=== PATIENT | male | born 1990 | race Caucasian/White ===

== ENCOUNTER 2018-12-29 08:47 | Inpatient (IN) | payer BC ==
--- NOTE | 2018-12-25 19:15 | Pre-op HX & Phy Repo 2 SIG ---
DATE OF ADMISSION: 12/30/2018 SCHEDULED FOR ADMISSION: December 29, 2018. SCHEDULED FOR SURGERY: December 30, 2018. HISTORY OF PRESENT ILLNESS: The patient is a 28-year-old male in overall stable health with history of ulcerative colitis affecting the entire colon. He has been on many medications in the past including mesalamine, Imuran, Humira, Remicade, Stelara, prednisone, and Xeljanz. All of his medications have been stopped and his last dose of prednisone was August 18, 2018. The last dose of Stelara was September 16, 2018. Since mid October, he is taking only Imodium on occasion as opposed to earlier when he needs to take Imodium on a daily basis. He has been advised to undergo proctocolectomy for intractable ulcerative colitis. He does not want an ileoanal J-pouch and wants to avoid a conventional ileostomy wearing an appliance. Accordingly, he is scheduled to undergo proctocolectomy laparoscopic-assisted with creation of a Argueta continent intestinal reservoir type of continent. PAST MEDICAL HISTORY: MEDICATIONS: Occasional Imodium. ALLERGIES: None. OPERATIONS: None. PHYSICAL EXAMINATION: GENERAL: The patient is 5 feet 6 inches and 160 pounds. [place] and will be examined upon arrival and dictated separately. IMPRESSION: Intractable ulcerative colitis. PLAN: Proctocolectomy and Argueta continent ileostomy. I have had a complete discussion with the patient regarding the nature of his condition, the nature of the surgery, indications, alternatives, options, and risks including bleeding, infection, injury to adjacent structures or organs, impotence or retrograde ejaculation, bladder dysfunction, delayed healing of the proctectomy, perineal wound, hernia, adhesions that could lead to obstructions and I have discussed the specific risks of the Argueta continent intestinal reservoir procedure including potential risks for reoperation for slipped valve or fistula or other issues with the pouch or stoma. We will have another complete discussion in person when the [place]. He will be admitted with insertion of a dual lumen PICC line, intravenous hydration during his bowel prep. Intravenous antibiotics started the night before surgery and subcutaneous heparin the morning of surgery. Gonzales Siddiqui M.D. DR: Adelso JOB#: [id number] CC:
[~2018-12-29] VITALS: Ht 167.6 cm; Wt 71.7 kg
[2018-12-29] MEDS ORDERED: Magnesium Citrate Liq Btl ORAL ONE ×2 (10:30→10:45)
[2018-12-29] MEDS ORDERED: Zolpidem 5mg tab ORAL PRN (10:30)
[2018-12-29 10:35] LABS: BASOPHILS % (AUTO) 1.5 % (0.0-2.0); EOSINOPHILS % (AUTO) 4.5 % (0.0-3.0); HEMATOCRIT 37.8 % (42.0-52.0); HEMOGLOBIN 11.3 G/DL (14.2-18.0); LYMPHOCYTES % (AUTO) 32.6 % (20.0-45.0); MEAN CORPUSCULAR VOLUME 74 FL (80-99); MONOCYTES % (AUTO) 13.9 % (1.0-10.0); NEUTROPHILS % (AUTO) 47.5 % (45.0-75.0); PLATELET COUNT 292 K/UL (150-450); RED CELL DISTRIBUTION WIDTH 13.8 % (11.6-14.8); WHITE BLOOD COUNT 6.3 K/UL (4.8-10.8)
[2018-12-29 10:51] LABS: ANION GAP 6 mmol/L (5-15); BLOOD UREA NITROGEN 9 mg/dL (7-18); CALCIUM 9.2 MG/DL (8.5-10.1); CARBON DIOXIDE 29 MMOL/L (21-32); CHLORIDE 102 MMOL/L (98-107); CREATININE 0.9 MG/DL (0.55-1.30); POTASSIUM 4.1 MMOL/L (3.5-5.1); SODIUM 137 MMOL/L (136-145)
[2018-12-29 10:52] LABS: INR 1.1 (0.9-1.1)
[2018-12-29 10:56] LABS: ALANINE AMINOTRANSFERASE 11 U/L (12-78); ALBUMIN 3.4 G/DL (3.4-5.0); ALBUMIN/GLOBULIN RATIO 0.9 (1.0-2.7); ALKALINE PHOSPHATASE 120 U/L (46-116); ASPARTATE AMINO TRANSFERASE 18 U/L (15-37); BILIRUBIN,TOTAL 0.6 MG/DL (0.2-1.0)
--- NOTE | 2018-12-29 11:00 | NUR ---
NURSE NOTES: Pt able to answer all questions, accompanied by father. AOx4. Asking multiple questions related to pending procedure in regards to recovery time, physical activity, and diet. Benefits of procedure and positive impact social life explained
[2018-12-29] MEDS: Neomycin Sulfate 500mg Tab ORAL SCH ×3 (11:21→21:30)
[2018-12-29 12:00] VITALS: BP 94/62
--- NOTE | 2018-12-29 12:48 | NUR ---
NURSE NOTES: Specimen taken down to laboratory pt , currently in restroom
[2018-12-29 12:49] LABS: APPEARANCE,URINE CLEAR; BILIRUBIN, URINE NEGATIVE (NEGATIVE); COLOR,URINE PALE YELLOW; GLUCOSE, URINE (UA) NEGATIVE (NEGATIVE); KETONES,URINE NEGATIVE (NEGATIVE); LEUKOCYTE ESTERASE ,URINE NEGATIVE (NEGATIVE); NITRITE,URINE NEGATIVE (NEGATIVE); PH,URINE 7 (4.5-8.0); PROTEIN,URINE NEGATIVE (NEGATIVE); UROBILINOGEN,URINE NORMAL MG/DL (0.0-1.0)
[2018-12-29] MEDS: Heparin1,000 units/500ml Premix(Conc:2 units/ml) IV SCH (13:45)
[2018-12-29] MEDS ORDERED: Lidocaine 1% Plain 30 ml INJ SCH (13:45)
--- NOTE | 2018-12-29 13:47 | Diagnostic Imaging Report ---
Indication: Dyspnea Comparison: None A single view chest radiograph was obtained. Findings: Cardiomediastinal appearance is within normal limits for age. The lungs are clear. Pulmonary vascularity is appropriate. The diaphragmatic contour is smooth and costophrenic angles are sharp. No pleural effusions are identified. The bones are unremarkable. Impression: No acute findings
--- NOTE | 2018-12-29 14:46 | NUR ---
NURSE NOTES: Pt taken down for picc line placement, and has returned to room, escorted by tech in w/c
--- NOTE | 2018-12-29 15:05 | Anethesia Preoperative Eval ---
Anesthesia Pre-op PMH/ROS General Date of Evaluation: Dec 29, 2018 Time of Evaluation: 15:05 Anesthesiologist: meghan ASA Score: ASA 2 Mallampati Score Class I : Soft palate, uvula, fauces, pillars visible Class II: Soft palate, uvula, fauces visible Class III: Soft palate, base of uvula visible Class IV: Only hard plate visible Mallampati Classification: Class II Surgeon: Artur Diagnosis: Ulcerative colitis Surgical Procedure: proctocolectomy Anesthesia History: none Family History: no anesthesia problems Allergies: Coded Allergies: No Known Allergies (Unverified , 12/29/18) Medications: see eMAR Patient NPO?: Yes NPO Date: Dec 29, 2018 NPO Time: 00:59 Past Medical History Cardiovascular: Denies: HTN, CAD, FL, valve dz, arrhythmia, other Pulmonary: Denies: asthma, COPD, EDILBERTO, other Gastrointestinal/Genitourinary: Reports: other - intractable colitis; Denies: GERD, CRI, ESRD Neurologic/Psychiatric: Denies: dementia, CVA, depression/anxiety, TIA, other Endocrine: Denies: DM, hypothyroidism, steroids, other HEENT: Denies: cataract (L), cataract (R), glaucoma, [place] (L), [place] (R), other Hematology/Immune: Reports: anemia; Denies: DVT, bleeding disorder, other PSxH Narrative: see H&P Anesthesia Pre-op Phys. Exam Physician Exam Last Vital Signs Date Time Temp Pulse Resp B/P (MAP) Pulse Ox O2 Delivery O2 Flow Rate FiO2 12/29/18 12:00 98.0 20 94/62 (73) 99 12/29/18 09:36 Room Air Constitutional: NAD Neurologic: CN 2-12 intact Cardiovascular: RRR Respiratory: CTA Gastrointestinal: S/NT/ND Airway Exam Mallampati Classification 2 Mallampati Score: Class II MO: full Neck: normal ROM: full Dentures: no upper, no lower Anesthesia Pre-op A/P Labs Hematology Test 12/29/18 10:25 White Blood Count 6.3 K/UL (4.8-10.8) Red Blood Count 5.10 M/UL (4.70-6.10) Hemoglobin 11.3 G/DL (14.2-18.0) L Hematocrit 37.8 % (42.0-52.0) L Mean Corpuscular Volume 74 FL (80-99) L Mean Corpuscular Hemoglobin 22.1 PG (27.0-31.0) L Mean Corpuscular Hemoglobin Concent 29.8 G/DL (32.0-36.0) L Red Cell Distribution Width 13.8 % (11.6-14.8) Platelet Count 292 K/UL (150-450) Mean Platelet Volume 6.4 FL (6.5-10.1) L Neutrophils (%) (Auto) 47.5 % (45.0-75.0) Lymphocytes (%) (Auto) 32.6 % (20.0-45.0) Monocytes (%) (Auto) 13.9 % (1.0-10.0) H Eosinophils (%) (Auto) 4.5 % (0.0-3.0) H Basophils (%) (Auto) 1.5 % (0.0-2.0) Coagulation Test 12/29/18 10:25 Prothrombin Time 11.4 SEC (9.30-11.50) Prothromb Time International Ratio 1.1 (0.9-1.1) Activated Partial Thromboplast Time 34 SEC (23-33) H Chemistry Test 12/29/18 10:25 Sodium Level 137 MMOL/L (136-145) Potassium Level 4.1 MMOL/L (3.5-5.1) Chloride Level 102 MMOL/L (98-107) Carbon Dioxide Level 29 MMOL/L (21-32) Anion Gap 6 mmol/L (5-15) Blood Urea Nitrogen 9 mg/dL (7-18) Creatinine 0.9 MG/DL (0.55-1.30) Estimat Glomerular Filtration Rate > 60 mL/min (>60) Glucose Level 93 MG/DL (74-106) Calcium Level 9.2 MG/DL (8.5-10.1) Total Bilirubin 0.6 MG/DL (0.2-1.0) Aspartate Amino Transf (AST/SGOT) 18 U/L (15-37) Alanine Aminotransferase (ALT/SGPT) 11 U/L (12-78) L Alkaline Phosphatase 120 U/L (46-116) H Total Protein 7.4 G/DL (6.4-8.2) Albumin 3.4 G/DL (3.4-5.0) Globulin 4.0 g/dL Albumin/Globulin Ratio 0.9 (1.0-2.7) L Studies Pre-op Studies: EKG - sr Risk Assessment & Plan Plan: general Status Change Before Surgery: Ruthy Rousseau CRNA Dec 29, 2018 15:05
--- NOTE | 2018-12-29 15:59 | Diagnostic Imaging Report ---
Indication: oil heaterman venous access Findings: After the indications, procedure, risks, complications, and alternatives of the procedure were explained, written informed consent was obtained. The left upper extremity was prepped with alcohol. All elements of maximal sterile barrier technique were followed including usage of a cap, mask, sterile gown, sterile gloves, hand hygiene and a large sterile sheet. Sonographic evaluation of the upper extremity was performed demonstrating a patent and compressible basilic vein. Access was obtained under real-time ultrasound guidance (with utilization of sterile gel and sterile probe cover) and digital image was saved and archived. An .018 wire was introduced. Needle exchanged for a 5 Sinhala peel-away sheath. Measurements were obtained. A 5 Sinhala dual-lumen Power PICC line catheter was cut to 40 cm and introduced over the wire. Peel-away sheath and wire were removed.Catheter was secured to the skin using 2-0 Prolene suture. Both ports aspirate and flush easily. A single fluoroscopic image shows the distal tip in the superior vena cava. Total fluoroscopic time 42 seconds Impression: Successful placement of an upper extremity PICC line catheter
[2018-12-29 16:00] VITALS: BP 96/63
--- NOTE | 2018-12-29 16:21 | General Progress Note ---
Progress Note Progress Note H&P dictated. Intractable Ulcerative Colitis. Plan: Laparoscopic assisted proctocolectomy, and Argueta Continent Intestinal [place] Full discussion with patient, site for Argueta pouch stoma selected, all questions answered. Gonzales Siddiqui MD Dec 29, 2018 16:21
--- NOTE | 2018-12-29 18:00 | NUR ---
NURSE NOTES: Pt seen by Dr Siddiqui earlier in shift , explained procedure to him, verbalized concerns. Pt aware that he will be NPO at midnight for pending procedure. Consent signed. Per pt would like transfusion in case of emergency, despite family Jehovah witness Beliefs. Pt is ambulatory, alert and orientated x 4 , . Dr Hastings seen pt noted a hernia on assessment. Dr Koroma phoned due to pt request to repair tomorrow during surgery. Pt requested to see labs at that time requested CRP. Dr Graves gave approval for CRP. Call light is in reach. Items inventory, pt has lap top and 2 phones at bedside
[2018-12-29] MEDS: D5 1/2NS w/KCl 20mEq 1,000 ML IV SCH (18:22)
--- NOTE | 2018-12-29 18:22 | NUR ---
NURSE NOTES: Pt has picc line
[2018-12-29 20:00] VITALS: BP 104/68
[2018-12-29] MEDS: Dyna-Hex 2% Top Sol 2oz TOPIC SCH (20:00)
--- NOTE | 2018-12-29 20:00 | NUR ---
NURSE NOTES: Received report from AM RN. Patient is resting comfortably in bed. VSS, no c/o of pain or SOB. Patient on clear liquids, NPO at midnight. PICC site on left upper arm clean, dry and intact. Consent signed for surgery in AM.
--- NOTE | 2018-12-29 20:00 | NUR ---
NURSE NOTES: Received report from AM RN. Patient is resting comfortably in bed, VSS, PICC site C/D/I. no c/o of pain or SOB. Consent signed for surgical procedure in AM. On clear liquid diet with orders for NPO at midnight 12/30/18. Addendum: 12/30/18 at 0139 by Zelalem Chopra RN duplicate note
--- NOTE | 2018-12-29 20:34 | NUR ---
NURSE NOTES: Orders put in for CRP per Venkata
--- NOTE | 2018-12-29 20:35 | NUR ---
HAND-OFF: Report given to Jordin VINSON.
--- NOTE | 2018-12-29 23:15 | Pre-op HX & Phy Repo 2 SIG ---
DATE OF ADMISSION: 12/29/2018 HISTORY: The [place]. Please see previously dictated history. Additional information he provides is that he was diagnosed with ulcerative colitis at age 18. He went into remission, but for the past 4 years, he has had severe symptoms and failed all medical treatments. Currently, he is in a partial remission, having occasional diarrhea, but also passes blood per rectum on a daily basis, and overall senses that he does not feel well. His only medication is occasional Imodium. He has been off all biologics and prednisone since the end of August 2018. He also states that he comes from a family with a scientologist of Judaism, but he is partially subscribing and that if it is an emergency for him to receive blood transfusions then he would accept that. PHYSICAL EXAMINATION: GENERAL: The patient is well developed and well nourished, appears slightly thinner than ideal weight, 5 feet 6 inches, approximately 160 pounds. HEENT: Within normal limits. LUNGS: Clear. HEART: Regular rhythm. BREASTS: Without masses. ABDOMEN: Abdomen is soft and flat without tenderness, mass, or organomegaly. GENITOURINARY: Testis and scrotum within normal limits. RECTAL: Without any perianal skin irritation. EXTREMITIES: Without edema. Pulses 2+ femoral to pedal bilaterally. NEUROLOGIC: Physiologic. IMPRESSION: Intractable ulcerative colitis. PLAN: The patient will undergo laparoscopic-assisted proctocolectomy and creation of a Argueta continent intestinal reservoir type of continent ileostomy. He will also undergo a catheter gastrostomy for decompression. I have had a full discussion again in detail with the patient regarding the nature of the procedures. I selected a new stoma site for the Argueta pouch low in the right lower quadrant and discussed the nature of the surgery including gastrostomy. I have also reviewed all the risks of surgery, which I have addressed in the previous dictation. He will receive broad-spectrum perioperative antibiotics and will likely need TPN as his albumin prehydration is 3.4 and his hemoglobin is 11.3. He will receive preoperative subcutaneous heparin as well. Gonzales Siddiqui M.D. DR: ROSALIE JOB#: [id number] CC:
[2018-12-30] VITALS (14 sets, daily range): BP systolic 89–115; BP diastolic 60–99
[2018-12-30] MEDS: Ampicillin/Sulbactam Sod 3 GM in NS 110 ML IV SCH ×4 (00:02→16:59)
[2018-12-30 04:30] LABS: BASOPHILS % (AUTO) 1.4 % (0.0-2.0); EOSINOPHILS % (AUTO) 5.5 % (0.0-3.0); HEMATOCRIT 33.2 % (42.0-52.0); LYMPHOCYTES % (AUTO) 30.5 % (20.0-45.0); MEAN CORPUSCULAR VOLUME 74 FL (80-99); MONOCYTES % (AUTO) 14.7 % (1.0-10.0); NEUTROPHILS % (AUTO) 47.9 % (45.0-75.0); PLATELET COUNT 252 K/UL (150-450)
[2018-12-30 05:11] LABS: ALANINE AMINOTRANSFERASE 13 U/L (12-78); ALBUMIN 2.9 G/DL (3.4-5.0); ALBUMIN/GLOBULIN RATIO 0.8 (1.0-2.7); ANION GAP 6 mmol/L (5-15); ASPARTATE AMINO TRANSFERASE 16 U/L (15-37); BILIRUBIN,TOTAL 0.6 MG/DL (0.2-1.0); BLOOD UREA NITROGEN 5 mg/dL (7-18); CALCIUM 8.9 MG/DL (8.5-10.1); CARBON DIOXIDE 28 MMOL/L (21-32); CHLORIDE 105 MMOL/L (98-107); CREATININE 0.9 MG/DL (0.55-1.30); FERRITIN 7 NG/ML (8-388); POTASSIUM 3.8 MMOL/L (3.5-5.1); SODIUM 139 MMOL/L (136-145)
[2018-12-30] MEDS: D5 1/2NS w/KCl 20mEq 1,000 ML IV SCH (05:13)
[2018-12-30 05:18] LABS: % IRON SATURATION 6 % (15-50); IRON 14 ug/dL (50-175); TOTAL IRON BINDING CAPACITY 233 ug/dL (250-450)
[2018-12-30] MEDS ORDERED: Heparin 5000 units/ml inj SUBQ ONE (05:30)
[2018-12-30 05:51] LABS: ALKALINE PHOSPHATASE 104 U/L (46-116)
[2018-12-30] MEDS ORDERED: Neostigmine 1mg/ml 10ml Inj ONE (07:00)
[2018-12-30] MEDS ORDERED: NS Irrig 1000ml ONE ×2 (07:00→15:36)
[2018-12-30] MEDS ORDERED: LR 1000ml ONE (07:00)
[2018-12-30] MEDS ORDERED: Sterile Water Irrig 1000ml IRRIG ONE (07:00)
--- NOTE | 2018-12-30 07:05 | NUR ---
Hand off given to KAREL Santiago.
[2018-12-30] MEDS ORDERED: Midazolam 2mg/2ml Inj ONE (07:08)
[2018-12-30] MEDS ORDERED: fentaNYL 100 mcg/2 mL IV ONE ×2 (07:08→08:26)
[2018-12-30] MEDS ORDERED: TransDerm Scop 1.5mg/72HR Patch TDERMAL ONE ×2 (07:12→09:15)
[2018-12-30] MEDS ORDERED: Zemuron 50mg/5ml Inj IV ONE ×2 (07:13→11:37)
[2018-12-30] MEDS ORDERED: Lidocaine 1% MPF 10mg/ml 5ml ONE (07:15)
[2018-12-30] MEDS ORDERED: Propofol 200mg/20ml IV ONE ×2 (07:15→12:37)
--- NOTE | 2018-12-30 07:15 | Pre-Procedure Note/Attestation ---
Pre-Procedure Note/Attestation Complete Prior to Procedure Planned Procedure: not applicable Procedure Narrative: laparoscopic assisted proctocolectomy, Argueta Continent Intestinal Parc, gastrostomy Indications for Procedure Pre-Operative Diagnosis: intractable ulcerative colitis Attestation I attest that I discussed the nature of the procedure; its benefits; risks and complications; and alternatives (and the risks and benefits of such alternatives ), prior to the procedure, with the patient (or the patient's legal software support representative). I attest that, if there was a reasonable possibility of needing a blood transfusion, the patient (or the patient's legal software support representative) was given the [facility] standardized written summary, pursuant to the [place] Blood Safety Act ([place] Health and Safety Code # 1645, as amended). I attest that I re-evaluated the patient just prior to the surgery and that there has been no change in the patient's H&P, except as documented below: none Gonzales Siddiqui MD Dec 30, 2018 07:15
[2018-12-30] MEDS ORDERED: NeoSporin Gu Irrig 1ml Amp IRRIG ONE (07:17)
[2018-12-30] MEDS ORDERED: Bacitracin 50000 Units Vial ONE (07:17)
[2018-12-30] MEDS ORDERED: NS Irrig 1000ml IRRIG ONE ×2 (08:00→09:29)
--- NOTE | 2018-12-30 08:00 | NUR ---
NURSE NOTES: Received a report from KAREL Santiago patient off unit for surgery.
[2018-12-30] MEDS ORDERED: Thrombin 5000 units TOPIC ONE (09:13)
[2018-12-30] MEDS ORDERED: Acetaminophen (Non formulary) 100 ML IV ONE (09:15)
[2018-12-30] MEDS ORDERED: Morphine Sulfate 10mg/ml Inj ONE (11:35)
[2018-12-30] MEDS ORDERED: Ampicillin/Sulbactam Sod 3 GM in NS 110 ML IV SCH (12:00)
[2018-12-30] MEDS ORDERED: LR 1000ml 1,000 ML IVLG SCH (12:06)
[2018-12-30] MEDS ORDERED: Glycopyrrolate 0.2mg/ml 1ml Vial ONE (12:11)
[2018-12-30] MEDS ORDERED: Metoclopramide 10mg/2ml Inj IVP PRN (12:15)
[2018-12-30] MEDS ORDERED: Ketorolac 30mg Inj IV PRN (12:15)
[2018-12-30] MEDS ORDERED: DiphenhydrAMINE 50mg/ml Inj IVP PRN ×2 (12:15→13:15)
[2018-12-30] MEDS ORDERED: Midazolam 2mg/2ml Inj IVP PRN (12:15)
[2018-12-30] MEDS ORDERED: Hydromorphone 0.5mg/0.5ml inj IVP PRN (12:15)
[2018-12-30] MEDS ORDERED: Meperidine 50mg/ml Inj(FOR RIGORS ONLY) IV PRN (12:15)
--- NOTE | 2018-12-30 13:12 | Brief Operative Note ---
Immediate Post Operative Note Operative Note Pre-op Diagnosis: intractable ulcerative colitis Procedure: laparoscopic assisted total abdominal colectomy and Giana ileostomy Post-op Diagnosis: same Post-op Diagnosis: same as pre-op Findings: consistent w/pre-op dx studies Surgeon: ken Public Relations: khanh Anesthesiologist: eugenio Anesthesia: general Specimen: yes - abdominal colon and rectosigmoid, omentum Complications: none Condition: stable Fluids: 2 units PRBC Estimated Blood Loss: volume - 800cc Implant(s) used?: No Gonzales Siddiqui MD Dec 30, 2018 13:12
--- NOTE | 2018-12-30 13:14 | Immediate Post-Op Evaluation ---
Immediate Post-Op Evalulation Immediate Post-Op Evalulation Procedure: Total colectomy, ileostomy placement Date of Evaluation: Dec 30, 2018 Time of Evaluation: 13:12 IV Fluids: 1000 Blood Products: Albumin 250, PRBC 2 units Estimated Blood Loss: 800 Urinary Output: 200 Blood Pressure Systolic: 104 Blood Pressure Diastolic: 70 Pulse Rate: 92 Respiratory Rate: 22 O2 Sat by Pulse Oximetry: 99 Temperature (Fahrenheit): 98.0 Pain Score (1-10): 2 Nausea: No Vomiting: No Complications none Patient Status: reacts, patent, extubated, none Hydration Status: adequate Harsh Nicholson MD Dec 30, 2018 13:14
[2018-12-30] MEDS ORDERED: LORazepam 1mg tab SL PRN ×2 (13:15)
[2018-12-30] MEDS ORDERED: PCA Education Pamphlet MISC ONE (13:15)
[2018-12-30] MEDS ORDERED: Naloxone 0.4mg/ml Inj IVP PRN (13:15)
[2018-12-30] MEDS ORDERED: Rate Change PCA 1 Each MISC PRN (13:15)
[2018-12-30] MEDS ORDERED: Morphine Sulfate 2mg/ml Inj(IV/IM USE ONLY) IV PRN (13:15)
[2018-12-30 13:20] LABS: HEMATOCRIT 33.5 % (42.0-52.0); HEMOGLOBIN 10.3 G/DL (14.2-18.0); MEAN CORPUSCULAR VOLUME 76 FL (80-99); PLATELET COUNT 245 K/UL (150-450); RED BLOOD COUNT 4.39 M/UL (4.70-6.10); RED CELL DISTRIBUTION WIDTH 15.3 % (11.6-14.8)
[2018-12-30] MEDS: Heparin1,000 units/500ml Premix(Conc:2 units/ml) IV SCH (13:45)
[2018-12-30] MEDS ORDERED: PCA Morphine 1mg/ml 30 ML IV ONE (13:53)
[2018-12-30] MEDS: PCA Morphine 1mg/ml 30 ML IV PRN (14:00)
--- NOTE | 2018-12-30 14:30 | NUR ---
*-* INSURANCE *-* ALL CLINICALS HAVE BEEN FAXED TO: [employer] F: [phone]
--- NOTE | 2018-12-30 14:35 | NUR ---
NURSE NOTES: Received patient from KAREL Prince awake alert with complaints of pain 4/10, on BODY DIE MAKER morphine continuous 1mg, bolus dose 1mg, 6minute lock out and 26mg 4hr max dose, patient education provided regarding BODY DIE MAKER use. FC in place draining well, surgical site dressing dry and intact with out no bleeding or stain, Ileo stoma red and protruded, bag in place VS WNL, will continue to monitor.
[2018-12-30] MEDS ORDERED: NS 500ML ONE (15:36)
[2018-12-30] MEDS ORDERED: Tubing IV Secondary IV ONE (15:36)
--- NOTE | 2018-12-30 16:20 | CDS Physician Query ---
Dear Dr. Gonzales Siddiqui Date: 12/30/2018 CDS: Raiza Speedy Clarification is required for compliance, coding accuracy, and to reflect severity of illness for this patient. History: 28 yo male with intractable ulcerative colitis s/p laparoscopic- assisted proctocolectomy and creation of a Argueta continent intestinal reservoir type of continent ileostomy. Hemoglobin: 12/29 11.3, 12/30 10.0 Treatment: 2 units RBCs transfused on 12/30 Please Clarify the diagnosis associated with this finding: [] Drop in hemoglobin without anemia [] Acute blood loss anemia [] Expected postoperative acute blood loss anemia [] Other [] Unspecified Present on Admission: [] Yes [] No [] Clinically Undetermined Physician signature Date Please also document in your Progress Notes and/or Discharge Summary and indicate if the condition was present on admission. RAMÓN
--- NOTE | 2018-12-30 16:50 | General Progress Note ---
Progress Note Progress Note Pre-operative labs: albumin 2.9 Hgb 10.0 serum iron 14 ferritin 7 B12 and folate okay Awake and alert, comfortable, abdomen soft, stoma pink Imp. Stable Discussed surgery with patient and father in detail Plan: start TPN tomorrow start Venofer IV Gonzales Allison MD Dec 30, 2018 16:50
[2018-12-30] MEDS: D5 1/4NS w/KCl 20mEq 1,000 ML IV SCH (16:58)
[2018-12-30] MEDS: PCA shift volume MISC SCH (19:00)
--- NOTE | 2018-12-30 19:45 | NUR ---
NURSE NOTES: Received handoff report from KAREL Pike. Patient is resting in bed with bilateral SCD devices on. GRAIN CLEANER AND TRANSFER OPERATOR remote within reach with bed in low and locked position. Antibiotics running IV fluids D5 1/2NS with KCL 20mEq at 100ml/hr. Stoma on lower right side is red and moist with scant red blood draining to the appliance. 4x4 abdominal dressing is clean, dry and intact.
--- NOTE | 2018-12-30 19:55 | NUR ---
HAND-OFF: Report given to Jordin Miller,RN & Chantell RN patient stable reported pain 4/10, surgical site dry and intact, Ileostomy stoma bright red and protruded, no out put no bleeding. FC out put 150ml light miladys endorsed retirement specialist to monitor the urine out put.
[2018-12-30] MEDS: Dyna-Hex 2% Top Sol 2oz TOPIC SCH (20:00)
[2018-12-30] MEDS ORDERED: Fat Emulsion Iv 20% 250 ML IV SCH (21:00)
[2018-12-30] MEDS: Iron Sucrose 100 MG in NS 55 ML IV SCH (21:59)
--- NOTE | 2018-12-30 23:00 | Operative Note - Dictated ---
DATE OF OPERATION: 12/30/2018 SURGEON: Gonzales Siddiqui M.D. ROD STRAIGHTENER SURGEON: Danie Koroma M.D. ANESTHESIOLOGIST: Harsh Nicholson M.D. TYPE OF ANESTHESIA: General endotracheal. PREOPERATIVE DIAGNOSIS: Intractable ulcerative colitis. POSTOPERATIVE DIAGNOSIS: Intractable ulcerative colitis. OPERATION PERFORMED: Laparoscopic-assisted total abdominal colectomy and conventional Giana ileostomy. PROCEDURE IN DETAIL: The patient was taken to the operating room and under general endotracheal anesthesia with sequential compression device stockings and Anderson catheter in place, she was prepped and draped in the lithotomy position with Denny stirrups appropriately padded with a gel pad under the sacrum to facilitate abdominoperineal proctectomy as part of the planned proctocolectomy, which unfortunately was not completed. A lower midline incision was made and a GelPort placed, and using a 30-degree angled video laparoscope with additional trocars placed with a gel pad as a single port entry, the right colon and hepatic flexure was mobilized identifying and protecting the duodenum. The lesser sac was entered and the splenic flexure taken down. The colon was enlarged with redundant fat suggestive of Crohn's colitis as opposed to ulcerative colitis and there was significant bleeding with very friable mesentery throughout. This was controlled with the Thunderbeat electrosurgical device and subsequently converted to open with 3-0 silk suture ligatures and 0 silk ties. The mesentery was taken after dividing the terminal ileum with a EMA stapling device and we proceeded around the descending colon. The rectosigmoid was dilated and inflamed with redundant epiploic appendages despite the patient's preoperative malnutrition. The colon was divided here with the EMA stapling device and the abdominal colon given off the field for pathology, found diffuse inflammation, but no evidence of malignancy on preliminary examination. Protecting the bladder and ureters, the rectosigmoid was dissected down to the pelvic floor below the bladder flap, staying close to the bowel wall. The linear stapler 60 Green Load was fired across the distal rectum leaving a stump of approximately 5 to 6 cm, which would be suitable for perineal proctectomy subsequently. The proximal bowel was divided, controlled with intestinal clamps, and the rectus sigmoid given off the field for pathology and found similar findings. There was an approximate 800 mL blood loss during the procedure and the patient had a preoperative hemoglobin of 10 with very low serum iron and ferritin levels preoperatively upon admission the day before surgery. I decided that continuing and do a more extensive lengthy procedure with this procedure lasting already four hours to include perineal portion of the abdominoperineal proctectomy was not advisable and neither was creating a Argueta continent intestinal reservoir type of continent ileostomy at this time. The field had been protected with antibiotic soaked laps and the field was irrigated and carefully inspected throughout the abdomen, subdiaphragmatic spaces, gallbladder and liver were normal. The small bowel was ample in amount and completely normal. There was no sign of inflammatory bowel disease affecting the small intestine. A circular disc of skin was excised at an appropriate location high in the right lower quadrant, and with a cruciate incision in the fascia, a 2 fingerbreadth abdominal wall hiatus was created and the end of the ileum brought through with the mesentery cephalad. The mesentery was taken down with the Thunderbeat for approximately 4 to 5 cm. The abdomen was again inspected and hemostasis was seen to be secured. The midline fascia was closed in one layer with #1 looped PDS and antibiotic irrigation used and the skin closed with rickie and ileostomy appliance 1-3/4 inch was applied followed by dry sterile dressing. Final sponge and needle counts were correct. The patient tolerated the procedure well with mild tachycardia, having received 2 units of blood and left the operating room in stable condition. Gonzales Siddiqui M.D. DR: ROSALIE JOB#: [id number] CC:
[2018-12-31] VITALS: BP 91/66
[2018-12-31] MEDS: D5 1/4NS w/KCl 20mEq 1,000 ML IV SCH ×3 (00:59→20:34)
[2018-12-31] MEDS: Ampicillin/Sulbactam Sod 3 GM in NS 110 ML IV SCH ×4 (00:59→17:27)
[2018-12-31 04:00] VITALS: BP 101/63
[2018-12-31] MEDS: PCA Morphine 1mg/ml 30 ML IV PRN ×2 (04:28→11:11)
[2018-12-31 05:50] LABS: BASOPHILS % (AUTO) 0.5 % (0.0-2.0); EOSINOPHILS % (AUTO) 0.1 % (0.0-3.0); HEMATOCRIT 29.8 % (42.0-52.0); HEMOGLOBIN 9.2 G/DL (14.2-18.0); LYMPHOCYTES % (AUTO) 12.7 % (20.0-45.0); MEAN CORPUSCULAR VOLUME 76 FL (80-99); MONOCYTES % (AUTO) 10.3 % (1.0-10.0); NEUTROPHILS % (AUTO) 76.4 % (45.0-75.0); PLATELET COUNT 218 K/UL (150-450); RED BLOOD COUNT 3.93 M/UL (4.70-6.10); RED CELL DISTRIBUTION WIDTH 15.3 % (11.6-14.8); WHITE BLOOD COUNT 13.9 K/UL (4.8-10.8)
[2018-12-31 06:10] LABS: ANION GAP 5 mmol/L (5-15); BLOOD UREA NITROGEN 6 mg/dL (7-18); CALCIUM 8.4 MG/DL (8.5-10.1); CARBON DIOXIDE 28 MMOL/L (21-32); CHLORIDE 104 MMOL/L (98-107); CREATININE 0.9 MG/DL (0.55-1.30); POTASSIUM 4.3 MMOL/L (3.5-5.1); SODIUM 137 MMOL/L (136-145)
[2018-12-31] MEDS: PCA shift volume MISC SCH ×2 (07:18→19:29)
--- NOTE | 2018-12-31 07:59 | 48 Hour Post Anesthesia Eval ---
Post Anesthesia Evaluation Procedure: Total colectomy, ileostomy placement Date of Evaluation: Dec 31, 2018 Airway: patent Nausea: No Vomiting: No Hydration Status: adequate Cardiopulmonary Status: at baseline Mental Status/LOC: patient returned to baseline Post-Anesthesia Complications: 0 Follow-up care needed: N/A - further care as per primary team Magi Mauro MD Dec 31, 2018 07:59
[2018-12-31 08:00] VITALS: BP 99/69
--- NOTE | 2018-12-31 08:15 | NUR ---
NURSE NOTES: During shift change patient awake alert with out no distress, with complaints of pain /10, Ileo stoma red and protruded, draining small serosanguineous drainage, surgical dressing dry and intact. FC in place draining well received report over night urine out put 400ml, but currently additional 400ml in the bag and urine color getting independent jeweler from dark miladys to yellow. family at bedside, call Light and LANGUAGE TRANSLATOR button, with in reach, bed locked and low position will continue to monitor.
--- NOTE | 2018-12-31 09:14 | NUR ---
RD ASSESSMENT & RECOMMENDATIONS SEE CARE ACTIVITY FOR COMPLETE ASSESSMENT DAILY ESTIMATED NEEDS: Needs based on Surgery/ 69.4kg 25-30 kcals/kg 9054-9907 total kcals 1-2 g protein/kg 69-138 g total protein 25-30 mL/kg 4288-6751 total fluid mLs NUTRITION DIAGNOSIS: Altered GI function R/T h/o UC as evidenced by s/p total abdominal colectomy and creation of conventional Giana ileostomy, NPO, to start TPN. CURRENT DIET: NPO PO DIET RECOMMENDATIONS: DIET PER PARENTERAL NUTRITION RECOMMENDATIONS: D/AA Rate: 77 IL Rate: 10 Total Rate: 87 Volume: 2088 % Dextrose: 17 % AA: 5.2 Energy (kcals/kg): 1932 Protein (g/kg protein): 96 Nonprotein KCALS: 1548 GIR (mg CHO/kg/min): 3.1 % Fat KCALS: 24.8 NCP: N Ratio: 100.8 TPN Comment: *D17% AA 5.2% @ 77ml/hr + IL 20% @10ml/hr -> total of 87ml/hr, all 3:1 *TPN at goal will provide 100% est kcal/prot needs (28kcal/1.4g prot per kg) *Initiate TPN slowly @ 27ml/hr x 6 hrs, advance 10mlq 4-6 hrs as tolerated to goal rate. ADDITIONAL RECOMMENDATIONS: * Standing weight as able for accurate CBW, weekly wt monitoring * Monitor lytes, LFTs, BGs daily w/ TPN
[2018-12-31 12:00] VITALS: BP 102/62
--- NOTE | 2018-12-31 12:30 | NUR ---
NURSE NOTES: patient reported generalized itching, RN observed patient scratching, Ordered Benadryl given, and patient teaching provided regarding the risk of sedation with HOUSE WORKER will continue to monitor.
[2018-12-31] MEDS ORDERED: Morphine Sulfate 2mg/ml Inj(IV/IM USE ONLY) IV PRN (13:36)
[2018-12-31] MEDS ORDERED: PCA Morphine 1mg/ml 30 ML IV PRN (13:36)
[2018-12-31] MEDS ORDERED: Naloxone 0.4mg/ml Inj IVP PRN (13:37)
--- NOTE | 2018-12-31 13:41 | General Progress Note ---
Progress Note Progress Note AVSS c/o incisional pain and inability to take a deep breath Abdomen soft, mildly distended, incision clean, stoma pink WBC 13,900 Hgb 9.2 after 2 units PRBC in OR (was 10 pre-op) BUN 6 Cr 0.9 Urine 500cc overnight clear Ileostomy no effluent yet Imp> Ileus Post-op pain SOB Plan; STAT CXR and EKG Add Toradol to pain management npo, TPN (pre-op albumin 2.9) Gonzales Siddiqui MD Dec 31, 2018 13:41
[2018-12-31] MEDS ORDERED: Ketorolac 30mg Inj IV SCH (13:43)
[2018-12-31] MEDS ORDERED: Rate Change PCA 1 Each MISC PRN (13:45)
--- NOTE | 2018-12-31 14:05 | NUR ---
NURSE NOTES: Pt. reported for MD during round chest pain & SOB EKG and Chest x-ray done, VS WNL, oxygen saturation 100%, Toradol 30mg given, pain resolved patient on 3L oxygen, SOB and chest pain resolved per pt. will continue to monitor.
--- NOTE | 2018-12-31 15:08 | Diagnostic Imaging Report ---
Indication: Dyspnea Comparison: 12/29/2018 A single view chest radiograph was obtained. Findings: There is free intraperitoneal air due to recent surgery. Abdominal skin rickie present. Lung volumes are low but clear. Cardiac mediastinal silhouette is normal. There is a PICC line on the left. Bones are unremarkable. IMPRESSION: No acute disease. Peritoneal air indicative of recent surgery.
[2018-12-31 16:00] VITALS: BP 97/63
--- NOTE | 2018-12-31 17:00 | NUR ---
NURSE NOTES: Pt. education regarding ostomy care initiated by wound care nurse Dagoberto, for home use appliances use and support paper work started the paper work in patient chart with company folder. Education to be continued tomorrow with [employer] patient financial representative and wound care nurse. nurse to discuss the plan and required information with Dr. Siddiqui tomorrow nurse extension [phone] and Dagoberto also stated if not available in the office MD to call on her cell phone [phone] to discuss.
[2018-12-31] MEDS: DiphenhydrAMINE 50mg/ml Inj IVP PRN (18:07)
[2018-12-31 20:00] VITALS: BP 98/61
[2018-12-31] MEDS ORDERED: Dextrose 10% 1,000 ML IV PRN (20:00)
--- NOTE | 2018-12-31 20:04 | NUR ---
HAND-OFF: Report given to KAREL Billy patient stable condition 1800 BS reading 103 documented.
--- NOTE | 2018-12-31 20:05 | NUR ---
NURSE NOTES: Received report & pt from KAREL Pike. Pt lying in bed, a&ox4, on O2 via NC @ 3LPM, family member at bedside. No s/s of acute distress & no c/o pain at this time. PICC line intact with IVF running as ordered. PRINTING SIGN MACHINE OPERATOR setting checked. Anderson intact & draining to gravity. Surgical dressing C/D/I. Ileostomy appliance intact. Bed in lowest position, PRINTING SIGN MACHINE OPERATOR pump & call light within reach. Will continue to monitor.
[2018-12-31] MEDS: Dyna-Hex 2% Top Sol 2oz TOPIC SCH (20:35)
[2018-12-31] MEDS: Iron Sucrose 100 MG in NS 55 ML IV SCH (20:35)
[2018-12-31] MEDS: TPN IV SCH (20:36)
[2018-12-31] MEDS: FAT EMULSION 20% IV SCH (20:36)
[2019-01-01] VITALS: BP 94/60
[2019-01-01] MEDS: Ketorolac 30mg Inj IV PRN ×4 (00:10→19:45)
[2019-01-01] MEDS: Ampicillin/Sulbactam Sod 3 GM in NS 110 ML IV SCH ×2 (00:10→05:35)
[2019-01-01] MEDS: NovoLOG Insulin Flexpen SUBQ SCH ×4 (00:18→18:00)
[2019-01-01] MEDS: DiphenhydrAMINE 50mg/ml Inj IVP PRN ×2 (00:38→09:36)
[2019-01-01 04:00] VITALS: BP 96/57
[2019-01-01 06:06] LABS: BASOPHILS % (AUTO) 0.7 % (0.0-2.0); EOSINOPHILS % (AUTO) 2.2 % (0.0-3.0); HEMATOCRIT 26.1 % (42.0-52.0); HEMOGLOBIN 8.1 G/DL (14.2-18.0); LYMPHOCYTES % (AUTO) 11.4 % (20.0-45.0); MEAN CORPUSCULAR VOLUME 77 FL (80-99); MONOCYTES % (AUTO) 9.6 % (1.0-10.0); NEUTROPHILS % (AUTO) 76.2 % (45.0-75.0); PLATELET COUNT 176 K/UL (150-450); RED BLOOD COUNT 3.39 M/UL (4.70-6.10); RED CELL DISTRIBUTION WIDTH 15.6 % (11.6-14.8); WHITE BLOOD COUNT 9.4 K/UL (4.8-10.8)
[2019-01-01 06:18] LABS: ALANINE AMINOTRANSFERASE 13 U/L (12-78); ALBUMIN 2.1 G/DL (3.4-5.0); ALBUMIN/GLOBULIN RATIO 0.7 (1.0-2.7); ALKALINE PHOSPHATASE 72 U/L (46-116); ANION GAP 2 mmol/L (5-15); ASPARTATE AMINO TRANSFERASE 23 U/L (15-37); BILIRUBIN,TOTAL 0.3 MG/DL (0.2-1.0); BLOOD UREA NITROGEN 5 mg/dL (7-18); CALCIUM 8.2 MG/DL (8.5-10.1); CARBON DIOXIDE 33 MMOL/L (21-32); CHLORIDE 104 MMOL/L (98-107); CREATININE 0.9 MG/DL (0.55-1.30); PHOSPHORUS 3.1 MG/DL (2.5-4.9); POTASSIUM 4.5 MMOL/L (3.5-5.1); SODIUM 139 MMOL/L (136-145)
[2019-01-01] MEDS: PCA shift volume MISC SCH ×2 (07:25→19:23)
--- NOTE | 2019-01-01 07:25 | NUR ---
NURSE NOTES: WALKING ROUNDS DONE WITH OUTGOING RN. PATIENT ASLEEP BUT AROUSABLE TO NAME. SURGICAL SITE ASSESSED. ILEOSTOMY APPLIANCE INTACT. SS OUTPUT NOTED. NEGAR PICC LINE DRSG C/D/I. PCS SETTINGS VERIFIED AGAINST MD ORDER. PATIENT ABLE TO PERFORM RETURN DEMONSTRATION OF USING ARMOR RECONNAISSANCE SPECIALIST. STATES PAIN 3/10 ON PAIN SCALE. QUESTIONS ANSWERED NEEDS MET. DISCUSSED PLAN OF CARE FOR THE DAY. VERBALIZED UNDERSTANDING. PATIENT ENCOURAGED TO C/D/B USING PILLOW TO SPLINT ABDOMINAL SURGICAL SITE AND USE I/S. BE DIN LOWEST AND LOCKED POSITION. CALL LIGHT WITHIN REACH.
--- NOTE | 2019-01-01 07:30 | NUR ---
HAND-OFF: Report given to KAREL Bear. Rounds done. Pt in stable condition. Called & left msg to Dr. Siddiqui re: pt's H/H & Mg level. Current Hgb 8.1, Hct 26.1, & Mg 1.7. Awaiting call back. Endorsed to AM shift KAREL Bear.
[2019-01-01 08:00] VITALS: BP 120/72
[2019-01-01] MEDS ORDERED: Rate Change PCA 1 Each MISC PRN (08:00)
--- NOTE | 2019-01-01 08:06 | General Progress Note ---
Progress Note Progress Note AVSS No resp issues. Comfortable with MS CRYSTAL MOUNTER and Toradol Abdomen distended, soft, incision clean, stoma pink - no effluent yet WBC down 9400 Hgb 8.1 Mg 1.7 albumin 2.1 Urine 2900 Imp. Ileus Malnutrition Anemia Plan: npo, TPN, Venofer f/u labs ambulate TID d/c antibiotics Gonzales Siddiqui MD Jan 01, 2019 08:06
--- NOTE | 2019-01-01 11:31 | NUR ---
*-* INSURANCE *-* UPDATED CLINICALS HAVE BEEN FAXED TO: [employer] F: [phone]
[2019-01-01] MEDS: PCA Morphine 1mg/ml 30 ML IV PRN ×2 (11:49→20:41)
[2019-01-01 12:00] VITALS: BP 98/65
[2019-01-01] MEDS ORDERED: Tubing IV Secondary IV ONE (12:26)
--- NOTE | 2019-01-01 14:30 | NUR ---
NURSE NOTES: PATIENT SEEN BY WOUND CARE NURSE TONO FOR EDUCATION OF ILEOSTOMY APPLIANCE. AT BEDSIDE TO ENCOURAGE AND TO ASSIST WOUND CARE NURSE. PATIENT SEEMS RELUCTANT AND SLIGHTLY UNMOTIVATED TO TOUCH APPLIANCE AND BECOME MORE COMFORTABLE WITH APPLIANCE. FATHER AT BEDSIDE TO OBSERVE. WOUND CARE NURSE WILL SEE PATIENT AGAIN TOMORROW.PATIENT STATES THEY WILL BE MORE HANDS ON TOMORROW OR RETURN DEMONSTRATION WITH WOUND CARE NURSE SUPERVISION. CALL PLACED AT BEDSIDE TO CO + (PLUS) CARE TO REGISTER PATIENT FOR SUPPLIES AND 24HR. SUPPORT.
[2019-01-01 16:00] VITALS: BP 108/63
--- NOTE | 2019-01-01 16:00 | NUR ---
PARTS EXPEDITERSEVERITY OF ILLNESS COORDINATOR SI: Laparoscopic-assisted total abdominal colectomy and conventional Giana Ileostomy T. 98.1 HR 85 RR 17 B/P 98/65 CO2 35 IS: TPN IV LIPIDS IV IVF D5KCL @ 25ML/HR IRON IV MED/SURG STATUS
--- NOTE | 2019-01-01 17:51 | NUR ---
NURSE NOTES: PATIENT AMBULATED SEVERAL TIMES AROUND NURSING UNIT WITH MINIMUM ASSISTANCE REQUIRED. GAIT STEADY. PATIENT ENCOURAGED TO CONTINUE TO C/D/B AND USE I/S INSTRUCTED.VSS. AFEBRILE. PAIN CONTROLLED WITH MORPHINE FIELD IRONWORKER AND TORADOL B/T INJECTIONS.
--- NOTE | 2019-01-01 19:26 | NUR ---
HAND-OFF: Report given to RADHA CASTRO RN.
--- NOTE | 2019-01-01 19:30 | NUR ---
NURSE NOTES: Received report & pt from KAREL Bear. Pt lying in bed, a&ox4, on O2 via NC @ 1LPM, family member at bedside. No s/s of acute distress & no c/o pain at this time. PICC line intact with IVF running as ordered. CORPORATE AFFAIRS MANAGER setting checked. Anderson intact & draining to gravity. Surgical dressing C/D/I. Ileostomy appliance intact. Bed in lowest position, CORPORATE AFFAIRS MANAGER pump & call light within reach. Will continue to monitor.
[2019-01-01] MEDS: Dyna-Hex 2% Top Sol 2oz TOPIC SCH (19:44)
[2019-01-01] MEDS: TPN IV SCH (19:45)
[2019-01-01] MEDS: FAT EMULSION 20% IV SCH (19:45)
[2019-01-01] MEDS: D5 1/4NS w/KCl 20mEq 1,000 ML IV SCH (19:54)
[2019-01-01 20:00] VITALS: BP 110/73
[2019-01-01] MEDS: Iron Sucrose 100 MG in NS 55 ML IV SCH (20:40)
[2019-01-02] VITALS: BP 105/71
[2019-01-02] MEDS: NovoLOG Insulin Flexpen SUBQ SCH ×4 (00:10→18:31)
[2019-01-02] MEDS: DiphenhydrAMINE 50mg/ml Inj IVP PRN (01:24)
[2019-01-02 04:00] VITALS: BP 102/67
[2019-01-02] MEDS: Ketorolac 30mg Inj IV PRN ×3 (05:37→18:43)
[2019-01-02] MEDS: PCA Morphine 1mg/ml 30 ML IV PRN ×3 (06:21→23:22)
[2019-01-02 06:55] LABS: BASOPHILS % (AUTO) 0.6 % (0.0-2.0); EOSINOPHILS % (AUTO) 3.7 % (0.0-3.0); HEMOGLOBIN 8.8 G/DL (14.2-18.0); MEAN CORPUSCULAR VOLUME 76 FL (80-99); MONOCYTES % (AUTO) 7.3 % (1.0-10.0); NEUTROPHILS % (AUTO) 78.5 % (45.0-75.0); PLATELET COUNT 229 K/UL (150-450); RED BLOOD COUNT 3.67 M/UL (4.70-6.10); RED CELL DISTRIBUTION WIDTH 15.8 % (11.6-14.8); WHITE BLOOD COUNT 10.1 K/UL (4.8-10.8)
[2019-01-02 06:56] LABS: ANION GAP 5 mmol/L (5-15); BLOOD UREA NITROGEN 6 mg/dL (7-18); CALCIUM 8.6 MG/DL (8.5-10.1); CARBON DIOXIDE 31 MMOL/L (21-32); CHLORIDE 100 MMOL/L (98-107); CREATININE 0.7 MG/DL (0.55-1.30); POTASSIUM 3.7 MMOL/L (3.5-5.1); SODIUM 136 MMOL/L (136-145)
--- NOTE | 2019-01-02 07:00 | NUR ---
NURSE NOTES: Pt ambulated around the hallway x1 with RN assist & walker. Steady gait. In no acute distress.
[2019-01-02] MEDS: PCA shift volume MISC SCH ×2 (07:24→19:13)
--- NOTE | 2019-01-02 07:30 | NUR ---
NURSE NOTES: Patient is in bed awake and able to verbalize needs. Stable. Denies pain or SOB. Patient encouraged to use call light for assistance, verbalized understanding. Patient in bed in locked and lowest position with call light within reach. Will continue to monitor.
--- NOTE | 2019-01-02 07:30 | NUR ---
HAND-OFF: Report given to KAREL Doyle. Rounds done. Pt in stable condition. Called & left Dr. Siddiqui re: pt's Mg level 1.7; Endorsed to AM shift to f/u with .
[2019-01-02 08:00] VITALS: BP 115/69
[2019-01-02 12:00] VITALS: BP 107/67
[2019-01-02] MEDS ORDERED: Rate Change PCA 1 Each MISC PRN (12:00)
--- NOTE | 2019-01-02 12:04 | General Progress Note ---
Progress Note Progress Note AVSS Having incisional and cramping pains Ambulating Abdomen distended, soft, incision clean, stoma pink Urine 2825 ileostomy - nil WBC 10.100 Hgb 8.8 (up from 8.1) - on Venofer BMP all wnl Mg 1.7 Imp. Ileus pre-op malnutrition Plan; continue npo, tpn ,hernandez, coater associate Gonzales Siddiqui MD Jan 02, 2019 12:04
--- NOTE | 2019-01-02 12:59 | NUR ---
RD ASSESSMENT & RECOMMENDATIONS SEE CARE ACTIVITY FOR COMPLETE ASSESSMENT DAILY ESTIMATED NEEDS: Needs based on Surgery/ 69.4kg 25-30 kcals/kg 9518-1236 total kcals 1-2 g protein/kg 69-138 g total protein 25-30 mL/kg 5132-9706 total fluid mLs NUTRITION DIAGNOSIS: Altered GI function R/T h/o UC as evidenced by s/p total abdominal colectomy and creation of conventional Giana ileostomy, NPO, on TPN. CURRENT DIET:NPO, on TPN PO DIET RECOMMENDATIONS: DIET PER MD PARENTERAL NUTRITION RECOMMENDATIONS: D/AA Rate: 77 IL Rate: 10 Total Rate: 87 Volume: 2088 % Dextrose: 17 % AA: 5.2 Energy (kcals/kg): 1932 Protein (g/kg protein): 96 Nonprotein KCALS: 1548 GIR (mg CHO/kg/min): 3.1 % Fat KCALS: 24.8 NCP: N Ratio: 100.8 TPN Comment: *D17% AA 5.2% @ 77ml/hr + IL 20% @10ml/hr -> total of 87ml/hr, all 3:1 *TPN at goal will provide 100% est kcal/prot needs(28kcal/1.4g prot per kg) ADDITIONAL RECOMMENDATIONS: * Standing weight as able for accurate CBW, weekly wt monitoring * Monitor lytes, LFTs, BGs daily w/ TPN
--- NOTE | 2019-01-02 15:00 | NUR ---
NURSE NOTES: Patient ambulated x1 with RN. Patient did not tolerate ambulation and said he was in pain and needed to lay down. Will continue to encourage patient to ambulate. Patient assisted back into bed without incident.
[2019-01-02 16:00] VITALS: BP 110/70
--- NOTE | 2019-01-02 19:19 | NUR ---
HAND-OFF: Report given to Mariajose VINSON. Patient is stable.
--- NOTE | 2019-01-02 19:30 | NUR ---
NURSE NOTES: Received report & pt from KAREL Doyle. Pt lying in bed, a&ox4, on O2 via NC @ 1LPM, family member at bedside. No s/s of acute distress & c/o 6/10 pain at this time. Will give PRN pain med when due & pt verbalized understanding. PICC line intact with IVF & TPN running as ordered. MASONRY CONTRACTOR ADMINISTRATOR setting checked. Anderson intact & draining to gravity. Surgical dressing C/D/I. Ileostomy appliance intact. Bed in lowest position, MASONRY CONTRACTOR ADMINISTRATOR pump & call light within reach. Will continue to monitor.
[2019-01-02 20:00] VITALS: BP 99/61
[2019-01-02] MEDS: D5 1/4NS w/KCl 20mEq 1,000 ML IV SCH (20:13)
[2019-01-02] MEDS: TPN IV SCH (20:13)
[2019-01-02] MEDS: Iron Sucrose 100 MG in NS 55 ML IV SCH (20:13)
[2019-01-02] MEDS: FAT EMULSION 20% IV SCH (20:13)
[2019-01-02] MEDS: Dyna-Hex 2% Top Sol 2oz TOPIC SCH (20:14)
[2019-01-03] VITALS: BP 92/57
[2019-01-03] MEDS: NovoLOG Insulin Flexpen SUBQ SCH ×4 (00:54→18:08)
[2019-01-03] MEDS: Ketorolac 30mg Inj IV PRN ×4 (00:56→21:00)
[2019-01-03 04:00] VITALS: BP 92/62
[2019-01-03 06:21] LABS: BASOPHILS % (AUTO) 0.6 % (0.0-2.0); EOSINOPHILS % (AUTO) 8.9 % (0.0-3.0); HEMATOCRIT 26.3 % (42.0-52.0); HEMOGLOBIN 8.1 G/DL (14.2-18.0); LYMPHOCYTES % (AUTO) 12.6 % (20.0-45.0); MEAN CORPUSCULAR VOLUME 77 FL (80-99); MONOCYTES % (AUTO) 8.3 % (1.0-10.0); NEUTROPHILS % (AUTO) 69.6 % (45.0-75.0); PLATELET COUNT 242 K/UL (150-450); RED BLOOD COUNT 3.42 M/UL (4.70-6.10); RED CELL DISTRIBUTION WIDTH 15.6 % (11.6-14.8); WHITE BLOOD COUNT 7.5 K/UL (4.8-10.8)
[2019-01-03 06:41] LABS: ANION GAP 4 mmol/L (5-15); BLOOD UREA NITROGEN 7 mg/dL (7-18); CALCIUM 8.6 MG/DL (8.5-10.1); CARBON DIOXIDE 31 MMOL/L (21-32); CHLORIDE 106 MMOL/L (98-107); CREATININE 0.7 MG/DL (0.55-1.30); POTASSIUM 3.8 MMOL/L (3.5-5.1); SODIUM 141 MMOL/L (136-145)
[2019-01-03] MEDS: PCA shift volume MISC SCH ×2 (07:15→19:00)
--- NOTE | 2019-01-03 07:23 | NUR ---
HAND-OFF: Report given to KAREL Clark/Mitzi Hedrick RN. Rounds done pt in stable condition.
--- NOTE | 2019-01-03 07:25 | NUR ---
NURSE NOTES: Received patient in bed, awake, alert and oriented x4. Not in respiratory/cardiac distress. Patient is on IVF and TPN through PICC line, running well. PICC dressing intact, no s/s of infiltration. Anderson intact, draining well to gravity. ileostomy appliance intact, draining well. Patient is on NPO except for ice chips. Family member @ bedside. Surgical dressing is dry and intact. Call light within reach. Will continue plan of care.
[2019-01-03 08:00] VITALS: BP 110/62
[2019-01-03] MEDS: PCA Morphine 1mg/ml 30 ML IV PRN (09:47)
[2019-01-03] MEDS ORDERED: Rate Change PCA 1 Each MISC PRN (10:15)
[2019-01-03] MEDS ORDERED: PCA Morphine 1mg/ml 30 ML IV PRN (10:16)
--- NOTE | 2019-01-03 10:24 | General Progress Note ---
Progress Note Progress Note AVSS Feeling okay. Ambulating Abdomen mildly distended, incision clean, stoma pink Urine 3400 ileostomy 12cc bilious WBC 7500 Hgb 8.1 - on Venofer BMP - wnl Mg 1.8 Imp. Ileus Plan: d/c basal infusion of COMPUTATOR continue npo, TPN, Monica, Gonzales Motta MD Jan 03, 2019 10:24
[2019-01-03 12:00] VITALS: BP 106/67
[2019-01-03 16:00] VITALS: BP 112/69
[2019-01-03] MEDS ORDERED: D5NS 1000ml IV ONE (17:26)
--- NOTE | 2019-01-03 17:45 | NUR ---
NURSE NOTES: PT AMBULATED OUT IN THE MEYER TWICE WITH ASSIST. TOLERATED.
--- NOTE | 2019-01-03 19:00 | NUR ---
NURSE NOTES: RESTING. IN NO ACUTE DISTRESS.
--- NOTE | 2019-01-03 19:30 | NUR ---
Pt is asleep lying in bed but easily aroused by calling his name, alert. Breathing is even and non labored. No acute distress noted. On ACCOUNT MANAGER FOREST SERVICE Morphine for pain control and TPN treatment via PICC on NPO except ice chips and po medication. Ileostomy on RLQ with ileostomy bag attached and stoma kept moisture with good circulation. Op site is kept on 4x4 gauze dry and clean. Anderson catheter is inserted state and patent with yellowish urine. Encourage to I/S and ambulation. Will continue to monitor.
--- NOTE | 2019-01-03 19:35 | NUR ---
HAND-OFF: Report given to o.
[2019-01-03 20:00] VITALS: BP 107/69
[2019-01-03] MEDS: Dyna-Hex 2% Top Sol 2oz TOPIC SCH (20:14)
[2019-01-03] MEDS: D5 1/4NS w/KCl 20mEq 1,000 ML IV SCH (20:14)
[2019-01-03] MEDS: Iron Sucrose 100 MG in NS 55 ML IV SCH (20:14)
[2019-01-03] MEDS: TPN IV SCH (20:16)
[2019-01-03] MEDS: FAT EMULSION 20% IV SCH (20:16)
--- NOTE | 2019-01-03 22:00 | NUR ---
NURSE NOTES: Pt ambulates the short [place] with staff member assist with family member in steady gait. No dizziness or headache noted. After one [place] of walk, pt goes back to bed despite encouragement of more ambulation. Will continue to monitor.
[2019-01-04] VITALS: BP 98/56
--- NOTE | 2019-01-04 00:10 | NUR ---
Primary nurse, Victoriano attempted to pull out a new GENERAL LOT ATTENDANT Morphine syringe from [facility] but unable to. Morphine GENERAL LOT ATTENDANT apparently did not show active or available in [facility]. o also spoke to [facility] for a solution. Nursing Director Mobile, Stephania Ramey override Morphine GENERAL LOT ATTENDANT from PACU. After GENERAL LOT ATTENDANT Morphine has been set up, pharmacy stated there should be 5 in the [facility] stocked today. Rechecked [facility] again and search under pt name, this time GENERAL LOT ATTENDANT Morphine is available and active.
[2019-01-04] MEDS: NovoLOG Insulin Flexpen SUBQ SCH ×4 (00:29→18:10)
[2019-01-04] MEDS ORDERED: PCA Morphine 1mg/ml 30 ML IV ONE (00:31)
[2019-01-04 04:00] VITALS: BP 111/68
[2019-01-04] MEDS: Ketorolac 30mg Inj IV PRN ×3 (04:27→18:52)
--- NOTE | 2019-01-04 06:00 | NUR ---
NURSE NOTES: Pt is asleep and pain gets relieved after getting Toradol 30mg IVS. On MANAGER STYLIST, Morphine, for pain control. Will continue to monitor. Urine output: 1200ml, Ileostomy output: 20ml.
[2019-01-04 06:28] LABS: BASOPHILS % (AUTO) 1.2 % (0.0-2.0); HEMATOCRIT 27.9 % (42.0-52.0); HEMOGLOBIN 8.6 G/DL (14.2-18.0); LYMPHOCYTES % (AUTO) 12.7 % (20.0-45.0); MEAN CORPUSCULAR VOLUME 77 FL (80-99); MONOCYTES % (AUTO) 9.7 % (1.0-10.0); NEUTROPHILS % (AUTO) 67.4 % (45.0-75.0); PLATELET COUNT 258 K/UL (150-450); RED CELL DISTRIBUTION WIDTH 16.7 % (11.6-14.8); WHITE BLOOD COUNT 7.9 K/UL (4.8-10.8)
[2019-01-04 06:47] LABS: ALANINE AMINOTRANSFERASE 17 U/L (12-78); ALBUMIN 2.2 G/DL (3.4-5.0); ALBUMIN/GLOBULIN RATIO 0.6 (1.0-2.7); ALKALINE PHOSPHATASE 74 U/L (46-116); ANION GAP 7 mmol/L (5-15); ASPARTATE AMINO TRANSFERASE 18 U/L (15-37); BILIRUBIN,TOTAL 0.3 MG/DL (0.2-1.0); BLOOD UREA NITROGEN 6 mg/dL (7-18); CALCIUM 8.8 MG/DL (8.5-10.1); CARBON DIOXIDE 28 MMOL/L (21-32); CHLORIDE 104 MMOL/L (98-107); CREATININE 0.6 MG/DL (0.55-1.30); POTASSIUM 3.8 MMOL/L (3.5-5.1); SODIUM 139 MMOL/L (136-145)
[2019-01-04] MEDS: PCA shift volume MISC SCH ×2 (07:00→19:00)
--- NOTE | 2019-01-04 07:30 | NUR ---
HAND-OFF: Report given to KAREL Doyle. Round is done and pt is asleep.
--- NOTE | 2019-01-04 07:30 | NUR ---
NURSE NOTES: Patient is in bed awake and able to verbalize needs. Stable. Denies pain or SOB at this time. Patient encouraged to use call light for assistance, verbalized understanding. IVF, MARKETING TEACHER and TPN running via PICC as ordered. Will monitor output from ileo as ordered. F/C patent and draining urine. Patient in bed in locked and lowest position with call light within reach. Will continue to monitor.
[2019-01-04 08:00] VITALS: BP 96/59
[2019-01-04] MEDS ORDERED: PCA Morphine 1mg/ml 30 ML IV PRN (10:16)
[2019-01-04] MEDS ORDERED: Rate Change PCA 1 Each MISC PRN (10:30)
--- NOTE | 2019-01-04 10:38 | General Progress Note ---
Progress Note Progress Note AVSS. Ambulating 2x daily Abdomen remains mildly distended, healing nicely Urine 2425 Ileostomy 55cc enteric Hgb up 8.6 - on Venofer Albumin 2.2 Imp. Persistent ileus Plan: continue npo, TPN, hernandez additional day Gonzales Siddiqui MD Jan 04, 2019 10:38
[2019-01-04] MEDS ORDERED: LORazepam 1mg tab SL PRN (11:00)
[2019-01-04 12:00] VITALS: BP 99/64
--- NOTE | 2019-01-04 15:00 | NUR ---
NURSE NOTES: Returned used POWER PLANT OPERATORS SUPERVISOR syringe to pharmacy with pharmacist Maddie.
[2019-01-04] MEDS: PCA Morphine 1mg/ml 30 ML IV PRN (15:13)
[2019-01-04 16:00] VITALS: BP 102/76
--- NOTE | 2019-01-04 18:30 | NUR ---
NURSE NOTES: Patient ambulated x2 during shift. Tolerated well.
--- NOTE | 2019-01-04 19:30 | NUR ---
HAND-OFF: Report given to Maximino VINSON. Patient is stable. PICC patent and running TPN, FIELD REPRESENTATIVES DIRECTOR, and IVF. Ileo output measured and recorded. Urine output measured and recorded.
--- NOTE | 2019-01-04 19:41 | NUR ---
NURSE NOTES: Report taken from KAREL Doyle. Patient is awake and in bed, family at bedside, A&Ox4. No signs of distress on room air. Having minimal complaint of abdominal pain, 2/10. Instructed use of ORE BRIDGE OPERATOR to control pain overnight. Skin is c/d/i. Stoma bright red, draining into bag, continue to monitor. NEGAR PICC c/d/i and patent, running TPN @ 87/hr and D51/4NS+20K at 25mls/hr. Patient able to ambulate, will encourage during shift while awake. Bed in lowest position, call light within reach.
[2019-01-04 20:00] VITALS: BP 99/61
[2019-01-04] MEDS: FAT EMULSION 20% IV SCH (20:26)
[2019-01-04] MEDS: D5 1/4NS w/KCl 20mEq 1,000 ML IV SCH (20:26)
[2019-01-04] MEDS: TPN IV SCH (20:26)
[2019-01-04] MEDS: Dyna-Hex 2% Top Sol 2oz TOPIC SCH (20:28)
[2019-01-04] MEDS: Iron Sucrose 100 MG in NS 55 ML IV SCH (20:30)
[2019-01-05] VITALS: BP 99/56
[2019-01-05] MEDS: NovoLOG Insulin Flexpen SUBQ SCH ×5 (00:11→23:15)
[2019-01-05] MEDS: Ketorolac 30mg Inj IV PRN ×3 (02:33→23:08)
[2019-01-05] MEDS: PCA Morphine 1mg/ml 30 ML IV PRN (02:49)
[2019-01-05 04:00] VITALS: BP 97/59
[2019-01-05 06:32] LABS: EOSINOPHILS % (AUTO) 8.1 % (0.0-3.0); HEMATOCRIT 30.7 % (42.0-52.0); HEMOGLOBIN 9.3 G/DL (14.2-18.0); LYMPHOCYTES % (AUTO) 11.3 % (20.0-45.0); MEAN CORPUSCULAR VOLUME 78 FL (80-99); MONOCYTES % (AUTO) 8.7 % (1.0-10.0); NEUTROPHILS % (AUTO) 70.9 % (45.0-75.0); PLATELET COUNT 305 K/UL (150-450); RED BLOOD COUNT 3.92 M/UL (4.70-6.10); WHITE BLOOD COUNT 8.3 K/UL (4.8-10.8)
[2019-01-05 06:49] LABS: ANION GAP 7 mmol/L (5-15); BLOOD UREA NITROGEN 9 mg/dL (7-18); CALCIUM 9.1 MG/DL (8.5-10.1); CARBON DIOXIDE 30 MMOL/L (21-32); CHLORIDE 106 MMOL/L (98-107); CREATININE 0.8 MG/DL (0.55-1.30); POTASSIUM 3.9 MMOL/L (3.5-5.1); SODIUM 143 MMOL/L (136-145)
[2019-01-05] MEDS: PCA shift volume MISC SCH ×2 (07:00→19:26)
--- NOTE | 2019-01-05 07:30 | NUR ---
NURSE NOTES: Patient is in bed awake and able to verbalize needs. Stable. Denies pain or SOB. Patient encouraged to use call light for assistance, verbalized understanding. F/C patent and draining yellow urine. Ileo draining into bag. PICC line running IVF, TPN, and QUALITY SPECIALIST as ordered. Patient in bed in locked and lowest position with call light within reach. Will continue to monitor.
--- NOTE | 2019-01-05 07:47 | NUR ---
HAND-OFF: Report given to KAREL Doyle. Patient is asleep and in bed. VS stable. Had very little pain overnight, controlled by TELEPHONE SERVICE REPRESENTATIVE. Ileo output was thick and minimal. Outputs below Ileo: 25cc Urine: 650cc.
[2019-01-05 08:00] VITALS: BP 105/67
[2019-01-05] MEDS ORDERED: PCA Morphine 1mg/ml 30 ML IV PRN (08:37)
[2019-01-05] MEDS ORDERED: Morphine Sulfate 2mg/ml Inj(IV/IM USE ONLY) IV PRN (08:37)
[2019-01-05] MEDS ORDERED: Rate Change PCA 1 Each MISC PRN (08:45)
--- NOTE | 2019-01-05 08:45 | NUR ---
NURSE NOTES: Patient ambulated x1. Patient complains of pain, PHYSICIAN INTERVENTIONAL CARDIOLOGIST being used .Will continue to monitor.
--- NOTE | 2019-01-05 08:46 | General Progress Note ---
Progress Note Progress Note AVSS Still with intermittent belching, and still with abdominal pain using PIPE LINE REPAIRER demand and toradol Abdomen mildly distended, soft, non-tender, healing well, stoma pink Urine 1900 Ileostomy only 65cc bilious fluid Hgb up 9.3 BMP-wnl Imp: Persistent ileus and severe hypoalbuminemia Plan: 2view abdomen XRay continue npo and TPN d/c urinary Anderson Gonzales Siddiqui MD Jan 05, 2019 08:46
--- NOTE | 2019-01-05 09:00 | NUR ---
NURSE NOTES: F/c removed without complications. TOlerated well. Will encourage patient to stand and urinate throughout shift. Patient getting ready to be taken downstairs for xray.
--- NOTE | 2019-01-05 09:40 | NUR ---
NURSE NOTES: Patient back in bed. No urgency for urination at this time. Will continue to encourage standing and urination.
[2019-01-05] MEDS ORDERED: Tubing IV Secondary IV ONE (09:59)
--- NOTE | 2019-01-05 11:44 | NUR ---
NURSE NOTES: Patient voided 250cc yellow urine into urinal. No c/o burning or discomfort noted. Will continue to monitor.
[2019-01-05 12:00] VITALS: BP 108/66
--- NOTE | 2019-01-05 13:04 | Diagnostic Imaging Report ---
Indication: Abdominal distention, 6 days status post ileostomy surgery Technique: Supine and upright views of the abdomen Comparison: none Findings: Small bowel loops are diffusely gas filled, upper limits of normal in caliber without sunny distention. Surgical anastomotic rickie are seen in the pelvis. There are midline skin rickie. There is a free air projecting under the hemidiaphragms bilaterally. There is also some gas within the right abdominal wall tissues. These are presumably related to the recent surgery. Impression: Small bowel loops are diffusely gas-filled upper limits of normal in caliber but not frankly distended. Findings may represent mild postoperative ileus Postoperative pneumoperitoneum, also described on recent chest radiograph Findings discussed by phone previously with Dr. Siddiqui
--- NOTE | 2019-01-05 14:55 | NUR ---
NURSE NOTES:OSTOMY CARE: Met with pt for continued education on care of ileostomy .Pt more motivated in learning ostomy care. Pt encouraged to express all concerns. Pt demonstrated ability to change Ileostomy,clean areas around stoma , Applied skin barrier, cut to fit pouch and apply two-piece system. Pt was apprehensive about diet post discharge and this was communicated with Selector Packer .Relayed to pt Selector Packer will meet with him in a.m to educate further on dietary restrictions. Pt also made aware of different types of Ileostomy products and skin barrier products available according to fit and his preferences.
[2019-01-05 16:00] VITALS: BP 103/69
--- NOTE | 2019-01-05 19:25 | NUR ---
NURSE NOTES: Report taken from KAREL Doyle. Patient is asleep in bed, arousable by name, family at bedside. A&Ox4. No signs of distress on room air. Having moderate complaints of pain through surgical area, 5/10. Instructred continued use of RFP WRITER as needed. Skin is c/d/i. Stome bright red, draining into appliance. NEGAR PICC c/d/i both lines patent, running TPN @ 87mls/hr and D51/4NS+20KCl at 25mls/hr. Patient using urinal at bedside. Strict I/O. Bed in lowest position, call light within reach.
--- NOTE | 2019-01-05 19:30 | NUR ---
HAND-OFF: Report given to Maximino VINSON. Patient is stable.
[2019-01-05 20:00] VITALS: BP 103/69
[2019-01-05] MEDS: D5 1/4NS w/KCl 20mEq 1,000 ML IV SCH (20:05)
[2019-01-05] MEDS: TPN IV SCH (20:06)
[2019-01-05] MEDS: FAT EMULSION 20% IV SCH (20:06)
[2019-01-05] MEDS: Dyna-Hex 2% Top Sol 2oz TOPIC SCH (20:07)
[2019-01-05] MEDS: Iron Sucrose 100 MG in NS 55 ML IV SCH (20:34)
[2019-01-06] VITALS (13 sets, daily range): BP systolic 102–125; BP diastolic 62–83
[2019-01-06 05:07] LABS: EOSINOPHILS % (AUTO) 6.4 % (0.0-3.0); HEMATOCRIT 30.1 % (42.0-52.0); HEMOGLOBIN 9.3 G/DL (14.2-18.0); LYMPHOCYTES % (AUTO) 10.1 % (20.0-45.0); MEAN CORPUSCULAR VOLUME 77 FL (80-99); MONOCYTES % (AUTO) 9.8 % (1.0-10.0); NEUTROPHILS % (AUTO) 72.8 % (45.0-75.0); PLATELET COUNT 301 K/UL (150-450); RED CELL DISTRIBUTION WIDTH 17.3 % (11.6-14.8); WHITE BLOOD COUNT 11.6 K/UL (4.8-10.8)
[2019-01-06] MEDS: Ketorolac 30mg Inj IV PRN ×3 (05:15→21:28)
[2019-01-06] MEDS: NovoLOG Insulin Flexpen SUBQ SCH ×3 (05:17→18:00)
[2019-01-06 05:47] LABS: ALANINE AMINOTRANSFERASE 30 U/L (12-78); ALBUMIN 2.4 G/DL (3.4-5.0); ALBUMIN/GLOBULIN RATIO 0.6 (1.0-2.7); ALKALINE PHOSPHATASE 111 U/L (46-116); ANION GAP 7 mmol/L (5-15); ASPARTATE AMINO TRANSFERASE 25 U/L (15-37); BILIRUBIN,TOTAL 0.5 MG/DL (0.2-1.0); BLOOD UREA NITROGEN 13 mg/dL (7-18); CALCIUM 8.8 MG/DL (8.5-10.1); CARBON DIOXIDE 28 MMOL/L (21-32); CHLORIDE 104 MMOL/L (98-107); CREATININE 0.8 MG/DL (0.55-1.30); PHOSPHORUS 4.9 MG/DL (2.5-4.9); POTASSIUM 4.3 MMOL/L (3.5-5.1); SODIUM 139 MMOL/L (136-145)
[2019-01-06] MEDS: PCA shift volume MISC SCH ×2 (07:04→19:00)
--- NOTE | 2019-01-06 07:05 | NUR ---
HAND-OFF: Report given to KAREL Clark. Patient is asleep in bed, VS stable. Had a good night, pain controlled by ordered toradol and MANAGER REPORT. Outputs below UO: 700cc Ileo: 10cc.
--- NOTE | 2019-01-06 08:06 | NUR ---
NURSE NOTES: AWAKE/ALERT. PAIN SCALE 5/10. ILEOSTOMY BAG IN PLACE. WITH MINIMAL DARK GREEN OUTPUT. OOB AMBULATED OUT IN THE MEYER TOLERATED. IN NO DISTRESS.
--- NOTE | 2019-01-06 08:27 | General Progress Note ---
Progress Note Progress Note AVSS Still with little ileostomy output and mild abdominal distention with discomfort. Incision healing nicely. Stoma well formed with some edema WBC up 11,600 Mg 1.7 albumin low 2.4 (rising) Urine 2625 voiding Ileostomy 55 Imp. Persistent ileus f/o intra-abdominal seroma, etc Plan: STAT CT scan abd+pelvis with oral and IV contrast continue npo and TPN Gonzales Siddiqui MD Jan 06, 2019 08:27
[2019-01-06] MEDS ORDERED: Rate Change PCA 1 Each MISC PRN (08:30)
[2019-01-06] MEDS ORDERED: Isovue-300 100ml vial INJ PRN ×2 (08:30)
--- NOTE | 2019-01-06 11:57 | Diagnostic Imaging Report ---
Clinical Indication: Abdominal distention, abdominal discomfort, minimal ileostomy output, leukocytosis Technique: Patient ingested oral water-soluble contrast IV administration nonionic contrast. Venous phase spiral acquisition obtained through the abdomen and pelvis. Multiplanar reconstructions were generated. Total dose length product 927.07 mGycm. CTDIvol(s) 10.28,14.86,14.66 mGy. Dose reduction achieved using automated exposure control Comparison: No comparison CT scans. Reference made to plain radiograph dated 01/05/2019 Findings: There is a right indirect inguinal hernia which contains a loop of small bowel. The small bowel within the hernia is dilated. Small bowel entering the hernia demonstrates very mild gaseous distention. The small bowel exiting the hernia is nondilated. Contrast is seen within mildly dilated proximal small bowel loops, does not reach the small bowel entering the hernia sac. There is some wall thickening of the small bowel within the hernia sac and slight edema of the fat within the hernia sac. Patient is status post total colectomy and right lower quadrant ileostomy placement. There is a pneumoperitoneum, presumably related to the recent surgery. There is no evidence of extraluminal contrast There is a small amount of free intraperitoneal fluid which may be related to the recent surgery. There is a small rectal stump present which is thick-walled, oversewn. There is some edema of the presacral fat related to the surgery bed, as well as a few small air bubbles within the presacral fat. There is a central incision with overlying skin rickie which is unremarkable in appearance. No loculated fluid collections are demonstrated. The distal esophagus, stomach, duodenum are unremarkable. The liver demonstrates a subcentimeter low-attenuation lesion in segment IVb which is too small to characterize. Another is seen in segment 8. The gallbladder is unremarkable. No biliary ductal dilatation. The pancreas, spleen, adrenals, kidneys are all unremarkable. No retroperitoneal or mesenteric mass or adenopathy. No pelvic mass or adenopathy. The included lung bases demonstrate trace bilateral pleural effusions. There are some dependent atelectatic changes and possibly some consolidation at both lung bases. The bones are unremarkable. Impression: Indirect right inguinal hernia involving a loop of distal small bowel and resulting in partial small bowel obstruction. There may also be strangulation of the herniated bowel. Postsurgical changes as described Free intraperitoneal gas and fluid, presumably related to the recent surgery. No loculated fluid collection demonstrated. Bilateral pleural effusions. Bilateral basilar pulmonary atelectatic changes and possibly some consolidation Subcentimeter low-attenuation liver lesions, too small to characterize, most likely benign simple cysts or bile hamartomas Critical value findings phoned to Dr. Siddiqui at the time of interpretation The CT scanner at [facility] is accredited by the [employer] and the scans are performed using protocols designed to limit radiation exposure to as low as reasonably achievable to attain images of sufficient resolution adequate for diagnostic evaluation.
--- NOTE | 2019-01-06 14:36 | NUR ---
RD ASSESSMENT & RECOMMENDATIONS SEE CARE ACTIVITY FOR COMPLETE ASSESSMENT DAILY ESTIMATED NEEDS: Needs based on Surgery/ 69.4kg 25-30 kcals/kg 4020-7504 total kcals 1-2 g protein/kg 69-138 g total protein 25-30 mL/kg 2875-1932 total fluid mLs NUTRITION DIAGNOSIS: Altered GI function R/T h/o UC as evidenced by s/p total abdominal colectomy and creation of conventional Giana ileostomy, NPO, on TPN. PO DIET RECOMMENDATIONS: DIET PER PARENTERAL NUTRITION RECOMMENDATIONS: D/AA Rate: 77 IL Rate: 10 Total Rate: 87 Volume: 2088 % Dextrose: 17 % AA: 5.2 Energy (kcals/kg): 1932 Protein (g/kg protein): 96 Nonprotein KCALS: 1548 GIR (mg CHO/kg/min): 3.1 % Fat KCALS: 24.8 NPC: N Ratio: 100.8 TPN Comment: *D17% AA 5.2% @ 77ml/hr + IL 20% @10ml/hr -> total of 87ml/hr, all 3:1 *TPN at goal will provide 100% est kcal/prot needs(28kcal/1.4g prot per kg) ADDITIONAL RECOMMENDATIONS: * Standing weight as able for accurate CBW, weekly wt monitoring * Monitor lytes, LFTs, BGs daily w/ TPN
--- NOTE | 2019-01-06 15:05 | NUR ---
NURSE NOTES: npo maintained. to or via bed.
--- NOTE | 2019-01-06 15:13 | Pre-Procedure Note/Attestation ---
Pre-Procedure Note/Attestation Complete Prior to Procedure Planned Procedure: right Procedure Narrative: repair incarcerated right inguinal hernia Indications for Procedure Pre-Operative Diagnosis: incarcerated right inguinal hernia Attestation I attest that I discussed the nature of the procedure; its benefits; risks and complications; and alternatives (and the risks and benefits of such alternatives ), prior to the procedure, with the patient (or the patient's legal ict sales representative). I attest that, if there was a reasonable possibility of needing a blood transfusion, the patient (or the patient's legal ict sales representative) was given the [facility] standardized written summary, pursuant to the [place] Blood Safety Act ([place] Health and Safety Code # 1645, as amended). I attest that I re-evaluated the patient just prior to the surgery and that there has been no change in the patient's H&P, except as documented below:none Gonzales Siddiqui MD Jan 06, 2019 15:13
[2019-01-06] MEDS ORDERED: Lidocaine 1% Plain 30 ml INJ ONE (15:28)
[2019-01-06] MEDS ORDERED: fentaNYL 100 mcg/2 mL IV ONE (15:28)
[2019-01-06] MEDS ORDERED: Bupivacaine 0.5% Inj 30 ml vial INJ ONE (15:28)
[2019-01-06] MEDS ORDERED: Midazolam 2mg/2ml Inj ONE (15:28)
[2019-01-06] MEDS ORDERED: Bacitracin 50000 Units Vial ONE (15:29)
[2019-01-06] MEDS ORDERED: NeoSporin Gu Irrig 1ml Amp IRRIG ONE (15:29)
[2019-01-06] MEDS ORDERED: Lidocaine 1% MPF 10mg/ml 5ml ONE (15:37)
[2019-01-06] MEDS ORDERED: Propofol 200mg/20ml IV ONE (15:37)
[2019-01-06] MEDS ORDERED: Zemuron 50mg/5ml Inj IV ONE (15:42)
[2019-01-06] MEDS ORDERED: Sterile Water Irrig 1000ml IRRIG ONE (16:00)
[2019-01-06] MEDS ORDERED: D5 1/2NS 1000ml IV ONE (16:00)
[2019-01-06] MEDS ORDERED: NS Irrig 1000ml ONE (16:00)
[2019-01-06] MEDS ORDERED: Succinylcholine 20mg/ml 10ml vial ONE (16:00)
[2019-01-06] MEDS ORDERED: LR 1000ml 1,000 ML IVLG SCH (16:38)
--- NOTE | 2019-01-06 16:38 | Anethesia Preoperative Eval ---
Anesthesia Pre-op PMH/ROS General Date of Evaluation: Jan 06, 2019 Time of Evaluation: 15:30 Anesthesiologist: Lyn ASA Score: ASA 2 Mallampati Score Class I : Soft palate, uvula, fauces, pillars visible Class II: Soft palate, uvula, fauces visible Class III: Soft palate, base of uvula visible Class IV: Only hard plate visible Mallampati Classification: Class II Surgeon: Artur Diagnosis: R incarcerated injuinal hernia Surgical Procedure: Incarcerated hernia repair Anesthesia History: none Family History: no anesthesia problems Allergies: Coded Allergies: No Known Allergies (Unverified , 12/29/18) Patient NPO?: Yes NPO Date: Dec 30, 2018 NPO Time: 0000 Past Medical History Cardiovascular: Denies: HTN, CAD, DE, valve dz, arrhythmia, other Pulmonary: Reports: asthma - mild; Denies: COPD, EDILBERTO, other Gastrointestinal/Genitourinary: Reports: GERD, other - UC s/p total colectomy; Denies: CRI, ESRD Neurologic/Psychiatric: Reports: depression/anxiety Endocrine: Denies: DM, hypothyroidism, steroids, other HEENT: Denies: cataract (L), cataract (R), glaucoma, LAC VIEUX (L), LAC VIEUX (R), other Hematology/Immune: Reports: anemia - mild Musculoskeletal/Integumentary: Denies: OA, RA, DJD, DDD, edema, other Other: other - malnourished PMH Narrative: as above PSxH Narrative: Pilonidal cyst, total colectomy Anesthesia Pre-op Phys. Exam Physician Exam Last Vital Signs Date Time Temp Pulse Resp B/P (MAP) Pulse Ox O2 Delivery O2 Flow Rate FiO2 01/06/19 16:00 98.3 85 19 105/68 (80) 98 01/06/19 09:42 Room Air 12/31/18 21:00 3.0 Constitutional: NAD Neurologic: CN 2-12 intact Cardiovascular: RRR, no M/R/G Respiratory: CTA Gastrointestinal: other - some tenderness Airway Exam Mallampati Score: Class II MO: full Neck: flexible ROM: full Teeth: intact Dentures: no upper, no lower Anesthesia Pre-op A/P Labs Hematology Test 01/06/19 04:35 White Blood Count 11.6 K/UL (4.8-10.8) H Red Blood Count 3.90 M/UL (4.70-6.10) L Hemoglobin 9.3 G/DL (14.2-18.0) L Hematocrit 30.1 % (42.0-52.0) L Mean Corpuscular Volume 77 FL (80-99) L Mean Corpuscular Hemoglobin 23.9 PG (27.0-31.0) L Mean Corpuscular Hemoglobin Concent 30.9 G/DL (32.0-36.0) L Red Cell Distribution Width 17.3 % (11.6-14.8) H Platelet Count 301 K/UL (150-450) Mean Platelet Volume 5.8 FL (6.5-10.1) L Neutrophils (%) (Auto) 72.8 % (45.0-75.0) Lymphocytes (%) (Auto) 10.1 % (20.0-45.0) L Monocytes (%) (Auto) 9.8 % (1.0-10.0) Eosinophils (%) (Auto) 6.4 % (0.0-3.0) H Basophils (%) (Auto) 1.0 % (0.0-2.0) Chemistry Test 01/06/19 04:35 Sodium Level 139 MMOL/L (136-145) Potassium Level 4.3 MMOL/L (3.5-5.1) Chloride Level 104 MMOL/L (98-107) Carbon Dioxide Level 28 MMOL/L (21-32) Anion Gap 7 mmol/L (5-15) Blood Urea Nitrogen 13 mg/dL (7-18) Creatinine 0.8 MG/DL (0.55-1.30) Estimat Glomerular Filtration Rate > 60 mL/min (>60) Glucose Level 121 MG/DL (74-106) H Calcium Level 8.8 MG/DL (8.5-10.1) Phosphorus Level 4.9 MG/DL (2.5-4.9) Magnesium Level 1.7 MG/DL (1.8-2.4) L Total Bilirubin 0.5 MG/DL (0.2-1.0) Aspartate Amino Transf (AST/SGOT) 25 U/L (15-37) Alanine Aminotransferase (ALT/SGPT) 30 U/L (12-78) Alkaline Phosphatase 111 U/L (46-116) Total Protein 6.4 G/DL (6.4-8.2) Albumin 2.4 G/DL (3.4-5.0) L Globulin 4.0 g/dL Albumin/Globulin Ratio 0.6 (1.0-2.7) L Risk Assessment & Plan Assessment: ASA 2 Plan: GA with ett Pre-Antibiotics Drug: Ancef 1gr Given Within 1 Hr of Incision: Yes Time Given: 16:20 Harsh Nicholson MD Jan 06, 2019 16:38
[2019-01-06] MEDS ORDERED: Glycopyrrolate 0.2mg/ml 1ml Vial ONE (16:43)
[2019-01-06] MEDS ORDERED: Neostigmine 1mg/ml 10ml Inj ONE (16:43)
[2019-01-06] MEDS ORDERED: Meperidine 50mg/ml Inj(FOR RIGORS ONLY) IV PRN (16:45)
[2019-01-06] MEDS ORDERED: Hydromorphone 0.5mg/0.5ml inj IVP PRN (16:45)
[2019-01-06] MEDS ORDERED: DiphenhydrAMINE 50mg/ml Inj IVP PRN (16:45)
[2019-01-06] MEDS ORDERED: Midazolam 2mg/2ml Inj IVP PRN (16:45)
[2019-01-06] MEDS ORDERED: Ketorolac 30mg Inj IV PRN (16:45)
[2019-01-06] MEDS ORDERED: Metoclopramide 10mg/2ml Inj IVP PRN (16:45)
[2019-01-06] MEDS ORDERED: Morphine Sulfate 10mg/ml Inj ONE (16:46)
[2019-01-06] MEDS ORDERED: Sodium Chloride 10ml vial INJ ONE (17:03)
--- NOTE | 2019-01-06 17:45 | Brief Operative Note ---
Immediate Post Operative Note Operative Note Pre-op Diagnosis: incarcerated right inguinal hernia Procedure: repair of right inguinal hernia with resection of congested hernia sac Post-op Diagnosis: same Post-op Diagnosis: same as pre-op Findings: consistent w/pre-op dx studies, other Surgeon: ken Cotton Farmer: khanh Anesthesiologist: eugenio Anesthesia: general Specimen: yes - hernia sac Complications: none Condition: stable Fluids: see anesthesia record Estimated Blood Loss: minimal Drains: none Implant(s) used?: Yes - prolene mesh patch Gonzales Siddiqui MD Jan 06, 2019 17:45
--- NOTE | 2019-01-06 17:49 | Immediate Post-Op Evaluation ---
Immediate Post-Op Evalulation Immediate Post-Op Evalulation Procedure: Repair of R incarcerated injuinal hernia Date of Evaluation: Jan 06, 2019 Time of Evaluation: 17:48 IV Fluids: 700 Blood Products: none Estimated Blood Loss: min Urinary Output: none Blood Pressure Systolic: 102 Blood Pressure Diastolic: 73 Pulse Rate: 89 Respiratory Rate: 20 O2 Sat by Pulse Oximetry: 99 Temperature (Fahrenheit): 97.8 Pain Score (1-10): 1 Nausea: No Vomiting: No Complications none Patient Status: reacts, patent, extubated, none Hydration Status: adequate Harsh Nicholson MD Jan 06, 2019 17:49
--- NOTE | 2019-01-06 17:51 | NUR ---
MARKETING OUTREACH COORDINATORPHP ENGINEER 01/05/19 SI: POST OP ILEUS T. 97.6 HR 69 RR 16 B/P 97/59 IS: TPN IV IVF D5KCL @ 25ML/HR VIT K MORPHINE ANESTHESIOLOGY PHYSICIAN MED/SURG STATUS 01/06/19 SI: INCARCENATED RIGHT INGUINAL HERNIA T.98.3 HR 94 RR 18 B/P 125/73 WBC 11.6 ABD/PELVIS CT=Indirect right inguinal hernia involving a loop of distal small bowel and resulting in partial small bowel obstruction. There may also be strangulation of the herniated bowel. IS: TPN IV VIT K SUBC IVF D5KCL @ 25ML/HR IRON IV MORPHINE ANESTHESIOLOGY PHYSICIAN SURGERY @ 1630 MED/SURG STATUS
[2019-01-06] MEDS: PCA Morphine 1mg/ml 30 ML IV PRN (18:13)
--- NOTE | 2019-01-06 18:45 | NUR ---
NURSE NOTES: REC'D FROM PACU SP REPAIR OF INCARCERATED RT INGUINAL HERNIA. DROWSY BUT AROUSABLE. PAIN SCALE 2/10. RT GROIN DRESSING DRY AND INTACT. ILEOSTOMY BAG IN PLACE WITH VERY MINIMAL OUTPUT.V/S TAKEN. PAIN SCALE 210. IN NO DISTRESS.
[2019-01-06] MEDS: D5 1/4NS w/KCl 20mEq 1,000 ML IV SCH (19:01)
--- NOTE | 2019-01-06 19:44 | NUR ---
HAND-OFF: Report given to Luis GILBERT RN.
[2019-01-06] MEDS: Dyna-Hex 2% Top Sol 2oz TOPIC SCH (20:00)
[2019-01-06] MEDS: FAT EMULSION 20% IV SCH (20:46)
[2019-01-06] MEDS: TPN IV SCH (20:46)
[2019-01-06] MEDS: Iron Sucrose 100 MG in NS 55 ML IV SCH (20:47)
--- NOTE | 2019-01-06 21:14 | NUR ---
NURSE NOTES: Received report from AM RN. Patient is resting in bed. No c/o of pain. Fluids running D5 1/4 NS + 20 mEq KCL at 25 ml/hr. TPN running at 87ml/hr. Ileostomy stoma is pink and moist draining brown liquid stool. MEDICINE TECH pump remote within reach. Father at bedside.
--- NOTE | 2019-01-06 21:30 | Operative Note - Dictated ---
DATE OF OPERATION: 01/06/2019 SURGEON: Gonzales Siddiqui M.D. HVAC SERVICE TECH: Danie Koroma M.D. ANESTHESIOLOGIST: Harsh Nicholson M.D. TYPE OF ANESTHESIA: General endotracheal. PREOPERATIVE DIAGNOSES: 1. Incarcerated right inguinal hernia with resulting early small bowel obstruction. 2. One week status post total abdominal colectomy with Giana ileostomy for ulcerative colitis. POSTOPERATIVE DIAGNOSES: 1. Right inguinal hernia, indirect with inflamed ischemic hernia sac with serosanguineous fluid filling the scrotum without any intestine or intra-abdominal structure. 2. One week status post total abdominal colectomy with Giana ileostomy for ulcerative colitis. OPERATION PERFORMED: Repair of right inguinal hernia with Prolene mesh patch and resection of indirect inguinal hernia sac and evacuation of scrotal fluid. INDICATIONS AND FINDINGS: The patient underwent CT scan of abdomen and pelvis because of a 12-hour history of severe right groin pain and scrotal swelling with the scrotum very tender and swollen and CT scan performed with interpretation of small bowel loop and a right inguinal hernia with mildly dilated proximal bowel loops and decompressed distal. At surgery, the spermatic cord was encircled and was thickened and very edematous. The indirect hernia sac was carefully opened and there was no evidence of any bowel content and there had been no attempt at reducing the hernia under anesthesia. The scrotum had remained tense. With a finger in the indirect hernia distally and suction passed through readily considerable amount of fluid was evacuated. DESCRIPTION OF PROCEDURE: The patient was taken to the operating room and under general anesthesia with the ileostomy appliance covered and sealed, the patient was prepped and draped in usual fashion including the scrotum. A transverse curvilinear right groin incision was made achieving hemostasis with cautery. The patient is thin. The external oblique aponeurosis was opened through the external ring, preserving a large dominant ilioinguinal nerve, which was mobilized cephalad. I was able to encircle a thickened somewhat edematous spermatic cord that was not containing any bowel by palpation encircled with a Baudilio drain at the pubic tubercle. There was a mild failure of the floor of the inguinal canal. The hernia sac was identified anteromedial in the cord and opened and distally went all the way into the scrotum and when a suction catheter was passed, there was evacuation of 30 to 40 mL of serosanguineous fluid. The hernia sac was probed proximally directly into the peritoneal cavity and there was no sign of any bowel recently or currently. There was a minimal amount of residual intraperitoneal fluid. The spermatic cord structures were mobilized and the sac bluntly mobilized out of the scrotum and resected that appeared very edematous with patchy necrosis or ischemia of the sac. Then, the proximal open perineum representing the sac was closed with 2-0 Vicryl suture and pursestring suture. Hemostasis was secured. The field was copiously irrigated with antibiotic solution and the draping and gloves were changed. I took a preformed patch of Prolene mesh and a 2-0 Prolene suture the inferior edge to the shelving edge of inguinal ligament starting at the pubic tubercle and it has been lateral to the internal ring. The keyhole was incised to go around the cord and avoid any constriction. The patient had very thickened cremasteric muscle that had to be opened before the hernia sac was identified and opened during the procedure. Now, the medial edge of the mesh was sutured to the transversus tendon with 2-0 Prolene continuous suture starting at the pubic tubercle and extending lateral to the internal ring. The superior tail was intact superior tail to the inguinal ligament with 2-0 Prolene. After ascertaining, the hemostasis was secured. The external oblique aponeurosis was closed with continuous 2-0 Vicryl protecting the ilioinguinal nerve. The external ring was left patulous to avoid any cord constriction. A subcutaneous tissue closure with interrupted 3-0 Vicryl and skin closed with continuous 4-0 Monocryl subcuticular suture. Tincture of benzoin and half-inch Steri-Strips were applied followed by dry sterile dressing during the procedure and confirmed that right testis was readily checked and well down into the scrotum. The patient tolerated the procedure well, left the operating room in stable condition. Gonzales Siddiqui M.D. DR: HERBERT/ALEXIS JOB#: [id number] CC:
[2019-01-07] VITALS (7 sets, daily range): BP systolic 102–112; BP diastolic 65–70
[2019-01-07] MEDS: NovoLOG Insulin Flexpen SUBQ SCH ×4 (00:15→16:58)
[2019-01-07] MEDS: DiphenhydrAMINE 50mg/ml Inj IVP PRN (01:35)
[2019-01-07] MEDS: LORazepam 1mg tab SL PRN (03:09)
[2019-01-07] MEDS: Ketorolac 30mg Inj IV PRN ×3 (05:18→18:23)
[2019-01-07] MEDS: PCA Morphine 1mg/ml 30 ML IV PRN (05:19)
[2019-01-07 06:17] LABS: BASOPHILS % (AUTO) 0.7 % (0.0-2.0); EOSINOPHILS % (AUTO) 5.7 % (0.0-3.0); HEMATOCRIT 30.1 % (42.0-52.0); HEMOGLOBIN 9.1 G/DL (14.2-18.0); LYMPHOCYTES % (AUTO) 11.3 % (20.0-45.0); MEAN CORPUSCULAR VOLUME 78 FL (80-99); NEUTROPHILS % (AUTO) 74.4 % (45.0-75.0); PLATELET COUNT 288 K/UL (150-450); RED BLOOD COUNT 3.87 M/UL (4.70-6.10); RED CELL DISTRIBUTION WIDTH 17.7 % (11.6-14.8); WHITE BLOOD COUNT 10.2 K/UL (4.8-10.8)
[2019-01-07 06:51] LABS: ANION GAP 4 mmol/L (5-15); BLOOD UREA NITROGEN 13 mg/dL (7-18); CALCIUM 8.7 MG/DL (8.5-10.1); CARBON DIOXIDE 31 MMOL/L (21-32); CHLORIDE 102 MMOL/L (98-107); CREATININE 0.8 MG/DL (0.55-1.30); POTASSIUM 4.1 MMOL/L (3.5-5.1); SODIUM 137 MMOL/L (136-145)
[2019-01-07] MEDS: PCA shift volume MISC SCH ×2 (07:17→19:27)
--- NOTE | 2019-01-07 07:25 | NUR ---
HAND-OFF: Report given to KAREL Clark.
--- NOTE | 2019-01-07 08:06 | General Progress Note ---
Progress Note Progress Note AVSS Abdomen soft, slight distention, non-tender. right groin incision clean. Scrotum mild swelling - will keep elevated Urine 2225 voiding this AM 250 Ileostomy only small amount in bag Imp. Ileus post repair incarcerated inguinal hernia Plan: continue npo, TPN, ambulation f/u labs Gonzales Siddiqui MD Jan 07, 2019 08:06
--- NOTE | 2019-01-07 08:24 | 48 Hour Post Anesthesia Eval ---
Post Anesthesia Evaluation Procedure: Repair of R incarcerated injuinal hernia Date of Evaluation: Jan 07, 2019 Time of Evaluation: 08:24 Blood Pressure Systolic: 112 0: 68 Pulse Rate: 97 Respiratory Rate: 18 Temperature (Fahrenheit): 98.9 O2 Sat by Pulse Oximetry: 100 Airway: patent Nausea: No Vomiting: No Pain Intensity: 2 Hydration Status: adequate Cardiopulmonary Status: Stable Mental Status/LOC: patient returned to baseline Follow-up Care/Observations: 0 Post-Anesthesia Complications: 0 Follow-up care needed: N/A Alcon Boswell MD Jan 07, 2019 08:24
[2019-01-07] MEDS ORDERED: Phytonadione 10 mg/mL 1ml amp SUBQ SCH (09:00)
[2019-01-07] MEDS ORDERED: Tubing IV Secondary IV ONE (09:20)
--- NOTE | 2019-01-07 11:24 | NUR ---
CASE MANAGEMENT: REVIEW 01/07/2019 SI:Right inguinal hernia. One week status post total abdominal colectomy with Giana ileostomy for ulcerative colitis. T 98.9 HR 97 RR 18 B/P 112/68 SATS 100% ON RA AGAP 4 GLU 115 IS:IVF @ 25 mL/HR VENOFER IV QHS COUPLES THERAPIST PER PARAMETERS TPN @ 87 mL/HR INSULIN ASPART SUBQ Q6H MED/SURG STATUS PLAN OF CARE: CONTINUE TPN NPO AMBULATION
--- NOTE | 2019-01-07 11:30 | NUR ---
INSURANCE REVIEWS FAXED TO p- [phone] f- [phone]
--- NOTE | 2019-01-07 12:26 | NUR ---
NURSE NOTES: OOB,AMBULATED OUT IN THE [place] TOLERATED.
--- NOTE | 2019-01-07 16:30 | NUR ---
NURSE NOTES: AMBULATED OUT IN THE [place] WITH ASSIST TOLERATED.
--- NOTE | 2019-01-07 17:03 | Cardiology Report ---
APPROVED REPORT EKG Measurement Heart [id number] Normal sinus rhythm with sinus arrhythmia Normal ECG
--- NOTE | 2019-01-07 17:45 | NUR ---
NURSE NOTES: ILEOSTOMY BAG LEAKING AND CHANGED. DRESSING CHANGED.
--- NOTE | 2019-01-07 19:00 | NUR ---
NURSE NOTES: RESTING IN BED . IN NO ACUTE DISTRESS.
--- NOTE | 2019-01-07 19:30 | NUR ---
NURSE NOTES: Pt lying in bed w/father at bedside, bed in lowest position, and call light/HELP DESK COORDINATOR button within reach. Pt A&Ox4, VSS, and in no apparent distress at this time. NEGAR PICC line intact/asymptomatic w/IVF & TPN running; Giana ileo intact; and surgical dressing C/D/I. Will continue to monitor.
[2019-01-07] MEDS: TPN IV SCH (20:42)
[2019-01-07] MEDS: Dyna-Hex 2% Top Sol 2oz TOPIC SCH (20:42)
[2019-01-07] MEDS: FAT EMULSION 20% IV SCH (20:42)
[2019-01-07] MEDS: Iron Sucrose 100 MG in NS 55 ML IV SCH (20:45)
--- NOTE | 2019-01-07 23:15 | NUR ---
NURSE NOTES: Pt states ileostomy appliance partially came off while ambulating; charge nurse placed new one without incident; pt tolerated well. Will continue to monitor.
[2019-01-07] MEDS: D5 1/4NS w/KCl 20mEq 1,000 ML IV SCH (23:55)
[2019-01-08] VITALS: BP 108/61
[2019-01-08] MEDS: NovoLOG Insulin Flexpen SUBQ SCH ×4 (00:01→18:39)
[2019-01-08] MEDS: LORazepam 1mg tab SL PRN (00:38)
[2019-01-08] MEDS ORDERED: Morphine Sulfate 2mg/ml Inj(IV/IM USE ONLY) IVP PRN (01:00)
[2019-01-08] MEDS ORDERED: Naloxone 0.4mg/ml Inj IVP PRN (01:00)
[2019-01-08] MEDS ORDERED: Morphine Sulfate 4mg/ml Inj (IV USE ONLY) IV PRN (01:00)
[2019-01-08] MEDS ORDERED: LORazepam 1mg tab ORAL PRN (01:00)
[2019-01-08] MEDS ORDERED: DiphenhydrAMINE 50mg/ml Inj IVP PRN (01:00)
[2019-01-08] MEDS: PCA Morphine 1mg/ml 30 ML IV PRN (01:16)
[2019-01-08 04:00] VITALS: BP 103/66
[2019-01-08] MEDS: Ketorolac 30mg Inj IV PRN (05:20)
[2019-01-08 06:40] LABS: BASOPHILS % (AUTO) 0.6 % (0.0-2.0); EOSINOPHILS % (AUTO) 6.4 % (0.0-3.0); HEMATOCRIT 28.8 % (42.0-52.0); HEMOGLOBIN 8.7 G/DL (14.2-18.0); LYMPHOCYTES % (AUTO) 12.7 % (20.0-45.0); MEAN CORPUSCULAR VOLUME 78 FL (80-99); MONOCYTES % (AUTO) 8.8 % (1.0-10.0); NEUTROPHILS % (AUTO) 71.5 % (45.0-75.0); PLATELET COUNT 295 K/UL (150-450); RED BLOOD COUNT 3.69 M/UL (4.70-6.10); RED CELL DISTRIBUTION WIDTH 17.6 % (11.6-14.8); WHITE BLOOD COUNT 9.1 K/UL (4.8-10.8)
[2019-01-08 06:56] LABS: ANION GAP 8 mmol/L (5-15); BLOOD UREA NITROGEN 14 mg/dL (7-18); CARBON DIOXIDE 29 MMOL/L (21-32); CHLORIDE 101 MMOL/L (98-107); CREATININE 0.7 MG/DL (0.55-1.30); SODIUM 138 MMOL/L (136-145)
[2019-01-08] MEDS: PCA shift volume MISC SCH ×2 (07:00→19:39)
--- NOTE | 2019-01-08 07:30 | NUR ---
NURSE NOTES: Received report from Victorino VINSON. Patient is asleep during rounds, no acute distress noted, RR even and unlabored. TPN and IVF running through NEGAR PICC, dressing clean and intact, REVENUE CYCLE ADMINISTRATOR settings checked and verified against order. Side rails upx2, bed low and locked, call light in reach. Will continue to monitor.
--- NOTE | 2019-01-08 07:45 | NUR ---
HAND-OFF: Report given to KAREL Mayer.
[2019-01-08 08:00] VITALS: BP 91/54
--- NOTE | 2019-01-08 09:00 | Progress Note ---
DATE: 01/08/2019 SUBJECTIVE: The patient is afebrile with vital signs per report of nursing staff. He is not having any cramping or nausea. He has more ileostomy output. The abdomen is only mildly distended and not tympanitic. His midline incision is healing well with intact rickie. The ileostomy in the right lower quadrant is functioning well with 110 mL of output over night. The right inguinal incision has intact Steri-Strips. The right scrotum is still mildly swollen and erythematous but much less tender. We are keeping it elevated whenever he is in bed. Total urine output 2300. The total ileostomy output 185, hemoglobin down slightly 8.7. IMPRESSION: Resolving ileus. PLAN: Start clear liquid diet. Continue TPN until he is tolerating solid food. Gonzales Siddiqui M.D. DR: Adelso JOB#: [id number] CC:
--- NOTE | 2019-01-08 10:44 | NUR ---
CASE MANAGEMENT: REVIEW 01/08/2019 SI:Right inguinal hernia. One week status post total abdominal colectomy with Giana ileostomy for ulcerative colitis. T 98.1 HR 94 RR 19 B/P 91/54 SATS 95% ON RA GLU 118 IS:IVF @ 25 mL/HR VENOFER IV QHS REGIONAL SALES ENGINEER PER PARAMETERS TPN @ 87 mL/HR INSULIN ASPART SUBQ Q6H MED/SURG STATUS PLAN OF CARE: CONTINUE TPN UNTIL PATIENT TOLERATES SOLID FOOD CLD AMBULATION
--- NOTE | 2019-01-08 10:48 | NUR ---
INSURANCE REVIEWS FAXED TO p- [phone] f- [phone]
[2019-01-08 12:00] VITALS: BP 106/64
--- NOTE | 2019-01-08 12:00 | NUR ---
NURSE NOTES: Ileostomy appliance changed by Dagoberto GOMEZ. Patient provided with further education on ileostomy care. Stoma is bright red, peristomal skin intact.
[2019-01-08 16:00] VITALS: BP 101/65
--- NOTE | 2019-01-08 17:30 | NUR ---
NURSE NOTES: Informed Dr. Koroma of patient's UA results, stated he will order antibiotics for the patient.
[2019-01-08 17:32] LABS: APPEARANCE,URINE SLIGHTLY CLOUDY; BILIRUBIN, URINE NEGATIVE (NEGATIVE); COLOR,URINE PALE YELLOW; GLUCOSE, URINE (UA) NEGATIVE (NEGATIVE); KETONES,URINE NEGATIVE (NEGATIVE); LEUKOCYTE ESTERASE ,URINE NEGATIVE (NEGATIVE); NITRITE,URINE NEGATIVE (NEGATIVE); PH,URINE 8 (4.5-8.0); PROTEIN,URINE NEGATIVE (NEGATIVE); UROBILINOGEN,URINE NORMAL MG/DL (0.0-1.0)
--- NOTE | 2019-01-08 18:30 | NUR ---
NURSE NOTES: Total ileo output: 130mL Total urine output: 1475mL Patient tolerating clear liquid diet well so far.
--- NOTE | 2019-01-08 19:30 | NUR ---
NURSE NOTES: Pt lying in bed w/dad at bedside, bed in lowest position, and call light/LITHOGRAPH PRINTER button within reach. Pt A&Ox4, VSS, and c/o scrotal pain; encouraged pt to press LITHOGRAPH PRINTER button. NEGAR PICC line intact/asymptomatic w/IVF & TPN infusing; surgical dressing & Giana ileo bag C/D/I; and scrotum elevated w/rolled towel. Encouraged pt to ambulate at least once during shift; pt states he will attempt to do so a little while later. Will continue to monitor.
--- NOTE | 2019-01-08 19:30 | NUR ---
HAND-OFF: Report given to Victorino VINSON. Patient is in stable condition.
[2019-01-08 20:00] VITALS: BP 102/66
[2019-01-08] MEDS: Dyna-Hex 2% Top Sol 2oz TOPIC SCH (20:46)
[2019-01-08] MEDS: Iron Sucrose 100 MG in NS 55 ML IV SCH (20:47)
[2019-01-08] MEDS: FAT EMULSION 20% IV SCH (20:51)
[2019-01-08] MEDS: TPN IV SCH (20:51)
[2019-01-08] MEDS: D5 1/4NS w/KCl 20mEq 1,000 ML IV SCH (20:52)
--- NOTE | 2019-01-08 22:00 | NUR ---
NURSE NOTES: Pt ambulated up and down the sands once w/dad at his side; pt tolerated fairly and returned to bed w/o incident. Will continue to monitor.
[2019-01-09] VITALS: BP 93/61
[2019-01-09] MEDS: NovoLOG Insulin Flexpen SUBQ SCH ×3 (00:33→12:14)
[2019-01-09 04:00] VITALS: BP 95/59
[2019-01-09] MEDS: PCA Morphine 1mg/ml 30 ML IV PRN (04:51)
--- NOTE | 2019-01-09 05:05 | NUR ---
NURSE NOTES: Changed TOOL KEEPER and wasted 0.79ml in the TOOL KEEPER box.
--- NOTE | 2019-01-09 07:21 | NUR ---
HAND-OFF: Report given to Lola Anderson RN.
[2019-01-09] MEDS: PCA shift volume MISC SCH (07:22)
--- NOTE | 2019-01-09 07:45 | NUR ---
NURSE NOTES: PT IS AXOX4, CALM, RESTING IN BED. PT STATES PAIN IS 2-3/10. DENIES NAUSEA OR VOMITING. PT VERBALIZES UNDERSTANDING OF WELL DIGGER MORPHINE, STATES THE LAST TIME HE PRESSED FOR MORPHINE WAS LAST NIGHT. IVF D5 1/4NS+20MEQ KCL AND TPN RUNNING ON LEFT UA PICC LINE; ASYMPTOMATIC, PATENT AND INTACT. PT USING URINAL AT BEDSIDE. CLEAR YELLOW URINE NOTED. SCROTAL SWELLING NOTED. SCROTUM ELEVATED WITH TOWELS. PT EDUCATED ON IMPORTANCE OF AMBULATING, AND MD ORDERS TO WALK AT LEAST 3 TIMES A DAY. PT VERBALIZES UNDERSTANDING. PT STATES HE WALKS OCCASIONALLY INSIDE HIS ROOM. RN EDUCATED PT TO CALL FOR ANY ASSISTANCE USING CALL LIGHT, AND CALL WHEN HE IS READY TO WALK OUTSIDE. PT VERBALIZED UNDERSTANDING. IN NO APPARENT DISTRESS AT THIS TIME. WILL CONTINUE TO MONITOR.
--- NOTE | 2019-01-09 07:52 | NUR ---
NURSE NOTES: Received report from KAREL Gleason. Rounding done with outgoing nurse. Pt a/o x4, in bed. No respiratory distress noted. Denies any pain at this time. Scrotum still swollen, small towel in placed. NEGAR PICC line is patent. PICC line dressing is C/D/I. Abdominal dressing is C/D/I. Lt ileostomy bag is in placed. Bed in lowest position, call light within reach. Will continue donta monitor.
[2019-01-09 08:00] VITALS: BP 98/61
--- NOTE | 2019-01-09 09:24 | NUR ---
NURSE NOTES: PT AMBULATED WITH RN ROUND UNIT X1. PT TOLERATED WELL. DENIED SOB OR DIZZINESS WHEN AMBULATING. PT RATED PAIN ON LEFT ABDOMEN 5/10, CRAMPING. PT STATED PAIN LEVEL WAS TOLERABLE. PT BACK IN BED, GAVE NEW TOWELS TO KEEP SCROTUM ELEVATED. IN NO APPARENT DISTRESS. WILL CONTINUE TO MONITOR.
--- NOTE | 2019-01-09 09:56 | NUR ---
RD ASSESSMENT & RECOMMENDATIONS SEE CARE ACTIVITY FOR COMPLETE ASSESSMENT DAILY ESTIMATED NEEDS: Needs based on Surgery/ 69.4kg 25-30 kcals/kg 4972-4419 total kcals 1-2 g protein/kg 69-138 g total protein 25-30 mL/kg 7006-4295 total fluid mLs NUTRITION DIAGNOSIS: Altered GI function R/T h/o UC as evidenced by s/p total abdominal colectomy and creation of conventional Giana ileostomy, diet now advanced to clears, remains on TPN. (UPDATED) CURRENT DIET:Clears, on TPN PO DIET RECOMMENDATIONS: DIET PER MD PARENTERAL NUTRITION RECOMMENDATIONS: D/AA Rate: 77 IL Rate: 10 Total Rate: 87 Volume: 2088 % Dextrose: 17 % AA: 5.2 Energy (kcals/kg): 1932 Protein (g/kg protein): 96 Nonprotein KCALS: 1548 GIR (mg CHO/kg/min): 3.1 % Fat KCALS: 24.8 NCP: N Ratio: 100.8 TPN Comment: *D17% AA 5.2% @ 77ml/hr + IL 20% @10ml/hr -> total of 87ml/hr, all 3:1 *TPN at goal will provide 100% est kcal/prot needs(28kcal/1.4g prot per kg) ADDITIONAL RECOMMENDATIONS: * Standing weight as able for accurate CBW, weekly wt monitoring Standing weight 01/09: 145.3 lbs * Monitor lytes, LFTs, BGs daily w/ TPN
[2019-01-09] MEDS: Ampicillin/Sulbactam Sod 3 GM in NS 110 ML IVPB SCH ×2 (10:58→22:55)
--- NOTE | 2019-01-09 11:58 | NUR ---
CASE MANAGEMENT: REVIEW 01/09/2019 SI:Right inguinal hernia. One week status post total abdominal colectomy with Giana ileostomy for ulcerative colitis. T 97.9 HR 82 RR 19 B/P 98/61 SATS 97% ON RA NO LABS TODAY IS:IVF @ 25 mL/HR VENOFER IV QHS COMMUNICATIONS ADMINISTRATOR PER PARAMETERS TPN @ 87 mL/HR INSULIN ASPART SUBQ Q6H MED/SURG STATUS PLAN OF CARE: CONTINUE TPN UNTIL PATIENT TOLERATES SOLID FOOD CLD AMBULATION
[2019-01-09 12:00] VITALS: BP 95/66
--- NOTE | 2019-01-09 12:00 | NUR ---
INSURANCE REVIEWS FAXED TO p- [phone] f- [phone]
--- NOTE | 2019-01-09 12:37 | NUR ---
NURSE NOTES: Dr. Koroma came and removed abdominal dressing and rickie.
--- NOTE | 2019-01-09 13:30 | NUR ---
NURSE NOTES: PT WAS EDUCATED ON DR NUNEZ'S ORDERS TO STOP TPN, SKEIN DRIER MORPHINE, AND IV FLUIDS AND UPGRADE TO REGULAR DIET. PT VERBALIZED UNDERSTANDING. IN NO APPARENT DISTRESS AT THIS TIME. WILL CONTINUE TO MONITOR.
--- NOTE | 2019-01-09 15:41 | NUR ---
NURSE NOTES: PT AMBULATING WITH FATHER AROUND UNIT. PT STATES HE IS FEELING FINE, DENIES SOB OR DIZZINESS. IN NO APPARENT DISTRESS AT THIS TIME. WILL CONTINUE TO MONITOR.
[2019-01-09 15:58] VITALS: BP 117/69
[2019-01-09] MEDS: Ketorolac 30mg Inj IV PRN ×2 (16:08→23:46)
--- NOTE | 2019-01-09 16:13 | NUR ---
NURSE NOTES: PT STATES HE HAS ABDOMINAL PAIN AFTER WALKING, DESCRIBES CRAMPING/ACHING PAIN. RN ADMINISTERED PRN TORADOL ORDERED.
--- NOTE | 2019-01-09 17:26 | NUR ---
NURSE NOTES: PT WALKED WITH RN AROUND THE UNIT. PT STATES THE CRAMPING FEELING OF LEFT ABDOMEN HAS NOT GONE AWAY, MIGHT BE GAS PAIN. RN LEFT MESSAGE FOR DR NUNEZ AND MADE AWARE, AWAITING FOR NEW ORDERS.
--- NOTE | 2019-01-09 17:33 | NUR ---
NURSE NOTES: Dr. Koroma ordered [place] 5/325 q4 prn for pain. Noted and carried out.
[2019-01-09] MEDS: Simethicone 80mg tab ORAL PRN (18:44)
--- NOTE | 2019-01-09 19:15 | NUR ---
HAND-OFF: Report given to Rocco BURRELL RN.
--- NOTE | 2019-01-09 19:15 | NUR ---
Receive a report from KAREL Newell. Round is done. Pt is awake and alert. Breathing is even and non labored. No acute distress noted. Pt states that abdominal pain is moving on both sides 4/10. Bowel sound is intact but not hyper active. Discontinue DRAWING MACHINE OPERATOR pump earlier and explain for other pain medication options. Pt verbalizes understanding. Op site is open and clear after removal rickie. PICC is inserted state and remains clear. Will continue to monitor.
--- NOTE | 2019-01-09 19:36 | General Progress Note ---
Progress Note Progress Note no acute events pain improved no n/v//fc toleratig diet ambulatory d/c tpn adv diet rickie removed ostomy care d/c planning Danie Koroma Jan 09, 2019 19:36
[2019-01-09 20:00] VITALS: BP 105/73
--- NOTE | 2019-01-09 20:30 | NUR ---
NURSE NOTES: Pt took shower after covering on PICC site. No dizziness or headache noted. No chilling or febrile sensation noted. Changed ileostomy bag. Ileostomy site is clear and stoma remains pinkish with gas passing. Emptied 250ml greenish to brownish drainage. Will continue to monitor.
[2019-01-09] MEDS: Dyna-Hex 2% Top Sol 2oz TOPIC SCH (21:23)
[2019-01-09] MEDS: HYDROcodone/Acetamin 5/325 tab ORAL PRN (21:24)
[2019-01-10] VITALS: BP 95/63
[2019-01-10] MEDS: HYDROcodone/Acetamin 5/325 tab ORAL PRN ×2 (01:10→23:31)
--- NOTE | 2019-01-10 01:45 | NUR ---
NURSE NOTES: Abdominal discomfort/pain decreased from 6/10 to 4/10 after prn pain medication but still noted burping and mild nausea during switching position. Refuses to take Zofran for nausea. Will continue to monitor.
--- NOTE | 2019-01-10 02:50 | NUR ---
NURSE NOTES: Given prn Simethicone 80mg 0.5 t po for gas discomfort. Emptied out ileostomy 250ml. Stoma remain pinkish and noted gas passing. Will continue to monitor.
[2019-01-10] MEDS: Simethicone 80mg tab ORAL PRN ×3 (02:51→23:01)
[2019-01-10 04:00] VITALS: BP 90/58
[2019-01-10] MEDS: Ampicillin/Sulbactam Sod 3 GM in NS 110 ML IVPB SCH (05:00)
--- NOTE | 2019-01-10 06:00 | NUR ---
NURSE NOTES: Abdominal discomfort relieved with minimal pain 06/29. No N/V noted. Lab is done via PICC on left upper arm. Will continue to monitor. Ileostomy output: 490ml watery greenish to brownish color.
[2019-01-10 06:05] LABS: BASOPHILS % (AUTO) 1.8 % (0.0-2.0); EOSINOPHILS % (AUTO) 8.2 % (0.0-3.0); HEMATOCRIT 29.9 % (42.0-52.0); LYMPHOCYTES % (AUTO) 19.7 % (20.0-45.0); MEAN CORPUSCULAR VOLUME 78 FL (80-99); MONOCYTES % (AUTO) 7.7 % (1.0-10.0); NEUTROPHILS % (AUTO) 62.5 % (45.0-75.0); PLATELET COUNT 319 K/UL (150-450); RED BLOOD COUNT 3.82 M/UL (4.70-6.10); RED CELL DISTRIBUTION WIDTH 17.1 % (11.6-14.8); WHITE BLOOD COUNT 7.7 K/UL (4.8-10.8)
[2019-01-10 06:15] LABS: ANION GAP 9 mmol/L (5-15); BLOOD UREA NITROGEN 21 mg/dL (7-18); CALCIUM 9.3 MG/DL (8.5-10.1); CARBON DIOXIDE 28 MMOL/L (21-32); CHLORIDE 101 MMOL/L (98-107); CREATININE 0.9 MG/DL (0.55-1.30); POTASSIUM 3.8 MMOL/L (3.5-5.1); SODIUM 138 MMOL/L (136-145)
--- NOTE | 2019-01-10 07:35 | NUR ---
HAND-OFF: Report given to KAREL Anderson. Round is done. Pt is asleep.
--- NOTE | 2019-01-10 07:41 | NUR ---
NURSE NOTES: Received report from KAREL Pastrana. Rounding done with outgoing nurse. Pt asleep. Father is at bedside. Bed in lowest position, call light within reach. Will continue to monitor.
[2019-01-10 08:00] VITALS: BP 103/68
[2019-01-10 12:00] VITALS: BP 111/73
--- NOTE | 2019-01-10 12:50 | General Progress Note ---
Progress Note Progress Note no acute events pain improved no n/v//fc tolerating diet ambulatory diet as tolerated Abx for UTI ostomy care d/c planning for tomorrow Danie Koroma Jan 10, 2019 12:50
--- NOTE | 2019-01-10 13:51 | NUR ---
NURSE NOTES: Patient stat he feels burning sensation on his anus and he feels that he wants to poop. Dr. Koroma was notified and MD said it is normal feeling. Informed pt and verbalized understanding.
[2019-01-10] MEDS ORDERED: cefTRIAXone 1gm/D5W 55ml IVPB SCH ×2 (15:00)
[2019-01-10 16:00] VITALS: BP 105/71
--- NOTE | 2019-01-10 16:00 | NUR ---
NURSE NOTES: Patient ambulated hallway x 1 in steady gait.
--- NOTE | 2019-01-10 16:46 | NUR ---
NURSE NOTES: Small amount of blood came out from his anus. Dr. Koroma was notified and MD said it is normal symptom. Explained pt and verbalized understanding.
[2019-01-10] MEDS ORDERED: NS 275ml ONE (17:41)
[2019-01-10] MEDS ORDERED: Tubing IV Secondary IV ONE (17:41)
--- NOTE | 2019-01-10 18:52 | NUR ---
NURSE NOTES: Patient ambulated hallway x3 with KAREL espinal assistance in steady gait. Addendum: 01/10/19 at 1920 by Lola Bangura RN DISCARD PLEASE WRONG PATIENT
--- NOTE | 2019-01-10 19:32 | NUR ---
HAND-OFF: Report given to Jordin Miller RN. Endorsed POC.
--- NOTE | 2019-01-10 19:50 | NUR ---
NURSE NOTES: Received report from KAREL Matamoros. Patient is resting comfortably in bed. No c/o of pain. No c/o of SOB on room air. Ileostomy bag is attached to right lower abdomen. Stoma is pink and moist. Left upper arm PICC line dressing is c/d/i. Refused SCDs. Family at bedside.
[2019-01-10 20:00] VITALS: BP 103/66
[2019-01-10] MEDS: Dyna-Hex 2% Top Sol 2oz TOPIC SCH (20:00)
[2019-01-11] VITALS: BP 116/71
[2019-01-11] MEDS: LORazepam 1mg tab SL PRN (02:04)
[2019-01-11 04:00] VITALS: BP 111/60
--- NOTE | 2019-01-11 07:30 | NUR ---
NURSE NOTES: Patient lying in bed awake. No complain of pain or distress at this time. Skin intact and dry. Ileostomy round and beefy red color. Surgical dressing intact and dry. PICC line dressing intact and dry. Bed lowest position. Call light within reach. Will continue to monitor.
[2019-01-11 08:00] VITALS: BP 106/66
[2019-01-11 12:00] VITALS: BP 111/71
--- NOTE | 2019-01-11 13:00 | NUR ---
NURSE NOTES: CN spoke to WC nurse regarding the Ostomy supplies when patient gets home, informed the patient requires prescription and patient will send it to his insurance to get the supplies, prescription received from Dr. Koroma and faxed to the insurance. Extra supplies given for home use till supply start by the insurance.
--- NOTE | 2019-01-11 13:25 | NUR ---
NURSE NOTES: Seen and evaluated by and new order received. Order read back and carried out.
[2019-01-11] MEDS ORDERED: NORCO 5-325 TA1 EACH ORAL (13:29)
[2019-01-11] MEDS ORDERED: BACTRIM-DS1 EA ORAL (13:30)
--- NOTE | 2019-01-11 14:05 | General Progress Note ---
Progress Note Progress Note no acute events doing great no complaints no n/v//fc tolerating diet ambulatory Bactrim Abx for UTI ostomy care d/c home Rx written Danie Koroma Jan 11, 2019 14:05
--- NOTE | 2019-01-11 14:20 | NUR ---
NURSE NOTES: Patient discharged with family member in stable condition. Discharge instruction given to patient and verbalized understanding. Prescription, belonging and extra supply for ileostomy given to patient. Ileostomy supply company information given to patient and Instructed to follow up. PICC line and ID removed. Patient ambulated out with all personal belongings with steady gait.
--- NOTE | 2019-01-11 15:28 | NUR ---
NURSE NOTES: Received order for case resource manager for Ostomy supplies. faxed order at [facility] at [phone](P) [phone](F) unable to get hold of anyone since they are closed for the weekend. given information to patient to call them to fallow with supplies. [facility]: [phone]
--- NOTE | 2019-01-12 15:01 | Discharge Summary ---
Discharge Summary Hospital Course Date of Admission Dec 29, 2018 at 08:47 Date of Discharge Jan 11, 2019 at 14:20 Admitting Diagnosis Intractable ulcerative colitis Reason for Hospitalization: Patient was admitted for elective surgery HPI Vicente Zayas is a 28 year old male, who was admitted on Dec 29, 2018 at 08: 47 for intractable ulcerative colitis. Patient was admitted for elective surgery Procedures s/p 12/30/[address] Siddiqui Laparoscopic-assisted total abdominal colectomy and conventional Giana ileostomy. 01/06/[address] Siddiqui Repair of right inguinal hernia with Prolene mesh patch, resection of indirect inguinal hernia sac and evacuation of scrotal fluid. Hospital Course Patient admitted with for elective surgery- laparoscopic-assisted proctocolectomy and Argueta continent intestinal reservoir due to intractable ulcerative colitis Labs were drawn: noted low ferritin , albumin , hemoglobin , serum iron . B12 and folate stable Surgery was discussed in detail with patient and his father Patient subsequently undergone surgery During surgery patient received 2 units of packed red blood cells and 250 cc of albumin Patient started on Venofer after surgery Hemoglobin and hematocrit were closely monitored In the morning of 12/31 patient started on TPN and was kept n.p.o. Pain management was addressed with CAR PRE COOLER along with Toradol prn Intake and output were closely monitored Ileostomy initially without effluent Supplemental oxygen provided as needed to keep pulse oximetry above 92%; pulse oximetry was stable on room air 01/01 No respiratory issues; pain controlled with CAR PRE COOLER morphine and Toradol Abdomen still distended but soft, incision clean ,stoma pink ,no effluent NPO status , TPN and Venofer continued ambulated 3 times a day empiric antibiotic stopped , leukocytosis resolved 01/02 Intake and output clsoely monitored, NPO status continued, CAR PRE COOLER, TPN and Anderson continued 01/03 Basal infusion of CAR PRE COOLER discontinued n.p.o. status continued TPN and Anderson continued 01/04 intake and output closely monitored NPO, TPN, and Anderson for additional day 01/05 Anderson discontinued n.p.o. and TPN patient woth persistent ileus and severe hypoalbuminemia 2 views abdominal X ray abdominal x-ray revealed ree intraperitoneal gas and fluid, presumably related to the recent surgery. No loculated fluid collection demonstrated. 01/06 still with little ileostomy output and mild abdominal distention , mild leukocytosis voided freely after Anderson discontinued concern for persistent ileus , rule out intra-abdominal seroma stat CT scan of the abdomen and pelvis with oral and IV consult revealed incarcerated right inguinal hernia with collapsed bowel distal, mildly dilated proximal clinical exam demonstrated loop of bowel and scrotum tender on palpation plan : repair incarcerated right inguinal hernia , continue TPN and n.p.o. status patient subsequently undergone repair of right inguinal hernia on 01/06 01/07 n.p.o. TPN continue ambulation encouraged ileostomy still with small amount of effluent 01/08 ileus resolving started on clear liquid diet TPN continued until tolerates solid diet 01/09 pain improved diet advanced , tolerated TPN discontinued staple removed ostomy care provided DC plan antibiotic for UTI 01/10 antibiotic continued for UTI. patient able to tolerate diet ostomy care was taught to the patient 01/11 patient improving tolerated diet , able to ambulate, no acute events, patient was stable for discharge oral antibiotic prescription for UTI provided ostomy care was reinforced patient able to verbalize ostomy teaching discharge instruction provided return precautions were discussed with the patient prescription provided patient was stable for discharge outpatient follow up as advised by surgeon FINAL DIAGNOSES Intractable ulcerative colitis s/p 12/30 laparoscopic-assisted total abdominal colectomy and conventional Giana ileostomy Persistent ileus Malnutrition Iron deficiency anemia Incarcerated right inguinal hernia Incarcerated right inguinal hernia with resulting early small bowel obstruction right inguinal hernia indirect with inflamed ischemic hernia sac with serosanguineous fluid filling the scrotum without any intestine or intra- abdominal structure Status post repair of right inguinal hernia and resection of indirect inguinal hernia sac and evacuation of scrotal fluid CT scan revealed Indirect right inguinal hernia involving a loop of distal small bowel and resulting in partial small bowel obstruction. There may also be strangulation of the herniated bowel. Discharge Medications Continued Medications: Hydrocodone Bit/Acetaminophen 5-325* ([place] 5-325*) 1 Each Tablet 1 TAB ORAL Q4H PRN for For Pain, #30 TAB 0 Refills (This prescription has been renewed) Trimethoprim/Sulfamethoxazole (Bactrim Ds Tablet) 1 Each Tablet 1 TAB ORAL TWICE A DAY, #14 TAB (This prescription has been renewed) Discharge Condition Upon Discharge: stable Discharge Disposition Patient was discharged home Discharge Instructions Discharge Instructions Special Instructions I have been assigned to complete a D/C Summary on this account. I was not involved in the patient management Lesley Alicea NP Jan 12, 2019 15:00
== END 2019-01-11 14:20 | disposition home or self-care (01) | DRG 330 ==
LOC: 3E 08:47
PROC: 02HV33Z Insertion of Infusion Device into Superior Vena Cava, Percutaneous Approach (ICD-10-PCS; principal; 2018-12-29)
PROC: B518ZZA Fluoroscopy of Superior Vena Cava, Guidance (ICD-10-PCS; principal; 2018-12-29)
PROC: 0DTE0ZZ Resection of Large Intestine, Open Approach (ICD-10-PCS; 2018-12-30)
PROC: 0D1B0Z4 Bypass Ileum to Cutaneous, Open Approach (ICD-10-PCS; 2018-12-30)
PROC: 0YU50JZ Supplement Right Inguinal Region with Synthetic Substitute, Open Approach (ICD-10-PCS; 2019-01-06)
DX: K51.90 Ulcerative colitis, unspecified, without complications (principal); K56.7 Ileus, unspecified; E46 Unspecified protein-calorie malnutrition; K40.30 Unilateral inguinal hernia, with obstruction, without gangrene, not specified as recurrent; N39.0 Urinary tract infection, site not specified; R00.0 Tachycardia, unspecified; D50.9 Iron deficiency anemia, unspecified
CPT/HCPCS: 36415; 36569; 71045; 74019; 74177; 76937; 80048; 80053; 81001; 81003; 82607; 82728; 82746; 82962; 83540; 83550; 83735; 84100; 85007; 85025; 85610; 85730; 86140; 86850; 86900; 86901; 86920; 87086; 87181; 93005; 94003; 94150; J1815; J2250; J2405; J2710

== ENCOUNTER 2019-05-06 09:17 | Inpatient (IN) | payer BC ==
--- NOTE | 2019-05-05 15:30 | Pre-op HX & Phy Repo 2 SIG ---
DATE OF ADMISSION: 05/07/2019 SCHEDULED FOR ADMISSION: 05/06/2019. SCHEDULED FOR SURGERY: 05/07/2019. HISTORY OF PRESENT ILLNESS: The patient is a 28-year-old male in overall good health with intractable ulcerative colitis, who underwent laparoscopic-assisted abdominal colectomy with partial proctectomy and Giana ileostomy December 30, 2018. His colon was very inflamed and it was felt that he needed a two-stage operation. One week later on January 06, 2019, he required surgery for repair of an incarcerated right inguinal hernia into the scrotum, but no bowel was found in the hernia sac. He recovered from both of these operations. He was discharged on January 11, 2019 and has done well overall. In February, he had iron studies. His hemoglobin was 13.5, albumin 4.7. His serum iron was 39 and ferritin 29. He was taking liquid iron, which he has continued since then. He is now scheduled to be admitted for abdominoperineal proctectomy and creation of a Argueta continent intestinal reservoir, type of continent ileostomy. PAST MEDICAL HISTORY AND MEDICATIONS: None. ALLERGIES: None. OPERATIONS: Only the above. PHYSICAL EXAMINATION: [place] and will be examined upon arrival and dictated separately. IMPRESSION: 1. Intractable ulcerative colitis. 2. Status post laparoscopic-assisted total colectomy with conventional ileostomy, March 01, 2019. 3. Repair of incarcerated right inguinal hernia into the scrotum without bowel being present January 06, 2019. PLAN: The patient will be admitted and will undergo insertion of a dual lumen PICC line, intravenous hydration during his bowel prep, and preoperative intravenous antibiotics started the night before surgery and will receive preoperative subcutaneous heparin in the morning after admission. He is going to undergo abdominoperineal proctectomy and conversion of his conventional ileostomy to a Argueta continent intestinal reservoir. I have had a full discussion with the patient regarding the nature of his condition, the nature of the surgery, indications, alternatives, options, and risks including both the general risks of surgery and the specific risks associated with the Argueta pouch including the risk of reoperation for fistula or slipped valve or other issues with the pouch structure or function and the risks of pouchitis. All questions have been answered. The patient understands and agrees to proceed thank. Don Vinod Siddiqui DR: DELILAH JOB#: [id number] CC:
[~2019-05-06] VITALS: Ht 170.2 cm; Wt 90.7 kg
[~2019-05-06 09:17] MED LIST: BACTRIM-DS1 EA ORAL; Heparin1,000 units/500ml Premix(Conc:2 units/ml) ONE; Lidocaine 1% Plain 30 ml INJ ONE; NORCO 5-325 TA1 EACH ORAL
--- NOTE | 2019-05-06 09:45 | NUR ---
NURSE NOTES: Patient arrived on unit with father. AOx4, stable, in good spirits. Assisted to room, RN oriented patient to room, call light, and unit. Patient encouraged to use call light for assistance, verbalized understanding. Toiletries and linen provided. Skin is clean, dry, and intact. Ileostomy noted in RLQ, surrounding skin c/d/i. Will collect urine sample. Plan of care discussed with patient and patient's father. Patient is in bed in locked and lowest position with call light within reach. Will continue to monitor.
[2019-05-06] MEDS ORDERED: Zolpidem 5mg tab ORAL PRN (10:00)
[2019-05-06] MEDS ORDERED: Heparin1,000 units/500ml Premix(Conc:2 units/ml) IV PRN (10:00)
--- NOTE | 2019-05-06 10:40 | NUR ---
NURSE NOTES: Ice water provided to patient and patient's father. Clear liquid diet discussed with patient, patient verbalized understanding. Patient informed of NPO status at midnight, patient verbalized understanding.
[2019-05-06 10:54] LABS: BASOPHILS % (AUTO) 1.3 % (0.0-2.0); EOSINOPHILS % (AUTO) 1.4 % (0.0-3.0); HEMATOCRIT 48.3 % (42.0-52.0); HEMOGLOBIN 15.2 G/DL (14.2-18.0); LYMPHOCYTES % (AUTO) 31.3 % (20.0-45.0); MEAN CORPUSCULAR VOLUME 81 FL (80-99); MONOCYTES % (AUTO) 6.3 % (1.0-10.0); NEUTROPHILS % (AUTO) 59.8 % (45.0-75.0); PLATELET COUNT 170 K/UL (150-450); RED BLOOD COUNT 5.94 M/UL (4.70-6.10); RED CELL DISTRIBUTION WIDTH 14.8 % (11.6-14.8); WHITE BLOOD COUNT 5.4 K/UL (4.8-10.8)
[2019-05-06 11:01] LABS: ANION GAP 4 mmol/L (5-15); BLOOD UREA NITROGEN 12 mg/dL (7-18); CALCIUM 8.9 MG/DL (8.5-10.1); CARBON DIOXIDE 30 MMOL/L (21-32); CHLORIDE 104 MMOL/L (98-107); CREATININE 1.2 MG/DL (0.55-1.30); POTASSIUM 4.4 MMOL/L (3.5-5.1); SODIUM 138 MMOL/L (136-145)
--- NOTE | 2019-05-06 11:01 | NUR ---
NURSE NOTES: Blood drawn for labs. Still awaiting urine sample. EKG done at bedside, shows normal sinus rhythm. RN spoke to radiology, still awaiting oxygen therapy technician for chest xray and waiting for PICC line placement. Patient aware of all procedures and continues to be compliant and is in good spirits.
[2019-05-06 11:02] LABS: INR 1.1 (0.9-1.1)
[2019-05-06 11:17] LABS: ALANINE AMINOTRANSFERASE 30 U/L (12-78); ALBUMIN/GLOBULIN RATIO 1.1 (1.0-2.7); ALKALINE PHOSPHATASE 196 U/L (46-116); ASPARTATE AMINO TRANSFERASE 22 U/L (15-37); BILIRUBIN,TOTAL 0.7 MG/DL (0.2-1.0); FERRITIN 38 NG/ML (8-388)
[2019-05-06 12:00] VITALS: BP 100/53
[2019-05-06] MEDS ORDERED: Neomycin Sulfate 500mg Tab ORAL SCH (12:00)
[2019-05-06] MEDS: Neomycin Sulfate 500mg Tab ORAL SCH ×3 (12:22→20:38)
[2019-05-06 12:23] LABS: % IRON SATURATION 22 % (15-50); IRON 69 ug/dL (50-175); TOTAL IRON BINDING CAPACITY 312 ug/dL (250-450)
[2019-05-06 14:08] LABS: APPEARANCE,URINE CLEAR; BILIRUBIN, URINE NEGATIVE (NEGATIVE); COLOR,URINE PALE YELLOW; GLUCOSE, URINE (UA) NEGATIVE (NEGATIVE); KETONES,URINE NEGATIVE (NEGATIVE); LEUKOCYTE ESTERASE ,URINE NEGATIVE (NEGATIVE); NITRITE,URINE NEGATIVE (NEGATIVE); PH,URINE 7 (4.5-8.0); PROTEIN,URINE NEGATIVE (NEGATIVE); UROBILINOGEN,URINE NORMAL MG/DL (0.0-1.0)
--- NOTE | 2019-05-06 15:25 | Anethesia Preoperative Eval ---
Anesthesia Pre-op PMH/ROS General Date of Evaluation: May 06, 2019 Time of Evaluation: 15:24 Anesthesiologist: meghan ASA Score: ASA 2 Mallampati Score Class I : Soft palate, uvula, fauces, pillars visible Class II: Soft palate, uvula, fauces visible Class III: Soft palate, base of uvula visible Class IV: Only hard plate visible Mallampati Classification: Class II Surgeon: Artur Diagnosis: Malfunctioning Argueta Surgical Procedure: Argueta continent ileostomy Anesthesia History: none Family History: no anesthesia problems Allergies: Coded Allergies: No Known Allergies (Unverified , 12/29/18) Medications: see eMAR Patient NPO?: Yes NPO Date: May 06, 2019 NPO Time: 00:01 Past Medical History Cardiovascular: Denies: HTN, CAD, [place], valve dz, arrhythmia, other Pulmonary: Reports: asthma - Mild, other - U Colitis Gastrointestinal/Genitourinary: Reports: GERD; Denies: CRI, ESRD, other Neurologic/Psychiatric: Reports: depression/anxiety; Denies: dementia, CVA, TIA, other Endocrine: Denies: DM, hypothyroidism, steroids, other PMH Narrative: 28-year-old male in overall good health with intractable ulcerative colitis, who underwent laparoscopic-assisted abdominal colectomy with partial proctectomy and Giana ileostomy December 30, 2018. PSxH Narrative: colectomy Anesthesia Pre-op Phys. Exam Physician Exam Last Vital Signs Date Time Temp Pulse Resp B/P (MAP) Pulse Ox O2 Delivery O2 Flow Rate FiO2 05/06/19 12:00 98.2 72 18 100/53 (69) 99 05/06/19 09:39 Room Air Airway Exam Mallampati Classification 2 Mallampati Score: Class II MO: full ROM: full Dentures: no upper, no lower Anesthesia Pre-op A/P Labs Hematology Test 05/06/19 10:40 White Blood Count 5.4 K/UL (4.8-10.8) Red Blood Count 5.94 M/UL (4.70-6.10) Hemoglobin 15.2 G/DL (14.2-18.0) Hematocrit 48.3 % (42.0-52.0) Mean Corpuscular Volume 81 FL (80-99) Mean Corpuscular Hemoglobin 25.6 PG (27.0-31.0) L Mean Corpuscular Hemoglobin Concent 31.4 G/DL (32.0-36.0) L Red Cell Distribution Width 14.8 % (11.6-14.8) Platelet Count 170 K/UL (150-450) Mean Platelet Volume 7.9 FL (6.5-10.1) Neutrophils (%) (Auto) 59.8 % (45.0-75.0) Lymphocytes (%) (Auto) 31.3 % (20.0-45.0) Monocytes (%) (Auto) 6.3 % (1.0-10.0) Eosinophils (%) (Auto) 1.4 % (0.0-3.0) Basophils (%) (Auto) 1.3 % (0.0-2.0) Coagulation Test 05/06/19 10:40 Prothrombin Time 11.2 SEC (9.30-11.50) Prothromb Time International Ratio 1.1 (0.9-1.1) Activated Partial Thromboplast Time 31 SEC (23-33) Chemistry Test 05/06/19 10:40 Sodium Level 138 MMOL/L (136-145) Potassium Level 4.4 MMOL/L (3.5-5.1) Chloride Level 104 MMOL/L (98-107) Carbon Dioxide Level 30 MMOL/L (21-32) Anion Gap 4 mmol/L (5-15) L Blood Urea Nitrogen 12 mg/dL (7-18) Creatinine 1.2 MG/DL (0.55-1.30) Estimat Glomerular Filtration Rate > 60 mL/min (>60) Glucose Level 109 MG/DL (74-106) H Calcium Level 8.9 MG/DL (8.5-10.1) Iron Level 69 ug/dL (50-175) Total Iron Binding Capacity 312 ug/dL (250-450) Percent Iron Saturation 22 % (15-50) Unsaturated Iron Binding 243 ug/dL (112-346) Ferritin 38 NG/ML (8-388) Total Bilirubin 0.7 MG/DL (0.2-1.0) Aspartate Amino Transf (AST/SGOT) 22 U/L (15-37) Alanine Aminotransferase (ALT/SGPT) 30 U/L (12-78) Alkaline Phosphatase 196 U/L (46-116) H Total Protein 7.8 G/DL (6.4-8.2) Albumin 4.0 G/DL (3.4-5.0) Globulin 3.8 g/dL Albumin/Globulin Ratio 1.1 (1.0-2.7) Vitamin B12 Level 548 PG/ML (193-986) Folate 17.0 NG/ML (8.6-58.9) Studies Pre-op Studies: EKG - SR Risk Assessment & Plan Plan: Ruthy Dudley CRNA May 06, 2019 15:25
--- NOTE | 2019-05-06 15:26 | NUR ---
RADIOLOGY NOTE: LEFT UPPER EXTREMITY PICC LINE 2L PLACED BY DR. HORNER AT 1455 HRS. FA
--- NOTE | 2019-05-06 15:37 | General Progress Note ---
Progress Note Progress Note H&P dictated. Doing well with ileostomy and prepared for abdomino-perineal proctectomy and conversion of conventional ileostomy to Argueta continent ileostomy Abdomen soft, perianal tissues normal. Site selected for Argeuta pouch stoma Hgb 15.2 Iron 69 Ferritin 38 Full discussion with patient. Plan: PICC line with IV hydration during bowel prep Venofer May need TPN post-op Pre-op heparin SQ and IV antibiotics Gonzales Siddiqui MD May 06, 2019 15:36
[2019-05-06 16:00] VITALS: BP 110/66
--- NOTE | 2019-05-06 16:00 | NUR ---
NURSE NOTES: I/S at bedside. Patient verbalized understanding of importance of using I/S.
[2019-05-06] MEDS: D5 1/2NS w/KCl 20mEq 1,000 ML IV SCH (17:52)
--- NOTE | 2019-05-06 19:27 | NUR ---
HAND-OFF: Report given to Manju VINSON. Patient is stable.
--- NOTE | 2019-05-06 19:30 | NUR ---
NURSE NOTES: Patient in bed, alert and oriented x4, no complaint of any pain at this time. Instructed patient on NPO at midnight. Pt. verbalized understanding. He is independent and able to care for his ileostomy. Encouraged to use call light when assistance is needed.
[2019-05-06 20:00] VITALS: BP 101/69
[2019-05-06] MEDS: Dyna-Hex 2% Top Sol 2oz TOPIC SCH (20:38)
[2019-05-06] MEDS: Iron Sucrose 100 MG in NS 55 ML IV SCH (20:42)
[2019-05-06] MEDS: Ampicillin/Sulbactam Sod 3 GM in NS 110 ML IVPB SCH (23:53)
[2019-05-07] VITALS (16 sets, daily range): BP systolic 104–135; BP diastolic 65–86
[2019-05-07] MEDS: D5 1/2NS w/KCl 20mEq 1,000 ML IV SCH (03:54)
[2019-05-07] MEDS ORDERED: Heparin 5000 units/ml inj SUBQ SCH (05:30)
[2019-05-07] MEDS: Ampicillin/Sulbactam Sod 3 GM in NS 110 ML IVPB SCH (05:39)
--- NOTE | 2019-05-07 06:04 | NUR ---
NURSE NOTES: Kept pt on NPO. Meds given as ordered.
[2019-05-07] MEDS ORDERED: Bacitracin 50000 Units Vial ONE (06:24)
[2019-05-07] MEDS ORDERED: NeoSporin Gu Irrig 1ml Amp IRRIG ONE (06:24)
--- NOTE | 2019-05-07 06:48 | Pre-Procedure Note/Attestation ---
Pre-Procedure Note/Attestation Complete Prior to Procedure Planned Procedure: not applicable Procedure Narrative: Abdomino-perineal proctectomy and Argueta Continent Ileostomy Indications for Procedure Pre-Operative Diagnosis: ulcerative colitis Attestation I attest that I discussed the nature of the procedure; its benefits; risks and complications; and alternatives (and the risks and benefits of such alternatives ), prior to the procedure, with the patient (or the patient's legal community service representative). I attest that, if there was a reasonable possibility of needing a blood transfusion, the patient (or the patient's legal community service representative) was given the [facility] standardized written summary, pursuant to the [place] Blood Safety Act ([place] Health and Safety Code # 1645, as amended). I attest that I re-evaluated the patient just prior to the surgery and that there has been no change in the patient's H&P, except as documented below:none Gonzales Siddiqui MD May 07, 2019 06:48
--- NOTE | 2019-05-07 06:58 | NUR ---
NURSE NOTES: Patient was transported to OR with tech. Sent with IV antibiotics, IV fluid and patient's chart.
--- NOTE | 2019-05-07 07:15 | Pre-op HX & Phy Repo 2 SIG ---
DATE OF ADMISSION: 05/06/2019 HISTORY OF PRESENT ILLNESS: The patient is a 28-year-old male in overall good health with intractable ulcerative colitis who underwent surgery in December 2018 involving laparoscopic-assisted abdominal colectomy with partial proctectomy and conventional Giana ileostomy. He now returns in much improved condition as he was very depleted prior to that surgery. He is scheduled to undergo abdominal-perineal proctectomy and conversion of his conventional ileostomy to a Argueta continent intestinal reservoir type of continent ileostomy. PHYSICAL EXAMINATION: GENERAL: The patient is well developed and well nourished with stable vital signs. HEENT: Within normal limits. LUNGS: Clear. HEART: Regular rhythm. BREASTS: Without masses. ABDOMEN: Soft and flat. There is a midline scar which is hypertrophic. The ileostomy stoma is high in the right lower quadrant. There is no evidence of abdominal wall hernia. Genitalia within normal limits. There is a scar in the right groin from repair of incarcerated inguinal hernia in December. RECTAL: No perianal inflammation. EXTREMITIES: Without edema. Pulses 3+ femoral to pedal bilaterally. NEUROLOGIC: Physiologic. IMPRESSION: 1. Intractable ulcerative colitis. 2. STATUS POST MULTIPLE ABDOMINAL OPERATIONS: 2.1. Laparoscopic-assisted total colectomy with partial proctectomy with conventional Giana ileostomy December 30, 2018. 2.2. Repair of incarcerated right inguinal hernia into the scrotum without bowel January 06, 2019. PLAN: See previously dictated plan of admission. I have had a full discussion with the patient regarding his condition, the nature of the surgery, indications, alternatives, options, and risks and all questions have been answered. Gonzales Siddiqui M.D. DR: Adelso JOB#: [id number] CC:
[2019-05-07] MEDS ORDERED: Rocuronium Bromide 50mg/5ml Inj IV ONE (07:28)
[2019-05-07] MEDS ORDERED: Maxitrol Opth Susp 5ml ONE (07:28)
--- NOTE | 2019-05-07 07:28 | NUR ---
HAND-OFF: Report given to KAREL Doyle.
[2019-05-07] MEDS ORDERED: Propofol 200mg/20ml IV ONE (07:29)
[2019-05-07] MEDS ORDERED: Lidocaine 1% MPF 10mg/ml 5ml ONE (07:29)
[2019-05-07] MEDS ORDERED: Midazolam 2mg/2ml Inj ONE (07:29)
[2019-05-07] MEDS ORDERED: fentaNYL 100 mcg/2 mL IV ONE (07:29)
[2019-05-07] MEDS ORDERED: Sterile Water Irrig 1000ml IRRIG ONE (07:30)
[2019-05-07] MEDS ORDERED: LR 1000ml ONE (07:30)
[2019-05-07] MEDS ORDERED: NS Irrig 1000ml ONE (07:30)
--- NOTE | 2019-05-07 07:30 | NUR ---
NURSE NOTES: Patient is off unit. Belongings with dad in room.
[2019-05-07] MEDS ORDERED: Dexamethasone 4mg/ml vial ONE (07:37)
[2019-05-07] MEDS ORDERED: Ketorolac 30mg Inj ONE (07:37)
[2019-05-07] MEDS ORDERED: Metoclopramide 10mg/2ml Inj ONE (07:37)
[2019-05-07] MEDS ORDERED: NS Irrig 1000ml IRRIG ONE ×2 (07:55→09:00)
[2019-05-07] MEDS ORDERED: Betadine 4oz Bottle TOPIC ONE (07:55)
--- NOTE | 2019-05-07 13:19 | Immediate Post-Op Evaluation ---
Immediate Post-Op Evalulation Immediate Post-Op Evalulation Procedure: Argueta continent ileostomy, perineal proctectomy Date of Evaluation: May 07, 2019 Time of Evaluation: 13:19 IV Fluids: 2.2L Blood Products: 0 Estimated Blood Loss: 200 Urinary Output: 400 Blood Pressure Systolic: 133 Blood Pressure Diastolic: 86 Pulse Rate: 85 Respiratory Rate: 17 O2 Sat by Pulse Oximetry: 100 Temperature (Fahrenheit): 98.2 Pain Score (1-10): 0 Nausea: No Vomiting: No Complications 0 Patient Status: awake, reacts, patent, none Hydration Status: adequate Drug: flagyl and unasyn Given Within 1 Hr of Incision: Yes Magi Mauro MD May 07, 2019 13:19
[2019-05-07] MEDS ORDERED: PCA Education Pamphlet MISC SCH (13:30)
[2019-05-07] MEDS ORDERED: Rate Change PCA 1 Each MISC PRN (13:30)
--- NOTE | 2019-05-07 13:30 | Brief Operative Note ---
Immediate Post Operative Note Operative Note Pre-op Diagnosis: ulcerative colitis Procedure: Abdomino-perineal proctectomy; Argueta continent ileostomy; gastrostomy Post-op Diagnosis: same Post-op Diagnosis: same as pre-op Findings: consistent w/pre-op dx studies Surgeon: ken Spinner Hand: khanh Anesthesiologist: carla Anesthesia: general Specimen: yes - rectum and anus; ileostomy Complications: none Condition: stable Fluids: see anesthesia record Estimated Blood Loss: volume - 200cc Drains: other - 28 Fr Argueta pouch; 18 Fr gastrostomy; 0.25" shahram, JUAN x 2 Implant(s) used?: No Gonzales Siddiqui MD May 07, 2019 13:30
[2019-05-07] MEDS ORDERED: LR 1000ml 1,000 ML IVLG SCH (13:48)
[2019-05-07] MEDS ORDERED: PCA Morphine 1mg/ml 30 ML IV ONE (13:56)
[2019-05-07] MEDS ORDERED: Metoclopramide 10mg/2ml Inj IVP PRN (14:00)
[2019-05-07] MEDS ORDERED: DiphenhydrAMINE 50mg/ml Inj IVP PRN ×2 (14:00)
[2019-05-07] MEDS ORDERED: Naloxone 0.4mg/ml Inj IVP PRN (14:00)
[2019-05-07] MEDS ORDERED: fentaNYL 100 mcg/2 mL IV PRN (14:00)
[2019-05-07] MEDS ORDERED: Ketorolac 30mg Inj IV PRN (14:00)
[2019-05-07] MEDS ORDERED: Midazolam 2mg/2ml Inj IVP PRN (14:00)
[2019-05-07] MEDS ORDERED: Hydromorphone 0.5mg/0.5ml inj IVP PRN (14:00)
[2019-05-07] MEDS ORDERED: LORazepam Inj 2mg/ml 1ml IV PRN (14:00)
[2019-05-07] MEDS ORDERED: Hydromorphone 0.5mg/0.5ml inj ONE (14:02)
[2019-05-07] MEDS: PCA Morphine 1mg/ml 30 ML IV PRN (14:11)
--- NOTE | 2019-05-07 14:45 | NUR ---
NURSE NOTES: Received patient from PACU. Patient transferred back to room via hospital bed. Stable. Asleep. No visible signs of distress noted. Breathing is even and unlabored. Surgical dressing c/d/i. Anderson catheter patent and draining yellow urine. BCIR draining into bag as ordered, bloody output noted. PICC patent, will hang IVF as ordered, TRANSFER CAR OPERATOR running at ordered settings, will monitor TRANSFER CAR OPERATOR usage and pain control. JUAN #1 and JUAN#2 both compressed and draining sanguinous output. Patient is in bed in locked and lowest position with call light within reach and trapeze overhead. Will continue to monitor.
[2019-05-07] MEDS: D5 1/4NS w/KCl 20mEq 1,000 ML IV SCH ×2 (15:17→23:24)
[2019-05-07] MEDS: Ampicillin/Sulbactam Sod 3 GM in NS 110 ML IV SCH ×3 (15:18→23:27)
--- NOTE | 2019-05-07 15:45 | Operative Note - Dictated ---
DATE OF OPERATION: 05/07/2019 SURGEON: Gonzales Siddiqui M.D. DENTAL LABORATORY MANAGER SURGEON: Danie Koroma M.D. ANESTHESIOLOGIST: Magi Glover M.D. TYPE OF ANESTHESIA: General endotracheal. PREOPERATIVE DIAGNOSES: 1. Intractable ulcerative colitis. 2. Status post laparoscopic-assisted total colectomy with conventional Giana ileostomy on 12/30/2018. POSTOPERATIVE DIAGNOSES: 1. Intractable ulcerative colitis. 2. Status post laparoscopic-assisted total colectomy with conventional Giana ileostomy on 12/30/2018. OPERATION PERFORMED: 1. Abdomino-perineal proctectomy. 2. Argueta continent intestinal reservoir. 3. Catheter gastrostomy. DESCRIPTION OF PROCEDURE: The patient was taken to the operating room and under general endotracheal anesthesia with sequential compression device stockings and Anderson catheter in place, he was positioned in lithotomy position with a gel pad under the scrotum. He was prepped and draped in usual fashion after having received intravenous antibiotics and preoperative subcutaneous heparin. Previous midline incision was reopened excising the hypertrophic scar. There were no adhesions to the anterior abdominal wall and minimal interloop adhesions. Small bowel was abundant and completely normal although small caliber. The ileostomy in the right lower quadrant was dismantled and the abdominal wall fascia closed with continuous #0 Prolene on the anterior fascia and peritoneal fascia side. I then approached the perineum and placed a 0 silk pursestring around the anus and an elliptical incision made achieving hemostasis with cautery. Dissection continued circumferentially protecting the urethra superiorly until the oversewn stump was liberated and the anal canal, anus, and rectum removed and given for pathology. Hemostasis was carefully achieved with cautery. Through separate stab incisions in each buttock, 19 mm round Ulysses-Hernandez was placed into the presacral space and each sutured to the skin with 2-0 nylon skin suture. The perineal incision was closed in layers with interrupted 0 and 2-0 Vicryl and skin closed with interrupted 2-0 nylon vertical mattress sutures. Attention was then directed towards creating the Argueta continent ileostomy. The old stoma was resected dividing the mesentery with the Thunderbeat electrosurgical device and dividing the bowel with the EMA with the staple line oversewn with 3-0 silk. 12 cm proximal was marked for the collar segment and 15 cm proximal to that a suture marker placed. The two 15 cm adjacent loops of bowel were placed side by side and with appropriately located enterotomies and using the EMA 55 with several applications, the ileal reservoir was created. The staple line was everted and there were no openings. A 3-0 silk placed at the apex. Now, the junction of the afferent bowel and the pouch was marked with a suture and 12 cm proximal marked for the valve segment. A 2 fingerbreadth mesenteric hiatus created using the Thunderbeat. The abdominal wall thickness was 4 cm. An appropriately long access segment was measured and marked and the mesentery divided with the Thunderbeat. The bowel divided with the EMA proximal oversewn with 3-0 silk distally cut open to become the new stoma. Now, the peritoneum on each side of the valve segment mesentery was stripped and the serosa scarified with cautery. Gradual intussusception of 6.0 cm long nipple valve was created. Using the linear stapler 60 blue cartridge with the pin removed, 2 rows were placed on the valve away from the mesentery. Then 3-0 silk sutures were placed on each side of the access segment mesentery to the pouch and a third application of the linear stapler 60 green cartridge placed to staple the valve to the anterior pouch wall. Alignment was maintained and confirmed with a sandoval suction cannula. Now, intestinal continuity was restored by placing the proximal bowel [id number] with the pouch enterotomy with a very short blind end. A posterior layer of 3-0 silk was placed. Then, the small bowel opened and a full-thickness 2-0 chromic locking suture posteriorly carried anteriorly followed by imbricating 3-0 silk anteriorly. A very satisfactory anastomosis was created. Now, the collar was brought through the mesenteric hiatus at the junction of the valve and access segments and sutured to itself to the access segment into the pouch with interrupted 3-0 silk sutures. The 28-Puerto Rican Anderson catheter was placed through the stoma into the pouch and the afferent bowel manually occluded. The pouch was distended with 100 mL of saline and there was no extravasation. The pouch was decompressed. At a previously marked location low in the right lower quadrant, a 2.5 cm narrow ellipse of skin was excised in transverse orientation and with a cruciate incision in the fascia, a 2 fingerbreadth abdominal wall hiatus created. The posterior pouch was sutured to the perineum with interrupted 3-0 Vicryl and then the stoma access segment and its mesentery brought through. Redundancy was placed on stretch and excised and the stoma primarily matured with continuous 2-0 chromic locking sutures starting at the 3 and 9 o'clock position. Some bleeding from the rectus muscle had been controlled with the Thunderbeat. Through a separate stab incision inferior to the stoma, a quarter-inch Baudilio drain was placed into the pelvis. The 28-Puerto Rican Anderson was positioned with the tip in the apex of the pouch and the pouch lay nicely transversely across the lower abdomen, upper pelvis. The 28-Puerto Rican ileostomy catheter was sutured to the skin with two sutures of 2-0 silk. It was flushed and connected to gravity drainage bag. A decompression gastrostomy was performed by brining an 18-Pu[place] Rican Anderson catheter through the abdominal wall, left upper quadrant, placed into the stomach anterior wall greater curve body between two concentric 2-0 chromic pursestrings with the balloon inflated and the stomach then sutured to the anterior abdominal wall with multiple interrupted 3-0 silk sutures. The catheter was flushed and connected to gravity drainage bag. The abdomen was carefully inspected. Antibiotic-soaked laps have been used to protect the abdominal wall and a [place] retractor had been used. The liver and gallbladder retroperitoneum were normal. The midline incision was now closed with continuous #1 looped PDS. Additional antibiotic irrigation utilized and the midline incision closed with rickie. The prior stoma site was closed transversely with interrupted 2-0 nylon vertical mattress sutures. Dry sterile dressings were applied. Final sponge and needle counts were correct. The patient tolerated the procedure well and left the operating room in good condition. Gonzales Siddiqui M.D. DR: ANALY JOB#: [id number] CC: RAMÓN
--- NOTE | 2019-05-07 16:42 | NUR ---
CASE MANAGEMENT:REVIEW 28YR OLD MALE HERE FOR ELECTIVE SURGERY SI: ULCERATIVE COLITIS 98.2 72 18 100/53 99% ON RA IS: TO SURGERY FOR: ABDOMINO-PERINEAL PROCTECTOMY JOHNSTON CONTINENT ILEOSTOMY GASTROSTOMY IV AMPICILLIN Q6HRS : TO MED/SURG POST OP
--- NOTE | 2019-05-07 18:32 | Diagnostic Imaging Report ---
Indication: Cough Technique: One view of the chest Comparison: 12/31/2018 Findings: Lungs and pleural spaces are clear. Heart size is normal. Previously demonstrated postoperative pneumoperitoneum is no longer evident Impression: No acute process
[2019-05-07] MEDS ORDERED: PCA shift volume MISC SCH (19:00)
--- NOTE | 2019-05-07 19:30 | NUR ---
HAND-OFF: Report given to Jordin VINSON. Patient is stable.
--- NOTE | 2019-05-07 19:34 | NUR ---
NURSE NOTES: Received report from Yanira VINSON. Rounding is done with outgoing nurse.Patient in bed, A/O x4. No complaint of any pain at this time. Ileostomy bag with bloody drainage and G-tube are patent and dressing is C/D/I. JUAN 1 and JUAN 2 is patent and intact. Anderson to drainage bag with yellow. AUDIT ASSOCIATE setting is checked and verified. Encouraged to use call light when assistance is needed. Bed is at lowest level. Will continue to monitor.
[2019-05-07] MEDS ORDERED: LORazepam 1mg tab SL PRN (21:00)
[2019-05-07] MEDS: Dyna-Hex 2% Top Sol 2oz TOPIC SCH (21:03)
[2019-05-07] MEDS: Iron Sucrose 100 MG in NS 55 ML IV SCH (21:03)
--- NOTE | 2019-05-07 22:17 | 48 Hour Post Anesthesia Eval ---
Post Anesthesia Evaluation Procedure: Argueta continent ileostomy, perineal proctectomy Date of Evaluation: May 07, 2019 Time of Evaluation: 21:03 Blood Pressure Systolic: 132 0: 67 Pulse Rate: 105 Respiratory Rate: 15 Temperature (Fahrenheit): 98.7 O2 Sat by Pulse Oximetry: 97 Airway: patent Nausea: No Vomiting: No Pain Intensity: 3 Hydration Status: adequate Cardiopulmonary Status: Stable Mental Status/LOC: patient returned to baseline Follow-up Care/Observations: 0 Post-Anesthesia Complications: 0 Follow-up care needed: N/A Alcon Boswell MD May 07, 2019 22:17
[2019-05-08] VITALS (8 sets, daily range): BP systolic 101–114; BP diastolic 59–73
[2019-05-08] MEDS: PCA Morphine 1mg/ml 30 ML IV PRN ×2 (03:00→17:59)
[2019-05-08] MEDS: Ampicillin/Sulbactam Sod 3 GM in NS 110 ML IV SCH ×3 (05:39→18:12)
[2019-05-08 06:09] LABS: BASOPHILS % (AUTO) 0.3 % (0.0-2.0); HEMATOCRIT 37.7 % (42.0-52.0); HEMOGLOBIN 12.2 G/DL (14.2-18.0); LYMPHOCYTES % (AUTO) 9.4 % (20.0-45.0); MEAN CORPUSCULAR VOLUME 81 FL (80-99); MONOCYTES % (AUTO) 10.1 % (1.0-10.0); NEUTROPHILS % (AUTO) 80.2 % (45.0-75.0); PLATELET COUNT 139 K/UL (150-450); RED BLOOD COUNT 4.65 M/UL (4.70-6.10); RED CELL DISTRIBUTION WIDTH 14.9 % (11.6-14.8); WHITE BLOOD COUNT 13.5 K/UL (4.8-10.8)
[2019-05-08 06:39] LABS: ANION GAP 5 mmol/L (5-15); BLOOD UREA NITROGEN 8 mg/dL (7-18); CALCIUM 7.7 MG/DL (8.5-10.1); CARBON DIOXIDE 29 MMOL/L (21-32); CHLORIDE 103 MMOL/L (98-107); POTASSIUM 3.9 MMOL/L (3.5-5.1); SODIUM 137 MMOL/L (136-145)
[2019-05-08] MEDS ORDERED: Rate Change PCA 1 Each MISC PRN (07:00)
[2019-05-08] MEDS: D5 1/4NS w/KCl 20mEq 1,000 ML IV SCH ×2 (07:00→15:21)
[2019-05-08] MEDS: PCA shift volume MISC SCH ×2 (07:00→19:00)
[2019-05-08] MEDS ORDERED: Naloxone 0.4mg/ml Inj IVP PRN (07:02)
--- NOTE | 2019-05-08 07:14 | General Progress Note ---
Progress Note Progress Note AVSS Comfortable with morphine CLOTHES MODEL Chest decrased expansion cor reg rhythm Abdomen mild distention, incisions clean, stoma pink, shahram small amount serosang Overnight 12 Hours: urine 1350 Gastrostomy 60 BCIR ileo small amount serosang JPs 45 WBC 13,500 Hgb 12.2 Platelets 139,000 BUN 8 Cr 1.0 Imp: Ileus Atelectasis Plan: NPO, bedrest today start TPN continue Anderson x 5 days (proctectomy) f/u labs Gonzales Siddiqui MD May 08, 2019 07:14
--- NOTE | 2019-05-08 07:31 | NUR ---
HAND-OFF: Report given to KAREL Mayer. Pt in stable condition.
--- NOTE | 2019-05-08 07:45 | NUR ---
NURSE NOTES: Received report from Jordin VINSON. Patient is awake and oriented, no acute distress noted, reporting abdominal pain rated 2/10, pain is well managed with RING STAMPER. Patient on etC02 monitoring, RING STAMPER settings checked and verified against order. Ileo, g-tube and hernandez to gravity drainage. Surgical site dressing clean and dry, both perineal JUAN's compressed. NEGAR PICC intact, patent, running IVF per order. Patient's needs met at this time, updated on plan of care for the day. Side rails upx2, bed low and locked, call light within reach.
--- NOTE | 2019-05-08 09:04 | NUR ---
RD ASSESSMENT & RECOMMENDATIONS SEE CARE ACTIVITY FOR COMPLETE ASSESSMENT DAILY ESTIMATED NEEDS: Needs based on Surgery/ 70kg abw 25-30 kcals/kg 7179-1389 total kcals 1-2 g protein/kg 70-140 g total protein 25-30 mL/kg 3994-5273 total fluid mLs NUTRITION DIAGNOSIS: Altered GI function R/T h/o UC w/ new ileostomy as evidenced by s/p caleb ileo takedown, w/ creation of new BCIR ileo, NPO w/ ileus, now orders for TPN. PARENTERAL NUTRITION RECOMMENDATIONS: D/AA Rate: 70 IL Rate: 10 Total Rate: 80 Volume: 1920 % Dextrose: 20 % AA: 5.5 Energy (kcals/kg): 1992 Protein (g/kg protein): 92 Nonprotein KCALS: 1622 GIR (mg CHO/kg/min): 3 % Fat KCALS: 24 NCP: N Ratio: 110:1 TPN Comment: * D20% AA 5.5% @ 70ml/hr + IL 20% @10ml/hr -> total of 80ml/hr, all 3:1 * TPN at goal will provide 100% est kcal/prot needs(26kcal/kg, 1.2g prot/ kg) * Start rate per MD. * GIR <5, IL <30% ADDITIONAL RECOMMENDATIONS: * Standing weight as able for accurate CBW, weekly wt monitoring * Monitor lytes, LFTs, BGs daily w/ TPN . .
--- NOTE | 2019-05-08 17:10 | NUR ---
CASE MANAGEMENT:REVIEW 05/08/19 SI: POD #1 S/P ABDOMINO-PERINEAL PROCTECTOMY. JOHNSTON CONTINENT ILEOSTOMY GASTROSTOMY 98.2 92 16 111/71 99% ON 2L/NC WBC+13.5 PLT-139 IS: TPN/IL @80/HR MICA WASHER GLUER MORPHINE IV AMPICILLIN Q6HRS IV VENOFER QHS : MED/SURG STATUS 3 EAST
--- NOTE | 2019-05-08 18:09 | NUR ---
NURSE NOTES: ROLLER SKATE REPAIRER tubing and syringe changed per MD order. Syringe empty, medication in ROLLER SKATE REPAIRER tubing wasted into Rx destroyer, witnessed by KAREL Carpenter.
--- NOTE | 2019-05-08 18:30 | NUR ---
NURSE NOTES: Total ileo output: -30mL Total g-tube output: 170mL Total urine output: 2175mL JUAN 1: 15mL (serosanguinous) JUAN 2: 10mL (serosanguinous)
--- NOTE | 2019-05-08 19:41 | NUR ---
HAND-OFF: Report given to Jordin VINSON.
--- NOTE | 2019-05-08 19:43 | NUR ---
NURSE NOTES: Received report from My VINSON. Rounding is done with outgoing nurse.Patient in bed, A/O x4. No complaint of any pain at this time. Ileostomy bag with bloody drainage and G-tube are patent and dressing is C/D/I. JUAN 1 and JUAN 2 is patent and intact. Anderson to drainage bag with yellow. YARDAGE CALLER setting is checked and verified. Encouraged to use call light when assistance is needed. Bed is at lowest level. Will continue to monitor.
[2019-05-08] MEDS ORDERED: D5 1/4NS w/KCl 20mEq 1,000 ML IV SCH (20:00)
[2019-05-08] MEDS ORDERED: Dextrose 10% 1,000 ML IV PRN (20:00)
[2019-05-08] MEDS: Dyna-Hex 2% Top Sol 2oz TOPIC SCH (20:26)
[2019-05-08] MEDS: Iron Sucrose 100 MG in NS 55 ML IV SCH (20:26)
[2019-05-08] MEDS: AMINO ACIDS IV SCH (20:28)
[2019-05-08] MEDS: LIPID EMULSION 20% IV SCH (20:28)
[2019-05-08] MEDS: DEXTROSE IV SCH (20:28)
[2019-05-08] MEDS: [UNRECOGNIZED DRUG - OTHER] IV SCH (20:28)
[2019-05-08] MEDS ORDERED: Fat Emulsion Iv 20% 250 ML IV SCH (21:00)
[2019-05-09] VITALS (8 sets, daily range): BP systolic 107–115; BP diastolic 62–76
[2019-05-09] MEDS: NovoLOG Insulin Flexpen SUBQ SCH ×4 (00:18→17:49)
[2019-05-09] MEDS: Ampicillin/Sulbactam Sod 3 GM in NS 110 ML IV SCH ×5 (00:23→23:57)
[2019-05-09] MEDS: DiphenhydrAMINE 50mg/ml Inj IVP PRN (01:24)
[2019-05-09 05:45] LABS: BASOPHILS % (AUTO) 0.8 % (0.0-2.0); EOSINOPHILS % (AUTO) 0.3 % (0.0-3.0); HEMATOCRIT 35.9 % (42.0-52.0); HEMOGLOBIN 11.5 G/DL (14.2-18.0); LYMPHOCYTES % (AUTO) 14.7 % (20.0-45.0); MEAN CORPUSCULAR VOLUME 82 FL (80-99); MONOCYTES % (AUTO) 9.9 % (1.0-10.0); NEUTROPHILS % (AUTO) 74.3 % (45.0-75.0); PLATELET COUNT 121 K/UL (150-450); RED BLOOD COUNT 4.39 M/UL (4.70-6.10); WHITE BLOOD COUNT 8.6 K/UL (4.8-10.8)
[2019-05-09 06:34] LABS: ALANINE AMINOTRANSFERASE 26 U/L (12-78); ALBUMIN 2.9 G/DL (3.4-5.0); ALBUMIN/GLOBULIN RATIO 0.9 (1.0-2.7); ALKALINE PHOSPHATASE 103 U/L (46-116); ANION GAP 4 mmol/L (5-15); ASPARTATE AMINO TRANSFERASE 32 U/L (15-37); BILIRUBIN,TOTAL 0.5 MG/DL (0.2-1.0); BLOOD UREA NITROGEN 7 mg/dL (7-18); CALCIUM 8.2 MG/DL (8.5-10.1); CARBON DIOXIDE 31 MMOL/L (21-32); CHLORIDE 102 MMOL/L (98-107); CREATININE 0.9 MG/DL (0.55-1.30); POTASSIUM 3.8 MMOL/L (3.5-5.1); SODIUM 137 MMOL/L (136-145)
[2019-05-09] MEDS: PCA Morphine 1mg/ml 30 ML IV PRN ×2 (06:44→17:24)
[2019-05-09] MEDS: PCA shift volume MISC SCH ×2 (07:00→19:00)
--- NOTE | 2019-05-09 07:30 | NUR ---
HAND-OFF: Report given to Yanira VINSON. Patient in stable condition.
--- NOTE | 2019-05-09 07:30 | NUR ---
NURSE NOTES: Patient is in bed awake and able to verbalize needs. Stable. Complains of mild pain, patient encouraged to use VEGETABLE WASHER, patient verbalized understanding. Ileo draining to bag, will monitor output. Gtube draining to bag. Anderson patent and draining yellow urine. PICC patent and running VEGETABLE WASHER, IVF and TPN as ordered. Patient in bed in locked and lowest position with call light within reach. WIll continue to monitor.
[2019-05-09] MEDS ORDERED: Rate Change PCA 1 Each MISC PRN (10:00)
--- NOTE | 2019-05-09 10:08 | General Progress Note ---
Progress Note Progress Note AVSS Doing well overall Abdomen mild distention, incisions clean, stoma pink, shahram scant Perineum incision clean and dry Urine 4025 gastrostomy 620 BCIR ileo small amount serosang JPs 25+20 WBC 8600 Hgb 11.5 Platelets 121,000 Albumin 2.9 Imp: Ileus Plan: npo, TPN, continue Anderson Mobilize Gonzales Siddiqui MD May 09, 2019 10:08
[2019-05-09] MEDS: D5 1/4NS w/KCl 20mEq 1,000 ML IV SCH (10:09)
--- NOTE | 2019-05-09 13:00 | NUR ---
NURSE NOTES: Patient out of bed with walker and RN assist. TOlerated well. Sponge bath given, linen changed. RN assisted patient back into bed without incident. Patient repositioned to comfortable position.
--- NOTE | 2019-05-09 18:00 | NUR ---
NURSE NOTES: DRAWING KILN SUPERVISOR syringe changed. 1.59mL Morphine wasted with pharmacist Ez.
--- NOTE | 2019-05-09 19:11 | NUR ---
NURSE NOTES: True ileo output: -65cc /bright red, bloody. true gt output: 270cc /brownish greenish liquid. UO: 2250cc /yellow and clear. JUAN#1: 20cc /bloody. JUAN#2: 15cc /bloody.
--- NOTE | 2019-05-09 19:30 | NUR ---
HAND-OFF: Report given to Zelalem VINSON. Patient is stable.
--- NOTE | 2019-05-09 19:54 | NUR ---
NURSE NOTES: Received report from KAREL Doyle. Patient is lying in bed with father at side. SCDs are on. PEDIATRICIAN pump is at bedside with remote next to patient. Reinforced instruction on how to use PEDIATRICIAN. No c/o SOB on 2L oxygen via NC. EtCO2 monitoring on. Anderson draining clear yellow urine to gravity bag. Gastric tube draining green fluid to gravity drainage bag. Ileostomy draining serosanguineous fluid to gravity drainage bag. JUAN drain 1 and 2 both draining sanguineous fluid to bulb syringe. Patient is alert andoriented and fatigued. Will continue monitoring and plan of care.
[2019-05-09] MEDS: LIPID EMULSION 20% IV SCH (20:30)
[2019-05-09] MEDS: Dyna-Hex 2% Top Sol 2oz TOPIC SCH (20:30)
[2019-05-09] MEDS: AMINO ACIDS IV SCH (20:30)
[2019-05-09] MEDS: DEXTROSE IV SCH (20:30)
[2019-05-09] MEDS: [UNRECOGNIZED DRUG - OTHER] IV SCH (20:30)
[2019-05-09] MEDS: Iron Sucrose 100 MG in NS 55 ML IV SCH (20:31)
[2019-05-10] VITALS: BP 120/75
[2019-05-10] MEDS: NovoLOG Insulin Flexpen SUBQ SCH ×4 (00:20→18:05)
[2019-05-10] MEDS: DiphenhydrAMINE 50mg/ml Inj IVP PRN ×2 (03:46→20:00)
[2019-05-10 04:00] VITALS: BP 132/77
[2019-05-10] MEDS: Ampicillin/Sulbactam Sod 3 GM in NS 110 ML IV SCH ×4 (05:31→23:57)
[2019-05-10] MEDS: D5 1/4NS w/KCl 20mEq 1,000 ML IV SCH (05:43)
[2019-05-10 06:00] LABS: BASOPHILS % (AUTO) 1.2 % (0.0-2.0); HEMATOCRIT 36.9 % (42.0-52.0); HEMOGLOBIN 11.7 G/DL (14.2-18.0); LYMPHOCYTES % (AUTO) 16.6 % (20.0-45.0); MEAN CORPUSCULAR VOLUME 82 FL (80-99); MONOCYTES % (AUTO) 8.5 % (1.0-10.0); NEUTROPHILS % (AUTO) 71.7 % (45.0-75.0); PLATELET COUNT 130 K/UL (150-450); RED BLOOD COUNT 4.52 M/UL (4.70-6.10); RED CELL DISTRIBUTION WIDTH 14.8 % (11.6-14.8); WHITE BLOOD COUNT 7.7 K/UL (4.8-10.8)
[2019-05-10 06:41] LABS: ALANINE AMINOTRANSFERASE 24 U/L (12-78); ALBUMIN 2.9 G/DL (3.4-5.0); ALBUMIN/GLOBULIN RATIO 0.8 (1.0-2.7); ALKALINE PHOSPHATASE 93 U/L (46-116); ANION GAP 4 mmol/L (5-15); ASPARTATE AMINO TRANSFERASE 26 U/L (15-37); BILIRUBIN,TOTAL 0.5 MG/DL (0.2-1.0); BLOOD UREA NITROGEN 8 mg/dL (7-18); CALCIUM 8.7 MG/DL (8.5-10.1); CARBON DIOXIDE 34 MMOL/L (21-32); CHLORIDE 101 MMOL/L (98-107); CREATININE 0.7 MG/DL (0.55-1.30); POTASSIUM 3.5 MMOL/L (3.5-5.1); SODIUM 139 MMOL/L (136-145)
[2019-05-10] MEDS: PCA shift volume MISC SCH ×2 (07:00→19:08)
--- NOTE | 2019-05-10 07:40 | NUR ---
NURSE NOTES: WALKING ROUNDS DONE WITH OUTGOING RN. PATIENT ASLEEP IN BED. FATHER AT BEDSIDE. SURGICAL SITE ASSESSED. JUAN DRAINS, ILEO/ GASTRO AND RAMIREZ SECURED PATENT. FARROWING WORKER SETTINGS VERIFIED AGAINST MD ORDER. ET CO2 ON Addendum: 05/10/19 at 0818 by KRISTIN TOLEDO RN NURSE NOTES: ON VIA NC. RR EVEN UNLABORED.SKIN W/D. BED IN LOW AND LOCKED POSITION. CALL LIGHT WITHIN REACH.
--- NOTE | 2019-05-10 07:54 | NUR ---
HAND-OFF: Report given to Marianela Lind RN. True ileo -75cc of sanguineous output True G-tube 80cc of green output JUAN drain #1 10cc of sanguineous JUAN drain #2 20cc of sanguineous Anderson 1,100cc yellow urine
[2019-05-10 08:00] VITALS: BP 111/70
[2019-05-10] MEDS: PCA Morphine 1mg/ml 30 ML IV PRN (09:01)
[2019-05-10] MEDS ORDERED: Rate Change PCA 1 Each MISC PRN (09:15)
--- NOTE | 2019-05-10 09:15 | General Progress Note ---
Progress Note Progress Note AVSS Ambulated in room yesterday Abdomen distended, soft, incisions clean, stoma pink, scant shahram drainage Perineum incision clean and dry Urine 3350 Gastrostomy 430 BCIR ileo 3350 WBC 7700 Hgb 11.7 stable Platelets 130,000 up K 3.5 Mg 1.7 Imp: Ileus Plan: npo, TPN, continue Anderson Mg infusion f/u labs ambulate BID Gonzales Siddiqui MD May 10, 2019 09:15
[2019-05-10] MEDS ORDERED: PCA Morphine 1mg/ml 30 ML IV PRN (10:00)
--- NOTE | 2019-05-10 11:12 | NUR ---
NURSE NOTES: ASSISTED PATIENT WITH AMBULATING WITH WALKER IN HALLWAY.TOLERATED WELL. GAIT STEADY, DENIES DIZZINESS. WILL ATTEMPT ANOTHER WALK LATER TODAY.
[2019-05-10 12:00] VITALS: BP_SYST 111; BP_SYST 116; BP_DIAS 70; BP_DIAS 74
[2019-05-10 16:00] VITALS: BP 115/75
[2019-05-10] MEDS ORDERED: NS 275ml ONE (16:20)
[2019-05-10] MEDS ORDERED: NS Irrig 1000ml ONE (16:20)
[2019-05-10] MEDS ORDERED: Tubing IV Secondary IV ONE ×2 (16:20→16:27)
--- NOTE | 2019-05-10 18:33 | NUR ---
NURSE NOTES: OFFERED TO ASSIST PATIENT AMBULATING THIS EVENING. STATES HE WILL DO AFTER 1999. PATIENT REMAINS STABLE. UNEVENTFUL DAY.ED IN LOW AND LOCKED POSITION. CALL LIGHT AND COMMUNICATIONS LEAD BUTTON WITHIN ARMS'S REACH.
--- NOTE | 2019-05-10 19:16 | NUR ---
HAND-OFF: Report given to ARGENIS DUBON RN.
--- NOTE | 2019-05-10 19:38 | NUR ---
NURSE NOTES: Report from KAREL Bear. Patient is resting in bed. ARTIST MANAGER morphine pump at side. No c/o SOB on 2L oxygen NS. Ileostomy tube is draining sanguineous fluid to gravity drainage bag. Gtube draining green fluid. Anderson draining dark miladys urine to gravity. JUAN drain #1 draining sanguineous fluid to bulb syringe. JUAN drain #2 draining sanguineous fluid to bulb syringe. Abdominal dressing is c/d/i. Left upper arm pick running fluids per eMAR order. Patient encouraged to ambulate. Will continue plan of care.
[2019-05-10 20:00] VITALS: BP 115/74
[2019-05-10] MEDS: [UNRECOGNIZED DRUG - OTHER] IV SCH (20:00)
[2019-05-10] MEDS: Dyna-Hex 2% Top Sol 2oz TOPIC SCH (20:00)
[2019-05-10] MEDS: LIPID EMULSION 20% IV SCH (20:00)
[2019-05-10] MEDS: DEXTROSE IV SCH (20:00)
[2019-05-10] MEDS: AMINO ACIDS IV SCH (20:00)
[2019-05-10] MEDS: Iron Sucrose 100 MG in NS 55 ML IV SCH (20:01)
[2019-05-11] VITALS: BP 109/72
[2019-05-11] MEDS: NovoLOG Insulin Flexpen SUBQ SCH ×4 (00:08→17:38)
[2019-05-11] MEDS: DiphenhydrAMINE 50mg/ml Inj IVP PRN (01:41)
[2019-05-11 04:00] VITALS: BP 118/68
[2019-05-11] MEDS: Ampicillin/Sulbactam Sod 3 GM in NS 110 ML IV SCH ×3 (05:13→17:27)
[2019-05-11 06:39] LABS: BASOPHILS % (AUTO) 0.9 % (0.0-2.0); EOSINOPHILS % (AUTO) 2.8 % (0.0-3.0); HEMATOCRIT 37.4 % (42.0-52.0); MEAN CORPUSCULAR VOLUME 82 FL (80-99); NEUTROPHILS % (AUTO) 71.4 % (45.0-75.0); PLATELET COUNT 161 K/UL (150-450); RED BLOOD COUNT 4.56 M/UL (4.70-6.10); WHITE BLOOD COUNT 6.5 K/UL (4.8-10.8)
[2019-05-11 07:05] LABS: ALANINE AMINOTRANSFERASE 28 U/L (12-78); ALBUMIN 2.9 G/DL (3.4-5.0); ALBUMIN/GLOBULIN RATIO 0.8 (1.0-2.7); ALKALINE PHOSPHATASE 92 U/L (46-116); ANION GAP 5 mmol/L (5-15); ASPARTATE AMINO TRANSFERASE 27 U/L (15-37); BILIRUBIN,TOTAL 0.6 MG/DL (0.2-1.0); BLOOD UREA NITROGEN 9 mg/dL (7-18); CALCIUM 8.6 MG/DL (8.5-10.1); CARBON DIOXIDE 32 MMOL/L (21-32); CHLORIDE 101 MMOL/L (98-107); CREATININE 0.7 MG/DL (0.55-1.30); POTASSIUM 3.7 MMOL/L (3.5-5.1); SODIUM 138 MMOL/L (136-145)
[2019-05-11] MEDS: PCA shift volume MISC SCH ×2 (07:15→19:00)
--- NOTE | 2019-05-11 07:34 | NUR ---
HAND-OFF: Report given to Jayden Harrell RN. Patient is stable.
--- NOTE | 2019-05-11 07:37 | NUR ---
HAND-OFF: Report given to Jayden Harrell RN. Patient is stable.
--- NOTE | 2019-05-11 07:40 | NUR ---
NURSE NOTES: Patient lying in bed awake. Complain of pain 4/10 on surgical site and on BOOM CAT OPERATOR for pain management. Will continue to monitor. Skin intact and dry. Surgical dressing intact and dry. Ileostomy catheter, GT catheter, JUAN x2 and Anderson catheter patent and draining well. PICC line dressing intact and dry. TPN and IV Fluid on going as ordered. Bed lowest position. Call light within reach. Will continue to monitor.
[2019-05-11 08:00] VITALS: BP 112/72
--- NOTE | 2019-05-11 08:30 | General Progress Note ---
Progress Note Progress Note AVSS Only ambulating in room Abdomen mildly distended, soft, incisions clean, stoma pink, shahram nil Urinejk 2500 Gastrostomy 320 BCIR nil JPs 15+15 WBC 6500 Hgb 12 Platelets up 161,000 Imp: Ileus Plan: d/c basal infusion of DIESEL ENGINE ERECTOR; add Toradol prn continue npo, TPN, Anderson PT mobility protocol Gonzales Siddiqui MD May 11, 2019 08:30
[2019-05-11] MEDS: D5 1/4NS w/KCl 20mEq 1,000 ML IV SCH (08:54)
[2019-05-11] MEDS: PCA Morphine 1mg/ml 30 ML IV PRN ×2 (08:58→19:55)
[2019-05-11 12:00] VITALS: BP 117/79
--- NOTE | 2019-05-11 12:54 | NUR ---
CASE MANAGEMENT:REVIEW 05/11/19 SI: POD #4 S/P ABDOMINO-PERINEAL PROCTECTOMY. [place] CONTINENT ILEOSTOMY GASTROSTOMY 98.5 98 18 112/72 97% ON RA H/H-12.0/37.4 GLUCOSE+137 IS: TPN/IL @80/HR ASSISTANT DIRECTOR MORPHINE IV AMPICILLIN Q6HRS IV VENOFER QHS : MED/SURG STATUS 3 EAST
--- NOTE | 2019-05-11 15:59 | NUR ---
NURSE NOTES: Patient ambulated hallway with assist. No complain of dizziness. Patient tolerated activity well. Will continue to monitor.
[2019-05-11 16:00] VITALS: BP 127/70
--- NOTE | 2019-05-11 19:46 | NUR ---
HAND-OFF: Report given to Dariana VINSON. Patient in stable condition.
--- NOTE | 2019-05-11 19:47 | NUR ---
NURSE NOTES: Received report from KAREL Carpenter. Patient alert, oriented. Rates pain at 7/10. Using BACKWINDER Morphine per orders, BACKWINDER button within reach, call light within reach. Abdominal dressing dry and intact. JUAN x2 to suction, patent. Ileo patent, to drainage bag. GT patent, to drainage bag. Anderson catheter draining clear yellow urine. Bed in low position, locked, side rails up x2. Patient's family at bedside. Will continue to monitor.
[2019-05-11 20:00] VITALS: BP 122/72
[2019-05-11] MEDS: Dyna-Hex 2% Top Sol 2oz TOPIC SCH (20:02)
[2019-05-11] MEDS: AMINO ACIDS IV SCH (20:04)
[2019-05-11] MEDS: [UNRECOGNIZED DRUG - OTHER] IV SCH (20:04)
[2019-05-11] MEDS: LIPID EMULSION 20% IV SCH (20:04)
[2019-05-11] MEDS: DEXTROSE IV SCH (20:04)
[2019-05-11] MEDS: Ketorolac 30mg Inj IV PRN (23:08)
[2019-05-12] VITALS: BP 112/69
[2019-05-12] MEDS: Ampicillin/Sulbactam Sod 3 GM in NS 110 ML IV SCH ×4 (00:04→18:04)
[2019-05-12] MEDS: DiphenhydrAMINE 50mg/ml Inj IVP PRN (00:09)
[2019-05-12] MEDS: NovoLOG Insulin Flexpen SUBQ SCH ×4 (00:33→18:03)
[2019-05-12 04:00] VITALS: BP 119/68
[2019-05-12 05:37] LABS: BASOPHILS % (AUTO) 1.1 % (0.0-2.0); EOSINOPHILS % (AUTO) 4.4 % (0.0-3.0); LYMPHOCYTES % (AUTO) 18.7 % (20.0-45.0); MEAN CORPUSCULAR VOLUME 82 FL (80-99); MONOCYTES % (AUTO) 10.7 % (1.0-10.0); NEUTROPHILS % (AUTO) 65.2 % (45.0-75.0); PLATELET COUNT 159 K/UL (150-450); WHITE BLOOD COUNT 5.5 K/UL (4.8-10.8)
[2019-05-12 05:44] LABS: ALANINE AMINOTRANSFERASE 36 U/L (12-78); ALBUMIN 2.9 G/DL (3.4-5.0); ALBUMIN/GLOBULIN RATIO 0.7 (1.0-2.7); ALKALINE PHOSPHATASE 101 U/L (46-116); ANION GAP 4 mmol/L (5-15); ASPARTATE AMINO TRANSFERASE 28 U/L (15-37); BILIRUBIN,TOTAL 0.9 MG/DL (0.2-1.0); BLOOD UREA NITROGEN 13 mg/dL (7-18); CALCIUM 8.8 MG/DL (8.5-10.1); CARBON DIOXIDE 35 MMOL/L (21-32); CHLORIDE 99 MMOL/L (98-107); CREATININE 0.9 MG/DL (0.55-1.30); PHOSPHORUS 3.7 MG/DL (2.5-4.9); POTASSIUM 3.8 MMOL/L (3.5-5.1); SODIUM 137 MMOL/L (136-145)
[2019-05-12] MEDS: PCA shift volume MISC SCH ×2 (07:17→19:11)
--- NOTE | 2019-05-12 07:17 | NUR ---
HAND-OFF: Written report given to Jayden, charge nurse for KAREL Doyle. Patient in stable condition
--- NOTE | 2019-05-12 07:35 | NUR ---
NURSE NOTES: Patient is in bed awake and able to verbalize needs. Stable. Patient requesting toradol, will administer pain medication as ordered. Ileo draining to bag, will monitor output and flush as ordered. GT draining to bag, will monitor output and flush as ordered. JUAN patent and draining, will monitor output. PICC patent and running IVF, TPN, and PUMP MECHANIC as ordered. Patient is in bed in locked and lowest position with call light within reach and trapeze overhead, will continue to monitor.
[2019-05-12 08:00] VITALS: BP 107/71
[2019-05-12] MEDS: Ketorolac 30mg Inj IV PRN ×3 (08:12→21:25)
[2019-05-12] MEDS ORDERED: Rate Change PCA 1 Each MISC PRN (08:15)
[2019-05-12] MEDS ORDERED: PCA Morphine 1mg/ml 30 ML IV PRN (08:30)
--- NOTE | 2019-05-12 09:25 | NUR ---
PT EVALUATION NOTE Patient seen for initial evaluation. Patient presents with generalized weakness and impaired functional mobility. Patient requires CGA for bed mobility and transfers. Patient able to ambulate 250 ft with CGA, no AD, with slightly unsteady gait. Patient will benefit from skilled inpatient PT intervention to address strength, balance and safety for improved level of functional mobility. Recommend discharge home once medically cleared by MD. No DME needs identified at this time. Addendum: 05/12/19 at 1204 by VASHTI LANGFORD PT Amended: Links added.
[2019-05-12] MEDS: D5 1/4NS w/KCl 20mEq 1,000 ML IV SCH (10:00)
--- NOTE | 2019-05-12 10:01 | General Progress Note ---
Progress Note Progress Note AVSS Ambulating in hallways Abdomen remains distended, soft, incisions clean, stoma pink. shahram scant Urine 1900 Gastrostomy 540 BCIR ileo - nil - irrigated with old blood evacuated now flowing labs all stable Imp. Persistent ileus Plan: continue npo, TPN, Gonzales Lopez MD May 12, 2019 10:01
--- NOTE | 2019-05-12 10:22 | NUR ---
CASE MANAGEMENT:REVIEW 05/12/19 SI: POD #5 S/P ABDOMINO-PERINEAL PROCTECTOMY. [place] CONTINENT ILEOSTOMY GASTROSTOMY 98.2 81 14 107/71 99% ON RA H/H-12.0/37.0 CO2+35 GLUCOSE+123 IS: TPN/IL @80/HR WEB MOBILE DESIGNER MORPHINE IV AMPICILLIN Q6HRS IV VENOFER QHS IV TORADOL FOR BREAK THROUGH PAIN : MED/SURG STATUS 3 EAST PLAN: CONTINUE NPO CONTINUE TPN
[2019-05-12] MEDS ORDERED: NS 275ml ONE (10:40)
[2019-05-12] MEDS ORDERED: NS Irrig 1000ml ONE (10:40)
[2019-05-12] MEDS: PCA Morphine 1mg/ml 30 ML IV PRN (11:58)
[2019-05-12 12:00] VITALS: BP 111/69
--- NOTE | 2019-05-12 12:15 | NUR ---
NURSE NOTES: Morphine TRIAGE ASSISTANT syringe and tubing wasted with pharmacist Amadou. Documented in TRIAGE ASSISTANT log in pharmacy. New syringe and tubing hung as ordered.
--- NOTE | 2019-05-12 14:00 | NUR ---
NURSE NOTES: Patient ambulated with RN around unit. Patient assisted back to bed without incident.
--- NOTE | 2019-05-12 14:13 | NUR ---
RD ASSESSMENT & RECOMMENDATIONS SEE CARE ACTIVITY FOR COMPLETE ASSESSMENT DAILY ESTIMATED NEEDS: Needs based on Surgery/ 70kg abw 25-30 kcals/kg 9787-4296 total kcals 1-2 g protein/kg 70-140 g total protein 25-30 mL/kg 3256-5220 total fluid mLs NUTRITION DIAGNOSIS: Altered GI function R/T h/o UC w/ new ileostomy as evidenced by s/p caleb ileo takedown, w/ creation of new BCIR ileo, NPO w/ ileus, on TPN. PARENTERAL NUTRITION RECOMMENDATIONS: D/AA Rate: 70 IL Rate: 10 Total Rate: 80 Volume: 1920 % Dextrose: 20 % AA: 5.5 Energy (kcals/kg): 1992 Protein (g/kg protein): 92 Nonprotein KCALS: 1622 GIR (mg CHO/kg/min): 3 % Fat KCALS: 24 NCP: N Ratio: 110:1 TPN Comment: * D20% AA 5.5% @ 70ml/hr + IL 20% @10ml/hr -> total of 80ml/hr, all 3:1 * TPN at goal will provide 100% est kcal/prot needs(26kcal/kg, 1.2g prot/kg) * Maintain per MD . * GIR <5, IL <30% ADDITIONAL RECOMMENDATIONS: * Standing weight as able for accurate CBW, weekly wt monitoring * Monitor lytes, LFTs, BGs daily w/ TPN Lytes, LFT's wnl Good glycemic control
[2019-05-12] MEDS: LORazepam 1mg tab SL PRN ×2 (14:34→20:23)
[2019-05-12 16:00] VITALS: BP 115/75
--- NOTE | 2019-05-12 18:50 | NUR ---
NURSE NOTES: True ileo output -30cc, brownish liquid. true gt output: 295cc, greenish liquid. UO: 950cc, dark miladys. JUAN#1: 3cc JUAN#2: 5cc. Patient ambulated x1 with RN and got out of bed x1 during shift.
--- NOTE | 2019-05-12 19:23 | NUR ---
HAND-OFF: Report given to Echo RN, patient is stable.
--- NOTE | 2019-05-12 19:30 | NUR ---
NURSE NOTES: reciebved report form KAREL valenzuela pt s; Addendum: 05/12/19 at 1931 by Echo Mg RN SAVED ON ERROR
--- NOTE | 2019-05-12 19:47 | NUR ---
NURSE NOTES: Received Report from KAREL Doyle, PT a/o x4 in stable condition , pt sleeping no s/s of respiratory distress on RA. Pt has a NEGAR picc line with i.v fluids running , patent and asymptomatic .Dressing intact and clean . Pt on RETAIL LINK ANALYST morphine for pain will continue to monitor
[2019-05-12 20:00] VITALS: BP 120/76
[2019-05-12] MEDS: Dyna-Hex 2% Top Sol 2oz TOPIC SCH (21:05)
[2019-05-12] MEDS: [UNRECOGNIZED DRUG - OTHER] IV SCH (21:07)
[2019-05-12] MEDS: DEXTROSE IV SCH (21:07)
[2019-05-12] MEDS: AMINO ACIDS IV SCH (21:07)
[2019-05-12] MEDS: LIPID EMULSION 20% IV SCH (21:07)
[2019-05-13] VITALS (7 sets, daily range): BP systolic 104–111; BP diastolic 67–73
[2019-05-13] MEDS: Ampicillin/Sulbactam Sod 3 GM in NS 110 ML IV SCH ×4 (00:31→18:20)
[2019-05-13] MEDS: NovoLOG Insulin Flexpen SUBQ SCH ×4 (00:33→18:24)
[2019-05-13] MEDS: PCA Morphine 1mg/ml 30 ML IV PRN ×2 (02:43→18:51)
[2019-05-13] MEDS: Ketorolac 30mg Inj IV PRN ×4 (03:26→21:58)
[2019-05-13 05:28] LABS: BASOPHILS % (AUTO) 0.9 % (0.0-2.0); EOSINOPHILS % (AUTO) 3.9 % (0.0-3.0); HEMATOCRIT 36.8 % (42.0-52.0); HEMOGLOBIN 11.9 G/DL (14.2-18.0); MEAN CORPUSCULAR VOLUME 82 FL (80-99); MONOCYTES % (AUTO) 11.4 % (1.0-10.0); NEUTROPHILS % (AUTO) 69.8 % (45.0-75.0); PLATELET COUNT 160 K/UL (150-450); RED BLOOD COUNT 4.49 M/UL (4.70-6.10); RED CELL DISTRIBUTION WIDTH 15.5 % (11.6-14.8); WHITE BLOOD COUNT 6.2 K/UL (4.8-10.8)
[2019-05-13 06:08] LABS: ALANINE AMINOTRANSFERASE 37 U/L (12-78); ALBUMIN 2.9 G/DL (3.4-5.0); ALBUMIN/GLOBULIN RATIO 0.7 (1.0-2.7); ALKALINE PHOSPHATASE 106 U/L (46-116); ANION GAP 4 mmol/L (5-15); ASPARTATE AMINO TRANSFERASE 30 U/L (15-37); BILIRUBIN,TOTAL 0.8 MG/DL (0.2-1.0); BLOOD UREA NITROGEN 15 mg/dL (7-18); CALCIUM 8.5 MG/DL (8.5-10.1); CARBON DIOXIDE 32 MMOL/L (21-32); CHLORIDE 101 MMOL/L (98-107); CREATININE 0.8 MG/DL (0.55-1.30); POTASSIUM 3.8 MMOL/L (3.5-5.1); SODIUM 137 MMOL/L (136-145)
--- NOTE | 2019-05-13 07:30 | NUR ---
NURSE NOTES: Pt lying in bed w/father at bedside, bed in lowest position, and call light/CLIENT SUPPORT REPRESENTATIVE button within reach. Pt A&Ox4, VSS, and in no apparent distress at this time. NEGAR PICC line intact/asymptomatic w/IVF & TPN infusing; ileo and F/C patent/draining; JUAN drains to bulb suction; and surgical dressings C/D/I. Pt has no complaints or concerns at this time. Will continue to monitor.
[2019-05-13] MEDS: PCA shift volume MISC SCH ×2 (07:42→19:00)
--- NOTE | 2019-05-13 08:13 | NUR ---
HAND-OFF: Report given to KAREL olivier.
[2019-05-13] MEDS ORDERED: LORazepam 1mg tab SL PRN (10:15)
[2019-05-13] MEDS ORDERED: Rate Change PCA 1 Each MISC PRN (10:15)
--- NOTE | 2019-05-13 10:19 | General Progress Note ---
Progress Note Progress Note AVSS Ambulates in hallways with walker Abdomen healing but still distended and no output from ileo catheter - sutures cut and advanced further into pouch Perineum healing Urine 1450 gastrostomy 995 BCIR ileo nil JPs decreased labs stable Imp. Ileus + re-positioned Argueta pouch catheter Plan: continue npo, TPN may need pouchogram XRay if no output continues to verify catheter position Gonzales Siddiqui MD May 13, 2019 10:19
[2019-05-13] MEDS: D5 1/4NS w/KCl 20mEq 1,000 ML IV SCH (12:12)
[2019-05-13] MEDS: LORazepam 1mg tab SL PRN (14:10)
[2019-05-13] MEDS ORDERED: Tubing IV Secondary IV ONE (16:19)
[2019-05-13] MEDS ORDERED: NS Irrig 1000ml ONE (16:19)
--- NOTE | 2019-05-13 17:15 | NUR ---
NURSE NOTES: Pt briefly ambulated a couple of times around unit today; assisted pt back to bed w/o incident. Will continue to monitor.
--- NOTE | 2019-05-13 19:41 | NUR ---
HAND-OFF: Report given to KAREL Estes.
[2019-05-13] MEDS: Dyna-Hex 2% Top Sol 2oz TOPIC SCH (20:04)
[2019-05-13] MEDS: AMINO ACIDS IV SCH (20:08)
[2019-05-13] MEDS: [UNRECOGNIZED DRUG - OTHER] IV SCH (20:08)
[2019-05-13] MEDS: LIPID EMULSION 20% IV SCH (20:08)
[2019-05-13] MEDS: DEXTROSE IV SCH (20:08)
--- NOTE | 2019-05-13 21:00 | NUR ---
NURSES NOTE: Pt in bed, awakens to name, A/OX4, no s/s of distress noted, breathing pattern is even and unlabored on RA, VS wnl, NEGAR picc patent with no signs of infection. BAT CARRIER pump and TPN running according to eMAR. Dressing, abdomen, is clean, dry intact. Ileo patent, draining appropriately, hernandez intact, draining appropriately, urine is yellow with no sediment noted. Pt states pain is 3/10 in abdomen which is tolerable. All due meds will be given. Bed at lowest level, call light within reach. Pt will continue to be monitored.
[2019-05-14] VITALS (7 sets, daily range): BP systolic 105–111; BP diastolic 70–75
[2019-05-14] MEDS: Ampicillin/Sulbactam Sod 3 GM in NS 110 ML IV SCH ×4 (00:27→18:56)
[2019-05-14] MEDS: LORazepam 1mg tab SL PRN (05:02)
[2019-05-14 05:52] LABS: BASOPHILS % (AUTO) 1.5 % (0.0-2.0); EOSINOPHILS % (AUTO) 4.7 % (0.0-3.0); HEMATOCRIT 35.8 % (42.0-52.0); HEMOGLOBIN 11.6 G/DL (14.2-18.0); LYMPHOCYTES % (AUTO) 16.2 % (20.0-45.0); MEAN CORPUSCULAR VOLUME 82 FL (80-99); MONOCYTES % (AUTO) 10.3 % (1.0-10.0); NEUTROPHILS % (AUTO) 67.4 % (45.0-75.0); PLATELET COUNT 150 K/UL (150-450); RED BLOOD COUNT 4.37 M/UL (4.70-6.10); RED CELL DISTRIBUTION WIDTH 15.7 % (11.6-14.8); WHITE BLOOD COUNT 6.1 K/UL (4.8-10.8)
[2019-05-14 06:03] LABS: ANION GAP 5 mmol/L (5-15); BLOOD UREA NITROGEN 15 mg/dL (7-18); CALCIUM 8.4 MG/DL (8.5-10.1); CARBON DIOXIDE 30 MMOL/L (21-32); CHLORIDE 101 MMOL/L (98-107); CREATININE 0.9 MG/DL (0.55-1.30); POTASSIUM 3.6 MMOL/L (3.5-5.1); SODIUM 136 MMOL/L (136-145)
[2019-05-14] MEDS: NovoLOG Insulin Flexpen SUBQ SCH ×4 (06:53→18:57)
[2019-05-14] MEDS: PCA shift volume MISC SCH ×2 (07:00→19:00)
--- NOTE | 2019-05-14 08:28 | NUR ---
NURSES NOTE: Report given to KAREL Morgan. JUAN 1=3 JUAN 2= 3 GTUBE= 120 XH=578 Ileo= -80
[2019-05-14] MEDS: PCA Morphine 1mg/ml 30 ML IV PRN (08:36)
--- NOTE | 2019-05-14 08:38 | Diagnostic Imaging Report ---
Indications: Needs long-term IV access Technique: Ultrasound confirms patent compressible left basilic vein. Total sterile technique, including sterile probe cover and sterile gel, hat, mask,, sterile gown, large sterile drape, and preparation with 2% chlorhexidine utilized. Local anesthesia with 1% lidocaine. Under real-time ultrasound guidance, puncture left basilic vein using 21-gauge needle, documented and archived, passage 0.018 guidewire under direct fluoroscopy, which was used to determine appropriate catheter length, exchange for peel-away sheath. 5Fr Dual-lumen power PICC cut to 40 cm. It was inserted through the peel-away sheath. Peel-away sheath and guidewire removed. Catheter fixed to the skin. Both catheter ports aspirated and flushed. Patient tolerated procedure well, without immediate complication. Digital radiograph documents satisfactory catheter tip position, at the cavoatrial junction. Total fluoroscopy time 12.3 seconds. Total fluoroscopy dose 1.3 mGy. Total number fluoroscopic images saved: 1. Patient monitored throughout the procedure by a dedicated independent observer. Impression: Successful placement of dobule lumen PICC under sonographic and fluoroscopic guidance, as described above.
--- NOTE | 2019-05-14 08:42 | General Progress Note ---
Progress Note Progress Note AVSS Continued abd distention and no output from BCIR catheter despite yesterday 's manipulation with evacuation of gas and old bloody fluid Indwelling pouch catheter removed and 24 Fr Anderson inserted well into pouch (? looped in pouch) - with evacuation of gas and some liquid but no enteric fluid Labs stable Urine 1075 Gastrostomy 365 BCIR ileo nil JPs decreasing Imp. Obstruction vs Argueta pouch catheter positioning issue Plan: STAT Pouchogram with retrograde small bowel series - discussed with Radiologist as he is just 1 week post-op Gonzales Siddiqui MD May 14, 2019 08:42
[2019-05-14] MEDS ORDERED: Rate Change PCA 1 Each MISC PRN (09:00)
[2019-05-14] MEDS: D5 1/4NS w/KCl 20mEq 1,000 ML IV SCH ×2 (09:00→20:30)
[2019-05-14] MEDS ORDERED: PCA Morphine 1mg/ml 30 ML IV PRN ×2 (09:00→09:51)
--- NOTE | 2019-05-14 09:00 | NUR ---
Per report of outgoing nurse pt have minimal urine output, no output to ileostomy. Upon assessment pt abdomen was very distended. Dr Siddiqui changed the catheter. Pt had multiple questions after Dr Siddiqui left the room. Pt was concerned if he was developing a fistula. Per Dr Siddiqui he was not, developing a fistula. Current plan will be followed to include i and o, monitoring of output . Abdominal distention, and pain management.
--- NOTE | 2019-05-14 11:15 | NUR ---
PT NOTE PT treatment deferred per Cathy RN due to STAT Pouchogram with retrograde small bowel series, will follow.
--- NOTE | 2019-05-14 11:29 | NUR ---
CASE MANAGEMENT:REVIEW 05/14/19 SI: POD #7 S/P ABDOMINO-PERINEAL PROCTECTOMY. [place] CONTINENT ILEOSTOMY GASTROSTOMY 98.4 77 18 107/70 98% ON RA H/H-11.6/35.8 IS: TPN/IL @80/HR IVF@75/HR VIT K SQ Q WEEK WIRELESS FIELD TECHNICIAN MORPHINE IV AMPICILLIN Q6HRS IV TORADOL FOR BREAK THROUGH PAIN : MED/SURG STATUS 3 EAST PLAN: STAT POUCHOGRAM W/RETROGRADE SMALL BOWEL SERIES MONITOR JUAN DRAIN OUTPUT
--- NOTE | 2019-05-14 11:37 | Diagnostic Imaging Report ---
Indication: Abdominal pain. Patient with indwelling continent ileostomy. Little output via the pouch. Technique: Kock Pouch Pouchogram w/SBS. Fluoroscopic examination was performed. Images were obtained before and after administration of water-soluble contrast into the continent ileostomy reservoir. Total number fluoroscopic images: 14 Total fluoroscopy time: 87.9 seconds Total fluoroscopy dose: 21.38 mGy Comparison: None. Findings: Note that exam is limited due to lack of availability of a dedicated fluoroscopy room. Exam performed with the patient on the gurney using a C-arm. Unable to save spot fluoroscopic exposures, which provide better resolution. Only saved fluoroscopic images could be obtained. Within limitations of the exam: Hydrogen Plant Operations Manager image demonstrates postoperative changes related to continent ileostomy creation with surgical sutures and indwelling catheter. There are surgical rickie as well as additional surgical drainage catheters in the pelvis. No large fecalith is appreciated. Contrast was instilled via the ileostomy catheter and opacified the ileostomy reservoir/pouch. There is no evidence of abnormal extraluminal extravasation of contrast to suggest leak. The tip of the catheter sits adjacent to the superior aspect of the pouch. The nipple/valve is mildly prominent which may be related to edema given recent surgery. Contrast refluxed promptly into the feeding ileal loops within these loops are not dilated. The bag of contrast was then placed below the patient and the pouch was emptied via gravity and there was prompt emptying of contrast from the pouch. IMPRESSION: Findings in keeping with continent ileostomy creation. Prominent appearance of the valve may be related to edema given recent surgery. No evidence of abnormal extraluminal extravasation of instilled contrast to suggest leak. No evidence of obstruction within upstream ileal loops. Pouch noted to empty promptly.
[2019-05-14] MEDS: Ketorolac 30mg Inj IV PRN ×2 (15:00→21:13)
--- NOTE | 2019-05-14 15:25 | NUR ---
*-* INSURANCE *-* ALL CLNICALS AND REVIEWS HAVE BEEN FAXED TO: [employer] [facility] [place]- HMO P- [phone]...S/W KELSEA CERT# [id number] 5/DAYS APPROVED THRU [id number] IF PT STAYS BEYOND THE ..... PLEASE FAX THE REVIEW/CLINICAL NCM: ENRIQUE Estrada FX: [phone]
--- NOTE | 2019-05-14 19:30 | NUR ---
NURSE NOTES: Pt made multiple inquiries through out shift. Time consuming, due to emotional support . Repeatedly compared his plan of care with other BCIR pt " Is this normal" " Inquiring about plan of care for other BCIR pt. informed that everyone plan is individualized. Complained of gas pain . Order for Simethicone obtained, yet pt refused dose. Stated he felt better after flushing. Gt tube output had an appearance of frothy saliva. No odor to ileostomy output, urine output 2125 ileostomy output 340 gastric output 220 Did not ambulate morning shift stated he would walk on next shift
[2019-05-14] MEDS: [UNRECOGNIZED DRUG - OTHER] IV SCH (20:28)
[2019-05-14] MEDS: DEXTROSE IV SCH (20:28)
[2019-05-14] MEDS: Simethicone 80mg tab ORAL PRN (20:28)
[2019-05-14] MEDS: LIPID EMULSION 20% IV SCH (20:28)
[2019-05-14] MEDS: Dyna-Hex 2% Top Sol 2oz TOPIC SCH (20:28)
[2019-05-14] MEDS: AMINO ACIDS IV SCH (20:28)
--- NOTE | 2019-05-14 20:48 | NUR ---
HAND-OFF: Report given to Quincy VINSON.
--- NOTE | 2019-05-14 20:49 | NUR ---
NURSE NOTES: Received patient in no apparent distress. A&OX4. PICC line noted on left upper arm, dry, and intact. On CLINICAL LABORATORY AIDES TEACHER. Anderson draining well by gravity, yellow urine noted. noted Ileostomy tube and G-tube, draining well by gravity. JUAN draining well. Family member at bedside. Bed in lowest position. Call light within reach. Will continue to monitor.
[2019-05-15] VITALS: BP 99/67
[2019-05-15] MEDS: NovoLOG Insulin Flexpen SUBQ SCH ×5 (00:38→23:35)
[2019-05-15] MEDS: Ampicillin/Sulbactam Sod 3 GM in NS 110 ML IV SCH ×2 (00:39→05:53)
[2019-05-15 04:00] VITALS: BP 99/64
[2019-05-15 06:15] LABS: BASOPHILS % (AUTO) 1.9 % (0.0-2.0); EOSINOPHILS % (AUTO) 4.4 % (0.0-3.0); HEMATOCRIT 34.5 % (42.0-52.0); HEMOGLOBIN 11.5 G/DL (14.2-18.0); LYMPHOCYTES % (AUTO) 16.2 % (20.0-45.0); MEAN CORPUSCULAR VOLUME 81 FL (80-99); NEUTROPHILS % (AUTO) 65.6 % (45.0-75.0); PLATELET COUNT 144 K/UL (150-450); RED BLOOD COUNT 4.25 M/UL (4.70-6.10); RED CELL DISTRIBUTION WIDTH 13.5 % (11.6-14.8); WHITE BLOOD COUNT 4.1 K/UL (4.8-10.8)
[2019-05-15 06:29] LABS: ALANINE AMINOTRANSFERASE 70 U/L (12-78); ALBUMIN 2.8 G/DL (3.4-5.0); ALBUMIN/GLOBULIN RATIO 0.7 (1.0-2.7); ALKALINE PHOSPHATASE 145 U/L (46-116); ANION GAP 4 mmol/L (5-15); ASPARTATE AMINO TRANSFERASE 54 U/L (15-37); BILIRUBIN,TOTAL 0.7 MG/DL (0.2-1.0); BLOOD UREA NITROGEN 13 mg/dL (7-18); CALCIUM 8.3 MG/DL (8.5-10.1); CARBON DIOXIDE 30 MMOL/L (21-32); CHLORIDE 101 MMOL/L (98-107); CREATININE 0.9 MG/DL (0.55-1.30); PHOSPHORUS 3.6 MG/DL (2.5-4.9); POTASSIUM 3.6 MMOL/L (3.5-5.1); SODIUM 135 MMOL/L (136-145)
[2019-05-15] MEDS: PCA shift volume MISC SCH ×2 (07:17→19:06)
--- NOTE | 2019-05-15 07:34 | NUR ---
HAND-OFF: Report given to Sagar VINSON.
[2019-05-15 08:00] VITALS: BP_SYST 108; BP_DIAS 69; BP_DIAS 70
[2019-05-15] MEDS ORDERED: Phytonadione 10 mg/mL 1ml amp SUBQ SCH (09:00)
--- NOTE | 2019-05-15 10:38 | General Progress Note ---
Progress Note Progress Note AVSS less gas and bloating Abdomen soft, scant distention, healing nicely. Baudilio nil Perineum healing nicely - JUAN removed Urine 2825 Gastrostomy 320 BCIR ileo 460 enteric fluid WBC low 4100 Hgb 11.5 Platelets low 144,000 Imp. slowly resolving ileus Plan: continue npo and TPN d/c urinary Anderson catheter f/u labs Gonzales Siddiqui MD May 15, 2019 10:38
--- NOTE | 2019-05-15 11:00 | NUR ---
NURSE NOTES: after d/c f/c pt void w/o difficult
[2019-05-15] MEDS: D5 1/4NS w/KCl 20mEq 1,000 ML IV SCH ×2 (11:40→23:26)
--- NOTE | 2019-05-15 11:44 | NUR ---
RD ASSESSMENT & RECOMMENDATIONS SEE CARE ACTIVITY FOR COMPLETE ASSESSMENT DAILY ESTIMATED NEEDS: Needs based on Surgery/ 70kg abw 25-30 kcals/kg 3175-8501 total kcals 1-2 g protein/kg 70-140 g total protein 25-30 mL/kg 6905-0103 total fluid mLs NUTRITION DIAGNOSIS: Altered GI function R/T h/o UC w/ new ileostomy as evidenced by s/p caleb ileo takedown, w/ creation of new BCIR ileo, NPO w/ ileus, on TPN. CURRENT DIET:NPO PO DIET RECOMMENDATIONS: DIET PER MD PARENTERAL NUTRITION RECOMMENDATIONS: D/AA Rate: 70 IL Rate: 10 Total Rate: 80 Volume: 1920 % Dextrose: 20 % AA: 5.5 Energy (kcals/kg): 1992 Protein (g/kg protein): 92 Nonprotein KCALS: 1622 GIR (mg CHO/kg/min): 3 % Fat KCALS: 24 NCP: N Ratio: 110:1 TPN Comment: * D20% AA 5.5% @ 70ml/hr + IL 20% @10ml/hr -> total of 80ml/hr, all 3:1 * TPN at goal will provide 100% est kcal/prot needs(26kcal/kg, 1.2g prot kg) * Maintain per MD . * GIR <5, IL <30% ADDITIONAL RECOMMENDATIONS: * Standing weight as able for accurate CBW, weekly wt monitoring * Monitor lytes, LFTs, BGs daily w/ TPN Lytes wnl, Good glycemic control * LFt's now trending up-> REC TO DC or LOWER added D5.
[2019-05-15 12:00] VITALS: BP 106/65
[2019-05-15] MEDS ORDERED: Rate Change PCA 1 Each MISC PRN ×2 (12:45→13:00)
[2019-05-15] MEDS ORDERED: PCA Morphine 1mg/ml 30 ML IV PRN (13:00)
[2019-05-15] MEDS: Simethicone 80mg tab ORAL PRN ×2 (13:21→22:50)
--- NOTE | 2019-05-15 14:07 | NUR ---
*-* INSURANCE *-* ALL CLINICALS AND REVIEWS HAVE BEEN FAXED TO: [employer] [place] P- [phone]...S/W KELSEA CERT# [id number] 5/DAYS APPROVED THRU [id number] IF PT STAYS BEYOND THE ..... PLEASE FAX THE REVIEW/CLINICAL NCM: ENRIQUE Estrada FX: [phone]
--- NOTE | 2019-05-15 14:30 | NUR ---
CHEMISTINSIDE SALES COORDINATOR SI: POD#8 S/PAbdominal-perineal proctectomy.Argueta continent intestinal reservoir.Catheter gastrostomy t. 98.6 hr 109 rr 20 b/p 99/64 WBC 4.1 AST 84 ALK PHOS 145 IS: IVF D5KCL @ 75ML/HR MED/SURG STATUS
[2019-05-15] MEDS: Ketorolac 30mg Inj IV PRN ×2 (15:36→22:55)
[2019-05-15 16:00] VITALS: BP 108/70
[2019-05-15] MEDS ORDERED: PCA shift volume MISC SCH (19:00)
--- NOTE | 2019-05-15 19:30 | NUR ---
NURSE NOTES: Received patient in bed, alert, awake. Denies pain or discomfort at this time. PICC line intact. TPN and IVF infusing. GT and Ileo bag to drainage. Call light and SHEARING MACHINE FEEDER button within reach, instructed to call for assistance. Will continue plan of care.
--- NOTE | 2019-05-15 19:30 | NUR ---
HAND-OFF: Report given to KAREL Chairez. pt is stable condition.
[2019-05-15 20:00] VITALS: BP 102/70
--- NOTE | 2019-05-15 20:00 | NUR ---
NURSE NOTES: Ambulated around the hallway, no distress noted. Tolerated well.
[2019-05-15] MEDS: Dyna-Hex 2% Top Sol 2oz TOPIC SCH (20:15)
[2019-05-15] MEDS: LIPID EMULSION 20% IV SCH (20:29)
[2019-05-15] MEDS: DEXTROSE IV SCH (20:29)
[2019-05-15] MEDS: [UNRECOGNIZED DRUG - OTHER] IV SCH (20:29)
[2019-05-15] MEDS: AMINO ACIDS IV SCH (20:29)
[2019-05-16] VITALS (7 sets, daily range): BP systolic 98–113; BP diastolic 64–72
[2019-05-16] MEDS: NovoLOG Insulin Flexpen SUBQ SCH ×4 (05:15→23:47)
[2019-05-16 05:24] LABS: BASOPHILS % (AUTO) 2.5 % (0.0-2.0); EOSINOPHILS % (AUTO) 6.6 % (0.0-3.0); HEMATOCRIT 35.4 % (42.0-52.0); HEMOGLOBIN 11.5 G/DL (14.2-18.0); LYMPHOCYTES % (AUTO) 22.8 % (20.0-45.0); MEAN CORPUSCULAR VOLUME 82 FL (80-99); MONOCYTES % (AUTO) 15.4 % (1.0-10.0); NEUTROPHILS % (AUTO) 52.7 % (45.0-75.0); PLATELET COUNT 165 K/UL (150-450); RED BLOOD COUNT 4.33 M/UL (4.70-6.10); RED CELL DISTRIBUTION WIDTH 15.4 % (11.6-14.8); WHITE BLOOD COUNT 4.1 K/UL (4.8-10.8)
[2019-05-16 05:40] LABS: BLOOD UREA NITROGEN 14 mg/dL (7-18); CHLORIDE 101 MMOL/L (98-107); CREATININE 0.9 MG/DL (0.55-1.30); POTASSIUM 3.8 MMOL/L (3.5-5.1); SODIUM 136 MMOL/L (136-145)
[2019-05-16 05:41] LABS: ALANINE AMINOTRANSFERASE 63 U/L (12-78); ALBUMIN/GLOBULIN RATIO 0.8 (1.0-2.7); ALKALINE PHOSPHATASE 149 U/L (46-116); ASPARTATE AMINO TRANSFERASE 37 U/L (15-37); BILIRUBIN,TOTAL 0.5 MG/DL (0.2-1.0); CALCIUM 8.6 MG/DL (8.5-10.1)
[2019-05-16] MEDS: PCA shift volume MISC SCH (07:10)
--- NOTE | 2019-05-16 07:21 | NUR ---
HAND-OFF: Report given to Sagar VINSON.
--- NOTE | 2019-05-16 07:23 | NUR ---
NURSE NOTES: Received pt from KAREL Chairez, pt was sleeping comfortably pain control by SUBSCRIPTION CREW LEADER, no acute distress, call light w/in reach.
[2019-05-16 07:47] LABS: CARBON DIOXIDE 28 MMOL/L (21-32)
--- NOTE | 2019-05-16 10:03 | General Progress Note ---
Progress Note Progress Note AVSS Feeling better ABdomen soft, non-distended Perineum clean Urine 2185 Gastrostomy 640 BCIR ileo 290 labs stable Imp: improved Plan; clear liquid diet + gastrostomy 3:3 protocol continue TPN d/c TOP LIFT NAILER and IV fluids - Percocet prn pain continuous drainage of Argueta pouch Gonzales Siddiqui MD May 16, 2019 10:03
--- NOTE | 2019-05-16 19:39 | NUR ---
HAND-OFF: Report given to KAREL Montejo. pt was stable condition.
[2019-05-16] MEDS: Dyna-Hex 2% Top Sol 2oz TOPIC SCH (20:28)
[2019-05-16] MEDS: DEXTROSE IV SCH (20:32)
[2019-05-16] MEDS: LIPID EMULSION 20% IV SCH (20:32)
[2019-05-16] MEDS: [UNRECOGNIZED DRUG - OTHER] IV SCH (20:32)
[2019-05-16] MEDS: AMINO ACIDS IV SCH (20:32)
[2019-05-16] MEDS: oxyCODONE HCL/Acetaminophen 5/325mg ORAL PRN (20:44)
[2019-05-16] MEDS: Simethicone 80mg tab ORAL PRN (21:30)
[2019-05-16] MEDS: Ketorolac 30mg Inj IV PRN (21:42)
--- NOTE | 2019-05-17 01:30 | NUR ---
NURSE NOTE: Pt expressed feeling increased gas pain. Pt encouraged to ambulate in the sands. Pt ambulated 1 lap around the hallway. Requested simethicone but med was not due, he then expressed that he thinks he feels nauseous but is not sure. Zofran administered.
[2019-05-17] MEDS: Simethicone 80mg tab ORAL PRN ×4 (03:15→21:21)
[2019-05-17] MEDS: oxyCODONE HCL/Acetaminophen 5/325mg ORAL PRN ×2 (03:23→12:58)
[2019-05-17] MEDS: LORazepam 1mg tab SL PRN ×2 (03:41→08:08)
[2019-05-17 03:58] VITALS: BP 111/74
--- NOTE | 2019-05-17 04:20 | NUR ---
NURSE NOTE: Pt is resting, he expressed feeling comfortable at this time but requested more pain meds. Will continue to monitor
--- NOTE | 2019-05-17 05:02 | NUR ---
NURSE NOTE: 1930 Orders reviewed. Pt was sleeping. Physical assessment completed. G-tube is intact,currently to drainage. Ileo catheter is intact, abdominal dressing is intact. The abdomen is soft, some tenderness. 2030 Pt expressed that his Ileo dressing was starting to feel wet. Serosanguineous drainage noted on 4x4's over Ileo, per charge nurse. 4x4'x changed and tape reinforced reinforced by charge nurse. Pt expressed feeling some abdominal pain 5/10.
--- NOTE | 2019-05-17 05:27 | NUR ---
NURSE NOTE: 05/16 2115 Pt expressed feeling some gas pain, will give simethicone.
--- NOTE | 2019-05-17 05:35 | NUR ---
NURSE NOTE: 0315 Pt still complaining of gas and abdominal pain 11/26. Pt denied cramping at this time. Simethicone and Percocet administered. Pt vomited x1 at approx 0345, emesis was clear in color and nonodorous. Emesis was on the floor so not able to measure but was a moderate amount. When asked to describe how he felt after vomiting, he expressed still feeling gas pain and thought he might be feeling cramping. Ativan administered after 10 mins pt expressed it wasn't working. Pt encouraged to try to relax and reassured the Ativan should offer some relief. Dr. Siddiqui paged at 0400.
[2019-05-17 05:51] LABS: BASOPHILS % (AUTO) 1.8 % (0.0-2.0); EOSINOPHILS % (AUTO) 3.1 % (0.0-3.0); HEMATOCRIT 43.4 % (42.0-52.0); HEMOGLOBIN 13.9 G/DL (14.2-18.0); LYMPHOCYTES % (AUTO) 9.1 % (20.0-45.0); MEAN CORPUSCULAR VOLUME 85 FL (80-99); MONOCYTES % (AUTO) 7.6 % (1.0-10.0); NEUTROPHILS % (AUTO) 78.5 % (45.0-75.0); PLATELET COUNT 187 K/UL (150-450); RED BLOOD COUNT 5.13 M/UL (4.70-6.10); RED CELL DISTRIBUTION WIDTH 15.7 % (11.6-14.8); WHITE BLOOD COUNT 7.3 K/UL (4.8-10.8)
[2019-05-17 05:58] LABS: ANION GAP 7 mmol/L (5-15); BLOOD UREA NITROGEN 18 mg/dL (7-18); CALCIUM 9.6 MG/DL (8.5-10.1); CARBON DIOXIDE 31 MMOL/L (21-32); CHLORIDE 99 MMOL/L (98-107); CREATININE 1.1 MG/DL (0.55-1.30); POTASSIUM 4.3 MMOL/L (3.5-5.1); SODIUM 137 MMOL/L (136-145)
[2019-05-17] MEDS: NovoLOG Insulin Flexpen SUBQ SCH ×3 (06:02→18:14)
[2019-05-17 08:00] VITALS: BP 120/79
--- NOTE | 2019-05-17 08:00 | NUR ---
NURSE NOTES: patient agitated, restless, complained of severe abdominal pain, given Toradol IV and Ativan SL as ordered PRN. Removed dressing, found ileostomy catheter was disconnected. Reconnected it and ileostomy drainage restarted to flow to bag. Dressing with moderate amount of serosanguineous secretion.
[2019-05-17] MEDS: Ketorolac 30mg Inj IV PRN ×3 (08:10→21:07)
--- NOTE | 2019-05-17 10:55 | General Progress Note ---
Progress Note Progress Note AVSS Had cramping pain and emesis so made npo and gastrostomy to continuous drainage. Ileo catheter slips out partially as well Abdomen soft, non-distended, shahram dry Urine 2000 Gastrostomy 690 BCIR ileo 260 WBC 7300 Hgb 13.9 BUN up 18 Cr 1.1 Imp. Abdominal cramping pain, resolved Mild hemoconcentration by labs Plan: Clear liquid diet with gastrostomy to continuous drainage Add IV fluids to TPN Gonzales Siddiqui MD May 17, 2019 10:55
[2019-05-17 12:00] VITALS: BP 109/77
[2019-05-17] MEDS: D5 1/2NS w/KCl 20mEq 1,000 ML IV SCH (12:20)
--- NOTE | 2019-05-17 13:26 | NUR ---
PT note Attempted to see patient x 2 for physical therapy. On first attempt, patient requested to be seen in PM due to nt sleeping well last night. When attempted to see in PM, patient c/o having abdominal pain, refused tx.
--- NOTE | 2019-05-17 14:22 | NUR ---
NURSE NOTES: simethicone dose was contaminated, given another dose now.
[2019-05-17 16:00] VITALS: BP 106/74
[2019-05-17] MEDS ORDERED: Cathflo Alteplase 2mg Inj INJ ONE (16:00)
[2019-05-17] MEDS ORDERED: NS Irrig 1000ml ONE (16:30)
--- NOTE | 2019-05-17 19:00 | NUR ---
HAND-OFF: Report given to KAREL Bedolla.
--- NOTE | 2019-05-17 19:05 | NUR ---
NURSE NOTES: Received patient in bed, alert, awake. Pt c/o abd gas and pain /10. Pain meds will be given as ordered. Denies nausea and vomiting. PICC line intact. TPN and IVF infusing. GT and Ileostomy intact and draining well. Bed locked, lowest position, alarm on, call light within reach. Will continue to monitor.
[2019-05-17 20:00] VITALS: BP 108/73
[2019-05-17] MEDS: Dyna-Hex 2% Top Sol 2oz TOPIC SCH (20:59)
[2019-05-17] MEDS: AMINO ACIDS IV SCH (21:01)
[2019-05-17] MEDS: [UNRECOGNIZED DRUG - OTHER] IV SCH (21:01)
[2019-05-17] MEDS: LIPID EMULSION 20% IV SCH (21:01)
[2019-05-17] MEDS: DEXTROSE IV SCH (21:01)
--- NOTE | 2019-05-17 23:00 | NUR ---
NURSE NOTES: Dressing changed. Small amount serosanguineous drainage noted on 4x4's over Ileo
[2019-05-18] VITALS: BP 105/74
[2019-05-18] MEDS: oxyCODONE HCL/Acetaminophen 5/325mg ORAL PRN ×3 (00:15→21:12)
[2019-05-18] MEDS: D5 1/2NS w/KCl 20mEq 1,000 ML IV SCH ×2 (00:21→13:47)
[2019-05-18] MEDS: NovoLOG Insulin Flexpen SUBQ SCH ×4 (00:23→17:45)
[2019-05-18] MEDS: Ketorolac 30mg Inj IV PRN ×2 (03:27→13:48)
[2019-05-18 04:00] VITALS: BP 102/75
[2019-05-18 06:26] LABS: BASOPHILS % (AUTO) 1.4 % (0.0-2.0); EOSINOPHILS % (AUTO) 3.1 % (0.0-3.0); HEMATOCRIT 40.3 % (42.0-52.0); MEAN CORPUSCULAR VOLUME 84 FL (80-99); MONOCYTES % (AUTO) 9.3 % (1.0-10.0); NEUTROPHILS % (AUTO) 71.2 % (45.0-75.0); PLATELET COUNT 190 K/UL (150-450); RED BLOOD COUNT 4.81 M/UL (4.70-6.10); RED CELL DISTRIBUTION WIDTH 15.2 % (11.6-14.8); WHITE BLOOD COUNT 6.1 K/UL (4.8-10.8)
[2019-05-18 07:16] LABS: ALANINE AMINOTRANSFERASE 91 U/L (12-78); ALBUMIN 3.3 G/DL (3.4-5.0); ALBUMIN/GLOBULIN RATIO 0.7 (1.0-2.7); ALKALINE PHOSPHATASE 203 U/L (46-116); ANION GAP 9 mmol/L (5-15); ASPARTATE AMINO TRANSFERASE 43 U/L (15-37); BILIRUBIN,TOTAL 0.6 MG/DL (0.2-1.0); BLOOD UREA NITROGEN 31 mg/dL (7-18); CALCIUM 8.7 MG/DL (8.5-10.1); CARBON DIOXIDE 27 MMOL/L (21-32); CHLORIDE 99 MMOL/L (98-107); CREATININE 1.1 MG/DL (0.55-1.30); SODIUM 135 MMOL/L (136-145)
--- NOTE | 2019-05-18 07:30 | NUR ---
NURSE NOTES: Received pt from RASHIDA VINSON. Pt is awake and alert. pt is in RA, no SOB or acute respiratory distress noted. Pt has PICC NEGAR is running well. Pt has g tube let side is working well. pt has ileostomy in R side is working well. All needs attended, bed is locked and is in the lowest position, call light within easy reach. will continue to monitor.
--- NOTE | 2019-05-18 07:31 | NUR ---
HAND-OFF: Report given to KAREL Tong.
[2019-05-18 08:18] VITALS: BP 107/68
--- NOTE | 2019-05-18 08:41 | General Progress Note ---
Progress Note Progress Note AVSS with mild tachycardia and c/o central abdominal ache Abdomen mildly distended, soft, incisions clean, stoma pink, shahram nil Urine 975 Gastrostomy 500 BCIR ileo 2415 (had 2070cc on day shift) labs all satisf, albumin up 3.3 Imp: Resolving ileus vs. partial SBO Plan: continue TPN, npo, IV fluids STAT KUB Xray May need CT scan abd+pelvis Gonzales Siddiqui MD May 18, 2019 08:41
[2019-05-18] MEDS ORDERED: LORazepam 1mg tab SL PRN ×2 (08:45→10:00)
--- NOTE | 2019-05-18 09:32 | NUR ---
CASE MANAGEMENT:REVIEW 05/18/19 SI: POD #11 S/P ABDOMINO-PERINEAL PROCTECTOMY. [place] CONTINENT ILEOSTOMY GASTROSTOMY 99.5 100 20 105/74 94% ON RA BUN+31 IS: TPN/IL @80/HR IVF@75/HR VIT K SQ Q WEEK PERCOCET PO Q4HRS IV TORADOL FOR BREAK THROUGH PAIN : MED/SURG STATUS 3 EAST PLAN: RESOLVING ILEUS vs PARTIAL SBO CONTINUE TPN...NPO...IVF STAT KUB XRAY
[2019-05-18 12:07] VITALS: BP 109/75
--- NOTE | 2019-05-18 12:47 | Diagnostic Imaging Report ---
Indication: Postoperative abdominal pain Technique: Supine view of the abdomen Comparison: 01/05/2019 Findings: Midline and right lower quadrant skin rickie are demonstrated. Some anastomotic rickie are seen in the pelvis. The bowel gas pattern is unremarkable. No masses or unusual calcifications. Impression: No acute process
[2019-05-18 15:50] VITALS: BP 110/66
--- NOTE | 2019-05-18 19:28 | NUR ---
HAND-OFF: Report given to HEAVENLY VINSON. Pt is alert and stable.
--- NOTE | 2019-05-18 19:35 | NUR ---
NURSE NOTES: Received pt from Ran RN. Pt is awake and alert. pt is on RA, no SOB or acute respiratory distress noted. Pt has PICC NEGAR is running well. Pt has g tube left lower quadrant - draining to gravity. pt has ileostomy on right lower quadrant, draining and patent, flushed. All needs attended, bed is locked and is in the lowest position, call light within easy reach. will continue to monitor.
[2019-05-18 20:00] VITALS: BP 116/76
[2019-05-18] MEDS: Dyna-Hex 2% Top Sol 2oz TOPIC SCH (20:55)
[2019-05-18] MEDS: LIPID EMULSION 20% IV SCH (20:56)
[2019-05-18] MEDS: DEXTROSE IV SCH (20:56)
[2019-05-18] MEDS: [UNRECOGNIZED DRUG - OTHER] IV SCH (20:56)
[2019-05-18] MEDS: AMINO ACIDS IV SCH (20:56)
[2019-05-19] VITALS: BP 104/68
[2019-05-19] MEDS: NovoLOG Insulin Flexpen SUBQ SCH ×4 (01:12→17:43)
[2019-05-19] MEDS: Ketorolac 30mg Inj IV PRN (01:49)
[2019-05-19] MEDS: D5 1/2NS w/KCl 20mEq 1,000 ML IV SCH (03:28)
[2019-05-19 04:05] VITALS: BP 111/69
[2019-05-19 06:11] LABS: BASOPHILS % (AUTO) 1.1 % (0.0-2.0); EOSINOPHILS % (AUTO) 3.4 % (0.0-3.0); HEMATOCRIT 38.7 % (42.0-52.0); HEMOGLOBIN 12.4 G/DL (14.2-18.0); LYMPHOCYTES % (AUTO) 18.3 % (20.0-45.0); MEAN CORPUSCULAR VOLUME 84 FL (80-99); MONOCYTES % (AUTO) 10.2 % (1.0-10.0); PLATELET COUNT 173 K/UL (150-450); RED BLOOD COUNT 4.61 M/UL (4.70-6.10); WHITE BLOOD COUNT 6.3 K/UL (4.8-10.8)
[2019-05-19 06:47] LABS: ALANINE AMINOTRANSFERASE 86 U/L (12-78); ALBUMIN 3.2 G/DL (3.4-5.0); ALBUMIN/GLOBULIN RATIO 0.7 (1.0-2.7); ALKALINE PHOSPHATASE 193 U/L (46-116); ANION GAP 6 mmol/L (5-15); ASPARTATE AMINO TRANSFERASE 40 U/L (15-37); BILIRUBIN,TOTAL 0.6 MG/DL (0.2-1.0); BLOOD UREA NITROGEN 27 mg/dL (7-18); CALCIUM 8.6 MG/DL (8.5-10.1); CARBON DIOXIDE 30 MMOL/L (21-32); CHLORIDE 99 MMOL/L (98-107); CREATININE 1.1 MG/DL (0.55-1.30); SODIUM 135 MMOL/L (136-145)
--- NOTE | 2019-05-19 07:18 | NUR ---
HAND-OFF: Report given to KAREL Gleason.
--- NOTE | 2019-05-19 07:22 | NUR ---
NURSE NOTES://HAND-OFF: Report given to []. Dr Siddiqui said output from GT is still high, he said he will clamp GT and see how he does as opposed to a CT scan at this time. Endorsed to nurse, KAREL Gleason- day shift
[2019-05-19 08:00] VITALS: BP 105/68
--- NOTE | 2019-05-19 08:00 | NUR ---
NURSE NOTES: Pt lying in bed w/father at bedside, bed in lowest position, and call light within reach. Pt A&Ox4, VSS, and in no apparent distress. NEGAR PICC line intact/asymptomatic w/IVF & TPN infusing, ileo to gravity drainage bag, and clamped GT. Pt states he is having difficulty urinating; encouraged him to attempt urinating standing up. Will continue to monitor.
--- NOTE | 2019-05-19 08:33 | NUR ---
RD ASSESSMENT & RECOMMENDATIONS SEE CARE ACTIVITY FOR COMPLETE ASSESSMENT DAILY ESTIMATED NEEDS: Needs based on Surgery/ 70kg abw 25-30 kcals/kg 3715-1930 total kcals 1-2 g protein/kg 70-140 g total protein 25-30 mL/kg 4458-5309 total fluid mLs NUTRITION DIAGNOSIS: Altered GI function R/T h/o UC w/ new ileostomy as evidenced by s/p caleb ileo takedown, w/ creation of new BCIR ileo, now w/ CLD, remains on TPN. CURRENT DIET:NPO -> CLD (as of 05/18 Lunch) PO DIET RECOMMENDATIONS: DIET PER MD PARENTERAL NUTRITION RECOMMENDATIONS: D/AA Rate: 70 IL Rate: 10 Total Rate: 80 Volume: 1920 % Dextrose: 20 % AA: 5.5 Energy (kcals/kg): 1992 Protein (g/kg protein): 92 Nonprotein KCALS: 1622 GIR (mg CHO/kg/min): 3 % Fat KCALS: 24 NCP: N Ratio: 110:1 TPN Comment: * D20% AA 5.5% @ 70ml/hr + IL 20% @10ml/hr -> total of 80ml/hr, all 3:1 * TPN at goal will provide 100% est kcal/prot needs(26kcal/kg, 1.2g prot/ kg) * Maintain per MD * GIR <5, IL <30% ADDITIONAL RECOMMENDATIONS: * Standing weight as able for accurate CBW, weekly wt monitoring * Monitor lytes, LFTs, BGs daily w/ TPN * LFT's elevated and Na low -> REC TO DC or LOWER added D5. * Monitor for diet advancement, need to lower TPN
--- NOTE | 2019-05-19 08:56 | NUR ---
*-* INSURANCE *-* ALL CLINICALS AND REVIEWS HAVE BEEN FAXED TO: [employer] [place] P- [phone]...S/W KELSEA CERT# [id number] 5/DAYS APPROVED THRU [id number] IF PT STAYS BEYOND THE ..... PLEASE FAX THE REVIEW/CLINICAL NCM: ENRIQUE Estrada FX: [phone]
[2019-05-19] MEDS: oxyCODONE HCL/Acetaminophen 5/325mg ORAL PRN ×2 (10:06→21:35)
--- NOTE | 2019-05-19 10:23 | NUR ---
NURSE NOTES: Pt ambulated around unit a couple of times and returned to bed safely; encouraged pt to walk more as tolerated. Will continue to monitor.
--- NOTE | 2019-05-19 10:32 | NUR ---
CASE MANAGEMENT:REVIEW 05/19/19 SI: POD #12 S/P ABDOMINO-PERINEAL PROCTECTOMY. [place] CONTINENT ILEOSTOMY GASTROSTOMY 98.5 100 20 105/68 98% ON RA IS: TPN/IL @80/HR IVF@75/HR VIT K SQ Q WEEK PERCOCET PO Q4HRS SS INSULIN Q6HRS IV TORADOL FOR BREAK THROUGH PAIN : MED/SURG STATUS 3 EAST PLAN: RESOLVING ILEUS vs PARTIAL SBO CLEAR LIQUIDS STAT KUB XRAY YESTERDAY ~ NEGATIVE
[2019-05-19 12:00] VITALS: BP 101/65
--- NOTE | 2019-05-19 13:47 | General Progress Note ---
Progress Note Progress Note AVSS Tolerated clear liquids with gastrostomy to drainage ABdomen soft, healing nicely. shahram dry Urine 855 BCIR ileo 1315 BUN 27 (was 31) Cr 1.1 Imp: resolving ileus Plan: clear liquid diet + gastrostomy 3:3 protocol maintain continuous drainage of Argueta pouch continue TPN until on BCIR diet + IV fluids Gonzales Siddiqui MD May 19, 2019 13:47
[2019-05-19 16:00] VITALS: BP 93/60
--- NOTE | 2019-05-19 19:39 | NUR ---
HAND-OFF: Report given to KAREL Bradford.
--- NOTE | 2019-05-19 19:40 | NUR ---
NURSE NOTES: Received report from Alistair VINSON. Rounding is done with outgoing nurse. Pt is in bed, awake, and A/O X4. No c/o pain or any distress at this time. PICC line on NEGAR is intact and patent. Ileo to gravity drainage bag and intact. G-tube is opened and patent. Dressing is C/D/I. Bed is in lowest position and alarm on. Call light is within in reach. Will continue to monitor.
[2019-05-19 20:00] VITALS: BP 97/61
--- NOTE | 2019-05-19 21:00 | NUR ---
NURSE NOTES: Flushed G-tube and Ileo. G-tube is closed.
[2019-05-19] MEDS: [UNRECOGNIZED DRUG - OTHER] IV SCH (21:25)
[2019-05-19] MEDS: LIPID EMULSION 20% IV SCH (21:25)
[2019-05-19] MEDS: DEXTROSE IV SCH (21:25)
[2019-05-19] MEDS: AMINO ACIDS IV SCH (21:25)
[2019-05-19] MEDS: Dyna-Hex 2% Top Sol 2oz TOPIC SCH (21:25)
[2019-05-20] VITALS: BP 98/62
--- NOTE | 2019-05-20 | NUR ---
NURSE NOTES: Flushed G-tube and Ileo. G-tube is opened
[2019-05-20] MEDS: NovoLOG Insulin Flexpen SUBQ SCH ×4 (00:06→17:44)
--- NOTE | 2019-05-20 03:00 | NUR ---
NURSE NOTES: Flushed G-tube and Ileo. G-tube is closed
[2019-05-20 04:00] VITALS: BP 97/64
[2019-05-20] MEDS: Ketorolac 30mg Inj IV PRN ×2 (05:41→17:35)
[2019-05-20 05:55] LABS: BASOPHILS % (AUTO) 1.8 % (0.0-2.0); EOSINOPHILS % (AUTO) 4.9 % (0.0-3.0); HEMATOCRIT 35.3 % (42.0-52.0); HEMOGLOBIN 11.5 G/DL (14.2-18.0); MEAN CORPUSCULAR VOLUME 84 FL (80-99); MONOCYTES % (AUTO) 9.1 % (1.0-10.0); NEUTROPHILS % (AUTO) 57.3 % (45.0-75.0); PLATELET COUNT 152 K/UL (150-450); RED BLOOD COUNT 4.21 M/UL (4.70-6.10); RED CELL DISTRIBUTION WIDTH 15.1 % (11.6-14.8); WHITE BLOOD COUNT 4.9 K/UL (4.8-10.8)
--- NOTE | 2019-05-20 06:00 | NUR ---
NURSE NOTES: Flushed G-tube and Ileo. G-tube is opened.
[2019-05-20 06:23] LABS: ALANINE AMINOTRANSFERASE 108 U/L (12-78); ALBUMIN/GLOBULIN RATIO 0.8 (1.0-2.7); ALKALINE PHOSPHATASE 178 U/L (46-116); ANION GAP 3 mmol/L (5-15); ASPARTATE AMINO TRANSFERASE 49 U/L (15-37); BILIRUBIN,TOTAL 0.5 MG/DL (0.2-1.0); BLOOD UREA NITROGEN 20 mg/dL (7-18); CALCIUM 8.3 MG/DL (8.5-10.1); CARBON DIOXIDE 32 MMOL/L (21-32); CHLORIDE 101 MMOL/L (98-107); CREATININE 1.1 MG/DL (0.55-1.30); POTASSIUM 3.7 MMOL/L (3.5-5.1); SODIUM 136 MMOL/L (136-145)
--- NOTE | 2019-05-20 07:38 | NUR ---
HAND-OFF: Report given to JUS VINSON. PATIENT IN STABLE.
--- NOTE | 2019-05-20 07:44 | NUR ---
NURSE NOTES: Received pt from KAREL Tong. pt was sleeping. no c/o pain or acute distress. call light w/in reach.
[2019-05-20 08:00] VITALS: BP 102/60
--- NOTE | 2019-05-20 10:19 | General Progress Note ---
Progress Note Progress Note AVSS Tolerating clear liquids + gastrostomy 3:3 protocol Abdomen soft, healing nicely Perineum healing nicely Urine 1075 BCIR ileo 620 BUN down 20 Albumin 3.0 Imp. Improving Plan; full liquid diet and gastrostomy 5:1 protocol continue TPN and continuous drainage of Argueta pouch Gonzales Siddiqui MD May 20, 2019 10:19
[2019-05-20 12:00] VITALS: BP 94/68
[2019-05-20] MEDS ORDERED: NS Irrig 1000ml ONE (15:22)
[2019-05-20 16:00] VITALS: BP 95/60
--- NOTE | 2019-05-20 19:35 | NUR ---
HAND-OFF: Report given to KAREL Tong. pt was stable condition.
--- NOTE | 2019-05-20 19:37 | NUR ---
NURSE NOTES: Received report from Sagar VINSON. Rounding is done with outgoing nurse. Pt is in bed, awake, and A/O X4. No c/o pain or any distress at this time. PICC line on NEGAR is intact and patent. TPN and IV fluid are running. Ileo to gravity drainage bag and intact. G-tube is closed as 5:1 protocol ordered. Dressing is C/D/I. Bed is in lowest position and alarm on. Call light is within in reach. Will continue to monitor.
[2019-05-20 20:00] VITALS: BP 89/56
[2019-05-20] MEDS: DEXTROSE IV SCH (20:25)
[2019-05-20] MEDS: [UNRECOGNIZED DRUG - OTHER] IV SCH (20:25)
[2019-05-20] MEDS: Dyna-Hex 2% Top Sol 2oz TOPIC SCH (20:25)
[2019-05-20] MEDS: LIPID EMULSION 20% IV SCH (20:25)
[2019-05-20] MEDS: AMINO ACIDS IV SCH (20:25)
[2019-05-21] VITALS: BP 97/57
[2019-05-21 04:00] VITALS: BP 103/63
[2019-05-21] MEDS: Ketorolac 30mg Inj IV PRN (04:28)
[2019-05-21] MEDS: NovoLOG Insulin Flexpen SUBQ SCH ×4 (06:01→18:00)
[2019-05-21] MEDS: Simethicone 80mg tab ORAL PRN (07:54)
[2019-05-21 08:00] VITALS: BP 100/64
--- NOTE | 2019-05-21 08:10 | NUR ---
HAND-OFF: Report given to Yordy VINSON.
--- NOTE | 2019-05-21 08:16 | General Progress Note ---
Progress Note Progress Note AVSS tolerated full liquid diet and gastrostomy 5:1 protocol abdomen soft Indwellling 24 Fr BCIR ileo catheter replaced with 26 Fr catheter Urine 1450 BCIR ileo 720 Gastrostomy 380 Imp. Improved Plan: BCIR diet plug gastrostomy continuously finish TPN today Gonzales Siddiqui MD May 21, 2019 08:16
--- NOTE | 2019-05-21 08:20 | NUR ---
NURSE NOTES: received report from KAREL orourke. patient in bed, alert. oriented. verbally responsive. no respiratory distress noted. no c/o pain at this time. bed in the lowest position and locked. call light within reach. will continue to provide plan of care.
--- NOTE | 2019-05-21 08:46 | NUR ---
NURSE NOTES: Received report from KAREL Scales. Pt is a/o x 4, in bed. Kevin any pain at this time. Father is at bedside. Rt. ileostomy catheter was changed by Dr. Siddiqui, it is patent, dressing is C/D/I. GT is clamped continuously. NEGAR PICC line is patent, dressing is C/D/I. Bed in lowest position, call light within reach. Will continue to monitor.
--- NOTE | 2019-05-21 08:57 | NUR ---
HAND-OFF: Report given to KAREL Anderson.
--- NOTE | 2019-05-21 11:40 | NUR ---
CASE MANAGEMENT:REVIEW 05/20/2019 SI: POD #13 S/P ABDOMINO-PERINEAL PROCTECTOMY. JOHNSTON CONTINENT ILEOSTOMY GASTROSTOMY 98.4 81 17 89/56 95% ON RA H/H 11.5/35.3 CA+ 8.3 IS: TPN/IL @80ML/HR IVF@75ML/HR VIT K SQ Q WEEK PERCOCET PO Q4HRS SS INSULIN Q6HRS IV TORADOL Q6/PRN : MED/SURG STATUS 3 EAST PLAN: FULL LIQ DIET CONT TPN CONT CONTINUOUS DRAINAGE OF JOHN[place] POUCH CASE MANAGEMENT:REVIEW 05/21/2019 SI: POD #14 S/P ABDOMINO-PERINEAL PROCTECTOMY. [place] CONTINENT ILEOSTOMY GASTROSTOMY 98.2 60 20 100/64 98% ON RA IS: TPN/IL @80ML/HR IVF@75ML/HR VIT K SQ Q WEEK PERCOCET PO Q4HRS SS INSULIN Q6HRS IV TORADOL Q6/PRN : MED/SURG STATUS 3 EAST PLAN: BCIR DIET PLUG GASTROSTOMY CONTINUOUSLY FINISH TPN
[2019-05-21 12:00] VITALS: BP 102/60
--- NOTE | 2019-05-21 12:00 | NUR ---
NURSE NOTES: Dressing got wet while flushing ileo. Catheter was repositioned and pt mentioned "feel better." Ileostomy bag is patent.
[2019-05-21] MEDS: oxyCODONE HCL/Acetaminophen 5/325mg ORAL PRN ×2 (12:36→20:23)
[2019-05-21 16:00] VITALS: BP 97/65
--- NOTE | 2019-05-21 17:02 | NUR ---
NURSE NOTES: Patient is ambulating with PT assistance in stable condition.
[2019-05-21] MEDS ORDERED: NS Irrig 1000ml ONE (17:33)
[2019-05-21] MEDS ORDERED: Tubing IV Secondary IV ONE (17:33)
--- NOTE | 2019-05-21 19:18 | NUR ---
HAND-OFF: Report given to KAREL Montoya. Pt is stable.
--- NOTE | 2019-05-21 19:30 | NUR ---
NURSE NOTES: RECEIVED PT FROM KAREL KELSEY. PT IS AWAKE, AAOX4, ON ROOM AIR, NO ACUTE DISTRESS NOTED. I/S AT BEDSIDE. G-TUBE IS INTACT AND CLAMPED. ILEOSTOMY DRESSING INTACT AND DRY. ILEOSTOMY IS PATENT AND DRAINING WELL. PICC LINE ON LEFT ARM IS INTACT AND PATENT. DECREASED TPN TO 40ML/HR. WILL D/C IN 2 HOURS PER MD ORDER. BED IS LOCKED AND LOW, BED ALARMS ACTIVE, SIDE RAILS UPX2 AND CALL LIGHT IS WITHIN REACH. WILL CONTINUE TO MONITOR.
[2019-05-21 20:00] VITALS: BP 103/63
[2019-05-21] MEDS: Dyna-Hex 2% Top Sol 2oz TOPIC SCH (20:22)
[2019-05-22] VITALS: BP 101/59
[2019-05-22] MEDS: oxyCODONE HCL/Acetaminophen 5/325mg ORAL PRN ×4 (01:59→17:05)
[2019-05-22 04:00] VITALS: BP 94/57
[2019-05-22 06:03] LABS: ANION GAP 6 mmol/L (5-15); BLOOD UREA NITROGEN 16 mg/dL (7-18); CALCIUM 8.1 MG/DL (8.5-10.1); CARBON DIOXIDE 27 MMOL/L (21-32); CHLORIDE 109 MMOL/L (98-107); CREATININE 0.9 MG/DL (0.55-1.30); POTASSIUM 4.1 MMOL/L (3.5-5.1); SODIUM 142 MMOL/L (136-145)
[2019-05-22 06:06] LABS: BASOPHILS % (AUTO) 1.3 % (0.0-2.0); EOSINOPHILS % (AUTO) 5.8 % (0.0-3.0); HEMOGLOBIN 10.8 G/DL (14.2-18.0); MEAN CORPUSCULAR VOLUME 84 FL (80-99); MONOCYTES % (AUTO) 6.1 % (1.0-10.0); NEUTROPHILS % (AUTO) 65.9 % (45.0-75.0); PLATELET COUNT 172 K/UL (150-450); RED BLOOD COUNT 4.04 M/UL (4.70-6.10); RED CELL DISTRIBUTION WIDTH 14.8 % (11.6-14.8); WHITE BLOOD COUNT 6.6 K/UL (4.8-10.8)
--- NOTE | 2019-05-22 07:42 | NUR ---
HAND-OFF: Report given to KAREL YOUNG.
--- NOTE | 2019-05-22 07:55 | NUR ---
NURSE NOTES: asleep. in no apparent distress.
[2019-05-22 08:00] VITALS: BP 103/58
--- NOTE | 2019-05-22 08:25 | General Progress Note ---
Progress Note Progress Note AVSS Tolerating BCIR diet and gastrostomy plugged Abdomen soft, healing well. [employer] drain removed Urine 1825 BCIR ileo 935 BUN down 16 Cr down 0.9 IMp: improved Plan: d/c IV fluids remove gastrostomy later today start BCIR self-intubations in AM if stable Gonzales Siddiqui MD May 22, 2019 08:25
--- NOTE | 2019-05-22 10:00 | NUR ---
NURSE NOTES: AMBULATED OUT IN THE WITH PHYSICAL THERAPIST TOLERATED.
--- NOTE | 2019-05-22 10:41 | NUR ---
RD ASSESSMENT & RECOMMENDATIONS SEE CARE ACTIVITY FOR COMPLETE ASSESSMENT DAILY ESTIMATED NEEDS: Needs based on Surgery/ 70kg abw 25-30 kcals/kg 8810-6598 total kcals 1-2 g protein/kg 70-140 g total protein 25-30 mL/kg 0621-6389 total fluid mLs NUTRITION DIAGNOSIS: Altered GI function R/T h/o UC w/ new ileostomy as evidenced by s/p caleb ileo takedown, w/ creation of new BCIR ileo, diet now advanced to BCIR low residue diet, TPN dc'ed. CURRENT DIET:BCIR LOW RESIDUE DIET PO DIET RECOMMENDATIONS: BCIR LOW RESIDUE DIET ADDITIONAL RECOMMENDATIONS: * Standing weight as able for accurate CBW, weekly wt monitoring * Monitor PO intake and tolerace -> diet advanced to BCIR low residue diet on 05/21 .
[2019-05-22 12:00] VITALS: BP 89/54
--- NOTE | 2019-05-22 13:07 | NUR ---
CASE MANAGEMENT:REVIEW 05/22/2019 SI: POD #15 S/P ABDOMINO-PERINEAL PROCTECTOMY. [place] CONTINENT ILEOSTOMY GASTROSTOMY 98.7 72 16 103/58 97% ON RA H/H 10.8/34 CA+ 8.1 IS: IVF@75ML/HR VIT K SQ Q WEEK PERCOCET PO Q4HRS/PRN SS INSULIN Q6HRS : MED/SURG STATUS 3 EAST PLAN: FINISH IVF, THEN DC IVF REMOVE GASTROSTOMY TODAY START BCIR SELF INTUBATION IN AM PLUG GASTROSTOMY CONTINUOUSLY
--- NOTE | 2019-05-22 15:11 | NUR ---
*-* INSURANCE *-* ALL CLINICALS AND REVIEWS HAVE BEEN FAXED TO: [employer] [place] P- [phone]...S/W KELSEA CERT# [id number] 5/DAYS APPROVED THRU [id number] IF PT STAYS BEYOND THE ..... PLEASE FAX THE REVIEW/CLINICAL NCM: ENRIQUE Estrada FX: [phone]
[2019-05-22] MEDS: Simethicone 80mg tab ORAL PRN (15:37)
[2019-05-22 16:00] VITALS: BP 106/60
--- NOTE | 2019-05-22 19:00 | NUR ---
NURSE NOTES: RESTING. IN NO DISTRESS.
--- NOTE | 2019-05-22 19:36 | NUR ---
HAND-OFF: Report given to LADONNA VINSON.
[2019-05-22 20:00] VITALS: BP 90/65
--- NOTE | 2019-05-22 20:04 | NUR ---
NURSES NOTE: Met pt in bed, awake, communicative and able to let needs be known. Denies pain currently. No outward s/s of distress noted. Breathing is even and unlabored on RA. NEGAR picc line dressing is clean/intact, hep locked with no current fluids running. Ileo is patent, draining appropriately. Output thick on previous shift, but pt feels more comfortable now and output appears appropriate consistency. Gtube clamped. Surgical site, clean, dry, intact last changed 05/22. All due meds will be given including PRN pain meds according to eMAR. Bed at lowest level, call light within reach. Pt will continue to be monitored.
[2019-05-22] MEDS: Dyna-Hex 2% Top Sol 2oz TOPIC SCH (21:09)
[2019-05-23] VITALS (7 sets, daily range): BP systolic 95–126; BP diastolic 60–77
[2019-05-23] MEDS: oxyCODONE HCL/Acetaminophen 5/325mg ORAL PRN ×3 (00:11→16:40)
--- NOTE | 2019-05-23 04:15 | NUR ---
NURSES NOTE: Pt stable through out NOC shift thus far. No s/s of distress noted.
[2019-05-23] MEDS: Simethicone 80mg tab ORAL PRN (05:39)
--- NOTE | 2019-05-23 07:28 | NUR ---
NURSE NOTE: Low grade fever noted 99.0-99.5 Slight tachycardia noted 100-115. At HR 115 pt stated he was in pain. Pain meds given. Effective, HR came down and stayed around low 100's through out VS checks through out NOC shift. Emesis 0600-100cc noted All reported to Artur. Message left at 0645. Endorsed to KAREL Clark. No return phone call from the DR during my shift.
--- NOTE | 2019-05-23 07:32 | NUR ---
HAND OFF: Report given to Amber. Although pt had low grade fever, and was slightly tachycardic, and had morning emesis, pt displayed no outward s/s of distress.
--- NOTE | 2019-05-23 07:36 | NUR ---
NURSE NOTES: awake/alert. no c/o pain. no further nausea. states felt better. in no distress.
[2019-05-23] MEDS ORDERED: Omnipaque-300 100ml vial INJ PRN (08:30)
--- NOTE | 2019-05-23 08:35 | NUR ---
NURSE NOTES: npo adviced for ct abdomen/ pelvis with contrast.consent signed.
--- NOTE | 2019-05-23 08:35 | General Progress Note ---
Progress Note Progress Note T99.5 Had pain this AM with emesis while gastrostomy has been plugged since yesterday Abdomen soft, mild distention, 1/2 rickie removed po intake 50% of BCIR diet and 2190 fluids po Urine 1200 BCIR ileo 945 Imp: Pain and emesis ? etiology Plan: NPO + IV fluids STAT CT abd+pelvis with contrast Gonzales Siddiqui MD May 23, 2019 08:35
[2019-05-23] MEDS: D5 1/2NS w/KCl 20mEq 1,000 ML IV SCH ×3 (09:09→19:52)
--- NOTE | 2019-05-23 11:00 | NUR ---
NURSE NOTES: AMBULATED OUT IN THE [place] WITH P.T. IN NO DISTRESS.
[2019-05-23] MEDS: Ketorolac 30mg Inj IV PRN ×2 (11:04→20:35)
--- NOTE | 2019-05-23 12:06 | Diagnostic Imaging Report ---
EXAM: CT Abdomen and Pelvis With Intravenous Contrast CLINICAL HISTORY: ABD PAIN TECHNIQUE: Axial computed tomography images of the abdomen and pelvis with intravenous contrast. CTDI is 19.7 mGy and DLP is 1188 mGy-cm. One or more of the following dose reduction techniques were used: automated exposure control, adjustment of the mA and/or kV according to patient size, use of iterative reconstruction technique. COMPARISON: CT abdomen/pelvis on 01/06/2019 FINDINGS: Lung bases: Unremarkable. No mass. No consolidation. ABDOMEN: Liver: Unremarkable. No mass. Gallbladder and bile ducts: Unremarkable. No calcified stones. No ductal dilation. Pancreas: Unremarkable. No mass. No ductal dilation. Spleen: Borderline size of the spleen. Adrenals: Unremarkable. No mass. Kidneys and ureters: No hydronephrosis or obstructing stone. Stomach and bowel: Fat stranding in the lower abdomen and pelvis. Abscess with surrounding phlegmon in the lower abdomen adjacent to small bowel loops, measuring approximately 2.2 x 2.4 x 3.5 cm. Colectomy changes. Postsurgical changes of the small bowel in the lower abdomen. No obstruction. PELVIS: Appendix: See above. Bladder: Bladder wall thickening may be secondary to underdistention. Please correlate with urinalysis if concerned for cystitis. Reproductive: Unremarkable as visualized. ABDOMEN and PELVIS: Intraperitoneal space: Unremarkable. No free air. No significant fluid collection. Bones/joints: No acute fracture. No dislocation. Soft tissues: Recent postsurgical changes of the anterior abdominal wall. Vasculature: Unremarkable. No abdominal aortic aneurysm. Lymph nodes: Unremarkable. No enlarged lymph nodes. Tubes, lines and devices: Catheter noted in the lower abdomen. G-tube in place. IMPRESSION: 1. Fat stranding in the lower abdomen and pelvis. Abscess with surrounding phlegmon in the lower abdomen adjacent to small bowel loops, measuring approximately 2.2 x 2.4 x 3.5 cm. 2. Catheter noted in the lower abdomen. 3. Bladder wall thickening may be secondary to underdistention. Please correlate with urinalysis if concerned for cystitis.
[2019-05-23] MEDS: Acetaminophen 650mg/20.3ml GT PRN ×2 (13:02→20:28)
--- NOTE | 2019-05-23 13:20 | NUR ---
NURSE NOTES: CT SCAN ABDOMEN/PELVIS REPORT CALLED TO DR Simeon SCOTT. ALSO INFORMED OF PT'S TEMP 100.4-100.2. WITH NEW ORDER.
[2019-05-23] MEDS: cefTRIAXone 2 GM in D5W 55 ML IVPB SCH (14:38)
[2019-05-23 14:52] LABS: APPEARANCE,URINE CLEAR; BILIRUBIN, URINE NEGATIVE (NEGATIVE); GLUCOSE, URINE (UA) NEGATIVE (NEGATIVE); KETONES,URINE NEGATIVE (NEGATIVE); LEUKOCYTE ESTERASE ,URINE 1+ (NEGATIVE); NITRITE,URINE NEGATIVE (NEGATIVE); PH,URINE 6.5 (4.5-8.0); PROTEIN,URINE 3+ (NEGATIVE); UROBILINOGEN,URINE NORMAL MG/DL (0.0-1.0)
[2019-05-23 14:58] LABS: COLOR,URINE YELLOW
[2019-05-23] MEDS ORDERED: Tubing IV Secondary IV ONE (15:06)
--- NOTE | 2019-05-23 16:00 | NUR ---
NURSE NOTES: latest temp 99.7
--- NOTE | 2019-05-23 19:03 | NUR ---
NURSE NOTES: resting . in no acute distress.
--- NOTE | 2019-05-23 19:37 | NUR ---
NURSES NOTE: Received pt in bed, sleeping, awakens to name and answers all questions appropriately. No s/s of distress noted. Pt is on RA with even and unlabored breathing pattern. GT plugged, Ileo patent draining to gravity, NEGAR picc patent, no s/s of infection now running fluids according to eMAR. Bed at lowest level, call light within reach. Patient will continue to be monitored with frequent vital sign checks.
[2019-05-23] MEDS: Dyna-Hex 2% Top Sol 2oz TOPIC SCH (19:52)
[2019-05-24] VITALS (7 sets, daily range): BP systolic 91–105; BP diastolic 57–71
[2019-05-24] MEDS: oxyCODONE HCL/Acetaminophen 5/325mg ORAL PRN ×2 (03:24→18:34)
--- NOTE | 2019-05-24 03:55 | NUR ---
NURSES NOTE: Pt denies severe pain in abdomen area and denies need to have catheter checked for placement. Temp being monitored. Has been under 100.5 Noc shift thus far. Will continue to monitor.
[2019-05-24] MEDS: D5 1/2NS w/KCl 20mEq 1,000 ML IV SCH ×2 (04:01→16:30)
[2019-05-24 05:56] LABS: BASOPHILS % (AUTO) 0.7 % (0.0-2.0); EOSINOPHILS % (AUTO) 0.1 % (0.0-3.0); HEMATOCRIT 35.1 % (42.0-52.0); HEMOGLOBIN 11.2 G/DL (14.2-18.0); LYMPHOCYTES % (AUTO) 10.2 % (20.0-45.0); MEAN CORPUSCULAR VOLUME 84 FL (80-99); MONOCYTES % (AUTO) 7.5 % (1.0-10.0); NEUTROPHILS % (AUTO) 81.5 % (45.0-75.0); PLATELET COUNT 194 K/UL (150-450); RED BLOOD COUNT 4.18 M/UL (4.70-6.10); RED CELL DISTRIBUTION WIDTH 14.5 % (11.6-14.8); WHITE BLOOD COUNT 5.4 K/UL (4.8-10.8)
[2019-05-24 06:35] LABS: ALANINE AMINOTRANSFERASE 71 U/L (12-78); ALBUMIN 3.1 G/DL (3.4-5.0); ALBUMIN/GLOBULIN RATIO 0.8 (1.0-2.7); ALKALINE PHOSPHATASE 152 U/L (46-116); ANION GAP 13 mmol/L (5-15); ASPARTATE AMINO TRANSFERASE 24 U/L (15-37); BILIRUBIN,TOTAL 0.4 MG/DL (0.2-1.0); BLOOD UREA NITROGEN 10 mg/dL (7-18); CALCIUM 8.1 MG/DL (8.5-10.1); CARBON DIOXIDE 23 MMOL/L (21-32); CHLORIDE 103 MMOL/L (98-107); CREATININE 1.2 MG/DL (0.55-1.30); SODIUM 139 MMOL/L (136-145)
--- NOTE | 2019-05-24 07:10 | NUR ---
NURSE NOTES: Report received from Kristine VINSON, rounds made. Patient sleeping in semi-fowlers position in bed, awakens easily. IVF (D5 1/2 +20 KCL at 125 ml/hr) infusing to Left PICC, dressing CDI. No distress on RA, no NV, no pain. Abdominal dressing CDI, left GT clamped, right ileostomy draining dark green output to drainage bag. Father at bedside. Call light in reach, bed in lowest position, will continue to monitor.
--- NOTE | 2019-05-24 07:53 | NUR ---
HAND OFF: Report given to nichole Leigh.
[2019-05-24] MEDS ORDERED: LORazepam 1mg tab SL PRN (09:08)
--- NOTE | 2019-05-24 09:25 | General Progress Note ---
Progress Note Progress Note Fever yesterday to 100.[address] scan abd+pelvis - ? abscess lower abdomen - will need to review with our staff Radiologist Having some mid and lower abdominal pain Abdomen soft, flat, non-tender, healing well Perineum healing well Urine 1000 BCIR ileo 1540 including oral contrast WBC 5400 Albumin 3.1 Imp: Fever ? intra-abd infection ? PIC line related Plan: Rocephin + Vancomycin per pharmacy protocol cultures sent remove PIC and start peripheral IV continue gastrostomy plugged, clear liquid diet, continuous drainage of Argueta pouch Gonzales Siddiqui MD May 24, 2019 09:25
[2019-05-24] MEDS: Vancomycin 1.25gm/NS Premix IVPB SCH ×2 (11:11→21:31)
[2019-05-24] MEDS: cefTRIAXone 2 GM in D5W 55 ML IVPB SCH (13:31)
[2019-05-24] MEDS ORDERED: Tubing IV Secondary IV ONE (15:13)
--- NOTE | 2019-05-24 16:00 | NUR ---
NURSE NOTES: Patient temperature 102.9, Dr. Siddiqui aware. Obtained blood culture via left PICC. Administered Tylenol PO 2 tablets at 0942. Discontinued left PICC at 1030, tip sent down to lab for C+S, new peripheral line insert to LFA at 1000/IVF resumed. Cool compress provided. Encouraged PO fluid intake and to perform IS with pillow to abdomen to splint ileostomy/surgical rickie. Verbalized understanding. Patient up ambulating in halls x3 this shift.
--- NOTE | 2019-05-24 18:00 | NUR ---
P.T.NOTES ADDENDUM S/P: APPROACHED PATIENT'S ROOM IN THE PM. PATIENT FOUND SIDELYING ON HIS LEFT SIDE UPON ARRIVAL. PATIENT DECLINED P.T. TX. TODAY. PATIENT STATED, THAT HE HAD JUST AMBULATED 15-20 MINS AGO. PATIENT ADDED, THAT HE WOULD AMBULATE LATER TODAY. PATIENT'S B/P @ 85/57, NOTICED PATIENT ASYMPTOMATIC. NO DIZZINESS/HEADACHE, JUST ABDOMINAL PAIN. MENTIONED IN P.T. GRID. RN AWARE OF PATIENT'S STATUS. WILL F/U NEXT TX. TIME AND CONT P.T. PLAN. RSABADO.
--- NOTE | 2019-05-24 19:35 | NUR ---
HAND-OFF: Report given to Mariajose RN, rounds made. OUTPUTS: Urine: 1250 ml Ileostomy: 595 ml
--- NOTE | 2019-05-24 19:40 | NUR ---
NURSE NOTES: Received report & pt from KAREL Leigh. Pt lying in bed, a&ox4, in room air, family member at bedside. No s/s of acute distress & c/o 3/10 pain. Ileo cath intact & draining to gravity. GT continuously plugged & pt tolerating very well. Surgical dressing C/D/I. IV site intact with IVF running as ordered. Bed in lowest position, call light within reach. Will continue to monitor.
--- NOTE | 2019-05-24 21:00 | NUR ---
NURSE NOTES: Changed perineal drsg as ordered by . No bleeding noted.
[2019-05-25] VITALS (7 sets, daily range): BP systolic 85–98; BP diastolic 52–62
[2019-05-25] MEDS: D5 1/2NS w/KCl 20mEq 1,000 ML IV SCH ×2 (00:41→08:38)
[2019-05-25] MEDS: oxyCODONE HCL/Acetaminophen 5/325mg ORAL PRN (00:57)
[2019-05-25 06:11] LABS: ALANINE AMINOTRANSFERASE 61 U/L (12-78); ALBUMIN 2.9 G/DL (3.4-5.0); ALBUMIN/GLOBULIN RATIO 0.7 (1.0-2.7); ALKALINE PHOSPHATASE 132 U/L (46-116); ANION GAP 7 mmol/L (5-15); ASPARTATE AMINO TRANSFERASE 21 U/L (15-37); BILIRUBIN,TOTAL 0.3 MG/DL (0.2-1.0); BLOOD UREA NITROGEN 5 mg/dL (7-18); CALCIUM 8.5 MG/DL (8.5-10.1); CARBON DIOXIDE 28 MMOL/L (21-32); CHLORIDE 107 MMOL/L (98-107); POTASSIUM 4.2 MMOL/L (3.5-5.1); SODIUM 142 MMOL/L (136-145)
[2019-05-25 06:13] LABS: BASOPHILS % (AUTO) 1.1 % (0.0-2.0); HEMATOCRIT 34.4 % (42.0-52.0); LYMPHOCYTES % (AUTO) 25.1 % (20.0-45.0); MEAN CORPUSCULAR VOLUME 84 FL (80-99); MONOCYTES % (AUTO) 11.2 % (1.0-10.0); NEUTROPHILS % (AUTO) 60.6 % (45.0-75.0); PLATELET COUNT 190 K/UL (150-450); RED BLOOD COUNT 4.08 M/UL (4.70-6.10); RED CELL DISTRIBUTION WIDTH 14.6 % (11.6-14.8); WHITE BLOOD COUNT 3.7 K/UL (4.8-10.8)
--- NOTE | 2019-05-25 07:30 | NUR ---
HAND-OFF: Report given to KAREL Doyle. Rounds done. Pt afebrile during night time nanny.
--- NOTE | 2019-05-25 07:30 | NUR ---
NURSE NOTES: Patient is in bed awake and able to verbalize needs. Stable. Denies pain or SOB. Patient encouraged to ambulate. Ileo draining into bag as ordered, will flush q3h as ordered. IVF infusing as ordered. Will monitor I&O throughout shift. Patient instructed to use call light for assistance, verbalized understanding. Surgical dressing c/d/i. Patient in bed in locked and lowest position with call light within reach and trapeze overhead.
--- NOTE | 2019-05-25 08:38 | NUR ---
NURSE NOTES: Patient is ambulating. Steady gait, all safety measures provided. Physical therapist assisting patient around unit.
--- NOTE | 2019-05-25 09:09 | NUR ---
NURSE NOTES: Flushed ileo with 20cc NS, brownish liquid output noted in bag. Patient denies pain at this time. 500cc dark miladys urine emptied from urinal, no c/o burning or discomfort while urinating.
[2019-05-25] MEDS ORDERED: NS Irrig 1000ml ONE (10:49)
[2019-05-25] MEDS: Vancomycin 1.25gm/NS Premix IVPB SCH (10:58)
--- NOTE | 2019-05-25 11:57 | General Progress Note ---
Progress Note Progress Note T 102.8 at 10am yesterday then became afebrile overnight. Feels much better and hungry. tolerating clear liquids and gastrostomy plugged Abdomen soft, non-tender, healing nicely. Perineum healing nicely Urine 2450 BCIR ileo 1115 WBC 3700 Hgb 11 BUN 5 Cr 1.0 albumin 2.9 Urine and blood no growth so far Imp: Fever ? post-op intra-abdominal abscess per CT scan - to review with Radiologist today Plan: continue Ceftriaxone and Vancomycin pending cultures BCIR low residue diet maintain continuous drainage of Argueta pouch Gonzales Siddiqui MD May 25, 2019 11:57
--- NOTE | 2019-05-25 12:40 | NUR ---
NURSE NOTES: Patient had BCIR diet for lunch, tolerated well. No c/o nausea or vomiting or abdominal discomfort. Will continue to monitor.
[2019-05-25] MEDS: cefTRIAXone 2 GM in D5W 55 ML IVPB SCH (13:55)
--- NOTE | 2019-05-25 14:02 | NUR ---
*-* INSURANCE *-* ALL CLINICALS AND REVIEWS HAVE BEEN FAXED TO: [employer] [facility] [place] CERT# [id number] BETSYM: ENRIQUE Estrada FX: [phone]
--- NOTE | 2019-05-25 16:00 | NUR ---
NURSE NOTES: Patient's temperature is 100.2 orally. RN rechecked with different machine and temperature is 98.1 orally.
--- NOTE | 2019-05-25 16:25 | NUR ---
NURSE NOTES: Rechecked temperature with different machine, 101.5, patient feels warm. Tylenol given as ordered.
--- NOTE | 2019-05-25 16:50 | NUR ---
CASE MANAGEMENT:REVIEW 05/23/2019 SI: POD #16 S/P ABDOMINO-PERINEAL PROCTECTOMY. JOHNSTON CONTINENT ILEOSTOMY GASTROSTOMY 100.4 97 20 103/63 99% ON RA IS: IV D5@125ML/HR IV ROCEPHIN Q24HR IV VANCOMYCIN BID PERCOCET PO Q4HRS/PRN : MED/SURG STATUS 3 EAST PLAN: NPO IVF STAT CT ABD PEL WITH CONTRAST CASE MANAGEMENT:REVIEW 05/24/2019 SI: POD #17 S/P ABDOMINO-PERINEAL PROCTECTOMY. [place] CONTINENT ILEOSTOMY GASTROSTOMY 102.9 115 18 105/71 99% ON RA H/H 11.2/35.1 CA+ 8.1 BG 136 ALK PHOS 152 IS: IV D5@125ML/HR IV ROCEPHIN Q24HR IV VANCOMYCIN BID PERCOCET PO Q4HRS/PRN : MED/SURG STATUS 3 EAST PLAN: CULTURES SENT REMOVE PICC AND CULTURAL TIP CONT PLUG GASTROSTOMY TUBE CLEAR LIQ DIET CONT DRAINAGE OF [place] POUCH CASE MANAGEMENT:REVIEW 05/25/2019 SI: POD #18 S/P ABDOMINO-PERINEAL PROCTECTOMY. [place] CONTINENT ILEOSTOMY GASTROSTOMY 101.5 102 16 97/61% ON RA WBC 3.7 H/H 11/34.4 BUN 5 BG 115 IS: IV D5@125ML/HR IV ROCEPHIN Q24HR IV VANCOMYCIN BID PERCOCET PO Q4HRS/PRN : MED/SURG STATUS 3 EAST PLAN: CONT IV ABX BCIR LOW RESIDUE DIET MAINTAIN CONT DRAINAGE OF [place] POUCH
--- NOTE | 2019-05-25 16:55 | NUR ---
NURSE NOTES: Reassessed patient's temperature, 98.1 orally.
--- NOTE | 2019-05-25 17:30 | NUR ---
NURSE NOTES: Patient does not want to eat dinner at this time. Patient stated that he is not hungry right now. No c/o abdominal discomfort or cramping. No c/o nausea. Will continue to monitor.
--- NOTE | 2019-05-25 18:46 | NUR ---
NURSE NOTES: True ileo output: 325, brownish liquid. Flushed one extra time during shift because output appeared slightly thicker. UO: 1225, miladys. Patient ambulated around unit x2. Surgical dressing c/d/i. Addendum: 05/25/19 at 1849 by MACO GARCIA RN NURSE NOTES: No c/o nausea, abdominal pain, cramping, or discomfort. Patient's does not complain of pain at this time.
--- NOTE | 2019-05-25 19:30 | NUR ---
HAND-OFF: Report given to Sanchez VINSON. Patient is stable.
--- NOTE | 2019-05-25 19:33 | NUR ---
NURSE NOTES: Received report from Yanira VINSON. Rounding is done with outgoing nurse. Patient is in bed, A/O X4. No c/o pain or any distress noted at this time. IV line on Lt FA is intact and patent. Ileo to gravity drainage and surgical dressing is C/D/I. Bed is on alarm and lowest position. Call light is within reach. Will continue to monitor.
[2019-05-25] MEDS: Vancomycin 1.5gm/NS Premix q24h IVPB SCH (22:54)
[2019-05-26] VITALS: BP 100/61
--- NOTE | 2019-05-26 01:52 | NUR ---
NURSE NOTES: Patient is ambulating hallway.
[2019-05-26 04:00] VITALS: BP 96/60
[2019-05-26 05:53] LABS: BASOPHILS % (AUTO) 0.7 % (0.0-2.0); EOSINOPHILS % (AUTO) 5.9 % (0.0-3.0); HEMOGLOBIN 11.2 G/DL (14.2-18.0); LYMPHOCYTES % (AUTO) 29.3 % (20.0-45.0); MEAN CORPUSCULAR VOLUME 83 FL (80-99); MONOCYTES % (AUTO) 11.7 % (1.0-10.0); NEUTROPHILS % (AUTO) 52.3 % (45.0-75.0); PLATELET COUNT 222 K/UL (150-450); RED BLOOD COUNT 4.21 M/UL (4.70-6.10); RED CELL DISTRIBUTION WIDTH 14.5 % (11.6-14.8); WHITE BLOOD COUNT 4.3 K/UL (4.8-10.8)
[2019-05-26 06:18] LABS: ANION GAP 9 mmol/L (5-15); BLOOD UREA NITROGEN 7 mg/dL (7-18); CALCIUM 8.7 MG/DL (8.5-10.1); CARBON DIOXIDE 27 MMOL/L (21-32); CHLORIDE 107 MMOL/L (98-107); CREATININE 0.9 MG/DL (0.55-1.30); POTASSIUM 4.2 MMOL/L (3.5-5.1); SODIUM 143 MMOL/L (136-145)
--- NOTE | 2019-05-26 07:28 | NUR ---
HAND-OFF: Report given to Sveta VINSON.
--- NOTE | 2019-05-26 07:30 | NUR ---
NURSE NOTES: Received report from KAREL Bradford. Pt is a/o x 4, in bed. Denies any pain at this time. Ileostomy bag is patent. GT is clamped continuously. Lt wrist IV access is patent. Father is at bedside. Bed in lowest position, call light within reach. Will continue to monitor.
--- NOTE | 2019-05-26 07:35 | NUR ---
NURSE NOTES: Pt is ambulating hallway in stable condition.
[2019-05-26 08:00] VITALS: BP 101/67
--- NOTE | 2019-05-26 08:49 | NUR ---
NURSE NOTES: Patient ambulating hallway with PT assistance. Pt is stable condition.
--- NOTE | 2019-05-26 10:40 | General Progress Note ---
Progress Note Progress Note Persistent fever 101.5 yesterday 1600. Feels okay. Eating BCIR low residue diet 75% Abdomen soft, non-tender, rickie/sutures removed Perineum healing well - sutures intact Gastrostomy plugged Urine 2205 BCIR ileo 795 WBC 4300 blood cultures neg Imp: Intra-abdominal abscess with persistent fever despite ceftriaxone and vancomycin Plan; ID consultation f/u labs maintain continuous drainage of Argueta pouch - begin self-intubations after becomes afebrile Gonzales Siddiqui MD May 26, 2019 10:40
[2019-05-26] MEDS: Vancomycin 1.5gm/NS Premix q24h IVPB SCH ×2 (11:32→22:12)
[2019-05-26 12:00] VITALS: BP 108/70
--- NOTE | 2019-05-26 12:20 | NUR ---
CASE MANAGEMENT:REVIEW 05/26/2019 SI: POD #19 S/P ABDOMEN-PERINEAL PROCTECTOMY. JOHN[place] CONTINENT ILEOSTOMY GASTROSTOMY 98.5 98 20 101/67 99% ON RA WBC 4.3 H/H 11.2/35.0 IS: IV D5@125ML/HR IV ROCEPHIN Q24HR IV VANCOMYCIN BID PERCOCET PO Q4HRS/PRN : MED/SURG STATUS 3 EAST PLAN: BEGIN SELF-INTUBATION CONT IV ABX BCIR LOW RESIDUE DIET MAINTAIN CONT DRAINAGE OF [place] POUCH
--- NOTE | 2019-05-26 13:42 | Infectious Diseases Prog Note ---
Assessment/Plan Assessment/Plan Full consult to follow: A) 1) intra-abdominal abscess, fevers 2) s/p proctectomy and Argueta ileostomy 3) ulcerative colitis P) 1) vancomycin and zosyn, discontinue ceftriaxone 2) f/u on cultures and labs, line removed 3) management of abscess per Dr. Siddiqui 4) thank you Subjective Allergies: Coded Allergies: No Known Allergies (Unverified , 12/29/18) Objective Vital Signs Last 24 Hour Vital Signs Date Time Temp Pulse Resp B/P (MAP) Pulse Ox O2 Delivery O2 Flow Rate FiO2 05/26/19 12:00 99.3 93 20 108/70 (83) 97 05/26/19 09:00 Room Air 05/26/19 08:00 98.5 98 20 101/67 (78) 99 05/26/19 04:00 99.2 80 18 96/60 (72) 97 05/26/19 00:00 97.7 75 17 100/61 (74) 97 05/25/19 21:00 Room Air 05/25/19 20:00 99.0 83 17 93/56 (68) 98 05/25/19 16:50 98.1 05/25/19 16:25 101.5 102 97/61 (73) 05/25/19 16:00 98.1 101 16 85/52 (63) 98 Height (Feet): 5 Height (Inches): 7.00 Weight (Pounds): 200 Microbiology Date/Time Source Procedure Growth Status 05/24/19 10:30 Other(Specify in comment) Catheter Tip Culture - Preliminary NO GROWTH AFTER 24 HOURS Resulted 05/23/19 14:00 Urine,Clean Catch Urine Culture - Final Mixed Urogenital Contaminants Complete Laboratory Tests Test 05/25/19 21:14 05/26/19 04:45 Vancomycin Level Trough 8.3 ug/mL (5.0-12.0) White Blood Count 4.3 K/UL (4.8-10.8) L Red Blood Count 4.21 M/UL (4.70-6.10) L Hemoglobin 11.2 G/DL (14.2-18.0) L Hematocrit 35.0 % (42.0-52.0) L Mean Corpuscular Volume 83 FL (80-99) Mean Corpuscular Hemoglobin 26.7 PG (27.0-31.0) L Mean Corpuscular Hemoglobin Concent 32.1 G/DL (32.0-36.0) Red Cell Distribution Width 14.5 % (11.6-14.8) Platelet Count 222 K/UL (150-450) Mean Platelet Volume 7.7 FL (6.5-10.1) Neutrophils (%) (Auto) 52.3 % (45.0-75.0) Lymphocytes (%) (Auto) 29.3 % (20.0-45.0) Monocytes (%) (Auto) 11.7 % (1.0-10.0) H Eosinophils (%) (Auto) 5.9 % (0.0-3.0) H Basophils (%) (Auto) 0.7 % (0.0-2.0) Sodium Level 143 MMOL/L (136-145) Potassium Level 4.2 MMOL/L (3.5-5.1) Chloride Level 107 MMOL/L (98-107) Carbon Dioxide Level 27 MMOL/L (21-32) Anion Gap 9 mmol/L (5-15) Blood Urea Nitrogen 7 mg/dL (7-18) Creatinine 0.9 MG/DL (0.55-1.30) Estimat Glomerular Filtration Rate > 60 mL/min (>60) Glucose Level 95 MG/DL (74-106) Calcium Level 8.7 MG/DL (8.5-10.1) Current Medications Medications (Trade) Dose Ordered Sig/Mitchell Route PRN Reason Start Time Stop Time Status Last Admin Dose Admin Acetaminophen (Tylenol) 650 mg Q4H PRN ORAL Mild Pain/Temp > 100.2 05/24/19 09:30 06/23/19 09:29 05/25/19 16:20 Ascorbic Acid (Vitamin C) 500 mg NEEDED PRN ORAL Constipation 05/25/19 11:45 06/24/19 11:44 Heparin Sodium/ Sodium Chloride (Heparin 1000 units/500ml Premix) 1,000 unit ONCE PRN IV PICC LINE PLACEMENT 05/06/19 10:00 Ketorolac Tromethamine (Toradol 30mg) 15 mg Q6H PRN IV Severe Breakthru Pain (>7) 05/22/19 08:38 05/27/19 08:37 05/23/19 20:35 Lorazepam (Ativan) 1 mg HSPRN PRN SL Sleep 05/24/19 21:00 05/31/19 20:59 Lorazepam (Ativan) 1 mg Q4H PRN SL Muscle Spasm 05/24/19 09:08 05/31/19 09:07 Ondansetron HCl (Zofran) 4 mg Q4H PRN IVP Nausea & Vomiting 05/07/19 14:00 06/06/19 13:59 05/17/19 01:41 Oxycodone/ Acetaminophen (Percocet 5-325) 1 tab Q4H PRN ORAL For Pain 05/22/19 08:30 05/29/19 08:29 05/25/19 00:57 Piperacillin Sod/ Tazobactam Sod 3.375 gm/Dextrose 100 ml @ 25 mls/hr Q8H IVPB 05/26/19 15:00 06/02/19 14:59 Simethicone (Mylicon) 80 mg Q6H PRN ORAL gas pain 05/14/19 17:00 06/13/19 16:59 05/23/19 05:39 Temazepam (RestoriL) 7.5 mg HSPRN PRN ORAL Insomnia 05/19/19 13:45 05/26/19 13:44 Vancomycin HCl (Vanco rx to dose) 1 ea DAILY PRN MISC BACTEREMIA 05/24/19 09:30 06/23/19 09:29 Vancomycin/Sodium Chloride 275 ml @ 137.5 mls/ hr Q12HR@1100,2300 IVPB 05/25/19 23:00 05/30/19 22:59 05/26/19 11:32 Ray Monahan MD May 26, 2019 13:42
--- NOTE | 2019-05-26 15:15 | NUR ---
NURSE NOTES: Pt ambulated hallway by himself in stable condition.
--- NOTE | 2019-05-26 15:58 | NUR ---
*-* INSURANCE *-* ALL CLINICALS AND REVIEWS HAVE BEEN FAXED TO: [employer] [place] [employer] CERT# [id number] BETSYM: ENRIQUE Estrada FX: [phone]
[2019-05-26 16:00] VITALS: BP 103/64
--- NOTE | 2019-05-26 18:45 | NUR ---
NURSE NOTES: Pt denies any abdominal cramping and pain. Pt is stable condition.
--- NOTE | 2019-05-26 19:25 | NUR ---
HAND-OFF: Report given to KAREL Bradford. Pt is stable.
--- NOTE | 2019-05-26 19:27 | NUR ---
NURSE NOTES: Received report from KAREL Bangura. Rounding is done with outgoing nurse. Patient is in bed, A/O X4. No c/o pain or any distress noted at this time. IV line on Lt Wrist is intact and patent. Ileo to gravity drainage and surgical dressing is C/D/I. Bed is on alarm and lowest position. Call light is within reach. Will continue to monitor.
[2019-05-26 20:00] VITALS: BP 103/67
[2019-05-26] MEDS ORDERED: NS Irrig 1000ml ONE (20:13)
--- NOTE | 2019-05-26 23:31 | NUR ---
NURSE NOTES: Sent message to pharmacy to re-schedule time for zosyn.
[2019-05-27] VITALS: BP 101/62
--- NOTE | 2019-05-27 00:20 | NUR ---
NURSE NOTES: Re-scheduled Zosyn 3.375gm in D5W 10ml at 25ml/hr from 2300 to 0000. Unable to scan label. Given Zosyn at 0020.
[2019-05-27] MEDS: LORazepam 1mg tab SL PRN (01:02)
[2019-05-27 04:00] VITALS: BP 110/63
[2019-05-27 05:33] LABS: HEMATOCRIT 34.2 % (42.0-52.0); MEAN CORPUSCULAR VOLUME 84 FL (80-99); PLATELET COUNT 242 K/UL (150-450); RED BLOOD COUNT 4.08 M/UL (4.70-6.10); RED CELL DISTRIBUTION WIDTH 14.2 % (11.6-14.8); WHITE BLOOD COUNT 4.1 K/UL (4.8-10.8)
[2019-05-27 05:38] LABS: ANION GAP 9 mmol/L (5-15); BLOOD UREA NITROGEN 7 mg/dL (7-18); CALCIUM 8.6 MG/DL (8.5-10.1); CARBON DIOXIDE 28 MMOL/L (21-32); CHLORIDE 107 MMOL/L (98-107); POTASSIUM 3.8 MMOL/L (3.5-5.1); SODIUM 144 MMOL/L (136-145)
--- NOTE | 2019-05-27 07:35 | NUR ---
NURSE NOTES: Received report from KAREL Bradford. Rounding done with outgoing nurse. Pt a/o x 4, in bed. Denies any abd pain, cramping at this time. Ileostomy bag is in placed. Abdominal dressing is C/D/I. GT continuously clamped. Lt wrist IV access is patent. Father is at bedside. Bed in lowest position, call light within reach. Will continue to monitor.
[2019-05-27] MEDS: Piperacillin/Tazobactam 3.375 GM in D5W 110 ML IVPB SCH ×3 (07:38→23:54)
--- NOTE | 2019-05-27 07:41 | NUR ---
HAND-OFF: Report given to KAREL Bangura. Patient in stable condition.
[2019-05-27 08:00] VITALS: BP 96/68
[2019-05-27] MEDS ORDERED: oxyCODONE HCL/Acetaminophen 5/325mg ORAL PRN (08:30)
--- NOTE | 2019-05-27 09:30 | NUR ---
NURSE NOTES: Patient ambulated hallway with PT assistance in stable condition.
[2019-05-27 12:00] VITALS: BP 110/69
[2019-05-27] MEDS ORDERED: Vancomycin 1.25gm/NS Premix q24h IVPB SCH (12:00)
--- NOTE | 2019-05-27 14:06 | NUR ---
RD ASSESSMENT & RECOMMENDATIONS SEE CARE ACTIVITY FOR COMPLETE ASSESSMENT DAILY ESTIMATED NEEDS: Needs based on Surgery/ 70kg abw 25-30 kcals/kg 9788-0388 total kcals 1-2 g protein/kg 70-140 g total protein 25-30 mL/kg 6726-2788 total fluid mLs NUTRITION DIAGNOSIS: Altered GI function R/T h/o UC w/ new ileostomy as evidenced by s/p caleb ileo takedown, w/ creation of new BCIR ileo, diet now advanced to BCIR low residue diet, TPN dc'ed. PO DIET RECOMMENDATIONS: BCIR LOW RESIDUE DIET ADDITIONAL RECOMMENDATIONS: * Standing weight as able for accurate CBW, weekly wt monitoring * Monitor PO intake and tolerace -> On BCIR now, good tolerance .
--- NOTE | 2019-05-27 14:57 | Infectious Diseases Prog Note ---
Assessment/Plan Assessment/Plan Full consult dictated: A) 1) intra-abdominal abscess, fevers 2) s/p proctectomy and Argueta ileostomy 3) ulcerative colitis 4) cath tip negative P) 1) zosyn for now - day # 2 2) f/u on cultures and labs, line removed 3) management of abscess per Dr. Siddiqui 4) f/u CT - d/w Dr. Siddiqui Subjective Subjective Constitutional: Denies: fever Respiratory: Denies: shortness of breath Cardiovascular: Denies: chest pain Gastrointestinal/Abdominal: Denies: nausea, vomiting Genitourinary: Denies: dysuria Allergies: Coded Allergies: No Known Allergies (Unverified , 12/29/18) Objective Vital Signs Last 24 Hour Vital Signs Date Time Temp Pulse Resp B/P (MAP) Pulse Ox O2 Delivery O2 Flow Rate FiO2 05/27/19 12:00 97.8 85 20 110/69 (83) 97 05/27/19 09:00 Room Air 05/27/19 08:00 97.9 100 19 96/68 (77) 96 05/27/19 04:00 97.2 82 18 110/63 (79) 97 05/27/19 00:00 98.4 86 17 101/62 (75) 97 05/26/19 21:00 Room Air 05/26/19 20:00 98.2 88 18 103/67 (79) 98 05/26/19 16:00 98.6 95 20 103/64 (77) 98 Height (Feet): 5 Height (Inches): 7.00 Weight (Pounds): 200 General Appearance: no acute distress HEENT: normocephalic, atraumatic, anicteric Respiratory/Chest: lungs clear, normal breath sounds, no respiratory distress, no accessory muscle use Cardiovascular: normal rate, regular rhythm, no gallop/murmur, no JVD Abdomen: normal bowel sounds, soft, non tender, no organomegaly, non distended Genitourinary: other - no hernandez Extremities: no cyanosis Skin: no rash 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 Fat stranding in the lower abdomen and pelvis. Abscess with surrounding phlegmon in the lower abdomen adjacent to small bowel loops, measuring approximately 2.2 x 2.4 x 3.5 cm. 2. Catheter noted in the lower abdomen. 3. Bladder wall thickening may be secondary to underdistention. Please correlate with urinalysis if concerned for cystitis. Microbiology Date/Time Source Procedure Growth Status 05/24/19 10:30 Other(Specify in comment) Catheter Tip Culture - Final NO GROWTH AFTER 48 HOURS Complete 05/23/19 14:00 Urine,Clean Catch Urine Culture - Final Mixed Urogenital Contaminants Complete Laboratory Tests Test 05/27/19 04:35 05/27/19 09:50 White Blood Count 4.1 K/UL (4.8-10.8) L Red Blood Count 4.08 M/UL (4.70-6.10) L Hemoglobin 11.0 G/DL (14.2-18.0) L Hematocrit 34.2 % (42.0-52.0) L Mean Corpuscular Volume 84 FL (80-99) Mean Corpuscular Hemoglobin 26.9 PG (27.0-31.0) L Mean Corpuscular Hemoglobin Concent 32.0 G/DL (32.0-36.0) Red Cell Distribution Width 14.2 % (11.6-14.8) Platelet Count 242 K/UL (150-450) Mean Platelet Volume 7.4 FL (6.5-10.1) Neutrophils (%) (Auto) % (45.0-75.0) Lymphocytes (%) (Auto) % (20.0-45.0) Monocytes (%) (Auto) % (1.0-10.0) Eosinophils (%) (Auto) % (0.0-3.0) Basophils (%) (Auto) % (0.0-2.0) Differential Total Cells Counted 100 Neutrophils % (Manual) 48 % (45-75) Lymphocytes % (Manual) 34 % (20-45) Monocytes % (Manual) 10 % (1-10) Eosinophils % (Manual) 7 % (0-3) H Basophils % (Manual) 1 % (0-2) Band Neutrophils 0 % (0-8) Platelet Estimate Adequate Platelet Morphology Normal Hypochromasia 1+ Anisocytosis 1+ Sodium Level 144 MMOL/L (136-145) Potassium Level 3.8 MMOL/L (3.5-5.1) Chloride Level 107 MMOL/L (98-107) Carbon Dioxide Level 28 MMOL/L (21-32) Anion Gap 9 mmol/L (5-15) Blood Urea Nitrogen 7 mg/dL (7-18) Creatinine 1.0 MG/DL (0.55-1.30) Estimat Glomerular Filtration Rate > 60 mL/min (>60) Glucose Level 100 MG/DL (74-106) Calcium Level 8.6 MG/DL (8.5-10.1) Vancomycin Level Trough 11.1 ug/mL (5.0-12.0) Current Medications Medications (Trade) Dose Ordered Sig/Mitchell Route PRN Reason Start Time Stop Time Status Last Admin Dose Admin Acetaminophen (Tylenol) 650 mg Q4H PRN ORAL Mild Pain/Temp > 100.2 05/24/19 09:30 06/23/19 09:29 05/25/19 16:20 Ascorbic Acid (Vitamin C) 500 mg NEEDED PRN ORAL Constipation 05/25/19 11:45 06/24/19 11:44 Lorazepam (Ativan) 1 mg HSPRN PRN SL Sleep 05/24/19 21:00 05/31/19 20:59 05/27/19 01:02 Lorazepam (Ativan) 1 mg Q4H PRN SL Muscle Spasm 05/24/19 09:08 05/31/19 09:07 Ondansetron HCl (Zofran) 4 mg Q4H PRN IVP Nausea & Vomiting 05/07/19 14:00 06/06/19 13:59 05/17/19 01:41 Oxycodone/ Acetaminophen (Percocet 5-325) 1 tab Q4H PRN ORAL For Pain 05/27/19 08:30 06/03/19 08:29 Piperacillin Sod/ Tazobactam Sod 3.375 gm/Dextrose 110 ml @ 27.5 mls/hr Q8H IVPB 05/27/19 08:00 06/03/19 07:59 05/27/19 07:38 Simethicone (Mylicon) 80 mg Q6H PRN ORAL gas pain 05/14/19 17:00 06/13/19 16:59 05/23/19 05:39 Vancomycin HCl (Vanco rx to dose) 1 ea DAILY PRN MISC BACTEREMIA 1/5/20 09:30 06/23/19 09:29 Vancomycin/Sodium Chloride 275 ml @ 183.333 mls/hr Q8H IVPB 05/27/19 12:00 06/01/19 11:59 05/27/19 12:19 Ray Monahan MD May 27, 2019 14:57
--- NOTE | 2019-05-27 15:00 | NUR ---
NURSE NOTES: Patient ambulated hallway by himself in stable condition.
--- NOTE | 2019-05-27 15:15 | NUR ---
NURSE NOTES: GT was removed by Dr. Siddiqui and pt is lying down in stable condition.
--- NOTE | 2019-05-27 15:21 | General Progress Note ---
Progress Note Progress Note Afebrile x 48 hours Eating 50% of BCIR diet Abdomen soft. Gastrostomy removed Urine 1690 BCIR ileo 400 WBC 4100 Hgb 11 BMP ok Imp. Intra-abdominal abscess improved on IV antibiotics Plan; Start BCIR self-intubations in AM if stable overnight will need f/u CT scan to reassess abscess - discussed with Gonzales Booker MD May 27, 2019 15:21
[2019-05-27 16:01] VITALS: BP 89/58
--- NOTE | 2019-05-27 19:19 | NUR ---
HAND-OFF: Report given to KAREL Underwood. Pt is stable.
--- NOTE | 2019-05-27 19:43 | NUR ---
NURSE NOTES: Received patient awake, alert, verbal, resting in bed comfortably, no complaints, relative at bedside.
[2019-05-27 20:03] VITALS: BP 97/61
--- NOTE | 2019-05-27 21:15 | Consultation ---
DATE OF CONSULTATION: 05/27/2019 INFECTIOUS DISEASES CONSULTATION CONSULTING PHYSICIAN: Ray Monahan M.D. ATTENDING PHYSICIAN: Gonzales Siddiqui M.D. REFERRING PHYSICIAN: Gonzales Siddiqui M.D. REASON FOR CONSULTATION: Intra-abdominal abscess and fevers. CHIEF COMPLAINT: The patient's chief complaint coming in to the hospital is malfunction of ileostomy and history of ulcerative colitis. HISTORY OF PRESENT ILLNESS: This is a 29-year-old male, who has a history of ulcerative colitis and the patient history of conventional urostomy and total colectomy in the past. The patient had intractable ulcerative colitis and is status post proctectomy and Argueta continent intestinal reservoir and catheter gastrostomy. That surgery was done on May 07, 2019. Postoperatively, the patient was noted to have a intra-abdominal abscess and we have given vancomycin and Rocephin, but has persistent fevers. Infectious Disease consultation is requested. I saw the patient yesterday and placed the patient on Zosyn in addition to vancomycin. The patient also had a line that was removed. Catheter tip is negative to date. Case was discussed with Dr. Siddiqui and the patient. MAR was noted. Orders were noted. Notes and records were reviewed. Case was discussed with RN. REVIEW OF SYSTEMS: CONSTITUTIONAL: The patient has no Anderson. His PICC line was removed. His fevers have improved today versus yesterday. He was having fevers yesterday of over 101. He has rash or chills. HEAD AND NECK: No head pain or neck pain. CARDIAC: No chest pain. GASTROINTESTINAL: No significant abdominal pain. No nausea or vomiting. GENITOURINARY: No dysuria or frequency. PULMONARY: No congestion or shortness of breath. SKIN: No rash. NEUROLOGIC: No seizures. PAST MEDICAL HISTORY: Includes a history of ulcerative colitis, history of laparoscopic colectomy, and also conventional Escobar ileostomy. The patient is status post proctectomy and Argueta continent intestinal reservoir. No history of diabetes or hypertension. MEDICATIONS: Upon reviewing the MAR, he is on the following medication. He was on vancomycin and Rocephin. I switched him to Zosyn and vancomycin yesterday. He is on ascorbic acid, Ativan, and vitamin. He is on Tylenol, lorazepam, Zofran, and Mylicon. Outside medication were noted and reconciliated. ALLERGIES: He has no known drug allergies. SOCIAL HISTORY: Negative for smoking, alcohol, or drug abuse. FAMILY HISTORY: Noncontributory. PHYSICAL EXAMINATION: VITAL SIGNS: Temperature is 97.8, pulse 85, respiratory rate 20, blood pressure 110/69, and saturating 97%. T-max for the patient was 101.5 and he had fevers previously. This was yesterday on, 05/25/2019. The patient had fevers also on 05/24/2019 and 05/23/2019. GENERAL: Alert, responsive, in no distress, and oriented x3. HEAD AND NECK: Oral exam, no thrush. Eye exam, no icterus. Normocephalic. Neck is supple. HEART: Regular. No gallop or murmur. ABDOMEN: Soft. Positive bowel sounds. Nontender. LUNGS: Clear bilaterally. No rhonchi or rales. SKIN: No rash. MUSCULOSKELETAL: No effusion. Legs are without cellulitis. PERIPHERAL VASCULAR: No cyanosis. GENITOURINARY: No Anderson. LINE SITES: Without phlebitis. NEUROLOGIC: Intact. No CVA tenderness. PICC line removed. He is alert and oriented x3. LABORATORY DATA: Laboratory data is as follows. White count 4.1, hemoglobin 11.0, and platelet count is 242,000. Creatinine 1.0. LFTs noted. CULTURES: Cath tip is negative in 48 hours. Urine culture with mixed gemma. Urinalysis had only 0 [address] scan of the abdomen and pelvis showed the following. It showed fat stranding in the lower abdomen and pelvis, abscess with surrounding phlegmon in the lower abdomen adjacent to the small bowel measuring approximately 2.2 x 2.4 x 3.5 cm. Again, consider intra-abdominal abscess. ASSESSMENT AND PLAN: 1. The patient has intra-abdominal abscess. The patient is status post proctectomy and Argueta ileostomy. The patient has fevers with intraabdominal abscess. The patient was switched to vancomycin and Zosyn yesterday and has defervesced. At this time, I favor stopping the vancomycin and continue Zosyn. We still have gram-negative Enterococcus and anaerobic coverage. The catheter tip is negative, which suggests he does not have a line infection. At this time, we will continue Zosyn for now and it is day #2 Zosyn. Case was discussed with Dr. Siddiqui and we will probably get a repeat CT scan of the abdomen and pelvis in the next several days while the patient has been on intravenous antibiotics. With regard to the length of antibiotic treatment, we will see the followup CT and then recommend further antibiotic course. Continue Zosyn for now for new abdominal abscess and fevers. 2. History of ulcerative colitis. 3. Status post proctectomy and Argueta ileostomy. 4. History of conventional ileostomy. 5. History of colectomy. 6. No known allergies. 7. Social history is negative. 8. Family history is noncontributory. 9. MAR is noted. 10. Case was discussed with RN. 11. No other significant past medical history. 12. Case was discussed with Dr. Siddiqui. 13. Case was discussed with the patient. Ray Monahan M.D. DR: VINI JOB#: [id number] CC:
[2019-05-28 04:00] VITALS: BP 98/61
[2019-05-28 07:13] LABS: BASOPHILS % (AUTO) 1.2 % (0.0-2.0); EOSINOPHILS % (AUTO) 4.1 % (0.0-3.0); HEMATOCRIT 37.3 % (42.0-52.0); HEMOGLOBIN 12.1 G/DL (14.2-18.0); LYMPHOCYTES % (AUTO) 25.8 % (20.0-45.0); MEAN CORPUSCULAR VOLUME 83 FL (80-99); MONOCYTES % (AUTO) 7.4 % (1.0-10.0); NEUTROPHILS % (AUTO) 61.5 % (45.0-75.0); PLATELET COUNT 308 K/UL (150-450); RED BLOOD COUNT 4.47 M/UL (4.70-6.10); RED CELL DISTRIBUTION WIDTH 14.3 % (11.6-14.8); WHITE BLOOD COUNT 5.7 K/UL (4.8-10.8)
[2019-05-28 07:14] LABS: ANION GAP 9 mmol/L (5-15); BLOOD UREA NITROGEN 8 mg/dL (7-18); CALCIUM 9.2 MG/DL (8.5-10.1); CARBON DIOXIDE 30 MMOL/L (21-32); CHLORIDE 106 MMOL/L (98-107); CREATININE 1.2 MG/DL (0.55-1.30); POTASSIUM 3.6 MMOL/L (3.5-5.1); SODIUM 145 MMOL/L (136-145)
--- NOTE | 2019-05-28 07:20 | NUR ---
HAND-OFF: Report given to Lu Ware RN.
[2019-05-28 08:00] VITALS: BP 108/69
--- NOTE | 2019-05-28 08:18 | General Progress Note ---
Progress Note Progress Note AVSS. tolerating BCIR diet Abdomen soft Urine 1870 BCIR ileo 860 WBC 5700 Hgb 12.1 Imp: Improved Plan: Begin RN education and supervised BCIR self-intubations q2h am to hs and 0200 f/u CT scan tomorrow Gonzales Siddiqui MD May 28, 2019 08:18
[2019-05-28] MEDS: Piperacillin/Tazobactam 3.375 GM in D5W 110 ML IVPB SCH ×2 (08:31→17:28)
--- NOTE | 2019-05-28 09:03 | NUR ---
CASE MANAGEMENT:REVIEW 05/27/2019 SI: POD #20 S/P ABDOMEN-PERINEAL PROCTECTOMY. JOHNSTON CONTINENT ILEOSTOMY GASTROSTOMY 97.9 100 19 96/68 96% ON RA WBC 4.1 H/H 11.0/34.2 IS: IV D5@125ML/HR IV ROCEPHIN Q24HR IV VANCOMYCIN BID PERCOCET PO Q4HRS/PRN : MED/SURG STATUS 3 EAST PLAN: BEGIN SELF-INTUBATION IN AM CT ABD F/U - REASSESS ABSCESS CONT IV ABX BCIR LOW RESIDUE DIET CASE MANAGEMENT:REVIEW 05/28/2019 SI: POD #21 S/P ABDOMEN-PERINEAL PROCTECTOMY. [place] CONTINENT ILEOSTOMY GASTROSTOMY 97.9 82 18 98/61 96% ON RA H/H 12.1/37.3 IS: IV D5@125ML/HR IV ZOSYN Q8HR IV VANCOMYCIN BID TYLENOL PO Q4HR : MED/SURG STATUS 3 EAST PLAN: RN TO EDUCATION SELF-INTUBATION Q2HR CT ABD F/U - REASSESS ABSCESS IN AM CONT IV ABX BCIR LOW RESIDUE DIET
--- NOTE | 2019-05-28 10:18 | NUR ---
NURSE NOTES: ileostomy catheter removed as ordered. started instruction how to use nuzhat catheter and do self intubation.
[2019-05-28] MEDS ORDERED: NS Irrig 1000ml ONE (11:38)
[2019-05-28 12:00] VITALS: BP 100/64
[2019-05-28] MEDS ORDERED: Omnipaque-300 100ml vial INJ PRN (12:45)
--- NOTE | 2019-05-28 12:56 | Infectious Diseases Prog Note ---
Assessment/Plan Assessment/Plan A) 1) intra-abdominal abscess, fevers 2) s/p proctectomy and Argueta ileostomy 3) ulcerative colitis 4) allergies - nkda P) 1) zosyn for now - day # 3 2) line culture negative 3) f/u CT ordered by Dr. Siddiqui 4) fevers improved Subjective Subjective Constitutional: Denies: fever HEENT: Denies: congestion Respiratory: Denies: shortness of breath Cardiovascular: Denies: chest pain Gastrointestinal/Abdominal: Denies: nausea, vomiting, diarrhea Allergies: Coded Allergies: No Known Allergies (Unverified , 12/29/18) Objective Vital Signs Last 24 Hour Vital Signs Date Time Temp Pulse Resp B/P (MAP) Pulse Ox O2 Delivery O2 Flow Rate FiO2 05/28/19 09:00 Room Air 05/28/19 08:00 98.1 94 20 108/69 (82) 100 05/28/19 04:00 97.9 82 18 98/61 (73) 96 05/27/19 20:12 Room Air 05/27/19 20:03 97.6 81 18 97/61 (73) 98 05/27/19 16:01 98.3 92 20 89/58 (68) 96 Height (Feet): 5 Height (Inches): 7.00 Weight (Pounds): 200 General Appearance: no acute distress HEENT: normocephalic, atraumatic, anicteric Respiratory/Chest: lungs clear, normal breath sounds, no respiratory distress Cardiovascular: normal rate, regular rhythm, no gallop/murmur Abdomen: normal bowel sounds, soft, non tender, no organomegaly Objective CT scan of abdomen and pelvis: IMPRESSION: 1. Fat stranding in the lower abdomen and pelvis. Abscess with surrounding phlegmon in the lower abdomen adjacent to small bowel loops, measuring approximately 2.2 x 2.4 x 3.5 cm. 2. Catheter noted in the lower abdomen. 3. Bladder wall thickening may be secondary to underdistention. Please correlate with urinalysis if concerned for cystitis. Laboratory Tests Test 05/28/19 05:30 White Blood Count 5.7 K/UL (4.8-10.8) Red Blood Count 4.47 M/UL (4.70-6.10) L Hemoglobin 12.1 G/DL (14.2-18.0) L Hematocrit 37.3 % (42.0-52.0) L Mean Corpuscular Volume 83 FL (80-99) Mean Corpuscular Hemoglobin 27.1 PG (27.0-31.0) Mean Corpuscular Hemoglobin Concent 32.4 G/DL (32.0-36.0) Red Cell Distribution Width 14.3 % (11.6-14.8) Platelet Count 308 K/UL (150-450) Mean Platelet Volume 7.6 FL (6.5-10.1) Neutrophils (%) (Auto) 61.5 % (45.0-75.0) Lymphocytes (%) (Auto) 25.8 % (20.0-45.0) Monocytes (%) (Auto) 7.4 % (1.0-10.0) Eosinophils (%) (Auto) 4.1 % (0.0-3.0) H Basophils (%) (Auto) 1.2 % (0.0-2.0) Sodium Level 145 MMOL/L (136-145) Potassium Level 3.6 MMOL/L (3.5-5.1) Chloride Level 106 MMOL/L (98-107) Carbon Dioxide Level 30 MMOL/L (21-32) Anion Gap 9 mmol/L (5-15) Blood Urea Nitrogen 8 mg/dL (7-18) Creatinine 1.2 MG/DL (0.55-1.30) Estimat Glomerular Filtration Rate > 60 mL/min (>60) Glucose Level 81 MG/DL (74-106) Calcium Level 9.2 MG/DL (8.5-10.1) Current Medications Medications (Trade) Dose Ordered Sig/Mitchell Route PRN Reason Start Time Stop Time Status Last Admin Dose Admin Acetaminophen (Tylenol) 650 mg Q4H PRN ORAL Mild Pain/Temp > 100.2 05/24/19 09:30 06/23/19 09:29 05/25/19 16:20 Ascorbic Acid (Vitamin C) 500 mg NEEDED PRN ORAL Constipation 05/25/19 11:45 06/24/19 11:44 Barium Sulfate (Readi-Cat 2) 450 ml NOW ORAL 05/28/19 12:45 05/29/19 12:46 Iohexol (OMNIPAQUE-300 100ml) 100 ml NOW PRN INJ Radiology Procedure 05/28/19 12:45 05/30/19 12:42 Lorazepam (Ativan) 1 mg HSPRN PRN SL Sleep 05/24/19 21:00 05/31/19 20:59 05/27/19 01:02 Lorazepam (Ativan) 1 mg Q4H PRN SL Muscle Spasm 05/24/19 09:08 05/31/19 09:07 Ondansetron HCl (Zofran) 4 mg Q4H PRN IVP Nausea & Vomiting 05/07/19 14:00 06/06/19 13:59 05/17/19 01:41 Oxycodone/ Acetaminophen (Percocet 5-325) 1 tab Q4H PRN ORAL For Pain 05/27/19 08:30 06/03/19 08:29 Piperacillin Sod/ Tazobactam Sod 3.375 gm/Dextrose 110 ml @ 27.5 mls/hr Q8H IVPB 05/27/19 08:00 06/03/19 07:59 05/28/19 08:31 Simethicone (Mylicon) 80 mg Q6H PRN ORAL gas pain 05/14/19 17:00 06/13/19 16:59 05/23/19 05:39 Ray Monahan MD May 28, 2019 12:56
--- NOTE | 2019-05-28 14:00 | NUR ---
NURSE NOTES: did self intubation with nurse supervision. did well with no problem.
[2019-05-28 16:00] VITALS: BP 94/79
--- NOTE | 2019-05-28 19:02 | NUR ---
NURSE NOTES: AWAKE. IN NO APPARENT DISTRESS. HAD NO PROBLEM WITH SELF INTUBATION.
--- NOTE | 2019-05-28 19:30 | NUR ---
NURSE NOTES: Patient awake in bed, on his cell phone, no complaint at this time. Mentioned about MD's order of time of self cath intubation on abdomen, patient is willing to work with RN. Instructed on NPO at midnight for tomorrow's CT, patient verbalized understanding. Call light and needs in reach. Bed in lowest, lock engaged and alarm on. Will continue to monitor.
--- NOTE | 2019-05-28 19:33 | NUR ---
HAND-OFF: Report given to Luis NELSON RN.
[2019-05-28 20:00] VITALS: BP 96/64
--- NOTE | 2019-05-28 20:30 | NUR ---
NURSE NOTES: Patient signed consent for contrast for tomorrow CT. Patient verbalized understanding of NPO at midnight.
--- NOTE | 2019-05-28 20:35 | NUR ---
NURSE NOTES: Patient didn't want to be disturbed from this time until next dose antibiotic. He wants to get some sleep and rest.
[2019-05-29] VITALS: BP 95/64
--- NOTE | 2019-05-29 | NUR ---
NURSE NOTES: Patient was asleep when RN came in the room. Asked patient if we can do self-intubation but patient was too sleepy at this time and refused. Pt verbalized he will call if he needs to before RN comes at 0200. VS taken and recorded. Med given as ordered.
[2019-05-29] MEDS: Piperacillin/Tazobactam 3.375 GM in D5W 110 ML IVPB SCH ×3 (00:03→16:51)
--- NOTE | 2019-05-29 02:00 | NUR ---
NURSE NOTES: Assisted patient on self intubation. Stool was kind of thickened compared earlier and hard to drain. Charge nurse Anthony was there to help and flushed 60cc intermittently till the stool was out. There were some minimal blood streaks but no active bleeding.
[2019-05-29] MEDS: LORazepam 1mg tab SL PRN (02:38)
--- NOTE | 2019-05-29 03:09 | NUR ---
NURSE NOTES: Patient was insisting to have IV fluid while on NPO. Let patient have drank some water before 12midnight, tho. Called Dr. Siddiqui and left message. Waiting for call back.
[2019-05-29 05:57] LABS: BASOPHILS % (AUTO) 1.5 % (0.0-2.0); HEMATOCRIT 34.8 % (42.0-52.0); HEMOGLOBIN 11.2 G/DL (14.2-18.0); MEAN CORPUSCULAR VOLUME 83 FL (80-99); MONOCYTES % (AUTO) 7.1 % (1.0-10.0); NEUTROPHILS % (AUTO) 58.4 % (45.0-75.0); PLATELET COUNT 312 K/UL (150-450); RED BLOOD COUNT 4.17 M/UL (4.70-6.10); RED CELL DISTRIBUTION WIDTH 14.5 % (11.6-14.8); WHITE BLOOD COUNT 5.9 K/UL (4.8-10.8)
[2019-05-29 05:58] VITALS: BP 91/58
[2019-05-29 06:28] LABS: ALANINE AMINOTRANSFERASE 41 U/L (12-78); ALBUMIN 3.2 G/DL (3.4-5.0); ALBUMIN/GLOBULIN RATIO 0.8 (1.0-2.7); ALKALINE PHOSPHATASE 126 U/L (46-116); ANION GAP 9 mmol/L (5-15); ASPARTATE AMINO TRANSFERASE 17 U/L (15-37); BILIRUBIN,TOTAL 0.4 MG/DL (0.2-1.0); BLOOD UREA NITROGEN 8 mg/dL (7-18); CALCIUM 8.6 MG/DL (8.5-10.1); CARBON DIOXIDE 29 MMOL/L (21-32); CHLORIDE 106 MMOL/L (98-107); CREATININE 1.2 MG/DL (0.55-1.30); POTASSIUM 3.8 MMOL/L (3.5-5.1); SODIUM 144 MMOL/L (136-145)
--- NOTE | 2019-05-29 07:30 | NUR ---
NURSE NOTES: Received report from KAREL Gilliland.
--- NOTE | 2019-05-29 07:52 | NUR ---
HAND-OFF: Report given to KAREL Epperson.
[2019-05-29 08:00] VITALS: BP 149/97
--- NOTE | 2019-05-29 08:30 | NUR ---
NURSE NOTES: care taken over for pt. Pt intubated with 26 catheter, placed to gravity. Flushed with 40 cc of water. Output extremely sticky , thick. Vitamin C will be provided. Bandage noted with large area of serous sanguinous drainage covering 4x4, inquired if lubrication was necessary, due to large amount of drainage and report per pt that he has been having blood on catheter, encouraged to continue using lubrication. Observed self intubation prior to placing him to gravity, required assistance. Educated that at times standing up , or slightly pulling catheter forward can produce flow. No odor noted to drainage. Has multiple questions related self intubation , and not being sure if he is in the correct position. " I just do not want to carry anything extra, not even lubrication" The use of lubrication reinforced, especially if blood is present. Anticipate time for healing. Individual , packages of lubricant provided. Contrast Given
[2019-05-29] MEDS: Ascorbic Acid 500mg tab ORAL PRN (09:34)
[2019-05-29] MEDS: Simethicone 80mg tab ORAL PRN (09:34)
--- NOTE | 2019-05-29 11:56 | Diagnostic Imaging Report ---
Clinical Indication: Abdominal pain, history of continent ileostomy and total colectomy Technique: Patient given oral contrast. IV administration nonionic contrast. Venous phase spiral acquisition obtained through the abdomen and pelvis. Multiplanar reconstructions were generated. Total dose length product 1168 mGycm. CTDIvol(s) 20 mGy. Dose reduction achieved using automated exposure control Comparison: 05/23/2019 Findings: Again demonstrated is evidence of prior total colectomy and continent ileostomy. Previously demonstrated small gas and fluid fluid collection cephalad to the pouch now contains contrast contrast is seen throughout the entirety of small bowel, fills and distends the pouch and is seen within the catheter within the pouch. No other unusual fluid collections are demonstrated. From previous demonstrate a gastrostomy has been removed. The distal esophagus, stomach, duodenum are unremarkable. No small bowel wall thickening. The liver, gallbladder, spleen adrenals, kidneys are all unremarkable. No retroperitoneal or mesenteric mass or adenopathy. No pelvic mass or adenopathy. The bladder is empty. Slight bladder wall thickening is probably an artifact of under distention. The included lung bases are clear. The bones are unremarkable Impression: Postsurgical changes as described above and previously Previously demonstrated small gas and fluid collection seen just cephalad to the pouch currently is filled with contrast indicating this is not an abscess. Most likely, this this is a blind-ending portion of small bowel associated with the pouch. Possibility that this represents a small contained leak is much less likely, but not completely excludable. Correlate with clinical findings No new fluid collections are demonstrated. Slight bladder wall thickening, most likely artifact of under distention but the possibility of cystitis should also be considered. This is unchanged Images reviewed in person with Dr. Siddiqui The CT scanner at [facility] is accredited by the [employer] and the scans are performed using protocols designed to limit radiation exposure to as low as reasonably achievable to attain images of sufficient resolution adequate for diagnostic evaluation.
[2019-05-29 12:00] VITALS: BP 138/91
--- NOTE | 2019-05-29 12:27 | NUR ---
NURSE NOTES: Pt output thick flushed with 60cc orange in color with white some material in it. Oranges at bedside earlier in shift , pt informed that he could not eat any fruit " Those are my Dads"
--- NOTE | 2019-05-29 12:31 | NUR ---
NURSE NOTES: Informed of risk of blocking pouch . Denies eating an orange states it might be contrast. Current plan will be followed
--- NOTE | 2019-05-29 13:11 | General Progress Note ---
Progress Note Progress Note Continues afebrile. CT scan today shows resolution of abscess. He did RN supervised BCIR self-intubations yesterday Abdomen soft, perineum clean Urine 830 - getting IV fluids today while npo for CT scan BCIR ileo 655 WBC 5900 Hgb 11.2 albumin up 3.2 Imp: Improved Plan; IV antibiotics course per ID Resume RN supervised BCIR self-intubations later today and d/c IV fluids , resume BCIR diet Gonzales Siddiqui MD May 29, 2019 13:11
--- NOTE | 2019-05-29 14:33 | NUR ---
*-* INSURANCE *-* ALL CLINICALS AND REVIEWS HAVE BEEN FAXED TO: [employer] [facility] CERT# [id number] BETSYM: ENRIQUE Estrada FX: [phone]
--- NOTE | 2019-05-29 15:04 | NUR ---
CASE MANAGEMENT:REVIEW 05/29/2019 SI: POD #22 S/P ABDOMEN-PERINEAL PROCTECTOMY. [place] CONTINENT ILEOSTOMY GASTROSTOMY INTRA ABDOMINAL ABSCESS 98.6 75 21 138/91 97% ON RA H/H 12.1/37.3 IS: IVF NS@100ML/HR IV ZOSYN Q8HR IV ZOFRAN Q4HR/PRN TYLENOL PO Q4HR : MED/SURG STATUS 3 EAST PLAN: CONT IV ABX RESUME RN SUPERVISED BCIR SELF-INTUBATION DC IVF RESUME BCIR DIET CT SHOWS RESOLUTION OF ABSCESS
[2019-05-29 16:00] VITALS: BP 88/53
--- NOTE | 2019-05-29 16:09 | Infectious Diseases Prog Note ---
Assessment/Plan Assessment/Plan ASSESSMENT AND PLAN: 1. intra-abdominal abscess and fevers - zosyn - day #4 - f/u CT scan - abscess resolved - fevers resolved - monitor labs 2. History of ulcerative colitis. 3. Status post proctectomy and Argueta ileostomy. 4. History of conventional ileostomy. 5. History of colectomy. 6. No known allergies. 7. Social history is negative. 8. Family history is noncontributory. 9. MAR is noted. 10. Case was discussed with RN. 11. No other significant past medical history. 12. Case was discussed with Dr. Siddiqui. 13. Case was discussed with the patient. Subjective Constitutional: Denies: fever HEENT: Denies: congestion Respiratory: Denies: shortness of breath Cardiovascular: Denies: chest pain Gastrointestinal/Abdominal: Denies: nausea, vomiting, diarrhea, constipation Genitourinary: Denies: dysuria Neurologic: Denies: headache Psychiatric: Denies: depression Skin: Denies: rash Hematologic: Denies: bleeding Musculoskeletal: Denies: pain Allergies: Coded Allergies: No Known Allergies (Unverified , 12/29/18) Objective Vital Signs Last 24 Hour Vital Signs Date Time Temp Pulse Resp B/P (MAP) Pulse Ox O2 Delivery O2 Flow Rate FiO2 05/29/19 12:00 98.6 75 21 138/91 (107) 97 05/29/19 09:00 Room Air 05/29/19 08:00 98.3 101 21 149/97 (114) 98 05/29/19 05:58 98.3 75 20 91/58 (69) 98 05/29/19 00:00 97.1 68 18 95/64 (74) 97 05/28/19 21:00 Room Air 05/28/19 20:00 98.3 85 18 96/64 (75) 98 Height (Feet): 5 Height (Inches): 7.00 Weight (Pounds): 200 General Appearance: no acute distress HEENT: normocephalic, atraumatic, anicteric, mucous membranes moist Respiratory/Chest: lungs clear, normal breath sounds, no respiratory distress, no accessory muscle use Cardiovascular: normal rate, regular rhythm, no gallop/murmur, no JVD Abdomen: normal bowel sounds, soft, non tender, no organomegaly, non distended Genitourinary: other - no hernandez Extremities: no cyanosis Skin: no rash 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 Fat stranding in the lower abdomen and pelvis. Abscess with surrounding phlegmon in the lower abdomen adjacent to small bowel loops, measuring approximately 2.2 x 2.4 x 3.5 cm. 2. Catheter noted in the lower abdomen. 3. Bladder wall thickening may be secondary to underdistention. Please correlate with urinalysis if concerned for cystitis. CT abdomen and pelvis - 05/29/19 Impression: Postsurgical changes as described above and previously Previously demonstrated small gas and fluid collection seen just cephalad to the pouch currently is filled with contrast indicating this is not an abscess. Most likely, this this is a blind-ending portion of small bowel associated with the pouch. Possibility that this represents a small contained leak is much less likely, but not completely excludable. Correlate with clinical findings No new fluid collections are demonstrated. Slight bladder wall thickening, most likely artifact of under distention but the possibility of cystitis should also be considered. This is unchanged Microbiology Date/Time Source Procedure Growth Status 05/24/19 10:30 Other(Specify in comment) Catheter Tip Culture - Final NO GROWTH AFTER 48 HOURS Complete 05/23/19 14:00 Urine,Clean Catch Urine Culture - Final Mixed Urogenital Contaminants Complete Laboratory Tests Test 05/29/19 05:10 White Blood Count 5.9 K/UL (4.8-10.8) Red Blood Count 4.17 M/UL (4.70-6.10) L Hemoglobin 11.2 G/DL (14.2-18.0) L Hematocrit 34.8 % (42.0-52.0) L Mean Corpuscular Volume 83 FL (80-99) Mean Corpuscular Hemoglobin 26.8 PG (27.0-31.0) L Mean Corpuscular Hemoglobin Concent 32.1 G/DL (32.0-36.0) Red Cell Distribution Width 14.5 % (11.6-14.8) Platelet Count 312 K/UL (150-450) Mean Platelet Volume 7.1 FL (6.5-10.1) Neutrophils (%) (Auto) 58.4 % (45.0-75.0) Lymphocytes (%) (Auto) 27.0 % (20.0-45.0) Monocytes (%) (Auto) 7.1 % (1.0-10.0) Eosinophils (%) (Auto) 6.0 % (0.0-3.0) H Basophils (%) (Auto) 1.5 % (0.0-2.0) Sodium Level 144 MMOL/L (136-145) Potassium Level 3.8 MMOL/L (3.5-5.1) Chloride Level 106 MMOL/L (98-107) Carbon Dioxide Level 29 MMOL/L (21-32) Anion Gap 9 mmol/L (5-15) Blood Urea Nitrogen 8 mg/dL (7-18) Creatinine 1.2 MG/DL (0.55-1.30) Estimat Glomerular Filtration Rate > 60 mL/min (>60) Glucose Level 97 MG/DL (74-106) Calcium Level 8.6 MG/DL (8.5-10.1) Total Bilirubin 0.4 MG/DL (0.2-1.0) Aspartate Amino Transf (AST/SGOT) 17 U/L (15-37) Alanine Aminotransferase (ALT/SGPT) 41 U/L (12-78) Alkaline Phosphatase 126 U/L (46-116) H Total Protein 7.3 G/DL (6.4-8.2) Albumin 3.2 G/DL (3.4-5.0) L Globulin 4.1 g/dL Albumin/Globulin Ratio 0.8 (1.0-2.7) L Current Medications Medications (Trade) Dose Ordered Sig/Mitchell Route PRN Reason Start Time Stop Time Status Last Admin Dose Admin Acetaminophen (Tylenol) 650 mg Q4H PRN ORAL Mild Pain/Temp > 100.2 05/24/19 09:30 06/23/19 09:29 05/25/19 16:20 Ascorbic Acid (Vitamin C) 500 mg NEEDED PRN ORAL Constipation 05/25/19 11:45 06/24/19 11:44 05/29/19 09:34 Iohexol (OMNIPAQUE-300 100ml) 100 ml NOW PRN INJ Radiology Procedure 05/28/19 12:45 05/30/19 12:42 Lorazepam (Ativan) 1 mg HSPRN PRN SL Sleep 05/29/19 12:15 06/05/19 12:14 Lorazepam (Ativan) 1 mg Q4H PRN SL Muscle Spasm 05/29/19 13:08 06/05/19 13:07 Ondansetron HCl (Zofran) 4 mg Q4H PRN IVP Nausea & Vomiting 05/07/19 14:00 06/06/19 13:59 05/29/19 09:34 Oxycodone/ Acetaminophen (Percocet 5-325) 1 tab Q4H PRN ORAL For Pain 05/27/19 08:30 06/03/19 08:29 Piperacillin Sod/ Tazobactam Sod 3.375 gm/Dextrose 110 ml @ 27.5 mls/hr Q8H IVPB 05/27/19 08:00 06/03/19 07:59 05/29/19 09:35 Simethicone (Mylicon) 80 mg Q6H PRN ORAL gas pain 05/14/19 17:00 06/13/19 16:59 05/29/19 09:34 Sodium Chloride 1,000 ml @ 100 mls/hr Q10H IV 05/29/19 06:30 06/28/19 06:29 05/29/19 06:39 Ray Monahan MD May 29, 2019 16:09
--- NOTE | 2019-05-29 18:10 | NUR ---
NURSE NOTES: Ileostomy output has become thinner. Vit C effective. Able to intubate with minimal assistance , output dark green no odor. Visibly uncomfortable self intubating. Became upset when ileostomy stool got on his thigh " What should I clean it with bleach?" Wash Clothe with soap and water given. Pt insisted that he needed hand small engine trainer on his thigh. No side effect noted or reported related to antibiotic use
--- NOTE | 2019-05-29 19:30 | NUR ---
NURSE NOTES: Receive a report from KAREL Morgan. Pt is lying in bed asleep without acute distress. Easily aroused. Denies any pain. No gas discomfort noted. BCIR site is covered with gauze without discharge. Made aware next self-intubation at bed-time around 9pm. No chilling or febrile sensation. IV ATB is running. Call light within reach. Will continue to monitor.
[2019-05-29 20:00] VITALS: BP 99/57
--- NOTE | 2019-05-29 20:08 | NUR ---
HAND-OFF: Report given to O RN made aware that pt is self intubating q 2 hours. Per pt does not go to bed till 1am but would like last intubation to be rendered at 9PM stoma continues to have serous sanguinous discharge, and blood and tissue can be seen inside catheter after intubating. ileostomy output to gravity drain bag 500 first intubation 50 cc thick second 50 cc third 100 cc total oral intake 798 NPO at breakfast 100 % lunch 75 % Dinner.
--- NOTE | 2019-05-29 21:30 | NUR ---
NURSE NOTES: Request to do self-intubation but pt does not want to do it because he does not feel any fullness. Explain for self-intubation schedule until bed time but pt says that he is having a hard to time to fall asleep. If he gets up for self-intubation, he would not fall asleep so he would call RN if he is ready to self-intubation. Will continue to monitor.
[2019-05-30] VITALS: BP 96/62
--- NOTE | 2019-05-30 | NUR ---
NURSE NOTES: Done self-intubation. Output is drained thick so flush with NS 40ml. Total output 120ml, green&brown color. Will continue to monitor.
[2019-05-30] MEDS: Piperacillin/Tazobactam 3.375 GM in D5W 110 ML IVPB SCH ×3 (00:31→16:20)
[2019-05-30] MEDS: LORazepam 1mg tab SL PRN (01:12)
[2019-05-30 04:00] VITALS: BP 95/58
[2019-05-30 05:51] LABS: BASOPHILS % (AUTO) 1.3 % (0.0-2.0); EOSINOPHILS % (AUTO) 6.9 % (0.0-3.0); HEMATOCRIT 33.8 % (42.0-52.0); HEMOGLOBIN 10.8 G/DL (14.2-18.0); LYMPHOCYTES % (AUTO) 27.4 % (20.0-45.0); MEAN CORPUSCULAR VOLUME 84 FL (80-99); MONOCYTES % (AUTO) 6.4 % (1.0-10.0); NEUTROPHILS % (AUTO) 57.9 % (45.0-75.0); PLATELET COUNT 296 K/UL (150-450); RED BLOOD COUNT 4.02 M/UL (4.70-6.10); RED CELL DISTRIBUTION WIDTH 14.5 % (11.6-14.8); WHITE BLOOD COUNT 5.7 K/UL (4.8-10.8)
--- NOTE | 2019-05-30 06:00 | NUR ---
NURSE NOTES: No acute distress noted. No chilling or febrile sensation noted. Done self-intubation with supervision. Thick stool passed total 70ml with gas after NS 30ml flush. During self-intubation still noted blood clot coming out. Denies any pain or discomfort. G-tube removal site is clear with crust. Will continue to monitor. 12hr output urine: 570ml BCIR: 150ml
[2019-05-30 06:14] LABS: ANION GAP 8 mmol/L (5-15); BLOOD UREA NITROGEN 8 mg/dL (7-18); CALCIUM 8.7 MG/DL (8.5-10.1); CARBON DIOXIDE 29 MMOL/L (21-32); CHLORIDE 108 MMOL/L (98-107); CREATININE 1.2 MG/DL (0.55-1.30); SODIUM 145 MMOL/L (136-145)
--- NOTE | 2019-05-30 07:30 | NUR ---
HAND-OFF: Report given to KAREL Keith. Round is done.
--- NOTE | 2019-05-30 07:34 | NUR ---
NURSE NOTES: Received pt from [facility], Pt was sleeping comfortably, no acute distress noted, call light w/in reach, self intubation with supervision
[2019-05-30 08:00] VITALS: BP_SYST 117; BP_SYST 141; BP_DIAS 63; BP_DIAS 84
--- NOTE | 2019-05-30 09:39 | General Progress Note ---
Progress Note Progress Note Continues afebrile. Learning intubation technique for Argueta pouch with Jing and Medena 30Fr catheters Abdomen soft, well healed, non-tender Perineum sutures removed - healed with one area small superficial separation Urine 2250 BCIR ileo 845 labs all stable and ok Imp: Infection resolved - on IV antibiotics Learning BCIR self-intubation Plan: continue RN supervised intubations q2h am to hs and 0200 Once he has completed course of IV antibiotics and can transition to po antibiotics will discharge - per ID Gonzales Hall MD May 30, 2019 09:39
[2019-05-30 12:00] VITALS: BP 96/58
[2019-05-30] MEDS ORDERED: Tubing IV Secondary IV ONE (15:57)
[2019-05-30] MEDS ORDERED: NS 275ml ONE (15:57)
[2019-05-30] MEDS ORDERED: NS Irrig 1000ml ONE (15:57)
[2019-05-30 16:00] VITALS: BP 102/64
--- NOTE | 2019-05-30 19:49 | NUR ---
HAND-OFF: Report given to KAREL Brenner. pt was stable condition.
[2019-05-30 20:00] VITALS: BP 96/59
--- NOTE | 2019-05-30 20:18 | NUR ---
NURSE NOTES: Pt is in bed, awake and alert. No acute distress noted.Pt is self intubating BCIR with supervision q2hrs. Pt will be assisted as needed. Zosyn IV is running. Pt has visitors by bedside. Safety precautions in place. Bed locked low in position, side rails up and call light within reach. Pt will be monitored.
[2019-05-30] MEDS: Ascorbic Acid 500mg tab ORAL PRN (21:36)
--- NOTE | 2019-05-30 22:00 | NUR ---
NURSE NOTES: Pt was supervised during self-intubation of the ileostomy. Pt was able to drain 110 ml of greenish stool.Pt had no problem accessing the stoma. Stool was somewhat thick; vitamin C tablet given as ordered PRN. Pt denies any pain. Pt afebrile overnight. Vitals stable. Pt was able to ambulate twice the length of the hallway.
[2019-05-31] VITALS: BP 95/47
[2019-05-31] MEDS: Piperacillin/Tazobactam 3.375 GM in D5W 110 ML IVPB SCH ×4 (00:32→23:08)
--- NOTE | 2019-05-31 02:00 | NUR ---
NURSE NOTES: Pt was assisted with self-intubation of the Ileostomy; 100ml greenish output drained. Pt tolerated well.
[2019-05-31] MEDS: Ascorbic Acid 500mg tab ORAL PRN ×2 (02:55→23:38)
[2019-05-31] MEDS: LORazepam 1mg tab SL PRN ×2 (02:55→23:38)
[2019-05-31 04:00] VITALS: BP 103/74
--- NOTE | 2019-05-31 07:00 | NUR ---
NURSE NOTES: Pt's ileostomy output 320ml; urine output 1000ml. Pt's Ileostomy is somewhat slow to drain, thick greenish output. Vitamin C tablet given as ordered PRN. 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 Pt afebrile throughout the shift.
--- NOTE | 2019-05-31 07:50 | NUR ---
HAND-OFF: Report given to KAREL Ketih.
[2019-05-31 08:00] VITALS: BP 90/52
--- NOTE | 2019-05-31 08:15 | NUR ---
NURSE NOTES: Received pt from KAREL Mane, pt was resting comfortably no acute distress, call light w/in reach. will monitor
--- NOTE | 2019-05-31 10:02 | General Progress Note ---
Progress Note Progress Note Continues afebrile, eating 70% BCIR diet and learning BCIR intubation techniques Abdomen soft, stoma and incisions well healed Perineum nicely healed Urine 2129 BCIR ileo 700 Imp; Stable on Zosyn Plan: Continue RN supervised intubations q2h am to hs and 0200 IV antibiotics per ID Gonzales Siddiqui MD May 31, 2019 10:02
[2019-05-31 11:53] VITALS: BP 104/66
--- NOTE | 2019-05-31 15:10 | Infectious Diseases Prog Note ---
Assessment/Plan Assessment/Plan ASSESSMENT AND PLAN: 1. intra-abdominal abscess and fevers - zosyn - day #6 - consider augmentin x one week upon discharge - 875 mg po bid - f/u CT scan - abscess resolved - fevers resolved - monitor labs - clinically stable 2. History of ulcerative colitis. 3. Status post proctectomy and Argueta ileostomy. 4. History of conventional ileostomy. 5. History of colectomy. 6. No known allergies. 7. Social history is negative. 8. Family history is noncontributory. 9. MAR is noted. 10. Case was discussed with RN. 11. No other significant past medical history. 12. Case was discussed with Dr. Siddiqui. 13. Case was discussed with the patient. Subjective Constitutional: Denies: fever HEENT: Denies: congestion Respiratory: Denies: shortness of breath Cardiovascular: Denies: chest pain Gastrointestinal/Abdominal: Denies: nausea, vomiting, diarrhea Genitourinary: Denies: dysuria, hematuria Neurologic: Denies: headache Psychiatric: Denies: depression Skin: Denies: rash Hematologic: Denies: bleeding Musculoskeletal: Denies: pain Allergies: Coded Allergies: No Known Allergies (Unverified , 12/29/18) Objective Vital Signs Last 24 Hour Vital Signs Date Time Temp Pulse Resp B/P (MAP) Pulse Ox O2 Delivery O2 Flow Rate FiO2 05/31/19 11:53 98.4 79 18 104/66 (79) 100 05/31/19 09:00 Room Air 05/31/19 08:00 98.3 70 18 90/52 (65) 100 05/31/19 04:00 97.3 76 18 103/74 (84) 100 05/31/19 00:00 97.7 69 18 95/47 (63) 98 05/30/19 21:00 Room Air 05/30/19 20:00 98.7 70 18 96/59 (71) 99 05/30/19 16:00 98.1 89 18 102/64 (77) 97 Height (Feet): 5 Height (Inches): 7.00 Weight (Pounds): 200 General Appearance: no acute distress HEENT: normocephalic, atraumatic, anicteric, mucous membranes moist Respiratory/Chest: lungs clear, normal breath sounds, no respiratory distress, no accessory muscle use Cardiovascular: normal rate, regular rhythm, no gallop/murmur Abdomen: normal bowel sounds, soft, non tender, no organomegaly Genitourinary: other - no hernandez Extremities: no cyanosis Skin: no rash 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 Fat stranding in the lower abdomen and pelvis. Abscess with surrounding phlegmon in the lower abdomen adjacent to small bowel loops, measuring approximately 2.2 x 2.4 x 3.5 cm. 2. Catheter noted in the lower abdomen. 3. Bladder wall thickening may be secondary to underdistention. Please correlate with urinalysis if concerned for cystitis. CT abdomen and pelvis - 05/29/19 Impression: Postsurgical changes as described above and previously Previously demonstrated small gas and fluid collection seen just cephalad to the pouch currently is filled with contrast indicating this is not an abscess. Most likely, this this is a blind-ending portion of small bowel associated with the pouch. Possibility that this represents a small contained leak is much less likely, but not completely excludable. Correlate with clinical findings No new fluid collections are demonstrated. Slight bladder wall thickening, most likely artifact of under distention but the possibility of cystitis should also be considered. This is unchanged Microbiology Date/Time Source Procedure Growth Status 05/24/19 10:30 Other(Specify in comment) Catheter Tip Culture - Final NO GROWTH AFTER 48 HOURS Complete 05/23/19 14:00 Urine,Clean Catch Urine Culture - Final Mixed Urogenital Contaminants Complete Labs Test 05/29/19 05:10 05/30/19 04:35 White Blood Count 5.9 K/UL (4.8-10.8) 5.7 K/UL (4.8-10.8) Red Blood Count 4.17 M/UL (4.70-6.10) 4.02 M/UL (4.70-6.10) Hemoglobin 11.2 G/DL (14.2-18.0) 10.8 G/DL (14.2-18.0) Hematocrit 34.8 % (42.0-52.0) 33.8 % (42.0-52.0) Mean Corpuscular Volume 83 FL (80-99) 84 FL (80-99) Mean Corpuscular Hemoglobin 26.8 PG (27.0-31.0) 26.9 PG (27.0-31.0) Mean Corpuscular Hemoglobin Concent 32.1 G/DL (32.0-36.0) 32.0 G/DL (32.0-36.0) Red Cell Distribution Width 14.5 % (11.6-14.8) 14.5 % (11.6-14.8) Platelet Count 312 K/UL (150-450) 296 K/UL (150-450) Mean Platelet Volume 7.1 FL (6.5-10.1) 6.8 FL (6.5-10.1) Neutrophils (%) (Auto) 58.4 % (45.0-75.0) 57.9 % (45.0-75.0) Lymphocytes (%) (Auto) 27.0 % (20.0-45.0) 27.4 % (20.0-45.0) Monocytes (%) (Auto) 7.1 % (1.0-10.0) 6.4 % (1.0-10.0) Eosinophils (%) (Auto) 6.0 % (0.0-3.0) 6.9 % (0.0-3.0) Basophils (%) (Auto) 1.5 % (0.0-2.0) 1.3 % (0.0-2.0) Sodium Level 144 MMOL/L (136-145) 145 MMOL/L (136-145) Potassium Level 3.8 MMOL/L (3.5-5.1) 4.0 MMOL/L (3.5-5.1) Chloride Level 106 MMOL/L (98-107) 108 MMOL/L (98-107) Carbon Dioxide Level 29 MMOL/L (21-32) 29 MMOL/L (21-32) Anion Gap 9 mmol/L (5-15) 8 mmol/L (5-15) Blood Urea Nitrogen 8 mg/dL (7-18) 8 mg/dL (7-18) Creatinine 1.2 MG/DL (0.55-1.30) 1.2 MG/DL (0.55-1.30) Estimat Glomerular Filtration Rate > 60 mL/min (>60) > 60 mL/min (>60) Glucose Level 97 MG/DL (74-106) 95 MG/DL (74-106) Calcium Level 8.6 MG/DL (8.5-10.1) 8.7 MG/DL (8.5-10.1) Total Bilirubin 0.4 MG/DL (0.2-1.0) Aspartate Amino Transf (AST/SGOT) 17 U/L (15-37) Alanine Aminotransferase (ALT/SGPT) 41 U/L (12-78) Alkaline Phosphatase 126 U/L (46-116) Total Protein 7.3 G/DL (6.4-8.2) Albumin 3.2 G/DL (3.4-5.0) Globulin 4.1 g/dL Albumin/Globulin Ratio 0.8 (1.0-2.7) Current Medications Medications (Trade) Dose Ordered Sig/Mitchell Route PRN Reason Start Time Stop Time Status Last Admin Dose Admin Acetaminophen (Tylenol) 650 mg Q4H PRN ORAL Mild Pain/Temp > 100.2 05/24/19 09:30 06/23/19 09:29 05/25/19 16:20 Ascorbic Acid (Vitamin C) 500 mg NEEDED PRN ORAL Constipation 05/25/19 11:45 06/24/19 11:44 05/31/19 02:55 Lorazepam (Ativan) 1 mg HSPRN PRN SL Sleep 05/29/19 12:15 06/05/19 12:14 05/31/19 02:55 Lorazepam (Ativan) 1 mg Q4H PRN SL Muscle Spasm 05/29/19 13:08 06/05/19 13:07 Ondansetron HCl (Zofran) 4 mg Q4H PRN IVP Nausea & Vomiting 05/07/19 14:00 06/06/19 13:59 05/29/19 09:34 Oxycodone/ Acetaminophen (Percocet 5-325) 1 tab Q4H PRN ORAL For Pain 05/27/19 08:30 06/03/19 08:29 Piperacillin Sod/ Tazobactam Sod 3.375 gm/Dextrose 110 ml @ 27.5 mls/hr Q8H IVPB 05/27/19 08:00 06/03/19 07:59 05/31/19 08:27 Simethicone (Mylicon) 80 mg Q6H PRN ORAL gas pain 05/14/19 17:00 06/13/19 16:59 05/29/19 09:34 Ray Monahan MD May 31, 2019 15:10
[2019-05-31 16:00] VITALS: BP 116/67
--- NOTE | 2019-05-31 19:38 | NUR ---
HAND-OFF: Report given to KAREL Mane pt is stable condition.
--- NOTE | 2019-05-31 19:45 | NUR ---
NURSE NOTES: Pt is in bed, awake and alert. No acute distress noted.Pt is self intubating BCIR with supervision . Pt will be assisted as needed. Zosyn IV is running. Pt denies any pain nausea or vomiting. Safety precautions in place. Bed locked low in position, side rails up and call light within reach. Pt will be monitored.
[2019-05-31 20:00] VITALS: BP 91/55
[2019-06-01] VITALS: BP 99/50
[2019-06-01 04:00] VITALS: BP 111/77
--- NOTE | 2019-06-01 06:45 | NUR ---
NURSE NOTES: Pt's total BCIR output during facilities project manager is 340ml; urine output 800ml. Pt's BCIR is somewhat slow to drain, thick greenish output. Vitamin C tablet given once as ordered PRN. Pt also took grape juice. Pt had no problem accessing the stoma.No nausea,vomiting or abdominal cramps during the the facilities project manager. Pt afebrile throughout the shift. Pt was able to ambulate on hallway.
[2019-06-01 06:52] LABS: ANION GAP 8 mmol/L (5-15); BASOPHILS % (AUTO) 1.3 % (0.0-2.0); BLOOD UREA NITROGEN 6 mg/dL (7-18); CALCIUM 8.7 MG/DL (8.5-10.1); CARBON DIOXIDE 28 MMOL/L (21-32); CHLORIDE 107 MMOL/L (98-107); CREATININE 1.2 MG/DL (0.55-1.30); EOSINOPHILS % (AUTO) 8.2 % (0.0-3.0); HEMATOCRIT 36.8 % (42.0-52.0); HEMOGLOBIN 11.7 G/DL (14.2-18.0); LYMPHOCYTES % (AUTO) 22.5 % (20.0-45.0); MEAN CORPUSCULAR VOLUME 85 FL (80-99); MONOCYTES % (AUTO) 5.2 % (1.0-10.0); NEUTROPHILS % (AUTO) 62.8 % (45.0-75.0); PLATELET COUNT 318 K/UL (150-450); POTASSIUM 3.7 MMOL/L (3.5-5.1); RED BLOOD COUNT 4.35 M/UL (4.70-6.10); RED CELL DISTRIBUTION WIDTH 14.7 % (11.6-14.8); SODIUM 143 MMOL/L (136-145)
--- NOTE | 2019-06-01 07:05 | NUR ---
HAND-OFF: Report given to KAREL Morgan.
[2019-06-01 08:00] VITALS: BP 88/57
--- NOTE | 2019-06-01 08:24 | NUR ---
NURSE NOTES: Pt laying in bed disheveled, and malodorous, room is dark at this time. Stitch Marker unable to determine pt mood. Will encourage self grooming. Current plan to include , monitoring of I and O and supervision of self intubation q 2 hours
--- NOTE | 2019-06-01 08:57 | General Progress Note ---
Progress Note Progress Note AVSS Doing well with eating and BCIR intubations Exam unchanged Urine 1760 BCIR ileo 740 Labs stable Imp: Doing well Plan: Complete course of IV antibiotics then discharge continue RN supervised BCIR intubations and I&O Gonzales Siddiqui MD Jun 01, 2019 08:57
[2019-06-01] MEDS: Piperacillin/Tazobactam 3.375 GM in D5W 110 ML IVPB SCH ×2 (09:35→16:00)
[2019-06-01] MEDS: Simethicone 80mg tab ORAL PRN (09:35)
[2019-06-01] MEDS: Ascorbic Acid 500mg tab ORAL PRN ×3 (09:35→17:25)
[2019-06-01] MEDS: LORazepam 1mg tab SL PRN (11:56)
[2019-06-01 12:00] VITALS: BP 104/54
--- NOTE | 2019-06-01 15:35 | NUR ---
CASE MANAGEMENT:REVIEW 05/30/2019 SI: POD #23 S/P ABDOMEN-PERINEAL PROCTECTOMY. [place] CONTINENT ILEOSTOMY GASTROSTOMY INTRA ABDOMINAL ABSCESS 98.1 89 18 102/64 97% ON RA H/H 10.8/33.8 CL-108 IS: IV ZOSYN Q8HR IV ZOFRAN Q4HR/PRN TYLENOL PO Q4HR : MED/SURG STATUS 3 EAST PLAN: CONT IV ABX RESUME RN SUPERVISED BCIR SELF-INTUBATION Q2HR CASE MANAGEMENT:REVIEW 05/31/2019 SI: POD #24 S/P ABDOMEN-PERINEAL PROCTECTOMY. [place] CONTINENT ILEOSTOMY GASTROSTOMY INTRA ABDOMINAL ABSCESS 98.3 70 18 90/52 100% ON RA IS: IV ZOSYN Q8HR IV ZOFRAN Q4HR/PRN TYLENOL PO Q4HR : MED/SURG STATUS 3 EAST PLAN: CONT IV ABX CONT RESUME RN SUPERVISED BCIR SELF-INTUBATION Q2HR CASE MANAGEMENT:REVIEW 06/01/2019 SI: POD #25 S/P ABDOMEN-PERINEAL PROCTECTOMY. [place] CONTINENT ILEOSTOMY GASTROSTOMY INTRA ABDOMINAL ABSCESS 98.4 80 16 104/54 98% ON RA BUN 6 H/H 11.7/36.8 IS: IV ZOSYN Q8HR IV ZOFRAN Q4HR/PRN TYLENOL PO Q4HR : MED/SURG STATUS 3 EAST PLAN: COMPLETE IV ABX THEN DC CONT RESUME RN SUPERVISED BCIR SELF-INTUBATION Q2HR
[2019-06-01 16:00] VITALS: BP 98/54
--- NOTE | 2019-06-01 19:56 | NUR ---
Required pt teaching through the day continues to ask multiple questions, inquired about Marijuana use and eating Marijuana edibles. Informed to ask Dr Siddiqui , due to the marijuana leaf being fibrous, in comparison to foods made with Cannibis oil. Pt also wanted to intubate into the toilet informed that output required to be measured , on discharge he could empty into the toilet. Very anxious, changing position , walking , standing up , bending over during intubation, while asking public relations writer to hold the collection device. Pt educated in importance of diet fluid intake . Drafter (Cad) Electronic asked what he consumed replied that he had crackers, informed that rice, crackers , breads, thicken the output. He required to be flushed with 60 cc of water on the last intubation despite 4 doses of Vit C. Stoma is red, and blood continues to be inside catheter as catheter is expelled. Serous Sanguinis discharge on 4x4 as well , requiring dressing at each intubation. Pt states he does not want to spend to much time intubating. Diet reinforced as well as educated on process of healing. " Can I go 5 hours when I get home?" Drafter (Cad) Electronic required to reinforce pt teaching. Pt does not follow directions well, nor does he seem to accept pt teaching. Child like bx at times , reluctant to independently hold collection container as well as reluctant to clean stool residual at stoma site after intubation. Facial frowning .
[2019-06-01 20:00] VITALS: BP 91/55
--- NOTE | 2019-06-01 20:08 | NUR ---
HAND-OFF: Report given to Josh VINSON.
--- NOTE | 2019-06-01 20:13 | NUR ---
NURSE NOTES: oral intake 1066 urine output 700 cc ileostomy output 375 flushed with 60cc , true output = 315 ambulated several times full nurses station took a shower, dry skin remains on necks and ears large flakes in hair states he did not bring dandruff shampoo
[2019-06-02] VITALS: BP 96/54
[2019-06-02] MEDS: Piperacillin/Tazobactam 3.375 GM in D5W 110 ML IVPB SCH ×2 (00:28→08:12)
[2019-06-02] MEDS: LORazepam 1mg tab SL PRN ×2 (02:05→21:56)
[2019-06-02 04:00] VITALS: BP 112/58
--- NOTE | 2019-06-02 07:30 | NUR ---
NURSE NOTES: Patient is in bed asleep. Patient encouraged to wake up and intubate since patient refused this am intubation at 06:00. Patient got up to intubate. Output is extremely thick. Flushed x3 with 20cc NS, 100cc thick brown output noted. Will administer vitamin C as ordered. Stoma is bright red, clean and covered with dry dressing. Will continue to monitor.
--- NOTE | 2019-06-02 07:55 | NUR ---
HAND-OFF: Report given to KAREL Doyle.
[2019-06-02 08:00] VITALS: BP 117/73
[2019-06-02] MEDS: Ascorbic Acid 500mg tab ORAL PRN ×4 (08:13→21:56)
--- NOTE | 2019-06-02 09:30 | NUR ---
NURSE NOTES: Patient's ileo dressing soiled with serosanguineous output. Patient intubated with RN supervision. Patient appears anxious about intubating. Patient's concerns addressed by RN, intubation teaching given to patient. Patient verbalized that he will try to stick to intubation schedule. Output is brown, thick, and sticky. Flushed ileo x1 with 20cc NS. Covered stoma with dry dressing. RN gave patient teaching about BCIR diet. Patient appears to need further teaching about BCIR diet. BCIR coordinator contacted for more written instructions to be given to patient.
--- NOTE | 2019-06-02 10:43 | NUR ---
PT WEEKLY PROGRESS NOTE Patient being seen in PT for transfer training, gait training and patient education in safety and postural awareness. Patient able to transfer and ambulate 300 ft with supervision. Patient will benefit from continued skilled inpatient PT intervention to address functional mobility and safety awareness.
--- NOTE | 2019-06-02 11:28 | NUR ---
NURSE NOTES: Patient intubated with RN. Output is thick and slow to drain. Patient complains of pressure and cramping in abdomen. Flushed x1 with 20cc NS. Thick, brown output continued to drain out as well as some gas. Patient stated he feels relief after intubating. Will administer vitamin C as ordered.
[2019-06-02 12:00] VITALS: BP 105/67
--- NOTE | 2019-06-02 13:35 | NUR ---
NURSE NOTES: Patient intubated with RN. 100cc thick brown output noted, flushed x2 with 20cc NS each time. Patient told RN that he has been in touch with [facility] pharmacy throughout the day about prescriptions that were faxed over this morning. Pharmacy will deliver meds ordered by Dr. Siddiqui by the end of the day.
--- NOTE | 2019-06-02 15:02 | General Progress Note ---
Progress Note Progress Note AVSS doing well with BCIR intubations Abdomen well healed Perineum well healed To stop IV Zosyn and start augmentin po Imp. doing well Plan; discharge f/u 06/08 Rx Augmentin 875 mg #14 1 po q12h supplies/instructions/limitations provided/discussed discharge in AM Gonzales Siddiqui MD Jun 02, 2019 15:02
--- NOTE | 2019-06-02 15:06 | Infectious Diseases Prog Note ---
Assessment/Plan Assessment/Plan ASSESSMENT AND PLAN: 1. intra-abdominal abscess and fevers - zosyn - day #8 - can change to oral augmentin x 1 week - f/u CT scan - abscess resolved - fevers resolved - monitor labs - clinically stable - d/w Dr. Siddiqui 2. History of ulcerative colitis. 3. Status post proctectomy and Argueta ileostomy. 4. History of conventional ileostomy. 5. History of colectomy. 6. No known allergies. 7. Social history is negative. 8. Family history is noncontributory. 9. MAR is noted. 10. Case was discussed with RN. 11. No other significant past medical history. 12. Case was discussed with Dr. Siddiqui. 13. Case was discussed with the patient. Subjective Constitutional: Denies: fever HEENT: Denies: congestion Respiratory: Denies: shortness of breath Cardiovascular: Denies: chest pain Gastrointestinal/Abdominal: Denies: nausea, vomiting, diarrhea Genitourinary: Denies: dysuria Neurologic: Denies: headache Psychiatric: Denies: depression Skin: Denies: rash Hematologic: Denies: bleeding Musculoskeletal: Denies: pain Allergies: Coded Allergies: No Known Allergies (Unverified , 12/29/18) Objective Vital Signs Last 24 Hour Vital Signs Date Time Temp Pulse Resp B/P (MAP) Pulse Ox O2 Delivery O2 Flow Rate FiO2 06/02/19 12:00 97.8 71 18 105/67 (80) 98 06/02/19 09:00 Room Air 06/02/19 08:00 98.5 88 18 117/73 (88) 100 06/02/19 04:00 97.7 67 18 112/58 (76) 99 06/02/19 00:00 97.5 63 18 96/54 (68) 100 06/01/19 21:00 Room Air 06/01/19 20:00 97.7 69 20 91/55 (67) 98 06/01/19 16:00 98.0 70 16 98/54 (69) Height (Feet): 5 Height (Inches): 7.00 Weight (Pounds): 200 General Appearance: no acute distress HEENT: normocephalic, atraumatic, anicteric, mucous membranes moist Respiratory/Chest: lungs clear, normal breath sounds, no respiratory distress, respiratory distress Cardiovascular: normal rate, regular rhythm, no gallop/murmur, no JVD Abdomen: normal bowel sounds, soft, non tender Genitourinary: other Extremities: no cyanosis Skin: no rash Neurologic/Psychiatric: metal furrer II-XII grossly normal, alert, oriented x 3, responsive Lymphatic: no neck adenopathy Musculoskeletal: no effusion Objective CT scan of abdomen and pelvis - 05/23/19 - IMPRESSION: 1. Fat stranding in the lower abdomen and pelvis. Abscess with surrounding phlegmon in the lower abdomen adjacent to small bowel loops, measuring approximately 2.2 x 2.4 x 3.5 cm. 2. Catheter noted in the lower abdomen. 3. Bladder wall thickening may be secondary to underdistention. Please correlate with urinalysis if concerned for cystitis. CT abdomen and pelvis - 05/29/19 Impression: Postsurgical changes as described above and previously Previously demonstrated small gas and fluid collection seen just cephalad to the pouch currently is filled with contrast indicating this is not an abscess. Most likely, this this is a blind-ending portion of small bowel associated with the pouch. Possibility that this represents a small contained leak is much less likely, but not completely excludable. Correlate with clinical findings No new fluid collections are demonstrated. Slight bladder wall thickening, most likely artifact of under distention but the possibility of cystitis should also be considered. This is unchanged Microbiology Date/Time Source Procedure Growth Status 05/24/19 10:30 Other(Specify in comment) Catheter Tip Culture - Final NO GROWTH AFTER 48 HOURS Complete 05/23/19 14:00 Urine,Clean Catch Urine Culture - Final Mixed Urogenital Contaminants Complete Labs Test 06/01/19 05:10 White Blood Count 6.0 K/UL (4.8-10.8) Red Blood Count 4.35 M/UL (4.70-6.10) Hemoglobin 11.7 G/DL (14.2-18.0) Hematocrit 36.8 % (42.0-52.0) Mean Corpuscular Volume 85 FL (80-99) Mean Corpuscular Hemoglobin 26.8 PG (27.0-31.0) Mean Corpuscular Hemoglobin Concent 31.7 G/DL (32.0-36.0) Red Cell Distribution Width 14.7 % (11.6-14.8) Platelet Count 318 K/UL (150-450) Mean Platelet Volume 7.0 FL (6.5-10.1) Neutrophils (%) (Auto) 62.8 % (45.0-75.0) Lymphocytes (%) (Auto) 22.5 % (20.0-45.0) Monocytes (%) (Auto) 5.2 % (1.0-10.0) Eosinophils (%) (Auto) 8.2 % (0.0-3.0) Basophils (%) (Auto) 1.3 % (0.0-2.0) Sodium Level 143 MMOL/L (136-145) Potassium Level 3.7 MMOL/L (3.5-5.1) Chloride Level 107 MMOL/L (98-107) Carbon Dioxide Level 28 MMOL/L (21-32) Anion Gap 8 mmol/L (5-15) Blood Urea Nitrogen 6 mg/dL (7-18) Creatinine 1.2 MG/DL (0.55-1.30) Estimat Glomerular Filtration Rate > 60 mL/min (>60) Glucose Level 86 MG/DL (74-106) Calcium Level 8.7 MG/DL (8.5-10.1) Current Medications Medications (Trade) Dose Ordered Sig/Mitchell Route PRN Reason Start Time Stop Time Status Last Admin Dose Admin Acetaminophen (Tylenol) 650 mg Q4H PRN ORAL Mild Pain/Temp > 100.2 05/24/19 09:30 06/23/19 09:29 05/25/19 16:20 Amoxicillin/ Clavulanate Potassium (Augmentin) 875 mg EVERY 12 HOURS ORAL 06/02/19 21:00 06/09/19 20:59 Ascorbic Acid (Vitamin C) 500 mg NEEDED PRN ORAL Constipation 05/25/19 11:45 06/24/19 11:44 06/02/19 11:39 Lorazepam (Ativan) 1 mg HSPRN PRN SL Sleep 05/29/19 12:15 06/05/19 12:14 05/31/19 23:38 Lorazepam (Ativan) 1 mg Q4H PRN SL Muscle Spasm 05/29/19 13:08 06/05/19 13:07 06/02/19 02:05 Ondansetron HCl (Zofran) 4 mg Q4H PRN IVP Nausea & Vomiting 05/07/19 14:00 06/06/19 13:59 05/29/19 09:34 Oxycodone/ Acetaminophen (Percocet 5-325) 1 tab Q4H PRN ORAL For Pain 05/27/19 08:30 06/03/19 08:29 Simethicone (Mylicon) 80 mg Q6H PRN ORAL gas pain 05/14/19 17:00 06/13/19 16:59 06/01/19 09:35 Ray Monahan MD Jun 02, 2019 15:06
[2019-06-02 16:00] VITALS: BP 92/52
--- NOTE | 2019-06-02 17:30 | NUR ---
NURSE NOTES: Pharmacy delivered augmentin to patient as ordered. medication is packed away and at bedside. Medication teaching given to patient by RN.
--- NOTE | 2019-06-02 19:00 | NUR ---
NURSE NOTES: True ileo: 290cc, thick brownish output. Last intubated at 17:45. UO: 975, miladys urine. Patient ambulated throughout shift. No c/o pain or discomfort. Stoma is bright red and kept dry.
--- NOTE | 2019-06-02 19:30 | NUR ---
HAND-OFF: Report given to Mariajose VINSON. Patient is stable.
--- NOTE | 2019-06-02 19:31 | NUR ---
NURSE NOTES: Received report & pt from KAREL Doyle. Pt lying in bed, a&ox4, in room air. No s/s of acute distress & no c/o pain. No IV access. Next supervised self intubation @ 1999 every 2 hours & pt aware. Bed in lowest position, call light within reach. Will continue to monitor.
[2019-06-02 20:00] VITALS: BP 90/64
--- NOTE | 2019-06-02 20:00 | NUR ---
NURSE NOTES: RN supervised self intubation done with 100ml output. Pt tolerated very well.
[2019-06-02] MEDS ORDERED: Augmentin 875mg Tab ORAL SCH (21:00)
--- NOTE | 2019-06-02 21:15 | NUR ---
NURSE NOTES: Spoke with MD regarding home meds. Per MD, Do not continue pre-admission meds upon D/C.
--- NOTE | 2019-06-02 22:00 | NUR ---
NURSE NOTES: RN supervised self intubation done with 50ml thick output flushed with 20ml NS. Vit C given to pt. Pt tolerated very well. No cramping & no bloating per pt. Pt wants next intubation to be done @ 0230.
--- NOTE | 2019-06-03 02:30 | NUR ---
NURSE NOTES: Encouraged pt so self-intubate however pt refused stating he does not want to right now. Pt would like to self-intubate @ 0400 before he leaves for home instead. No c/o abdominal cramping or bloating as this time.
[2019-06-03 04:00] VITALS: BP 90/57
--- NOTE | 2019-06-03 04:30 | NUR ---
NURSE NOTES: RN supervised self intubation done. Thick output noted 200ml total, flushed with 100ml NS. Vit C given.
[2019-06-03] MEDS: Ascorbic Acid 500mg tab ORAL PRN (04:52)
--- NOTE | 2019-06-03 05:25 | NUR ---
NURSE NOTES: D/C'd pt to home as ordered by . D/C instruction & paper carefully explained to pt, signed, & given. Pt belongings list rechecked & signed upon d/c. All questions answered. Pt in stable condition, a&ox4, in no distress. Refused to be wheeled by wheelchair. Accompanied pt downstairs to vehicle by staff.
--- NOTE | 2019-06-05 11:10 | Discharge Summary ---
Discharge Summary Hospital Course Date of Admission May 06, 2019 at 09:17 Date of Discharge Jun 03, 2019 at 05:25 Admitting Diagnosis Intractable ulcerative colitis Reason for Hospitalization: elective surgery HPI Vicente Zayas is a 29 year old male who was admitted on May 06, 2019 at 09:17 for intractable ulcerative colitis.y 28-year-old male in overall good health with intractable ulcerative colitis, who underwent laparoscopic-assisted abdominal colectomy with partial proctectomy and Giana ileostomy December 30, 2018. His colon was very inflamed and it was felt that he needed a two-stage operation. One week later on January 06, 2019, he required surgery for repair of an incarcerated right inguinal hernia into the scrotum, but no bowel was found in the hernia sac. He recovered from both of these operations. He was discharged on January 11, 2019 and has done well overall. In February, he had iron studies. His hemoglobin was 13.5, albumin 4.7. His serum iron was 39 and ferritin 29. He was taking liquid iron, which he has continued since then. He was scheduled to be admitted for abdominoperineal proctectomy and creation of a Argueta continent intestinal reservoir, type of continent ileostomy. Consultations Dr. Monahan Procedures s/p 05/07/[address] Siddiqui 1. Abdomino-perineal proctectomy. 2. Argueta continent intestinal reservoir. 3. Catheter gastrostomy. Hospital Course patient admitted full discussion with patient regarding surgery provided PICC line was inserted patient started on IV hydration bowel preparation started Venofer IV initiated patient started on preoperative IV antibiotic and heparin SQ patient subsequently on 05/07 undergone abdomino-perineal proctectomy and conversion of conventional ileostomy to a Argueta continent intestinal reservoir pain management was addressed with morphine CAD DRAFTER patient initially had a [place] drain intake and output along with the labs were closely monitored patient was kept n.p.o. and started on the TPN Anderson catheter was continued for 5-day due to prostatectomy the next day patient started to be mobilized out of bed as tolerated [place] drain with a scant amount of drainage ; perineum incision appeared clean and dry patient had mild abdominal distention pain was controlled magnesium and potassium were replaced patient was able to ambulate on 05/11 basal infusion of CAD DRAFTER was discontinued ; Toradol was added as needed NPO status continued along with TPN and Anderson catheter patient was working with physical therapist to increase mobility ileus persisted; n.p.o. status and TPN continued patient continued to have abdominal distention and no output from BCIR catheter despite manipulation with evacuation of gas and old bloody fluid subsequently indwelling pouch catheter was removed and 24 Pashto Anderson was inserted well into the pouch with evacuation of gas and some liquid , but no enteric fluid laboratory remained stable patient had a stat pouchogram with retrograde small bowels on , which was normal afterwards patient started to have good output from BCIR catheter drain was discontinued Anderson catheter was discontinued on 05/15 intake and output closely monitored, ileus was slowly resolving n.p.o. and TPN continued on 05/16 patient started on clear liquid diet as tolerated and gastrostomy 3 : 3 protocol. TPN continued CAD DRAFTER and IV fluids discontinued pain was managed with Percocet on as needed basis continuous drainage of Argueta pouch was maintained on 05/18 patient complained of abdominal pain; continues drainage of Argueta pouch was maintained TPN was continued along with IV fluids clear liquid restarted 05/19 with gastrostomy 3:3 protocol patient was able to tolerate clear liquid diet and was advanced to full liquid diet and gastrostomy 5 to 1 protocol. continuous drainage of Argueta pouch was maintained on 05/21 patient started on BCIR diet gastrostomy was plugged continuously TPN was discontinued after completion on 05/21 on 05/22 IVF were discontinued catheter was plugged patient developed emesis and abdominal pain patient went back to n.p.o. status , started on the IV fluids patient subsequently undergone CT scan of the abdomen and pelvis, which revealed abscess measuring 2.2 x 2.4 x 3.5 cm patient also developed fever, unclear due to intra-abdominal infection versus PICC line related patient pancultured and started on empiric antibiotics PICC line was discontinued peripheral line started gastrostomy continued to be plugged patient slowly started on clear liquid diet diet with continued drainage of Argueta pouch ID consult was requested due to persistent fever despite antibiotics continued drainage of Argueta pouch was maintained ID specialist seen and evaluated patient and changed antibiotic urine culture revealed mixed urogenital contaminants catheter tip of PICC line revealed no evidence of growth patient had no leukocytosis or fever on 05/28 patient started RN supervised BCIR self intubation every 2 hours a.m. to and as needed over the night patient had repeated CT scan on , which showed resolution of abscess; no new fluid collection RN supervised BCIR self intubations were resumed IV fluids discontinued BCIR diet continued patient completed IV antibiotic, changed to oral antibiotic as per ID specialist to complete the course at home prescription for Augmentin 875 mg #14 1 tab p.o. every 12 hours provided supplies/instruction/limitations provided/discussed patient was stable for discharge patient to follow-up in the office as outpatient as scheduled FINAL DIAGNOSES 1. Intractable ulcerative colitis. 2. Status post laparoscopic-assisted total colectomy with conventional Giana ileostomy on 12/30/2018. 3. status post 05/07/19 3.1. Abdomino-perineal proctectomy. 3.2. Argueta continent intestinal reservoir. 3.3.Catheter gastrostomy. 4. Persistent ileus 5. Intra-abdominal abscess with fevers - resolved Discharge Condition Upon Discharge: stable Discharge Disposition Patient was discharged home Discharge Instructions Discharge Instructions Special Instructions I have been assigned to complete a D/C Summary on this account. I was not involved in the patient management Lesley Alicea NP Jun 05, 2019 11:10
== END 2019-06-03 05:25 | disposition home or self-care (01) | DRG 329 ==
LOC: 3E 09:17
PROC: 0D9630Z Drainage of Stomach with Drainage Device, Percutaneous Approach (ICD-10-PCS; principal; 2019-05-07 07:30)
PROC: 0D1B0Z4 Bypass Ileum to Cutaneous, Open Approach (ICD-10-PCS; principal; 2019-05-07 07:30)
PROC: 0DBP7ZZ Excision of Rectum, Via Natural or Artificial Opening (ICD-10-PCS; principal; 2019-05-07 07:30)
PROC: 0DBB0ZZ Excision of Ileum, Open Approach (ICD-10-PCS; principal; 2019-05-07 07:30)
PROC: 02HV33Z Insertion of Infusion Device into Superior Vena Cava, Percutaneous Approach (ICD-10-PCS; 2019-05-07 07:30)
PROC: B518ZZA Fluoroscopy of Superior Vena Cava, Guidance (ICD-10-PCS; 2019-05-07 07:30)
DX: K51.80 Other ulcerative colitis without complications (principal); K65.1 Peritoneal abscess; T81.40XA Infection following a procedure, unspecified, initial encounter; K56.7 Ileus, unspecified
CPT/HCPCS: 36415; 36569; 71045; 74018; 74177; 74270; 76000; 76937; 80048; 80053; 80202; 81001; 81003; 82607; 82728; 82746; 82962; 83540; 83550; 83735; 84080; 84100; 85007; 85025; 85610; 85730; 86850; 86900; 86901; 86920; 87070; 87086; 93005; 94003; 94150; A4246; J1815; J2250; J2405; J2765; J7030

== ENCOUNTER 2020-07-07 16:20 | Inpatient (IN) | payer BC ==
[~2020-07-07] VITALS: Ht 167.6 cm; Wt 83.5 kg
[~2020-07-07 16:20] MED LIST changes: -Heparin1,000 units/500ml Premix(Conc:2 units/ml) ONE; -Lidocaine 1% Plain 30 ml INJ ONE
--- NOTE | 2020-07-07 16:48 | Emergency Room Report ---
History of Present Illness General Chief Complaint: General Complaint Source: Patient Present Illness HPI Disclaimer: Please note that this report is being documented using DRAGON technology. This can lead to erroneous entry secondary to incorrect interpretation by the dictating instrument. HPI: 30-year-old male history of ulcerative colitis status post total colectomy and now be BCIR pouch presents for ileostomy revision. Patient has been unable to intubate his ostomy. Denies fever chills. Denies significant abdominal pain. Denies nausea or vomiting or diarrhea. Denies chest pain or shortness of breath. No other symptoms. Here to see his surgeon, Dr. Siddiqui, who will evaluate and revise the pouch as needed. No other complaints at this time. PMH: Ulcerative colitis PSH: Total colectomy, Chandler continent ileostomy Allergies: Reviewed Social Hx: Reviewed Allergies: Coded Allergies: No Known Allergies (Unverified , 12/29/18) COVID-19 Screening Contact w/high risk pt: No Experienced COVID-19 symptoms?: No COVID-19 Testing performed WELDER SETTER RESISTANCE MACHINE: No Nursing Documentation-PMH Past Medical History: No History, Except For Hx Cardiac Problems: No Hx Cancer: No Hx Gastrointestinal Problems: Yes - abdominal pouch Hx Neurological Problems: No Review of Systems All Other Systems: negative except mentioned in HPI Physical Exam Vital Signs Date Time Temp Pulse Resp B/P (MAP) Pulse Ox O2 Delivery O2 Flow Rate FiO2 07/07/20 16:32 98.1 76 16 112/68 (83) 99 Room Air General: Awake and alert, no acute distress HEENT: NC/AT. EOMI. Cardiovascular: RRR. S1 and S2 normal. No murmur appreciated Resp: Normal work of breathing. No cough, wheezing or crackles appreciated Abdomen: Abdomen is soft, nondistended. Nontender. Ostomy site clean, no signs of surrounding infection or edema. MSK: Normal tone and bulk. Moving all extremities. No obvious deformity. Neuro: Awake and alert. Mentating appropriately. Medical Decision Making Diagnostic Impression: Primary Impression: ULCERATIVE COLITIS, MALFUNCTIONING ILEOSTOMY ER Course 30-year-old male presents for evaluation of BCIR pouch. Will obtain preop labs and admit to his surgeon, Dr. Siddiqui. Patient is in stable condition without complaints and has a soft abdomen. Do not believe he requires emergent imaging at this time. Laboratory Tests Test 07/07/20 16:12 White Blood Count 7.2 K/UL (4.8-10.8) Red Blood Count 5.40 M/UL (4.70-6.10) Hemoglobin 14.2 G/DL (14.2-18.0) Hematocrit 44.8 % (42.0-52.0) Mean Corpuscular Volume 83 FL (80-99) Mean Corpuscular Hemoglobin 26.3 PG (27.0-31.0) L Mean Corpuscular Hemoglobin Concent 31.8 G/DL (32.0-36.0) L Red Cell Distribution Width 15.4 % (11.6-14.8) H Platelet Count 179 K/UL (150-450) Mean Platelet Volume 10.0 FL (6.5-10.1) Neutrophils (%) (Auto) 66.9 % (45.0-75.0) Lymphocytes (%) (Auto) 23.7 % (20.0-45.0) Monocytes (%) (Auto) 7.3 % (1.0-10.0) Eosinophils (%) (Auto) 0.9 % (0.0-3.0) Basophils (%) (Auto) 1.2 % (0.0-2.0) Prothrombin Time 12.0 SEC (9.30-11.50) H Prothrombin Time INR 1.1 (0.9-1.1) Activated Partial Thromboplast Time 30 SEC (23-33) Sodium Level 144 MMOL/L (136-145) Potassium Level 3.7 MMOL/L (3.5-5.1) Chloride Level 106 MMOL/L (98-107) Carbon Dioxide Level 29 MMOL/L (21-32) Anion Gap 10 mmol/L (5-15) Blood Urea Nitrogen 18 mg/dL (7-18) Creatinine 1.2 MG/DL (0.55-1.30) Estimated Glomerular Filtration Rate > 60 mL/min (>60) Glucose Level 124 MG/DL (74-106) H Calcium Level 9.5 MG/DL (8.5-10.1) Total Bilirubin 0.7 MG/DL (0.2-1.0) Aspartate Amino Transferase (AST) 24 U/L (15-37) Alanine Aminotransferase (ALT) 22 U/L (12-78) Alkaline Phosphatase 120 U/L (46-116) H Total Protein 7.9 G/DL (6.4-8.2) Albumin 4.0 G/DL (3.4-5.0) Globulin 3.9 g/dL Albumin/Globulin Ratio 1.0 (1.0-2.7) Microbiology Date/Time Source Procedure Growth Status 07/07/20 16:12 Nasopharynx SARS-CoV-2 Antigen (Rapid)([facility]) - Final Complete Last Vital Signs Date Time Temp Pulse Resp B/P (MAP) Pulse Ox O2 Delivery O2 Flow Rate FiO2 07/07/20 16:32 98.1 76 16 112/68 (83) 99 Room Air Disposition: ADMITTED INPATIENT Condition: Stable Gilberto Amador MD Jul 07, 2020 16:48
--- NOTE | 2020-07-07 16:56 | NUR ---
30-year-old male history of ulcerative colitis status post total colectomy and now a BCIR pouch presents for ileostomy revision. Patient has been unable to intubate his ostomy. Here to see his surgeon, Dr. Siddiqui, who will evaluate and revise the pouch as needed. No other complaints at this time.
[2020-07-07 17:20] LABS: BASOPHILS % (AUTO) 1.2 % (0.0-2.0); EOSINOPHILS % (AUTO) 0.9 % (0.0-3.0); HEMATOCRIT 44.8 % (42.0-52.0); HEMOGLOBIN 14.2 G/DL (14.2-18.0); LYMPHOCYTES % (AUTO) 23.7 % (20.0-45.0); MEAN CORPUSCULAR VOLUME 83 FL (80-99); MONOCYTES % (AUTO) 7.3 % (1.0-10.0); NEUTROPHILS % (AUTO) 66.9 % (45.0-75.0); PLATELET COUNT 179 K/UL (150-450); RED CELL DISTRIBUTION WIDTH 15.4 % (11.6-14.8); WHITE BLOOD COUNT 7.2 K/UL (4.8-10.8)
[2020-07-07 17:33] LABS: INR 1.1 (0.9-1.1)
--- NOTE | 2020-07-07 17:38 | NUR ---
Transfer report given to KAREL Schmidtelastic assembler Nurse
[2020-07-07 17:46] LABS: ANION GAP 10 mmol/L (5-15); BLOOD UREA NITROGEN 18 mg/dL (7-18); CALCIUM 9.5 MG/DL (8.5-10.1); CARBON DIOXIDE 29 MMOL/L (21-32); CHLORIDE 106 MMOL/L (98-107); CREATININE 1.2 MG/DL (0.55-1.30); POTASSIUM 3.7 MMOL/L (3.5-5.1); SODIUM 144 MMOL/L (136-145)
[2020-07-07 17:51] LABS: ALANINE AMINOTRANSFERASE 22 U/L (12-78); ALKALINE PHOSPHATASE 120 U/L (46-116); ASPARTATE AMINO TRANSFERASE 24 U/L (15-37); BILIRUBIN,TOTAL 0.7 MG/DL (0.2-1.0)
--- NOTE | 2020-07-07 18:17 | NUR ---
Patient enroute to [facility] with tech.
--- NOTE | 2020-07-07 19:30 | NUR ---
NURSE NOTES: Received report from KAREL Carpenter. Pt is A&Ox4 in bed. Call light within reach, side rails up x2, bed locked and in lowest position. Pt is ambulatory with a steady gait. NPO after midnight for a pouch endoscopy. will continue to monitor.
[2020-07-07] MEDS ORDERED: Zolpidem 5mg tab ORAL PRN (19:45)
--- NOTE | 2020-07-07 21:00 | NUR ---
NURSE NOTES: Not able to insert 28 Fr Anderson catheter. Able to insert 30 Fr Jing catheter. Thick output noted and flushed 300 ml NS. Jing catheter patent and draining well. Will continue to monitor.
[2020-07-07] MEDS: D5 1/2NS w/KCl 20mEq 1,000 ML IV SCH (21:54)
[2020-07-08] VITALS (9 sets, daily range): BP systolic 93–133; BP diastolic 56–77
[2020-07-08 07:04] LABS: BASOPHILS % (AUTO) 1.2 % (0.0-2.0); EOSINOPHILS % (AUTO) 1.4 % (0.0-3.0); HEMATOCRIT 46.8 % (42.0-52.0); HEMOGLOBIN 14.5 G/DL (14.2-18.0); LYMPHOCYTES % (AUTO) 27.2 % (20.0-45.0); MEAN CORPUSCULAR VOLUME 84 FL (80-99); MONOCYTES % (AUTO) 9.4 % (1.0-10.0); NEUTROPHILS % (AUTO) 60.7 % (45.0-75.0); PLATELET COUNT 175 K/UL (150-450); RED BLOOD COUNT 5.58 M/UL (4.70-6.10); RED CELL DISTRIBUTION WIDTH 14.3 % (11.6-14.8); WHITE BLOOD COUNT 5.1 K/UL (4.8-10.8)
--- NOTE | 2020-07-08 07:15 | NUR ---
NURSE NOTES: Handoff received from Avi VINSON. Patient is awake and alert, no signs of acute distress noted, breathing is even and unlabored on room air. Dressings are clean and dry, ileo catheter is patent and draining to gravity. Left forearm IV is intact and running IVF as ordered. [facility] scheduled for today. Bed is low and locked, side rails up x2, call light is within reach.
[2020-07-08 07:20] LABS: INR 1.1 (0.9-1.1)
--- NOTE | 2020-07-08 07:20 | NUR ---
NURSE HAND-OFF: Important Events on Shift: 30 fr marlin catheter inserted, flowing well Patient Status: calm Diet: npo Pending Orders: Pending Results/Labs: Pending MD notification: Latest Vital Signs: Temperature 97.9 , Pulse 61 , B/P 93 /61 , Respiratory Rate 18 , O2 SAT 98 , Room Air, O2 Flow Rate . Vital Sign Comment: VSS Latest Junior Fall Score: 20 Fall Risk: Low Risk Safety Measures: Call light Within Reach, Bed Alarm , Side Rails Side Rails x2, Bed position Low and Locked. Fall Precautions: Patient Fall Education Report given to KAREL Irene.
--- NOTE | 2020-07-08 07:30 | NUR ---
CASE MANAGEMENT:REVIEW 30 YR OLD MALE PRESENTED TO OUR ER PMH: ULCERATIVE COLITIS S/P TOTAL COLECTOMY. WEBBER CONTINENT ILEOSTOMY CC: UNABLE TO INTUBATE HIS OSTOMY SI: MALFUNCTIONING ILEOSTOMY 98.1 76 16 112/68 99% ON RA GLUCOSE+124 IS: IVF@75 : TO MED/SURG PLAN: NPO GI LAB FOR BARRNETT POUCH ENDOSCOPY
[2020-07-08 07:47] LABS: ALANINE AMINOTRANSFERASE 23 U/L (12-78); ALBUMIN 3.7 G/DL (3.4-5.0); ALKALINE PHOSPHATASE 106 U/L (46-116); ANION GAP 9 mmol/L (5-15); ASPARTATE AMINO TRANSFERASE 25 U/L (15-37); BLOOD UREA NITROGEN 14 mg/dL (7-18); CALCIUM 9.3 MG/DL (8.5-10.1); CARBON DIOXIDE 29 MMOL/L (21-32); CHLORIDE 105 MMOL/L (98-107); CREATININE 1.1 MG/DL (0.55-1.30); FERRITIN 27 NG/ML (8-388); POTASSIUM 4.3 MMOL/L (3.5-5.1); SODIUM 143 MMOL/L (136-145)
[2020-07-08 08:05] LABS: APPEARANCE,URINE SLIGHTLY CLOUDY; BILIRUBIN, URINE NEGATIVE (NEGATIVE); COLOR,URINE PALE YELLOW; GLUCOSE, URINE (UA) NEGATIVE (NEGATIVE); KETONES,URINE NEGATIVE (NEGATIVE); LEUKOCYTE ESTERASE ,URINE NEGATIVE (NEGATIVE); NITRITE,URINE NEGATIVE (NEGATIVE); PH,URINE 5 (4.5-8.0); PROTEIN,URINE 1+ (NEGATIVE); UROBILINOGEN,URINE NORMAL MG/DL (0.0-1.0)
[2020-07-08 08:11] LABS: IRON 60 ug/dL (50-175)
--- NOTE | 2020-07-08 09:02 | General Progress Note ---
Progress Note Progress Note H&P dictated Admitted from Emergency Room last night with severe difficulty to intubate his Argueta type of Kock Pouch Continent Ileostomy to evacuate stool and gas. He has history of proctocolectomy with Argueta Pouch for Ulcerative Colitis. Recent months of increasing difficulty required visit to Emergency Room in [place] 2 days ago and finally able to insert a catheter and relieve functional bowel obstruction. He has had no incontinence Abdomen soft, keloid midline scar in epigastric portion. Stoma RLQ with indwelling 30 Fr Jing catheter inserted by RNs and patient Labs - mild dehydration History recent of severe iron deficiency with mild anemia Imp: Malfunctioning Argueta Continent Ileostomy with inability to intubate Plan; NPO, IV fluids Argueta Pouch Endoscopy today Will likely need surgery either revision of stoma in depth or laparotomy to correct the difficulty with intubation Dual lumen PICC to be inserted today for stable venous access Gonzales Siddiqui MD Jul 08, 2020 09:02
--- NOTE | 2020-07-08 09:03 | Pre-Procedure Note/Attestation ---
Pre-Procedure Note/Attestation Complete Prior to Procedure Planned Procedure: not applicable Procedure Narrative: Argueta Continent Ileostomy pouch endoscopy Indications for Procedure Pre-Operative Diagnosis: Malfunctioning Argueta Pouch continent ileostomy with inability to intubate Attestation I attest that I discussed the nature of the procedure; its benefits; risks and complications; and alternatives (and the risks and benefits of such alternatives), prior to the procedure, with the patient (or the patient's legal brewery representative). I attest that, if there was a reasonable possibility of needing a blood transfusion, the patient (or the patient's legal brewery representative) was given the [facility] standardized written summary, pursuant to the [place] Blood Safety Act ([place] Health and Safety Code # 1645, as amended). non I attest that I re-evaluated the patient just prior to the surgery and that there has been no change in the patient's H&P, except as documented below: none Gonzales Siddiqui MD Jul 08, 2020 09:03
[2020-07-08] MEDS: D5 1/2NS w/KCl 20mEq 1,000 ML IV SCH ×3 (09:38→21:27)
--- NOTE | 2020-07-08 09:59 | History and Physical Report ---
DATE OF ADMISSION: 07/07/2020 EMERGENCY ADMISSION HISTORY AND PHYSICAL HISTORY OF PRESENT ILLNESS: The patient was admitted in the evening of July 07, 2020 after presenting to the emergency room with a malfunctioning Argueta type of Kock pouch continent ileostomy with severe inability to intubate to evacuate stool. The patient has a past history of ulcerative colitis and in December 2018, underwent laparoscopic-assisted total colectomy with conventional ileostomy and in April 2019 underwent abdomino-perineal proctectomy and conversion of his conventional ileostomy to a Argueta continent ileostomy pouch. The patient did very well after that surgery, was self intubating three to four times a day, but in February of 2020 he developed some difficulty inserting his catheter about 2 to 3 inches into the stoma despite different lubricants and maneuvers and trying different catheters. This worsened and two days ago in his hometown in [place] he was completely unable to intubate for a prolonged period of hours and went to the emergency room. He was finally able to insert a catheter and was advised to come urgently here because there was no surgeon who performs the Argueta continent ileostomy where he lives. Upon arrival and admission in the evening of July 07, together with the ostomy nurse, he was able to insert a 30-Vietnamese Jing catheter, which was connected to continuous gravity drainage and taped securely to the skin to maintain an indwelling catheter. PAST MEDICAL HISTORY/MEDICATIONS: None. ALLERGIES: None. OPERATIONS: See list at the end of this dictation. REVIEW OF SYSTEMS: He has recently had laboratory studies showing a very low iron and ferritin levels without being anemic and he was advised to start on oral iron replacement. The patient underwent a pouch endoscopy in [place] on May 27, 2020, which was reported showing a tortuous tract leading into the pouch with 10 cm from the stoma opening to the tip of the valve as well as what was described as severe active enteritis, however, the patient has no symptoms of pouchitis. PHYSICAL EXAMINATION: GENERAL: The patient is well developed and well nourished, in no acute distress now that his GI tract has been decompressed. VITAL SIGNS: He has stable and normal vital signs. He is 5 feet 7 inches, 180 pounds. HEENT: Within normal limits. LUNGS: Clear. HEART: Regular rhythm. BREASTS: Without masses. ABDOMEN: Soft, flat and nontender. There is a midline scar from midepigastrium to pubis with a marked keloid formation in the superior portion of the incisional scar. The stoma of the Argueta pouch is low in the right lower quadrant with indwelling catheter in place. There is no evidence of abdominal wall hernia. GENITALIA: Within normal limits. RECTAL: Status post proctectomy. EXTREMITIES: Without edema. NEUROLOGIC: Physiologic. IMPRESSION: 1. Malfunctioning Argueta continent ileostomy with severe difficulty with intubation. 2. History of ulcerative colitis. 3. STATUS POST MULTIPLE ABDOMINAL OPERATIONS: 3.1. Laparoscopic-assisted total colectomy with conventional Giana ileostomy, December 30, 2018. 3.2. Repair of incarcerated right inguinal hernia, January 06, 2019. 3.3. Laparotomy with abdomino-perineal proctectomy and creation of Argueta continent ileostomy with temporary catheter gastrostomy, May 07, 2019. ADDITIONAL INFORMATION: Laboratory studies revealed elevated BUN of 18 and creatinine 1.2. Hemoglobin 14.5, ferritin 27, iron 60. Vitamin B12 and folic acid levels within normal limits. Albumin 3.7. PLAN: The patient will be given intravenous hydration. He will be started with Venofer infusions 200 mg nightly x5 doses while he is hospitalized. He will undergo urgent Argueta pouch endoscopy and then will require surgical revision. It is to be determined by the endoscopy whether a revision of the stoma in-depth will relieve the problem or whether he will require laparotomy as well as revision of the stoma. Gonzales Siddiqui M.D. DR: ALEXANDRO JOB#: [id number] CC:
[2020-07-08] MEDS ORDERED: Lidocaine 1% Plain 30 ml INJ SCH (10:00)
[2020-07-08] MEDS ORDERED: Heparin1,000 units/500ml Premix(Conc:2 units/ml) IV SCH (10:00)
[2020-07-08] MEDS ORDERED: Lidocaine 1% MPF 10mg/ml 5ml ONE (11:00)
[2020-07-08] MEDS ORDERED: LR 1000ml ONE (11:00)
[2020-07-08] MEDS ORDERED: NS 500ML IVPB ONE (11:05)
--- NOTE | 2020-07-08 11:05 | NUR ---
NURSE NOTES: PAtient left for pouch endoscopy in stable condition.
--- NOTE | 2020-07-08 11:37 | Brief Operative Note ---
Immediate Post Operative Note Operative Note Pre-op Diagnosis: Malfunctioning Argueta Pouch continent ileostomy with inability to intubate Procedure: Argueta continent ileostomy pouch endoscopy Post-op Diagnosis: same Post-op Diagnosis: same as pre-op Findings: consistent w/pre-op dx studies Surgeon: ken Anesthesiologist: marisa Anesthesia: MAC Specimen: none Complications: none Condition: stable Fluids: see anesthesia record Estimated Blood Loss: none Drains: other - 30 Fr Jing to Argueta pouch Implant(s) used?: No Gonzales Siddiqui MD Jul 08, 2020 11:37
--- NOTE | 2020-07-08 12:25 | NUR ---
NURSE NOTES: Patient returned from endoscopy in stable condition.
[2020-07-08] MEDS ORDERED: VITAMIN C500 M1 ORAL (12:30)
--- NOTE | 2020-07-08 12:57 | NUR ---
NURSE NOTES: Patient left for PICC placement in stable condition.
--- NOTE | 2020-07-08 13:32 | Pre-Procedure Note/Attestation ---
Pre-Procedure Note/Attestation Complete Prior to Procedure Planned Procedure: not applicable Procedure Narrative: PICC Indications for Procedure Pre-Operative Diagnosis: needs terminal makeup operator IV access Attestation I attest that I discussed the nature of the procedure; its benefits; risks and complications; and alternatives (and the risks and benefits of such alternatives), prior to the procedure, with the patient (or the patient's legal account representative). I attest that, if there was a reasonable possibility of needing a blood transfusion, the patient (or the patient's legal account representative) was given the [facility] standardized written summary, pursuant to the [place] Blood Safety Act ([place] Health and Safety Code # 1645, as amended). I attest that I re-evaluated the patient just prior to the surgery and that there has been no change in the patient's H&P, except as documented below: Daniele Boswell MD Jul 08, 2020 13:32
--- NOTE | 2020-07-08 13:33 | Brief Operative Note ---
Immediate Post Operative Note Operative Note Pre-op Diagnosis: needs oysterman IV access Procedure: PICC Post-op Diagnosis: same as pre-op Findings: consistent w/pre-op dx studies Surgeon: Patience Davis Anesthesia: local Specimen: none Complications: none Fluids: none Implant(s) used?: No Daniele Davis MD Jul 08, 2020 13:33
--- NOTE | 2020-07-08 13:59 | Procedure Note ---
DATE OF PROCEDURE: 07/08/2020 ENDOSCOPY PROCEDURE ENDOSCOPIST: Gonzales Siddiqui MD. ANESTHESIA: MAC anesthesia. ANESTHESIOLOGIST: Alcon Boswell MD. PRE-ENDOSCOPIC DIAGNOSES: 1. Malfunctioning Argueta pouch continent ileostomy with severe difficulty with intubation. 2. History of ulcerative colitis. 3. Status post proctocolectomy with Argueta continent ileostomy. POST-ENDOSCOPY DIAGNOSES: 1. Malfunctioning Argueta pouch continent ileostomy with severe difficulty with intubation. 2. History of ulcerative colitis. 3. Status post proctocolectomy with Argueta continent ileostomy. ENDOSCOPY PERFORMED: Argueta pouch continent ileostomy pouch endoscopy. FINDINGS: A marked angulation at 7 to 8 cm deep from the stoma. The pouch and nipple valve were well formed without any evidence of inflammation or ulcerations. DESCRIPTION OF PROCEDURE: The patient was positioned supine in the GI lab and was sedation given by anesthesia. I then removed the indwelling 30-Puerto Rican Jing catheter that had been inserted on admission by the nursing staff and connected to continuous drainage. Using a GIF-P140 endoscope, the stoma was entered and at approximately 7 cm in depth, there was a marked 90-degree angulation. Once that was negotiated, the remainder of the tract was straight through the valve segment and into the pouch. The pouch was distensible and mucosa appeared normal without any evidence of pouchitis or any ulcerations. Retroflexed views revealed a circumferentially well-formed nipple valve. Withdrawal views confirmed the above findings. After removing the endoscope, I was not able to insert a 28-Puerto Rican Anderson catheter into his pouch or 26-Puerto Rican or a 24-Puerto Rican Anderson meeting resistance at approximately 7 cm deep. However, I was able to reinsert the 30-Puerto Rican Jing catheter into the pouch, secured it with a tape and connected it back to continuous gravity drainage bag. The patient will require laparotomy and revision of a redundant and angulated access segment. The patient tolerated the endoscopy well. Vinod Bailey/ALEXIS JOB#: [id number] CC:
--- NOTE | 2020-07-08 14:10 | NUR ---
NURSE NOTES: Patient returned from PICC placement in stable condition.
--- NOTE | 2020-07-08 14:30 | Diagnostic Imaging Report ---
Indications: Needs long-term IV access Technique: Ultrasound confirms patent compressible left basilic vein. Total sterile technique, including sterile probe cover and sterile gel, hat, mask, sterile gown, large sterile drape, and preparation with 2% chlorhexidine utilized. Local anesthesia with 1% lidocaine. Under real-time ultrasound guidance, puncture basilic vein using 21-gauge needle, documented and archived, passage 0.018 guidewire under direct fluoroscopy, which was used to determine appropriate catheter length, exchange for 4 Georgian peel-away sheath. 4 Georgian Bard dual-lumen power PICC cut to 42 cm. It was inserted through the peel-away sheath. Peel-away sheath and guidewire removed. Catheter fixed to the skin. Both catheter ports aspirated and flushed. Patient tolerated procedure well, without immediate complication. Digital radiograph documents satisfactory catheter tip position, at the cavoatrial junction. Total fluoroscopy time 20.1 seconds. Total dose area product 0.02645 mGym2 Total number of images: 1 Impression: Successful placement of left arm PICC under sonographic and fluoroscopic guidance, as described above.
--- NOTE | 2020-07-08 14:55 | NUR ---
RADIOLOGY NOTE: LEFT UPPER EXTREMITY PICC LINE PLACEMENT BY DR. LARISSA MILLS AT 1300 HRS. FA
--- NOTE | 2020-07-08 17:33 | NUR ---
INSURANCE CLINICAL/REVIEW FAXED TO [facility] - , opt 1, opt 4, opt 6 ([place] Julio C) Fax clinicals to: [phone]
--- NOTE | 2020-07-08 18:00 | NUR ---
NURSE NOTES: True Ileo output: 135 urine out: 1300 Patient underwent pouch endoscopy and PICC line placement today with no difficulty. Nearer to the end of shift, patient's marlin catheter became dislodged. PAtient was able to replace it and RN secured with silk tape, 4x4, and paper tape. Patient is ambulatory and walked around his room, however he states he will walk the hallways tomorrow AM.
--- NOTE | 2020-07-08 18:54 | NUR ---
NURSE HAND-OFF: Important Events on Shift:[PICC line, pouch endoscopy] Patient Status: stable Diet: regular Pending Orders: Pending Results/Labs: Pending MD notification: Latest Vital Signs: Temperature 98.3 , Pulse 70 , B/P 122 /77 , Respiratory Rate 18 , O2 SAT 99 , Room Air, O2 Flow Rate 6 . Vital Sign Comment: stable Latest Junior Fall Score: 20 Fall Risk: Low Risk Safety Measures: Call light Within Reach, Bed Alarm , Side Rails Side Rails x2, Bed position Low and Locked. Fall Precautions: Patient Fall Education Report given to .
[2020-07-08] MEDS: Venofer 200mg in NS 110ml IVPB SCH (21:22)
[2020-07-09] VITALS: BP 102/60
[2020-07-09 04:00] VITALS: BP 108/70
[2020-07-09] MEDS: D5 1/2NS w/KCl 20mEq 1,000 ML IV SCH (05:20)
[2020-07-09 05:59] LABS: BASOPHILS % (AUTO) 1.3 % (0.0-2.0); EOSINOPHILS % (AUTO) 1.3 % (0.0-3.0); HEMATOCRIT 45.4 % (42.0-52.0); LYMPHOCYTES % (AUTO) 25.3 % (20.0-45.0); MEAN CORPUSCULAR VOLUME 83 FL (80-99); MONOCYTES % (AUTO) 8.2 % (1.0-10.0); NEUTROPHILS % (AUTO) 63.9 % (45.0-75.0); PLATELET COUNT 169 K/UL (150-450); RED BLOOD COUNT 5.47 M/UL (4.70-6.10); RED CELL DISTRIBUTION WIDTH 14.2 % (11.6-14.8); WHITE BLOOD COUNT 5.7 K/UL (4.8-10.8)
[2020-07-09 06:16] LABS: INR 1.1 (0.9-1.1)
[2020-07-09 06:26] LABS: ALANINE AMINOTRANSFERASE 19 U/L (12-78); ALBUMIN 3.4 G/DL (3.4-5.0); ALBUMIN/GLOBULIN RATIO 0.9 (1.0-2.7); ALKALINE PHOSPHATASE 102 U/L (46-116); ANION GAP 8 mmol/L (5-15); ASPARTATE AMINO TRANSFERASE 21 U/L (15-37); BILIRUBIN,TOTAL 0.7 MG/DL (0.2-1.0); BLOOD UREA NITROGEN 13 mg/dL (7-18); CALCIUM 8.7 MG/DL (8.5-10.1); CARBON DIOXIDE 28 MMOL/L (21-32); CHLORIDE 106 MMOL/L (98-107); PHOSPHORUS 3.5 MG/DL (2.5-4.9); SODIUM 142 MMOL/L (136-145)
--- NOTE | 2020-07-09 06:43 | NUR ---
NURSE HAND-OFF: Important Events on Shift: no significant changes noted this shift; no c/o pain, SOBs, or any distress. True UOP 1200; True ileo output = 310 Patient Status: stable Diet: see orders Pending Orders: see orders Pending Results/Labs: see orders Pending MD notification: see chart Latest Vital Signs: Temperature 97.4 , Pulse 57 , B/P 108 /70 , Respiratory Rate 22 , O2 SAT 98 , Room Air, O2 Flow Rate 6 . Vital Sign Comment: see above. T Latest Junior Fall Score: 20 Fall Risk: Low Risk Safety Measures: Call light Within Reach, Bed Alarm , Side Rails Side Rails x2, Bed position Low and Locked. Fall Precautions: Patient Fall Education Report will be given to KAREL Keith
--- NOTE | 2020-07-09 07:58 | NUR ---
NURSE NOTES: Received pt from KAREL Houston. pt was resting comfortably, no acute distress, call light w/in reach.
[2020-07-09 08:00] VITALS: BP 101/68
--- NOTE | 2020-07-09 09:39 | General Progress Note ---
Progress Note Progress Note AVSS Indwelling Jing catheter into Argueta Pouch came out - patient able to reinsert but only by bending the tip of the catheter 90 degrees to maneuver around the angulation Abdomen soft Urine 2500 BCIR ileo 310cc PT still elevated (12) BUN down 13 Cr down 1.0 Albumin 3.4 Receiving Venofer 200mg IV x 5 days for iron 60 and ferritin 27 Imp: Malfunctioning Argueta pouch Plan: Maintain indwelling Pouch catheter to continuous drainage Vitamin K IV bowel prep tomorrow surgery laparotomy revision Argueta pouch 07/11 Gonzales Siddiqui MD Jul 09, 2020 09:39
[2020-07-09] MEDS ORDERED: Phytonadione 10 MG in D5W 55 ML IVPB ONE (10:00)
--- NOTE | 2020-07-09 11:38 | NUR ---
CASE MANAGEMENT:REVIEW 07/09/20 SI: ULCERATIVE COLITIS. POUCH MALFUNCTION S/P POUCH ENDOSCOPY 97.8 62 18 101/68 99% ON RA HGB-14.0 IS: IV MAG SULFATE Q1HRS X2 BAGS IV VENOFER QHS IVF@50/HR : MED/SURG STATUS PLAN: WILL NEED LAPAROTOMY AND REVISION ~ SCHEDULED FOR SURGERY ON SATURDAY
[2020-07-09 12:00] VITALS: BP 121/64
--- NOTE | 2020-07-09 14:42 | NUR ---
INSURANCE CLINICAL/REVIEW FAXED TO [facility] - , opt 1, opt 4, opt 6 ([place] Julio C) Fax clinicals to: [phone]
[2020-07-09 16:00] VITALS: BP 107/67
--- NOTE | 2020-07-09 19:25 | NUR ---
NURSE HAND-OFF: Important Events on Shift:[N] Patient Status: [stable] Diet: [] Pending Orders: [] Pending Results/Labs:[] Pending MD notification:[] Latest Vital Signs: Temperature 98.0 , Pulse 66 , B/P 107 /67 , Respiratory Rate 18 , O2 SAT 96 , Room Air, O2 Flow Rate 6 . Vital Sign Comment: [] Latest Junior Fall Score: 20 Fall Risk: Low Risk Safety Measures: Call light Within Reach, Bed Alarm , Side Rails Side Rails x2, Bed position Low and Locked. Fall Precautions: Patient Fall Education Report given to [KAREL Houston].
[2020-07-09 20:00] VITALS: BP 100/61
--- NOTE | 2020-07-09 20:02 | NUR ---
nurse's notes: received patient awake, alert and oriented x 4; denies pain or any distress. Jing cath to drain; stool yellowish in color, a little bit thick in consistency; with 20 cc NS flusing q 3 hours PRN. plan of care discussed with patient who verbalized understanding.
[2020-07-09] MEDS: Venofer 200mg in NS 110ml IVPB SCH (21:14)
[2020-07-10] VITALS: BP 106/67
[2020-07-10] MEDS: D5 1/2NS w/KCl 20mEq 1,000 ML IV SCH ×2 (00:42→20:34)
[2020-07-10 04:00] VITALS: BP 92/64
[2020-07-10 05:14] LABS: BASOPHILS % (AUTO) 1.4 % (0.0-2.0); EOSINOPHILS % (AUTO) 2.9 % (0.0-3.0); HEMATOCRIT 46.8 % (42.0-52.0); HEMOGLOBIN 14.3 G/DL (14.2-18.0); MEAN CORPUSCULAR VOLUME 82 FL (80-99); MONOCYTES % (AUTO) 10.3 % (1.0-10.0); NEUTROPHILS % (AUTO) 62.5 % (45.0-75.0); PLATELET COUNT 170 K/UL (150-450); RED BLOOD COUNT 5.67 M/UL (4.70-6.10); RED CELL DISTRIBUTION WIDTH 14.1 % (11.6-14.8); WHITE BLOOD COUNT 6.5 K/UL (4.8-10.8)
--- NOTE | 2020-07-10 06:28 | NUR ---
NURSE HAND-OFF: Important Events on Shift: no complaints of pain or SOBs. however, reports some abdominal discomfort. nuzhat cath slighly pulled out from stoma; dressing was soiled and tape peeling off. removed all soiled dressings and tape; cleansed area with NS; advanced cath without causing any discomfort to the patient; new dressing applied; yellowish watery stool noted in collection bag; total volume collected 775 ml. Real ileo output = 665 ml. total UOP = 750 ml. Patient Status: stable Diet: to star on clear liquids at breakfast Pending Orders: see chart Pending Results/Labs:see chart Pending MD notification:see chart Latest Vital Signs: Temperature 98.6 , Pulse 61 , B/P 92 /64 , Respiratory Rate 18 , O2 SAT 96 , Room Air, O2 Flow Rate 6 . Vital Sign Comment: stable;afebrile Latest Junior Fall Score: 20 Fall Risk: Low Risk Safety Measures: Call light Within Reach, Bed Alarm , Side Rails Side Rails x2, Bed position Low and Locked. Fall Precautions: Patient Fall Education Report will be given to KAREL Pineda. Addendum: 07/10/20 at 0640 by CELIA YUN Addendum to above note: REVISED UOP = 1100 REAL ILEO OUTPUT STAYS UNCHANGED
--- NOTE | 2020-07-10 07:45 | NUR ---
NURSE NOTES: Received from KAREL [place]. patient awake, alert and oriented x 4, able to make needs known. denies pain or any distress at this time. Noted Jing cath to drainage to gravity, draining dark yellow thick output. Dressing clean and dry. PICC line intact and patent running IVF as ordered. Call light within reach. Will continue to monitor.
[2020-07-10 08:00] VITALS: BP 116/70
[2020-07-10 09:35] LABS: BASOPHILS % (AUTO) 1.3 % (0.0-2.0); EOSINOPHILS % (AUTO) 1.8 % (0.0-3.0); HEMATOCRIT 48.2 % (42.0-52.0); HEMOGLOBIN 14.9 G/DL (14.2-18.0); LYMPHOCYTES % (AUTO) 21.8 % (20.0-45.0); MEAN CORPUSCULAR VOLUME 84 FL (80-99); MONOCYTES % (AUTO) 10.3 % (1.0-10.0); NEUTROPHILS % (AUTO) 64.8 % (45.0-75.0); PLATELET COUNT 178 K/UL (150-450); RED BLOOD COUNT 5.75 M/UL (4.70-6.10); RED CELL DISTRIBUTION WIDTH 14.6 % (11.6-14.8); WHITE BLOOD COUNT 6.8 K/UL (4.8-10.8)
--- NOTE | 2020-07-10 10:28 | General Progress Note ---
Progress Note Progress Note AVSS Maintaining indwelling Argueta pouch catheter to drainage with good output Abdomen soft, flat Labs stable Imp: Malfunctioning Argueta continent ileostomy with inability to intubate Plan: Surgery in AM: laparotomy with revision of Argueta pouch and stoma Pre-op IV antibiotics and SQ heparin Full discussion with patient re nature of surgery, indications, alternatives, options and risks (bleeding, infection, injury to adjacent structures or organs, DVT despite prophylaxis, recurrent difficulties with structure or function of Argueta Pouch, etc; all questions answered. Gonzales Siddiqui MD Jul 10, 2020 10:28
[2020-07-10 12:00] VITALS: BP 108/73
[2020-07-10] MEDS: Neomycin Sulfate 500mg Tab ORAL SCH ×3 (12:25→20:29)
[2020-07-10] MEDS ORDERED: Tubing IV Secondary IV ONE (14:25)
[2020-07-10] MEDS ORDERED: NS Irrig 1000ml ONE (14:25)
[2020-07-10 16:00] VITALS: BP 113/65
--- NOTE | 2020-07-10 19:18 | NUR ---
NURSE HAND-OFF: Important Events on Shift:[Obtained consent for surgery tomorrow, monitored I and O. NPO at midnight] Patient Status: [] Diet: [Clear liquid ] Pending Orders: [] Pending Results/Labs:[] Pending MD notification:[] Latest Vital Signs: Temperature 97.7 , Pulse 72 , B/P 113 /65 , Respiratory Rate 19 , O2 SAT 97 , Room Air, O2 Flow Rate 6 . Vital Sign Comment: [stable] Latest Junior Fall Score: 20 Fall Risk: Low Risk Safety Measures: Call light Within Reach, Bed Alarm , Side Rails Side Rails x2, Bed position Low and Locked. Fall Precautions: Patient Fall Education Report given to [KAREL [place]].
[2020-07-10 20:00] VITALS: BP 102/65
--- NOTE | 2020-07-10 20:03 | NUR ---
nurse's notes: received patient awake, alert and oriented; denies any pain or distress; picc line dressing on the left upper arm CDI with iv fluids running as ordered; ileo to gravity with minimal output as of this time; npo at midnight for a scheduled lap with revision of johnson continent ileostomy pouch and stoma; plan of care discussed with patient who verbalized understanding.
[2020-07-10] MEDS: Venofer 200mg in NS 110ml IVPB SCH (20:29)
[2020-07-10] MEDS: Dyna-Hex 2% Top Sol 2oz TOPIC SCH (20:33)
--- NOTE | 2020-07-10 23:14 | NUR ---
nurse's notes: ileo came out as dressing was being changed; reinserted by patient after several tries; new, clean dressing in place; ileo draining well.
[2020-07-11] VITALS (7 sets, daily range): BP systolic 93–115; BP diastolic 49–81
[2020-07-11] MEDS: Ampicillin/Sulbactam Sod 3 GM in NS 110 ML IV SCH ×2 (02:06→08:17)
--- NOTE | 2020-07-11 06:33 | NUR ---
nurse's notes: NURSE HAND-OFF: Important Events on Shift: no significant changes noted this shift; no complaints of pain, SOBs or any distress; CHG bath performed per policy; dressing over ileostomy continues to be CDI; good output; good UOP; both in chart; kept npo as ordered for scheduled laparotomy with revision of johnson continent ileostomy pouch and stoma; consent in chart. per patient will be arriving from [place] today; bed prepared for her in patient's room. Patient Status: stable Diet: npo Pending Orders: see chart Pending Results/Labs: see chart Pending MD notification: see chart Latest Vital Signs: Temperature 97.9 , Pulse 62 , B/P 104 /64 , Respiratory Rate 18 , O2 SAT 97 , Room Air, O2 Flow Rate 6 . Vital Sign Comment: see above Latest Junior Fall Score: 20 Fall Risk: Low Risk Safety Measures: Call light Within Reach, Bed Alarm , Side Rails Side Rails x2, Bed position Low and Locked. Fall Precautions: Patient Fall Education Report will be given to KAREL Gleason.
--- NOTE | 2020-07-11 07:18 | NUR ---
NURSE HAND-OFF: Important Events on Shift: patient had about a third of a cup of green jello that came with his tray today. tray was immediately removed from patient's room after FRUCTOSE LOADER confirmed NPO diet with this RN. patient was reminded and educated last night that he will be NPO starting midnight tonight and an NPO sign was placed outside the patient's door. endorsed to KAREL Gleason
[2020-07-11 07:19] LABS: INR 1.1 (0.9-1.1)
[2020-07-11 07:25] LABS: EOSINOPHILS % (AUTO) 3.6 % (0.0-3.0); HEMATOCRIT 47.3 % (42.0-52.0); HEMOGLOBIN 14.6 G/DL (14.2-18.0); LYMPHOCYTES % (AUTO) 24.7 % (20.0-45.0); MEAN CORPUSCULAR VOLUME 83 FL (80-99); MONOCYTES % (AUTO) 8.5 % (1.0-10.0); NEUTROPHILS % (AUTO) 62.2 % (45.0-75.0); PLATELET COUNT 172 K/UL (150-450); RED CELL DISTRIBUTION WIDTH 14.5 % (11.6-14.8); WHITE BLOOD COUNT 5.6 K/UL (4.8-10.8)
--- NOTE | 2020-07-11 07:30 | NUR ---
NURSE NOTES: Pt lying in bed w/bed in lowest position and call light within reach. Pt A&Ox4, VSS, and in no apparent distress. NEGAR PICC line intact/asymptomatic w/IVF infusing; ileostomy patent/draining; and dressing C/D/I. Will continue to monitor.
[2020-07-11 07:36] LABS: ALANINE AMINOTRANSFERASE 21 U/L (12-78); ALBUMIN 3.6 G/DL (3.4-5.0); ALBUMIN/GLOBULIN RATIO 0.9 (1.0-2.7); ALKALINE PHOSPHATASE 107 U/L (46-116); ANION GAP 8 mmol/L (5-15); ASPARTATE AMINO TRANSFERASE 26 U/L (15-37); BLOOD UREA NITROGEN 10 mg/dL (7-18); CALCIUM 8.9 MG/DL (8.5-10.1); CARBON DIOXIDE 27 MMOL/L (21-32); CHLORIDE 105 MMOL/L (98-107); POTASSIUM 3.9 MMOL/L (3.5-5.1); SODIUM 140 MMOL/L (136-145)
--- NOTE | 2020-07-11 08:00 | NUR ---
NURSE NOTES: Pt ate paolo; notified Dr. Siddiqui who cancelled surgery. Notified pt; will continue to monitor.
[2020-07-11] MEDS ORDERED: Heparin 5000 units/ml inj SUBQ SCH (10:00)
--- NOTE | 2020-07-11 11:22 | General Progress Note ---
Progress Note Progress Note AVSS Having some difficulty with indwelling Argueta pouch catheter coming out - requires multiple attempts to reinsert. albumin 3.6 Unfortunately he had some clear liquid breakfast this morning despite being advised to be npo even if a tray was mistakenly brought into his room this morning so surgery re-scheduled Imp: Malfunctioning Argueta continent ileostomy with indwelling catheter to continuous drainage Plan: Surgical revision/laparotomy revise Argueta pouch and stoma on 07/13 1300 Gonzales Siddiqui MD Jul 11, 2020 11:22
--- NOTE | 2020-07-11 16:30 | NUR ---
EXHIBIT BUILDERTHRESHING OPERATOR SI; MALFUNCTION WEBBER POUCH T. 97.7 HR 69 RR 18 B/P 100/62 IS: IVF D5KCL @ 50ML/HR IRON IV MED/SURG STATUS
--- NOTE | 2020-07-11 20:18 | NUR ---
NURSE HAND-OFF: Important Events on Shift: Surgery rescheduled for 07/13/20. Patient Status: Stable Diet: Clear liquids Pending Orders: None Pending Results/Labs: None Pending MD notification: None Latest Vital Signs: Temperature 97.8 , Pulse 65 , B/P 102 /69 , Respiratory Rate 18 , O2 SAT 99 , Room Air, O2 Flow Rate 6 Vital Sign Comment: Stable Latest Junior Fall Score: 20 Fall Risk: Low Risk Safety Measures: Call light Within Reach, Bed Alarm , Side Rails Side Rails x2, Bed position Low and Locked. Fall Precautions: Patient Fall Education Report given to KAREL [place].
[2020-07-11] MEDS: Dyna-Hex 2% Top Sol 2oz TOPIC SCH (20:57)
[2020-07-11] MEDS: D5 1/2NS w/KCl 20mEq 1,000 ML IV SCH (20:57)
[2020-07-11] MEDS: Venofer 200mg in NS 110ml IVPB SCH (21:00)
--- NOTE | 2020-07-11 21:00 | NUR ---
NURSE NOTES: Abdominal catheter site leaking, dressing changed. Re-educated patient on proper positioning for optimal drainage of catheter. Patient verbalized understanding.
[2020-07-12] VITALS: BP 103/61
[2020-07-12 04:00] VITALS: BP 99/62
--- NOTE | 2020-07-12 07:25 | NUR ---
NURSE NOTES: Report given Mayela Rizvi
[2020-07-12 08:00] VITALS: BP 94/59
--- NOTE | 2020-07-12 08:03 | NUR ---
NURSE NOTES: Patient awake, alert x4; on room air, no sign of distress and shortness of breath; no sing of chest pain; PICC on LUR running [id number] 50cc; BCIR @RLQ, dressing dry and intact; will flush Q3H; Urinal within reach; patient re-scheduled for Saturday07/13/20, patient awake the rescheduled; patient's at the bed side; side rails up x2, breaks engaged, bed at lowest position, call light within reach; will keep monitoring and care out the plan of care.
--- NOTE | 2020-07-12 11:37 | General Progress Note ---
Progress Note Progress Note AVSS Patient maintaining indwelling Argueta Pouch catheter to continuous drainage. On clear liquid diet for surgery tomorrow laparotomy with revision Argueta continent ileostomy pouch and stoma full discussion again with patient regarding surgery, options, risks. Plan pre-op IV antibiotics and subcutaneous heparin in AM Gonzales iSddiqui MD Jul 12, 2020 11:37
[2020-07-12 12:00] VITALS: BP 96/61
--- NOTE | 2020-07-12 12:53 | Anethesia Preoperative Eval ---
Anesthesia Pre-op PMH/ROS General Date of Evaluation: Jul 12, 2020 Time of Evaluation: 12:49 Anesthesiologist: Lyn ASA Score: ASA 2 Mallampati Score Class I : Soft palate, uvula, fauces, pillars visible Class II: Soft palate, uvula, fauces visible Class III: Soft palate, base of uvula visible Class IV: Only hard plate visible Mallampati Classification: Class II Surgeon: Artur Diagnosis: Malfunctioning continent pouch Surgical Procedure: Revision of continent pouch Anesthesia History: none Family History: no anesthesia problems Allergies: Coded Allergies: No Known Allergies (Unverified , 12/29/18) Medications: see eMAR Patient NPO?: Yes Past Medical History Cardiovascular: Denies: HTN, CAD, [place], valve dz, arrhythmia, other Pulmonary: Denies: asthma, COPD, EDILBERTO, other Gastrointestinal/Genitourinary: Reports: GERD, other - h/o UC s/p total colectomy; Denies: CRI, ESRD Neurologic/Psychiatric: Reports: depression/anxiety; Denies: dementia, CVA, TIA, other Endocrine: Denies: DM, hypothyroidism, steroids, other HEENT: Denies: cataract (L), cataract (R), glaucoma, TABLE MOUNTAIN (L), TABLE MOUNTAIN (R), other Hematology/Immune: Reports: anemia - of chronic d-s; Denies: DVT, bleeding disorder, other Musculoskeletal/Integumentary: Denies: OA, RA, DJD, DDD, edema, other PMH Narrative: as above PSxH Narrative: see H&P Anesthesia Pre-op Phys. Exam Physician Exam Last Vital Signs Date Time Temp Pulse Resp B/P (MAP) Pulse Ox O2 Delivery O2 Flow Rate FiO2 07/12/20 09:00 Room Air 07/12/20 08:00 97.0 68 18 94/59 (71) 97 07/08/20 11:45 6 Constitutional: NAD Neurologic: CN 2-12 intact Cardiovascular: RRR, no M/R/G Respiratory: CTA Gastrointestinal: S/NT/ND Airway Exam Mallampati Score: Class II MO: full Neck: flexible ROM: full Teeth: intact Dentures: no upper, no lower Anesthesia Pre-op A/P Labs see chart Risk Assessment & Plan Assessment: ASA 2 Plan: GA with ETT Status Change Before Surgery: No Pre-Antibiotics Drug: as scheduled Harsh Nicholson MD Jul 12, 2020 12:53
--- NOTE | 2020-07-12 15:04 | NUR ---
INSURANCE CLINICAL/REVIEW FAXED TO [facility] - , opt 1, opt 4, opt 6 ([place]) Fax clinicals to: [phone]
[2020-07-12 16:00] VITALS: BP 90/53
--- NOTE | 2020-07-12 16:20 | NUR ---
NURSE NOTES: Patient Consented for Laparostomy with revision of Argueta Continent Ileostomy Pouch and Stoma; Consent in file;
[2020-07-12] MEDS: D5 1/2NS w/KCl 20mEq 1,000 ML IV SCH (17:28)
--- NOTE | 2020-07-12 19:25 | NUR ---
NURSE HAND-OFF: Important Events on Shift:Ileostomy care; IV fluid hydration; monitoring IN & Out; dressing change on Ileostomy area; Cosent received for the surgery; Patient Status: Diet: Pending Orders: Pending Results/Labs: Pending MD notification: Latest Vital Signs: Temperature 96.0 , Pulse 60 , B/P 90 /53 , Respiratory Rate 18 , O2 SAT 98 , Room Air, O2 Flow Rate 6 . Vital Sign Comment: Latest Junior Fall Score: 20 Fall Risk: Low Risk Safety Measures: Call light Within Reach, Bed Alarm , Side Rails Side Rails x2, Bed position Low and Locked. Fall Precautions: Patient Fall Education Report given to [KAREL Stahl; endorsed to the incoming nurse patient should be NPO @mid night; patient and his are aware that patient should be NPO at mid-night; explained to the incoming nurse how the dressing is change, I asked to show her how to change it, KAREL Stahl said,she will change it later].
[2020-07-12 20:00] VITALS: BP 103/57
[2020-07-12] MEDS: Dyna-Hex 2% Top Sol 2oz TOPIC SCH (20:00)
--- NOTE | 2020-07-12 20:00 | NUR ---
NURSE NOTES: Received patient ambulating in room, witnessed to have steady gait, no s/s of acute distress, at bedside. Patient requested gown and linen change. Ileo drain in place, draining green liquid. PICC patent, CHG bath given. Bed low and locked. Patient reminded that he will be NPO at midnight, patient verbalized understanding.
[2020-07-12] MEDS: Venofer 200mg in NS 110ml IVPB SCH (20:41)
[2020-07-13] VITALS (15 sets, daily range): BP systolic 93–124; BP diastolic 52–81
[2020-07-13] MEDS: Ampicillin/Sulbactam Sod 3 GM in NS 110 ML IV SCH ×4 (05:07→23:22)
[2020-07-13 07:19] LABS: EOSINOPHILS % (AUTO) 4.2 % (0.0-3.0); HEMATOCRIT 46.4 % (42.0-52.0); HEMOGLOBIN 14.3 G/DL (14.2-18.0); LYMPHOCYTES % (AUTO) 22.9 % (20.0-45.0); MEAN CORPUSCULAR VOLUME 83 FL (80-99); MONOCYTES % (AUTO) 10.9 % (1.0-10.0); NEUTROPHILS % (AUTO) 61.1 % (45.0-75.0); PLATELET COUNT 144 K/UL (150-450); RED BLOOD COUNT 5.57 M/UL (4.70-6.10); RED CELL DISTRIBUTION WIDTH 14.1 % (11.6-14.8); WHITE BLOOD COUNT 4.9 K/UL (4.8-10.8)
--- NOTE | 2020-07-13 07:22 | NUR ---
NURSE NOTES: Report given to KAREL Pineda
[2020-07-13 07:30] LABS: ALANINE AMINOTRANSFERASE 17 U/L (12-78); ALBUMIN 3.6 G/DL (3.4-5.0); ALKALINE PHOSPHATASE 104 U/L (46-116); ANION GAP 8 mmol/L (5-15); ASPARTATE AMINO TRANSFERASE 26 U/L (15-37); BILIRUBIN,DIRECT 0.2 MG/DL (0.0-0.3); BILIRUBIN,TOTAL 1.1 MG/DL (0.2-1.0); BLOOD UREA NITROGEN 7 mg/dL (7-18); CALCIUM 9.2 MG/DL (8.5-10.1); CARBON DIOXIDE 28 MMOL/L (21-32); CHLORIDE 102 MMOL/L (98-107); POTASSIUM 3.9 MMOL/L (3.5-5.1); SODIUM 138 MMOL/L (136-145)
--- NOTE | 2020-07-13 07:45 | NUR ---
NURSE NOTES: Received report from KAREL Burns. Patient awake, alert x4, on room air, no sign of distress and shortness of breath, denies any pain at this time. PICC on LUR running IVF as ordered. BCIR @RL, dressing dry and intact. Pt on NPO after midnight for surgery today. bed at lowest position, call light within reach. will continue to monitor.
--- NOTE | 2020-07-13 08:23 | Pre-Procedure Note/Attestation ---
Pre-Procedure Note/Attestation Complete Prior to Procedure Planned Procedure: not applicable Procedure Narrative: laparotomy with revision of Argueta continent ileostomy pouch and stoma Indications for Procedure Pre-Operative Diagnosis: Malfunctioning Argueta Pouch continent ileostomy with inability to intubate Attestation I attest that I discussed the nature of the procedure; its benefits; risks and complications; and alternatives (and the risks and benefits of such alternatives), prior to the procedure, with the patient (or the patient's legal credit and collections representative). I attest that, if there was a reasonable possibility of needing a blood trans fusion, the patient (or the patient's legal credit and collections representative) was given the [place] Department [employer] standardized written summary, pursuant to the [place] Blood Safety Act ([place] Health and Safety Code # 1645, as amended). I attest that I re-evaluated the patient just prior to the surgery and that there has been no change in the patient's H&P, except as documented below: none Gonzales Siddiqui MD Jul 13, 2020 08:23
--- NOTE | 2020-07-13 10:57 | NUR ---
RD ASSESSMENT & RECOMMENDATIONS SEE CARE ACTIVITY FOR COMPLETE ASSESSMENT DAILY ESTIMATED NEEDS: Needs based on Surgery/ 71.6kg abw 25-30 kcals/kg 4999-3121 total kcals 1-2 g protein/kg 72-143 g total protein 25-30 mL/kg 2221-5977 total fluid mLs NUTRITION DIAGNOSIS: Altered GI function R/T h/o UC w/ malfunctioning ileostomy as evidenced by pt with 'severe difficulty with intubation' per MD, stoma revision pending, NPO status. CURRENT DIET: NPO for surgery PO DIET RECOMMENDATIONS: Diet per MD TPN Comment: Will monitor NPO status, surgery pending today. ADDITIONAL RECOMMENDATIONS: * Calibrated bed scale wts * Maintain d5 + lytes while NPO * Follow post surgery/ NPO status/ ileus/ need for TPN .
[2020-07-13] MEDS ORDERED: Heparin 5000 units/ml inj SUBQ SCH (11:00)
[2020-07-13] MEDS ORDERED: Ampicillin/Sulbactam Sod 3 GM in NS 110 ML IV SCH (12:00)
[2020-07-13] MEDS ORDERED: Bacitracin 50000 Units Vial ONE (12:23)
[2020-07-13] MEDS ORDERED: NeoSporin Gu Irrig 1ml Amp IRRIG ONE (12:23)
--- NOTE | 2020-07-13 12:45 | NUR ---
NURSE NOTES: Pt transferred to down to surgery via hospital bed by nurse with stable condition.
[2020-07-13] MEDS ORDERED: Lidocaine 1% MPF 10mg/ml 5ml ONE (12:48)
[2020-07-13] MEDS ORDERED: fentaNYL 100 mcg/2 mL IV ONE (12:49)
[2020-07-13] MEDS ORDERED: Sodium Chloride 10ml vial INJ ONE (12:49)
[2020-07-13] MEDS ORDERED: LR 1000ml ONE (13:00)
[2020-07-13] MEDS ORDERED: Sterile Water Irrig 1000ml IRRIG ONE (13:00)
[2020-07-13] MEDS ORDERED: NS Irrig 1000ml ONE (13:00)
[2020-07-13] MEDS ORDERED: Neostigmine 1mg/ml 10ml Inj ONE (13:00)
[2020-07-13] MEDS: D5 1/2NS w/KCl 20mEq 1,000 ML IV SCH (13:37)
--- NOTE | 2020-07-13 13:47 | Immediate Post-Op Evaluation ---
Immediate Post-Op Evalulation Immediate Post-Op Evalulation Procedure: Laparotomy, Revision of Argueta Continent Ileostomy Date of Evaluation: Jul 13, 2020 Time of Evaluation: 15:05 IV Fluids: 400 LR Blood Products: 0 Estimated Blood Loss: 25 Urinary Output: 0 Blood Pressure Systolic: 106 Blood Pressure Diastolic: 52 Pulse Rate: 66 Respiratory Rate: 16 O2 Sat by Pulse Oximetry: 98 Temperature (Fahrenheit): 97.7 Pain Score (1-10): 2 Nausea: No Vomiting: No Complications 0 Patient Status: awake, reacts, patent, extubated, none Hydration Status: adequate Drug: Unisyn 3 Grams IV Given Within 1 Hr of Incision: Yes Time Given: 13:16 Alocn Boswell MD Jul 13, 2020 13:47
[2020-07-13] MEDS ORDERED: Glycopyrrolate 0.2mg/ml 1ml Vial ONE (14:24)
--- NOTE | 2020-07-13 14:56 | Brief Operative Note ---
Immediate Post Operative Note Operative Note Pre-op Diagnosis: Malfunctioning Argueta Pouch continent ileostomy with inability to intubate Procedure: laparotomy with revision of Argueta continent ileostomy stoma and access segment Post-op Diagnosis: same Post-op Diagnosis: same as pre-op Findings: consistent w/pre-op dx studies Surgeon: ken Additional Surgeons: khanh Anesthesiologist: marisa Anesthesia: general Specimen: yes - stoma and access segment; keloid scar Complications: none Condition: stable Fluids: see anesthesia record Estimated Blood Loss: minimal Drains: other - 28 Anderson to Argueta pouch Implant(s) used?: No Gonzales Siddiqui MD Jul 13, 2020 14:56
[2020-07-13] MEDS ORDERED: PCA Education Pamphlet MISC ONE (15:00)
[2020-07-13] MEDS ORDERED: Rate Change PCA 1 Each MISC PRN (15:00)
[2020-07-13] MEDS ORDERED: DiphenhydrAMINE 50mg/ml Inj IVP PRN (15:00)
[2020-07-13] MEDS ORDERED: LORazepam 1mg tab SL PRN ×2 (15:00)
[2020-07-13] MEDS ORDERED: Naloxone 0.4mg/ml Inj IVP PRN (15:00)
[2020-07-13] MEDS: PCA Morphine 1mg/ml 30 ML IV PRN (15:20)
[2020-07-13] MEDS ORDERED: Hydromorphone 0.5mg/0.5ml inj ONE (15:37)
[2020-07-13] MEDS ORDERED: Hydromorphone 0.5mg/0.5ml inj IVP PRN (15:45)
--- NOTE | 2020-07-13 16:10 | NUR ---
NURSE NOTES: pt came back from surgery. Pt awake but drowsy, verbally responsive. Noted PRE PRESS OPERATOR morphine, checked setting. Hernandez cath draining yellow urine. Ileo with 28Fr hernandez to continuous gravity drainage draining brown liquid. Overhead trapeze in place. SCD on. Surgical dressing clean and intact. Vital signs stable. Call light within reach. Will continue to monitor.
[2020-07-13] MEDS: D5 1/4NS w/KCl 20mEq 1,000 ML IV SCH (17:10)
--- NOTE | 2020-07-13 18:29 | Operative Note - Dictated ---
DATE OF OPERATION: 07/13/2020 SURGEON: Gonzales Siddiqui MD. ADDITIONAL SURGEON: Danie Koroma MD. ANESTHESIOLOGIST: Alcon Boswell MD. TYPE OF ANESTHESIA: General endotracheal. PREOPERATIVE DIAGNOSES: 1. Malfunctioning Argueta continent ileostomy with inability to intubate. 2. History of ulcerative colitis. 3. STATUS POST MULTIPLE ABDOMINAL OPERATIONS: 3.1. Laparoscopic-assisted total colectomy with conventional Giana ileostomy, December 30, 2018. 3.2. Repair of incarcerated right inguinal hernia, January 06, 2019. 3.3. Laparotomy with abdominoperineal proctectomy with creation of Argueta continent ileostomy and temporary catheter gastrostomy, May 07, 2019. POSTOPERATIVE DIAGNOSES: 1. Malfunctioning Argueta continent ileostomy with inability to intubate. 2. History of ulcerative colitis. 3. STATUS POST MULTIPLE ABDOMINAL OPERATIONS: 3.1. Laparoscopic-assisted total colectomy with conventional Giana ileostomy, December 30, 2018. 3.2. Repair of incarcerated right inguinal hernia, January 06, 2019. 3.3. Laparotomy with abdominoperineal proctectomy with creation of Argueta continent ileostomy and temporary catheter gastrostomy, May 07, 2019. OPERATION PERFORMED: Laparotomy with revision of Argueta continent ileostomy stoma and access segment. DESCRIPTION OF PROCEDURE: The patient was having significant difficulty intubating his Argueta continent ileostomy pouch to evacuate stool and gas and preoperative endoscopy revealed a normal pouch and valve, but an elongated and angulated access segment. He was not having any incontinence. His previous midline incision had formed a keloid as had his other incisions except around the stoma low in the right lower quadrant. The entire abdominal midline incision keloid was excised from midepigastrium to pubis, but the fascia was only opened from umbilicus to pubis. There were minimal adhesions in the abdominal cavity and the pouch was elevated out of the pelvis. It was obvious that there was marked redundancy and angulation of the access segment. The stoma was circumscribed with a transversely oriented elliptical incision and the stoma and access segment brought into the abdomen. Placing the access segment on stretch, the 28-Scottish Anderson catheter would readily go well into the pouch without any difficulty, whereas it had required great manipulation before taking down the stoma even with the abdomen open. The posterior pouch was sutured to the abdominal wall at the level of this stoma with interrupted 3-0 Vicryl sutures. Then, the stoma and access segment brought through the same site in the right lower quadrant. The abdominal wall hiatus was finger and a half in size, quite normal. After ascertaining that hemostasis was secured and irrigating with antibiotic solution, the redundant access segment was excised and the new stoma primarily matured with continuous 2-0 chromic full-thickness locking suture starting at the 3 and 9 o'clock positions. A very satisfactory new stoma was achieved. The 28-Scottish Anderson catheter went readily in and out of the pouch. It was positioned in the apex of the pouch with the pouch down in the pelvis and then the catheter was sutured to the skin with two sutures of 2-0 silk. It was flushed and connected to a gravity drainage bag. After ascertaining the hemostasis was secured, the midline incision was closed in one layer with continuous #1 looped PDS. Antibiotic irrigation was used and the skin closed with rickie. Dry sterile dressings applied. Final sponge and needle counts were correct. The patient tolerated the procedure well and left the operating room in good condition. Gonzales Siddiqui M.D. DR: ALEXANDRO JOB#: [id number] CC:
[2020-07-13] MEDS: PCA shift volume MISC SCH (19:15)
--- NOTE | 2020-07-13 19:41 | NUR ---
NURSE HAND-OFF: Important Events on Shift:[Pt had surgery. pain management with BRAKE LINER, Anderson cath for urine. on NC 3L ] Patient Status: [] Diet: [NPO] Pending Orders: [] Pending Results/Labs:[] Pending MD notification:[] Latest Vital Signs: Temperature 98.0 , Pulse 65 , B/P 116 /72 , Respiratory Rate 18 , O2 SAT 97 , Nasal Cannula, O2 Flow Rate 3 . Vital Sign Comment: [stable] Latest Junior Fall Score: 20 Fall Risk: Low Risk Safety Measures: Call light Within Reach, Bed Alarm , Side Rails Side Rails x2, Bed position Low and Locked. Fall Precautions: Patient Fall Education Report given to [KAREL Brenner].
[2020-07-13] MEDS: Dyna-Hex 2% Top Sol 2oz TOPIC SCH (20:00)
--- NOTE | 2020-07-13 20:00 | NUR ---
NURSE NOTES: Received pt lying in bed easily arousable by verbal stimuli, AOX4, denies pain at this time. PICC line NEGAR patent clean, dry, and intact. IVF infusing as ordered. OPTICAL FABRICATION TECHNICIAN setting checked and verified. Ileostomy dressing c/d/i drainage to gravity. Bed in lowest position and locked. Side rails up x 2. Call light within reach. at bedside. NAD noted. Will continue to monitor.
[2020-07-14] VITALS (8 sets, daily range): BP systolic 95–103; BP diastolic 53–66
[2020-07-14] MEDS: D5 1/4NS w/KCl 20mEq 1,000 ML IV SCH ×3 (02:20→17:59)
[2020-07-14] MEDS: PCA Morphine 1mg/ml 30 ML IV PRN (02:38)
[2020-07-14] MEDS: Ampicillin/Sulbactam Sod 3 GM in NS 110 ML IV SCH ×4 (06:11→23:02)
[2020-07-14 06:30] LABS: HEMATOCRIT 45.6 % (42.0-52.0); HEMOGLOBIN 14.2 G/DL (14.2-18.0); MEAN CORPUSCULAR VOLUME 83 FL (80-99); PLATELET COUNT 137 K/UL (150-450); RED BLOOD COUNT 5.47 M/UL (4.70-6.10); RED CELL DISTRIBUTION WIDTH 14.3 % (11.6-14.8); WHITE BLOOD COUNT 14.1 K/UL (4.8-10.8)
[2020-07-14 06:41] LABS: ANION GAP 5 mmol/L (5-15); BLOOD UREA NITROGEN 11 mg/dL (7-18); CALCIUM 8.1 MG/DL (8.5-10.1); CARBON DIOXIDE 31 MMOL/L (21-32); CHLORIDE 103 MMOL/L (98-107); CREATININE 1.1 MG/DL (0.55-1.30); POTASSIUM 4.3 MMOL/L (3.5-5.1); SODIUM 138 MMOL/L (136-145)
--- NOTE | 2020-07-14 07:22 | NUR ---
NURSE HAND-OFF: Important Events on Shift: none Patient Status: Stable Diet: NPO X ICe chips / Meds Pending Orders: none Pending Results/Labs: none Pending MD notification: none Latest Vital Signs: Temperature 97.9 , Pulse 67 , B/P 98 /54 , Respiratory Rate 18 , O2 SAT 97 , Nasal Cannula, O2 Flow Rate 3 . Vital Sign Comment: Stable Latest Junior Fall Score: 20 Fall Risk: Low Risk Safety Measures: Call light Within Reach, Bed Alarm , Side Rails Side Rails x2, Bed position Low and Locked. Fall Precautions: Patient Fall Education Report given to: KAREL Arce
[2020-07-14] MEDS: PCA shift volume MISC SCH ×2 (07:23→19:21)
--- NOTE | 2020-07-14 07:46 | NUR ---
NURSE NOTES: Report received from Jordin VINSON. AxOx4, not in distress, on O2 at 3lpm, no complaints of pain at this time. Pt is NPO, education reinforced and pt verbalized understanding. PICC on left upper arm patent and infusing D5 0.25% NS+ 20 KCL @100ml/hr, second lumen infusing NS @10cc/hr and MAXILLOFACIAL PROSTHETICS DENTIST morphine. Ileostomy over left lower quadrant draining and patent, flushing orders noted. Dressing over ileostomy site intact. Anderson cath patent and draining. Bed low and locked, siderails up x2, call light placed within reach and instructed to call nurse for assistance. Will continue to monitor.
[2020-07-14] MEDS ORDERED: Rate Change PCA 1 Each MISC PRN (08:00)
[2020-07-14] MEDS ORDERED: PCA Morphine 1mg/ml 30 ML IV PRN (08:15)
[2020-07-14] MEDS ORDERED: DiphenhydrAMINE 50mg/ml Inj IVP PRN (08:15)
[2020-07-14] MEDS ORDERED: Naloxone 0.4mg/ml Inj IVP PRN (08:15)
[2020-07-14] MEDS ORDERED: HydrOXYzine 50mg tab ORAL PRN (08:30)
--- NOTE | 2020-07-14 08:33 | General Progress Note ---
Progress Note Progress Note AVSS Comfortable with MS ADMISSIONS GATE ATTENDANT Chest clear Cor reg rhythm Abdomen soft, mild distention, incision clean, stoma pink Overnight 12 hours: urine 950 BCIR ileo 70 WBC 14,100 Hgb 14.2 Platelets down 137,000 Imp: Ileus Plan: npo, IV fluids, continuous drainage of Argueta pouch, continue Anderson and ADMISSIONS GATE ATTENDANT f/u labs in AM ambulate BID Gonzales Siddiqui MD Jul 14, 2020 08:33
--- NOTE | 2020-07-14 09:00 | NUR ---
NURSE NOTES: Dr. Siddiqui saw patient and changed abdominal dressings.
[2020-07-14] MEDS ORDERED: Cathflo Alteplase 2mg Inj INJ ONE (10:00)
--- NOTE | 2020-07-14 11:13 | 48 Hour Post Anesthesia Eval ---
Post Anesthesia Evaluation Procedure: Laparotomy, Revision of Argueta Continent Ileostomy Date of Evaluation: Jul 14, 2020 Time of Evaluation: 11:12 Blood Pressure Systolic: 116 0: 72 Pulse Rate: 76 Respiratory Rate: 18 Temperature (Fahrenheit): 97.6 O2 Sat by Pulse Oximetry: 98 Airway: patent Nausea: No Vomiting: No Pain Intensity: 3 Hydration Status: adequate Cardiopulmonary Status: stable Mental Status/LOC: patient returned to baseline Follow-up Care/Observations: n/a Post-Anesthesia Complications: none Follow-up care needed: N/A Harsh Nicholson MD Jul 14, 2020 11:13
--- NOTE | 2020-07-14 15:58 | NUR ---
INSURANCE CLINICAL/REVIEW FAXED TO [facility] - , opt 1, opt 4, opt 6 ([place] Julio C) Fax clinicals to: [phone]
--- NOTE | 2020-07-14 19:05 | NUR ---
NURSE NOTES: Received report from KAREL Shoemaker. Pt is in bed, A&Ox4, side rails up x2, bed locked and in lowest position. Pt is on nasal canula due to INTEGRATED PEST MANAGEMENT TECHNICIAN. Will continue to monitor.
--- NOTE | 2020-07-14 19:42 | NUR ---
NURSE HAND-OFF: Important Events on Shift: Pt sat up in bed but felt dizzy so unable to continue with ambulation, no hypotension or desaturation noted; ileo patent and draining; given 1 dose cathflo, PICC patent and infusing IVF as ordered Patient Status: Stable Diet: NPO except ice chips and meds Pending Orders: N Pending Results/Labs: N Pending MD notification: N Latest Vital Signs: Temperature 98.6 , Pulse 69 , B/P 101 /66 , Respiratory Rate 17 , O2 SAT 100 , Nasal Cannula, O2 Flow Rate 3.0 . Vital Sign Comment: Latest Junior Fall Score: 20 Fall Risk: Low Risk Safety Measures: Call light Within Reach, Bed Alarm , Side Rails Side Rails x2, Bed position Low and Locked. Fall Precautions: Patient Fall Education Report given to Avi VINSON.
[2020-07-14] MEDS: Dyna-Hex 2% Top Sol 2oz TOPIC SCH (20:27)
[2020-07-15] VITALS (7 sets, daily range): BP systolic 96–108; BP diastolic 58–67
[2020-07-15] MEDS: D5 1/4NS w/KCl 20mEq 1,000 ML IV SCH ×4 (00:10→20:03)
[2020-07-15] MEDS: Ampicillin/Sulbactam Sod 3 GM in NS 110 ML IV SCH (05:09)
[2020-07-15 05:55] LABS: EOSINOPHILS % (AUTO) 0.4 % (0.0-3.0); HEMATOCRIT 38.1 % (42.0-52.0); HEMOGLOBIN 11.5 G/DL (14.2-18.0); LYMPHOCYTES % (AUTO) 13.8 % (20.0-45.0); MEAN CORPUSCULAR VOLUME 87 FL (80-99); MONOCYTES % (AUTO) 11.7 % (1.0-10.0); NEUTROPHILS % (AUTO) 73.1 % (45.0-75.0); PLATELET COUNT 109 K/UL (150-450); RED BLOOD COUNT 4.39 M/UL (4.70-6.10); RED CELL DISTRIBUTION WIDTH 14.7 % (11.6-14.8); WHITE BLOOD COUNT 7.7 K/UL (4.8-10.8)
[2020-07-15 06:06] LABS: BLOOD UREA NITROGEN 6 mg/dL (7-18)
--- NOTE | 2020-07-15 07:06 | NUR ---
NURSE HAND-OFF: Important Events on Shift: Changed PICC dressing and CARTRIDGE FEEDER morphine Patient Status: sleeping Diet: NPO w/ ice chips and meds Pending Orders: Pending Results/Labs: Pending MD notification: Latest Vital Signs: Temperature 98.9 , Pulse 69 , B/P 101 /58 , Respiratory Rate 16 , O2 SAT 97 , Nasal Cannula, O2 Flow Rate 3.0 . Vital Sign Comment: VSS Latest Junior Fall Score: 20 Fall Risk: Low Risk Safety Measures: Call light Within Reach, Bed Alarm , Side Rails Side Rails x2, Bed position Low and Locked. Fall Precautions: Patient Fall Education Report given to KAREL Osborn.
[2020-07-15] MEDS: PCA shift volume MISC SCH ×2 (07:18→19:00)
[2020-07-15 07:25] LABS: ANION GAP 3 mmol/L (5-15); CALCIUM 8.6 MG/DL (8.5-10.1); CARBON DIOXIDE 31 MMOL/L (21-32); CHLORIDE 102 MMOL/L (98-107); POTASSIUM 3.8 MMOL/L (3.5-5.1); SODIUM 136 MMOL/L (136-145)
--- NOTE | 2020-07-15 07:36 | NUR ---
NURSE NOTES: Report received from Avi VINSON. AxOx4, not in distress, on O2 at 3lpm, no complaints of pain at this time. Pt is NPO except ice chips and meds, education reinforced and pt verbalized understanding. PICC on left upper arm patent and infusing D5 0.25% NS+ 20 KCL @100ml/hr and HAND EXPANSION ENVELOPE MAKER morphine. Settings checked with outgoing RN. Second lumen infusing NS @10cc/hr. Ileostomy over left lower quadrant draining and patent, flushing orders noted. Dressing over ileostomy site intact. Anderson cath patent and draining. Bed low and locked, siderails up x2, call light placed within reach and instructed to call nurse for assistance. Will continue to monitor.
[2020-07-15] MEDS ORDERED: PCA Morphine 1mg/ml 30 ML IV PRN (08:00)
--- NOTE | 2020-07-15 08:30 | NUR ---
NURSE NOTES: Report received from Sahara VINSON, rounds made. Patient AOX4, calm, on O2 1LNC. Resting in semi-fowlers position in bed. IV D5 1/4 with 20 KCL at 100 ml/hr to NEGAR PICC, and ROUSTABOUT SUPERVISOR Morphine (bolus 1mg, every 6 minutes, 26 mg lockout) site asymptomatic. FC patent, y/cl urine to gravity, will discontinue as ordered. RLQ ileostomy, dark green liquid output noted in drainage bag to gravity, abdominal dressing CDI. Abdominal pain 3/10, tolerating ROUSTABOUT SUPERVISOR Morphine. Bilateral SCDs on. Remains NPO, ice chips provided. Call light in reach, bed in lowest position, will continue to monitor.
--- NOTE | 2020-07-15 10:22 | General Progress Note ---
Progress Note Progress Note AVSS Not able to ambulate yesterday but ambulated in hallways this AM Abdomen mildly distended, incision clean, stoma pink\ [id number] BCIR ileo 470 WBC 7700 Hgb 11.5 Platelets down 109,000 Imp: mild ileus Plan; remove urinary Anderson d/c basal infusion of SCHOOL COORDINATOR continue npo d/c antibiotics f/u labs ambulate TID Gonzales Siddiqui MD Jul 15, 2020 10:22
[2020-07-15] MEDS ORDERED: Naloxone 0.4mg/ml Inj IVP PRN (10:30)
[2020-07-15] MEDS ORDERED: DiphenhydrAMINE 50mg/ml Inj IVP PRN (10:30)
--- NOTE | 2020-07-15 10:45 | NUR ---
NURSE NOTES: Patient up ambulating in halls with family member, gait steady, slow, remains safe. FC discontinued at 1045, provided urinal at bedside. Instructed and demonstrated proper use of IS, patient returned demonstration, will wean off O2.
--- NOTE | 2020-07-15 14:01 | NUR ---
INSURANCE CLINICAL FAXED TO [facility] - , opt 1, opt 4, opt 6 ([place] Julio C) Fax clinicals to: [phone]
--- NOTE | 2020-07-15 19:30 | NUR ---
NURSE NOTES: Received report from KAREL Leigh. Pt sitting in bed, A&Ox4. Call light within reach, side rails up x2, bed locked and in lowest position. PICC in NEGAR, IVF infusing well, TUGBOAT DISPATCHER set up for bolus dose. Will continue to monitor.
--- NOTE | 2020-07-15 19:55 | NUR ---
NURSE HAND-OFF: Important Events on Shift:Temperature 100, Tylenol given, 98.1, Dr. Siddiqui aware, on RA/reinforce IS Patient Status: stable Diet: NPO (x ice/sips) Pending Orders: none Pending Results/Labs:none Pending MD notification:none Latest Vital Signs: Temperature 98.5 , Pulse 82 , B/P 108 /64 , Respiratory Rate 20 , O2 SAT 95 , Nasal Cannula, O2 Flow Rate 1.0 . Vital Sign Comment: monitor temperature Latest Junior Fall Score: 35 Fall Risk: Medium Risk Safety Measures: Call light Within Reach, Bed Alarm , Side Rails Side Rails x2, Bed position Low and Locked. Fall Precautions: Yellow Socks Door Sign Patient Fall Education Report given to Avi VINSON.
[2020-07-15] MEDS: Dyna-Hex 2% Top Sol 2oz TOPIC SCH (20:02)
[2020-07-16] VITALS: BP 101/64
[2020-07-16] MEDS: D5 1/4NS w/KCl 20mEq 1,000 ML IV SCH ×2 (03:27→10:24)
[2020-07-16 04:00] VITALS: BP 109/64
[2020-07-16 04:28] LABS: BASOPHILS % (AUTO) 1.2 % (0.0-2.0); EOSINOPHILS % (AUTO) 1.1 % (0.0-3.0); HEMATOCRIT 41.1 % (42.0-52.0); HEMOGLOBIN 12.8 G/DL (14.2-18.0); LYMPHOCYTES % (AUTO) 17.7 % (20.0-45.0); MEAN CORPUSCULAR VOLUME 84 FL (80-99); MONOCYTES % (AUTO) 11.2 % (1.0-10.0); NEUTROPHILS % (AUTO) 68.8 % (45.0-75.0); PLATELET COUNT 137 K/UL (150-450); RED CELL DISTRIBUTION WIDTH 14.6 % (11.6-14.8); WHITE BLOOD COUNT 6.8 K/UL (4.8-10.8)
[2020-07-16 04:56] LABS: ALANINE AMINOTRANSFERASE 14 U/L (12-78); ALBUMIN/GLOBULIN RATIO 0.8 (1.0-2.7); ALKALINE PHOSPHATASE 76 U/L (46-116); ANION GAP 7 mmol/L (5-15); ASPARTATE AMINO TRANSFERASE 20 U/L (15-37); BILIRUBIN,TOTAL 0.6 MG/DL (0.2-1.0); BLOOD UREA NITROGEN 6 mg/dL (7-18); CALCIUM 8.9 MG/DL (8.5-10.1); CARBON DIOXIDE 27 MMOL/L (21-32); CHLORIDE 101 MMOL/L (98-107); POTASSIUM 4.1 MMOL/L (3.5-5.1); SODIUM 135 MMOL/L (136-145)
--- NOTE | 2020-07-16 06:05 | NUR ---
RD ASSESSMENT & RECOMMENDATIONS SEE CARE ACTIVITY FOR COMPLETE ASSESSMENT DAILY ESTIMATED NEEDS: Needs based on Surgery/ 71.6kg abw 25-30 kcals/kg 8366-7876 total kcals 1-2 g protein/kg 72-143 g total protein 25-30 mL/kg 0061-4161 total fluid mLs NUTRITION DIAGNOSIS: Altered GI function R/T h/o UC w/ malfunctioning ileostomy as evidenced by pt with 'severe difficulty with intubation' per MD, s/p stoma revision, NPO CURRENT DIET:NPO, POD #3 PO DIET RECOMMENDATIONS: Diet per MD ADDITIONAL RECOMMENDATIONS: * Calibrated bed scale wts * Maintain d5 + lytes while NPO * Monitor NPO status: NPO/ CLD status x 7 days Monitor need for TPN. Mild ileus per MD
[2020-07-16] MEDS: PCA shift volume MISC SCH ×2 (07:00→19:00)
--- NOTE | 2020-07-16 07:01 | NUR ---
NURSE HAND-OFF: Important Events on Shift: true output 320, urine 1400, benadryl given 23:20 Patient Status: sleeping Diet: NPO Pending Orders: Pending Results/Labs: Pending MD notification: Latest Vital Signs: Temperature 97.5 , Pulse 68 , B/P 109 /64 , Respiratory Rate 16 , O2 SAT 96 , Nasal Cannula, O2 Flow Rate 1.0 . Vital Sign Comment: VSS Latest Junior Fall Score: 35 Fall Risk: Medium Risk Safety Measures: Call light Within Reach, Bed Alarm , Side Rails Side Rails x2, Bed position Low and Locked. Fall Precautions: Yellow Socks Door Sign Patient Fall Education Report given to KAREL Leigh.
--- NOTE | 2020-07-16 07:30 | NUR ---
NURSE NOTES: Report received from Avi VINSON, rounds made. Patient sleeping,in semi-fowlers position in bed. Respirations even/unlabored on RA. IV D5 1/4 with 20 KCL at 100 ml/hr to NEGAR PICC, and TUBE BENDER Morphine (bolus 1mg, every 6 minutes, 26 mg lockout) site asymptomatic. Voids y/cl urine without difficulty in urinal. RLQ ileostomy, dark green liquid output noted in drainage bag to gravity, abdominal dressing CDI. No distress noted. Bilateral SCDs on. Remains NPO, ice chips provided. Call light in reach, bed in lowest position, will continue to monitor.
[2020-07-16 08:00] VITALS: BP 96/60
[2020-07-16] MEDS ORDERED: Rate Change PCA 1 Each MISC PRN (09:15)
--- NOTE | 2020-07-16 09:17 | General Progress Note ---
Progress Note Progress Note T 100 Feels well with some burping Abdomen less distended, incision clean, stoma healing nicely Urine 3300 BCIR ileo 690 WBC 6800 Hgb up 12.8 Platelets up 137,000 Imp: resolving ileus Plan; Clear liquid diet d/c IV fluids once he is taking fluids well maintain continuous drainage of Argueta Pouch simethicone Gonzales Diaz MD Jul 16, 2020 09:17
[2020-07-16] MEDS ORDERED: PCA Morphine 1mg/ml 30 ML IV PRN (09:30)
[2020-07-16] MEDS ORDERED: Naloxone 0.4mg/ml Inj IVP PRN (09:30)
[2020-07-16] MEDS ORDERED: DiphenhydrAMINE 50mg/ml Inj IVP PRN (09:30)
[2020-07-16] MEDS: Simethicone 80mg tab ORAL PRN ×2 (10:23→16:43)
[2020-07-16 12:00] VITALS: BP 113/72
--- NOTE | 2020-07-16 13:25 | NUR ---
CASE MANAGEMENT:REVIEW 07/16/20 SI: POD #3 98.0 83 18 113/72 98% ON RA H/H-12.8/41.1 PLT-137 IS: CHEMISTRY DEPARTMENT CHAIR MORPHINE IVF@100/HR : MED/SURG STATUS PLAN: START CLEAR LIQUIDS
[2020-07-16 16:00] VITALS: BP 106/65
--- NOTE | 2020-07-16 19:30 | NUR ---
NURSE HAND-OFF: Important Events on Shift: REPROGRAPHICS TECHNICIAN Morphine (syringe near end, needs to be changed soon), Clear liquids started (still working on dinner tray at bedside), Simethicone x2, IVF dc Patient Status: stable Diet: Clear Liquids Pending Orders: none Pending Results/Labs:none Pending MD notification:none Latest Vital Signs: Temperature 98.4 , Pulse 88 , B/P 106 /65 , Respiratory Rate 18 , O2 SAT 97 , Nasal Cannula, O2 Flow Rate 1.0 . Vital Sign Comment: none Latest Junior Fall Score: 35 Fall Risk: Medium Risk Safety Measures: Call light Within Reach, Bed Alarm , Side Rails Side Rails x2, Bed position Low and Locked. Fall Precautions: Yellow Socks Door Sign Patient Fall Education Report given to Mariajose VINSON.
--- NOTE | 2020-07-16 19:35 | NUR ---
NURSE NOTES: Received report & pt from KAREL Leigh. Pt in bed, a&ox4, in room air, at bedside. No s/s of acute distress & c/o 3/10 pain. Per pt, pain is manageable by PSYCHOLOGY INTERN pump. Ileo cath intact & draining to gravity. PICC line intact & S/L'd. PSYCHOLOGY INTERN settings checked. Plan of care discussed.
[2020-07-16 20:00] VITALS: BP 107/67
--- NOTE | 2020-07-16 20:00 | NUR ---
NURSE NOTES: Changed PICC line dressing. No bleeding noted. Pt tolerated very well.
[2020-07-16] MEDS: Dyna-Hex 2% Top Sol 2oz TOPIC SCH (20:49)
[2020-07-17] VITALS: BP 112/65
[2020-07-17 04:00] VITALS: BP 98/60
--- NOTE | 2020-07-17 06:38 | NUR ---
NURSE HAND-OFF: Important Events on Shift:benadryl x1, pain around 2-3/10 manageable by INTERNAL COMBUSTION ENGINE ASSEMBLER pump per pt Patient Status: stable Diet: clear liquid diet Pending Orders: Pending Results/Labs: Pending MD notification: Latest Vital Signs: Temperature 96.6 , Pulse 59 , B/P 98 /60 , Respiratory Rate 16 , O2 SAT 97 , Nasal Cannula, O2 Flow Rate 1.0 . Vital Sign Comment: Latest Junior Fall Score: 35 Fall Risk: Medium Risk Safety Measures: Call light Within Reach, Bed Alarm , Side Rails Side Rails x2, Bed position Low and Locked. Fall Precautions: Yellow Socks Door Sign Patient Fall Education Report given to Teto Recinos RN. Addendum: 07/17/20 at 0641 by Mariajose Angela RN Urine output = 300 True Ileo = 100
--- NOTE | 2020-07-17 07:10 | NUR ---
NURSE NOTES: Handoff received from Mariajose VINSON. Patient is asleep, no signs of acute distress noted, breathing is even and unlabored on room air. Left UA PICC is intact and patent running KVO. Ileo catheter is patent and draining to gravity. COMPUTER ENGINEERING TECHNOLOGIST settings verified against order. Bed is low and locked, side rails ip x2, call light is within reach.
[2020-07-17] MEDS: PCA shift volume MISC SCH (07:17)
[2020-07-17 08:00] VITALS: BP 101/62
--- NOTE | 2020-07-17 08:48 | General Progress Note ---
Progress Note Progress Note Afebrile tolerating clear liquid diet with rare use of AUTOBODY TECHNICIAN Abdomen soft, non-distended, incision and stoma healing nicely po 1380 Urine 3175 BCIR ileo 495 Imp: Ileus resolved Plan: BCIR diet d/c AUTOBODY TECHNICIAN [place] 5/325 prn Maintain continuous drainage of Argueta ileo pouch Gonzales Siddiqui MD Jul 17, 2020 08:48
[2020-07-17 12:00] VITALS: BP 111/71
[2020-07-17 16:00] VITALS: BP 130/76
--- NOTE | 2020-07-17 18:00 | NUR ---
NURSE NOTES: true ileo out: 170 urine: 1400 Patient tolerated solid food well, request diet to be changed to regular with pureed vegetables. PAtient was able to ambulate in the halls x3 today. No complaints of pain or requests for PRN norco since FAST FOOD MANAGER was DC.
--- NOTE | 2020-07-17 19:30 | NUR ---
NURSE HAND-OFF: Important Events on Shift:[DC PAPERHANGER AND PAINTER, regular diet] Patient Status: stable Diet: regular, pureed vegetables Pending Orders: Pending Results/Labs: Pending MD notification: Latest Vital Signs: Temperature 99.1 , Pulse 90 , B/P 130 /76 , Respiratory Rate 20 , O2 SAT 97 , Nasal Cannula, O2 Flow Rate 1.0 . Vital Sign Comment: stable Latest Junior Fall Score: 35 Fall Risk: Medium Risk Safety Measures: Call light Within Reach, Bed Alarm , Side Rails Side Rails x2, Bed position Low and Locked. Fall Precautions: Yellow Socks Door Sign Patient Fall Education Report given to Mariajose VINSON.
--- NOTE | 2020-07-17 19:31 | NUR ---
NURSE NOTES: Received report & pt from KAREL Irene. Pt in bed, a&ox4, in room air, at bedside. No s/s of acute distress & c/o 07/27 pain. Ileo cath intact & draining to gravity. PICC line intact & S/L'd. Requesting for Vitamin C for thick ileo output; will give. Plan of care discussed.
[2020-07-17 20:00] VITALS: BP 127/60
[2020-07-17] MEDS: Ascorbic Acid 500mg tab ORAL PRN (20:11)
[2020-07-17] MEDS: Dyna-Hex 2% Top Sol 2oz TOPIC SCH (20:11)
[2020-07-18] MEDS: HYDROcodone/Acetamin 5/325 tab ORAL PRN ×4 (00:22→22:58)
[2020-07-18 04:00] VITALS: BP 115/67
--- NOTE | 2020-07-18 06:36 | NUR ---
NURSE HAND-OFF: Important Events on Shift: [place] x1, Vitamin C x1, low ileo output 50cc/12hr (No cramping) Patient Status: stable Diet: Regular Pending Orders: Pending Results/Labs: Pending MD notification: Latest Vital Signs: Temperature 98.0 , Pulse 86 , B/P 115 /67 , Respiratory Rate 16 , O2 SAT 98 , Nasal Cannula, O2 Flow Rate 1.0 . Vital Sign Comment: Latest Junior Fall Score: 35 Fall Risk: Medium Risk Safety Measures: Call light Within Reach, Bed Alarm , Side Rails Side Rails x2, Bed position Low and Locked. Fall Precautions: Yellow Socks Door Sign Patient Fall Education Report given to Teto Recinos RN.
[2020-07-18 06:39] LABS: BASOPHILS % (AUTO) 1.5 % (0.0-2.0); EOSINOPHILS % (AUTO) 2.4 % (0.0-3.0); HEMATOCRIT 44.4 % (42.0-52.0); HEMOGLOBIN 13.7 G/DL (14.2-18.0); LYMPHOCYTES % (AUTO) 17.9 % (20.0-45.0); MEAN CORPUSCULAR VOLUME 83 FL (80-99); MONOCYTES % (AUTO) 9.1 % (1.0-10.0); NEUTROPHILS % (AUTO) 69.1 % (45.0-75.0); PLATELET COUNT 174 K/UL (150-450); RED BLOOD COUNT 5.36 M/UL (4.70-6.10); RED CELL DISTRIBUTION WIDTH 14.3 % (11.6-14.8); WHITE BLOOD COUNT 8.1 K/UL (4.8-10.8)
[2020-07-18 06:58] LABS: % IRON SATURATION 14 % (15-50); ALANINE AMINOTRANSFERASE 17 U/L (12-78); ALBUMIN 3.5 G/DL (3.4-5.0); ALBUMIN/GLOBULIN RATIO 0.9 (1.0-2.7); ALKALINE PHOSPHATASE 86 U/L (46-116); ANION GAP 7 mmol/L (5-15); ASPARTATE AMINO TRANSFERASE 19 U/L (15-37); BILIRUBIN,TOTAL 0.6 MG/DL (0.2-1.0); BLOOD UREA NITROGEN 12 mg/dL (7-18); CALCIUM 9.3 MG/DL (8.5-10.1); CARBON DIOXIDE 30 MMOL/L (21-32); CHLORIDE 100 MMOL/L (98-107); IRON 32 ug/dL (50-175); PHOSPHORUS 3.5 MG/DL (2.5-4.9); POTASSIUM 3.8 MMOL/L (3.5-5.1); SODIUM 137 MMOL/L (136-145); TOTAL IRON BINDING CAPACITY 226 ug/dL (250-450)
--- NOTE | 2020-07-18 07:10 | NUR ---
NURSE NOTES: Handoff received from Mariajose RN. Patient is awake and alert, no signs of acute distress noted, breathing is even and unlabored on room air. Left UA PICC is intact and patent, saline locked. Ileo catheter is patent and draining to gravity. Output is thick, RN will order the requested grape juice and medicate as ordered. Bed is low and locked, side rails ip x2, call light is within reach.
[2020-07-18 08:00] VITALS: BP 95/58
--- NOTE | 2020-07-18 08:55 | General Progress Note ---
Progress Note Progress Note AVSS Not eating very much but denies cramping or bloating Abdomen soft, non-distended, incision and stoma healing nicely Urine 2500 BCIR ileo 220cc WBC 8100 Hgb 13.7 albumin 07/22 Imp: slowly improving Plan: Continue diet and I&O Maintain indwelling Argueta pouch catheter to continuous drainage Hopefully can start RN supervised BCIR self-intubations in Gonzales Siddiqui MD Jul 18, 2020 08:55
[2020-07-18] MEDS ORDERED: LORazepam 1mg tab SL PRN ×2 (09:30→21:00)
--- NOTE | 2020-07-18 10:05 | NUR ---
PT EVALUATION/DISCHARGE NOTE Patient seen for initial evaluation. Patient is at independent/supervised level for bed mobility, transfers and ambulation without an assistive device. Skilled inpatient PT intervention not warranted as patient is at baseline level of function. Patient discharged from PT, safe to function with nursing supervision. Teto VINSON notified. Addendum: 07/18/20 at 1235 by VASHTI LANGFORD PT Amended: Links added.
[2020-07-18 12:00] VITALS: BP 97/59
[2020-07-18] MEDS: Ascorbic Acid 500mg tab ORAL PRN ×3 (14:33→19:42)
[2020-07-18 16:00] VITALS: BP 138/80
--- NOTE | 2020-07-18 18:00 | NUR ---
NURSE NOTES: true ileo output: 80 urine out: 900 Patient was able to ambulate in the halls x3 today, worked with physical therapy. Patient had a double helping of lunch, but only ate about 20% of dinner. Ileo output is very thick, 2 doses of vitamin C administered during day shift and rn encouraged patient to drink grape juice. Patient requested 2x doses of norco 5/325. No complaints of abdominal discomfort or distention, just mild surgical site pain.
--- NOTE | 2020-07-18 18:50 | NUR ---
NURSE HAND-OFF: Important Events on Shift:[regular diet, vitamin c x2] Patient Status: stable Diet: regular Pending Orders: Pending Results/Labs: Pending MD notification: Latest Vital Signs: Temperature 98.1 , Pulse 68 , B/P 138 /80 , Respiratory Rate 16 , O2 SAT 96 , Nasal Cannula, O2 Flow Rate 1.0 . Vital Sign Comment: stable Latest Junior Fall Score: 35 Fall Risk: Medium Risk Safety Measures: Call light Within Reach, Bed Alarm , Side Rails Side Rails x2, Bed position Low and Locked. Fall Precautions: Yellow Socks Door Sign Patient Fall Education Report given to Avi VINSON.
--- NOTE | 2020-07-18 18:51 | NUR ---
NURSE HAND-OFF: Important Events on Shift:[CT guided abcess drainage] Patient Status: stable Diet: clear liquid Pending Orders: Pending Results/Labs: Pending MD notification: Latest Vital Signs: Temperature 98.1 , Pulse 68 , B/P 138 /80 , Respiratory Rate 16 , O2 SAT 96 , Nasal Cannula, O2 Flow Rate 1.0 . Vital Sign Comment: stable Latest Juniro Fall Score: 35 Fall Risk: Medium Risk Safety Measures: Call light Within Reach, Bed Alarm , Side Rails Side Rails x2, Bed position Low and Locked. Fall Precautions: Yellow Socks Door Sign Patient Fall Education Report given to Refugio VINSON.
--- NOTE | 2020-07-18 19:05 | NUR ---
NURSE NOTES: Received report from KAREL Irene. Pt is in bed with a NEGAR PICC with no IVF running. Pt has no pain at this time and is able to make needs known. Pt has thick drainage from ileostomy, will give Vitamin C as needed. Call light within reach, side rails up x2, bed locked and in lowest position. Will continue to monitor.
[2020-07-18] MEDS: Dyna-Hex 2% Top Sol 2oz TOPIC SCH (19:41)
[2020-07-18 20:00] VITALS: BP 104/71
[2020-07-19] VITALS: BP 106/67
[2020-07-19 04:18] LABS: BASOPHILS % (AUTO) 1.8 % (0.0-2.0); EOSINOPHILS % (AUTO) 3.6 % (0.0-3.0); HEMOGLOBIN 13.2 G/DL (14.2-18.0); LYMPHOCYTES % (AUTO) 23.1 % (20.0-45.0); MEAN CORPUSCULAR VOLUME 83 FL (80-99); MONOCYTES % (AUTO) 8.8 % (1.0-10.0); NEUTROPHILS % (AUTO) 62.7 % (45.0-75.0); PLATELET COUNT 174 K/UL (150-450); RED BLOOD COUNT 5.07 M/UL (4.70-6.10); RED CELL DISTRIBUTION WIDTH 13.9 % (11.6-14.8); WHITE BLOOD COUNT 7.3 K/UL (4.8-10.8)
[2020-07-19 04:30] LABS: ANION GAP 9 mmol/L (5-15); BLOOD UREA NITROGEN 11 mg/dL (7-18); CALCIUM 9.1 MG/DL (8.5-10.1); CARBON DIOXIDE 27 MMOL/L (21-32); CHLORIDE 101 MMOL/L (98-107); CREATININE 0.9 MG/DL (0.55-1.30); POTASSIUM 3.7 MMOL/L (3.5-5.1); SODIUM 136 MMOL/L (136-145)
--- NOTE | 2020-07-19 07:03 | NUR ---
NURSE HAND-OFF: Important Events on Shift: Vitamin C x1 dose, true output:185, urine:900 Patient Status: sleeping Diet: regular Pending Orders: Pending Results/Labs: Pending MD notification: Latest Vital Signs: Temperature 98.2 , Pulse 79 , B/P 106 /67 , Respiratory Rate 18 , O2 SAT 97 , Nasal Cannula, O2 Flow Rate 1.0 . Vital Sign Comment: VSS Latest Junior Fall Score: 35 Fall Risk: Medium Risk Safety Measures: Call light Within Reach, Bed Alarm , Side Rails Side Rails x2, Bed position Low and Locked. Fall Precautions: Yellow Socks Door Sign Patient Fall Education Report given to KAREL Pineda.
--- NOTE | 2020-07-19 07:45 | NUR ---
NURSE NOTES: Received report from KAREL Cárdenas. Pt awake, alert and oriented, ambulatory, no acute distress, no c/o pain at this time. PICC on NEGAR intact and patent. Ileo cath draining to gravity. Call light within reach. Will continue to monitor.
[2020-07-19 08:00] VITALS: BP 99/61
--- NOTE | 2020-07-19 08:16 | General Progress Note ---
Progress Note Progress Note AVSS Did well with po intake - thick effluent treated with Vitamin C and grape juice and irrigation of Argueta pouch Abdomen soft, healing nicely BCIR ileo catheter removed - reinserts readily labs all stable Imp: Improved Plan; start RN supervised BCIR self-intubations with 30Fr Jing catheter (q3h am to hs, overnight prn) continue I&O If does well with self-intubations will discharge in AM - rickie to be removed next week by PMD in [place] Gonzales Siddiqui MD Jul 19, 2020 08:16
[2020-07-19] MEDS: Ascorbic Acid 500mg tab ORAL PRN ×3 (09:10→17:50)
--- NOTE | 2020-07-19 10:00 | NUR ---
NURSE NOTES: Charge nurse faxed Rx to [facility] and received phone call from the pharmacy and was informed that they do not have [place] in stock. Explained pt and asked if can go to other pharmacy around here to fill the medication. Pt said would fill the prescription today.
--- NOTE | 2020-07-19 11:00 | NUR ---
NURSE NOTES: Pt attempted to self intubate with supervision by nurse. When intubating with standing and sitting pt stated feeling resistance so the catheter (Anisa) could not go in. But pt able to insert catheter in lying position. Brown thick output coming out slowly. Flushed with total 200 NS and obtained 280cc. True output is 80cc.
[2020-07-19 12:00] VITALS: BP 108/72
--- NOTE | 2020-07-19 14:00 | NUR ---
NURSE NOTES: Pt able to self intubate stating this time was easier than the first intubation. Nurse flushed 100 ns and 200cc brown output
[2020-07-19 16:00] VITALS: BP 120/75
[2020-07-19] MEDS: HYDROcodone/Acetamin 5/325 tab ORAL PRN (17:50)
--- NOTE | 2020-07-19 19:16 | NUR ---
NURSE NOTES: Received report from KAREL Pineda. Pt is now able to self intubate with RN supervision. Will remove PICC line as ordered if self intubation continues to go well. Pt is A&Ox4, side rails up x2, bed locked and in lowest position. Will continue to monitor.
--- NOTE | 2020-07-19 19:26 | NUR ---
NURSE HAND-OFF: Important Events on Shift:[self intubation without difficulty, output 240cc, plan to discharge tomorrow.] Patient Status: [stable] Diet: [Reg] Pending Orders: [] Pending Results/Labs:[] Pending MD notification:[] Latest Vital Signs: Temperature 98.0 , Pulse 88 , B/P 120 /75 , Respiratory Rate 18 , O2 SAT 98 , Nasal Cannula, O2 Flow Rate 1.0 . Vital Sign Comment: [stable] Latest Junior Fall Score: 35 Fall Risk: Medium Risk Safety Measures: Call light Within Reach, Bed Alarm , Side Rails Side Rails x2, Bed position Low and Locked. Fall Precautions: Yellow Socks Door Sign Patient Fall Education Report given to [KAREL Cárdenas].
[2020-07-19] MEDS: Dyna-Hex 2% Top Sol 2oz TOPIC SCH (19:47)
[2020-07-19 20:00] VITALS: BP 103/68
--- NOTE | 2020-07-19 23:00 | NUR ---
NURSE NOTES: Pt was able to self intubate with RN supervision which went well with thick output. PICC line removed as ordered.
[2020-07-20] VITALS: BP 105/61
--- NOTE | 2020-07-20 07:05 | NUR ---
NURSE HAND-OFF: Important Events on Shift: self intubation x1 with rn supervision Patient Status: sleeping Diet: regular Pending Orders: Pending Results/Labs: Pending MD notification: Latest Vital Signs: Temperature 98.0 , Pulse 62 , B/P 105 /61 , Respiratory Rate 20 , O2 SAT 100 , Nasal Cannula, O2 Flow Rate 1.0 . Vital Sign Comment: VSS Latest Junior Fall Score: 35 Fall Risk: Medium Risk Safety Measures: Call light Within Reach, Bed Alarm , Side Rails Side Rails x2, Bed position Low and Locked. Fall Precautions: Yellow Socks Door Sign Patient Fall Education Report given to KAREL Pineda.
[2020-07-20 08:00] VITALS: BP 114/67
--- NOTE | 2020-07-20 08:37 | General Progress Note ---
Progress Note Progress Note AVSS Doing well with self-intubation of [place] continent ileostomy pouch Abdomen soft, incision clean with rickie intact Stoma healing nicely Imp: doing well Plan; discharge rickei to be removed by PMD in [place] 07/26 Rx none - to take Tylenol + ibuprofen prn pain Instructions/limitations/supplies discussed/provided f/u office call 07/25 and prn continue BCIR diet Gonzales Siddiqui MD Jul 20, 2020 08:37
[2020-07-20] MEDS: HYDROcodone/Acetamin 5/325 tab ORAL PRN (09:20)
[2020-07-20] MEDS: Ascorbic Acid 500mg tab ORAL PRN (09:20)
--- NOTE | 2020-07-20 10:20 | NUR ---
NURSE NOTES: Pt in stable condition. Provided discharge instructions and supplies. Pt verbalized understanding. All belongings were accounted for. ID band removed. Pt was escorted to downstair by nurse and pt left hospital with .
--- NOTE | 2020-07-20 18:05 | NUR ---
insurance CLINICAL FAXED TO [facility] - , opt 1, opt 4, opt 6 ([place] Julio C) Fax clinicals to: [phone]
--- NOTE | 2020-07-21 13:50 | Discharge Summary ---
Discharge Summary Discharge Summary _ Date of admission: 07/07/2020 Date of discharge: 07/20/[address] Siddiqui History of Present Illness and Brief Hospital Course Mr. Zayas is a 30-year-old male with past medical history of ulcerative colitis status post total colectomy and now BCIR pouch, who presented to ED for ileosto my revision. Patient had not been able to intubate his ostomy. Patient underwent laparotomy with revision of Argueta continent ileostomy stoma and access segment. Patient tolerated the procedure well and left the operating room in good condition. The details of the procedure can be found in the operative note by Dr. Sdidiqui. Patient began ambulating and tolerating clear liquid diet. Patient was found to be self intubating Argueta continent ileostomy pouch. His abdomen was soft, incision clean with rickie intact. His stoma was healing nicely. Patient was instructed to follow-up with Dr. Siddiqui in his office on 07/25/2020 and as needed. Patient was medically stable for discharge and was discharged home on 07/20/2020. Consultants: None Discharge Condition Improved and stable Discharge Activity As tolerated Discharge Diet Regular Final diagnoses Malfunctioning Argueta continent ileostomy with severe difficulty with intubation History of ulcerative colitis Status post multiple abdominal operations: 1. Laparoscopic-assisted total colectomy with conventional Giana ileostomy, December 30, 2018. 2. Repair of incarcerated right inguinal hernia, January 06, 2019. 3. Laparotomy with abdomino-perineal proctectomy and creation of Argueta continent ileostomy with temporary catheter gastrostomy, May 07, 2019. I have been assigned to dictate discharge summary for this account. I was not involved in the patient's management Spencer Birmingham Jul 21, 2020 13:50
== END 2020-07-20 10:20 | disposition home or self-care (01) | DRG 330 ==
LOC: EMR 16:54 → EDBEDREQ 17:59 → 4E 18:05
PROC: 02HV33Z Insertion of Infusion Device into Superior Vena Cava, Percutaneous Approach (ICD-10-PCS; principal; 2020-07-08 11:30)
PROC: 0DJD8ZZ Inspection of Lower Intestinal Tract, Via Natural or Artificial Opening Endoscopic (ICD-10-PCS; principal; 2020-07-08 11:30)
PROC: 0D1B0Z4 Bypass Ileum to Cutaneous, Open Approach (ICD-10-PCS; 2020-07-13)
DX: K94.13 Enterostomy malfunction (principal); K56.7 Ileus, unspecified; E86.0 Dehydration; Y83.3 Surgical operation with formation of external stoma as the cause of abnormal reaction of the patient, or of later complication, without mention of misadventure at the time of the procedure; Z87.19 Personal history of other diseases of the digestive system
CPT/HCPCS: 36415; 36573; 76937; 80048; 80053; 81001; 82248; 82607; 82728; 82746; 83540; 83550; 83735; 84100; 85025; 85610; 85730; 86850; 86900; 86901; 94003; 94150; 99285; J2405; J2710